=== PATIENT | female | born 1935 | race Caucasian/White ===

== ENCOUNTER → 2017-04-03 10:05 | Outpatient (CLI) | payer MEDICARE, SELFPAY ==
[2017-04-03 11:17] LABS: Alanine Aminotransferase 20 U/L (12-78); Albumin Level 3.4 gm/dL (3.4-5.0); Alkaline Phosphatase 120 U/L (46-116); Aspartate Amino Transferase 27 U/L (15-37); Bilirubin,Direct 0.1 mg/dL (0.0-0.2); Bilirubin,Total 0.2 mg/dL (0.2-1.0); Cholesterol 182 mg/dL (140-200); HDL Cholesterol 46 mg/dL (29-89); LDL Cholesterol 109 mg/dL (0-130); Total Protein,Serum 7.2 gm/dL (6.4-8.2); Triglycerides 135 mg/dL (30-200); VLDL Cholesterol 27 mg/dL (0-40)
== END ==
PROVIDERS: PCP Nurse Practitioner Family; Visit Provider Internal Medicine
DX: Z95.5 Presence of coronary angioplasty implant and graft (principal); I25.10 Atherosclerotic heart disease of native coronary artery without angina pectoris; I11.9 Hypertensive heart disease without heart failure; E78.4 Other hyperlipidemia
CPT/HCPCS: 36415; 80061; 80076

== ENCOUNTER → 2017-04-03 10:27 | Outpatient (POV) | payer MEDICARE, SELFPAY | PROVIDERS: PCP Nurse Practitioner Family; Visit Provider Physician Assistant | DX: Z00.00 Encounter for general adult medical examination without abnormal findings (principal) ==

== ENCOUNTER → 2017-06-22 14:51 | Outpatient (REF) | payer MEDICARE, SELFPAY ==
[2017-06-22 17:15] LABS: Basophils # 0.1 K/mm3 (0-0.2); Basophils % 1.1 % (0.1-2.0); Eosinophils # 0.8 K/mm3 (0.0-0.4); Eosinophils % 10.6 % (0.1-12.0); Hematocrit 31.2 % (37.0-47.0); Hemoglobin 8.9 g/dL (12.2-16.2); Lymphocytes # 2.4 K/mm3 (0.7-4.5); Lymphocytes % 30.8 K/mm3 (10-50); Mean Corpuscular HGB Conc 28.5 g/dL (31.8-35.4); Mean Platelet Volume 8.9 fl (7.4-10.4); Monocytes # 0.7 K/mm3 (0.1-1.0); Monocytes % 9.4 % (1.7-9.3); Neutrophils # 3.7 K/mm3 (1.8-7.8); Platelet Count 254 K/mm3 (142-424); Red Blood Count 3.72 M/mm3 (4.20-5.40); Red Cell Distribution Width 15.4 % (11.5-17.5); White Blood Count 7.6 K/mm3 (4.8-10.8)
[2017-06-22 18:38] LABS: Alanine Aminotransferase 15 U/L (12-78); Albumin Level 3.8 gm/dL (3.4-5.0); Alkaline Phosphatase 96 U/L (46-116); Anion Gap 17.7 mEq/L (5-15); Aspartate Amino Transferase 25 U/L (15-37); Bilirubin,Total 0.3 mg/dL (0.2-1.0); Blood Urea Nitrogen 33 mg/dL (7-18); Calcium 11.2 mg/dL (8.5-10.1); Carbon Dioxide 22 mmol/L (21.0-32.0); Chloride 103 mmol/L (98-107); Creatinine,Serum 2.34 mg/dL (0.55-1.02); Estimated Glomerular Filt Rate 20 ml/min (>60); Free T4 (Free Thyroxine) 0.96 ng/dl (0.76-1.46); GFR (African American) 24 ML/MIN (>60); Globulin 3.8 gm/dl (1.3-3.2); Glucose 98 mg/dL (74-106); Potassium 4.7 mmoL/L (3.5-5.1); Sodium 138 mmol/L (136-145); Thyroid Stimulating Hormone 1.54 uIU/ml (0.358-3.740); Total Protein,Serum 7.6 gm/dL (6.4-8.2)
== END ==
LOC: LAB 14:51
PROVIDERS: Visit Provider Nurse Practitioner Family
DX: E78.5 Hyperlipidemia, unspecified (principal)
CPT/HCPCS: 80053; 84439; 84443; 85025

== ENCOUNTER → 2017-06-29 10:07 | Outpatient (CLI) | payer MEDICARE, SELFPAY ==
[2017-06-29 10:30] LABS: Basophils # 0.1 K/mm3 (0-0.2); Basophils % 1.1 % (0.1-2.0); Eosinophils # 0.8 K/mm3 (0.0-0.4); Eosinophils % 9.2 % (0.1-12.0); Hematocrit 32.3 % (37.0-47.0); Hemoglobin 9.5 g/dL (12.2-16.2); Lymphocytes % 24.9 K/mm3 (10-50); Mean Corpuscular HGB Conc 29.3 g/dL (31.8-35.4); Mean Corpuscular Hemoglobin 24.6 pg (27.0-31.2); Mean Corpuscular Volume 84.2 fl (81-99); Mean Platelet Volume 8.5 fl (7.4-10.4); Monocytes # 0.7 K/mm3 (0.1-1.0); Monocytes % 7.9 % (1.7-9.3); Neutrophils # 4.7 K/mm3 (1.8-7.8); Neutrophils % 56.9 % (37.0-80.0); Platelet Count 251 K/mm3 (142-424); Red Blood Count 3.84 M/mm3 (4.20-5.40); Red Cell Distribution Width 15.7 % (11.5-17.5); White Blood Count 8.2 K/mm3 (4.8-10.8)
[2017-06-29 11:20] LABS: Alanine Aminotransferase 16 U/L (12-78); Albumin Level 3.8 gm/dL (3.4-5.0); Alkaline Phosphatase 95 U/L (46-116); Anion Gap 11.9 mEq/L (5-15); Aspartate Amino Transferase 24 U/L (15-37); Bilirubin,Total 0.3 mg/dL (0.2-1.0); Blood Urea Nitrogen 33 mg/dL (7-18); Calcium 10.3 mg/dL (8.5-10.1); Carbon Dioxide 27 mmol/L (21.0-32.0); Chloride 109 mmol/L (98-107); Creatinine,Serum 2.44 mg/dL (0.55-1.02); Estimated Glomerular Filt Rate 19 ml/min (>60); GFR (African American) 23 ML/MIN (>60); Globulin 3.8 gm/dl (1.3-3.2); Glucose 97 mg/dL (74-106); Potassium 4.9 mmoL/L (3.5-5.1); Sodium 143 mmol/L (136-145); Total Protein,Serum 7.6 gm/dL (6.4-8.2)
== END ==
PROVIDERS: Visit Provider Nurse Practitioner Family
DX: D64.9 Anemia, unspecified (principal); R79.89 Other specified abnormal findings of blood chemistry
CPT/HCPCS: 36415; 80053; 85025

== ENCOUNTER → 2017-07-04 11:15 | Outpatient (CLI) | payer MEDICARE, SELFPAY ==
[2017-07-04 11:32] LABS: Hematocrit 32.3 % (37.0-47.0); Hemoglobin 9.4 g/dL (12.2-16.2)
== END ==
PROVIDERS: Visit Provider Nurse Practitioner Family
DX: D64.9 Anemia, unspecified (principal)
CPT/HCPCS: 36415; 85014; 85018

== ENCOUNTER → 2017-08-02 09:50 | Outpatient (CLI) | payer MEDICARE, SELFPAY ==
[2017-08-02 11:04] LABS: Hematocrit 34.2 % (37.0-47.0); Hemoglobin 10.5 g/dL (12.2-16.2)
== END ==
PROVIDERS: Visit Provider Nurse Practitioner Family
DX: D64.9 Anemia, unspecified (principal)
CPT/HCPCS: 36415; 85014; 85018

== ENCOUNTER → 2017-09-11 09:09 | Outpatient (CLI) | payer MEDICARE, SELFPAY ==
[2017-09-11 09:13] LABS: Microscopic, Urine URINE MICROSCOPIC (MICROSCOPIC)
[2017-09-11 09:29] LABS: Basophils # 0.1 K/mm3 (0-0.2); Basophils % 1.3 % (0.1-2.0); Eosinophils # 1.3 K/mm3 (0.0-0.4); Eosinophils % 14.8 % (0.1-12.0); Hematocrit 42.2 % (37.0-47.0); Hemoglobin 12.4 g/dL (12.2-16.2); Lymphocytes # 2.3 K/mm3 (0.7-4.5); Lymphocytes % 26.7 K/mm3 (10-50); Mean Corpuscular HGB Conc 29.3 g/dL (31.8-35.4); Mean Corpuscular Hemoglobin 26.7 pg (27.0-31.2); Mean Corpuscular Volume 91.2 fl (81-99); Mean Platelet Volume 8.5 fl (7.4-10.4); Monocytes # 0.6 K/mm3 (0.1-1.0); Monocytes % 6.4 % (1.7-9.3); Neutrophils # 4.4 K/mm3 (1.8-7.8); Neutrophils % 50.7 % (37.0-80.0); Platelet Count 204 K/mm3 (142-424); Red Blood Count 4.63 M/mm3 (4.20-5.40); Red Cell Distribution Width 16.9 % (11.5-17.5); White Blood Count 8.6 K/mm3 (4.8-10.8)
[2017-09-11 09:55] LABS: Appearance,Urine CLEAR (Clear); Bilirubin,Urine Negative (Negative); Blood, Urine TRACE-L (Negative); Color,Urine YELLOW (Yellow); Glucose,Urine (UA) Negative (Negative); Ketones,Urine Negative (Negative); Leukocyte Esterase,Urine TRACE (Negative); Nitrate,Urine Negative (Negative); PH,Urine 5.5 (5.0-8.5); Protein,Urine 2+ (Negative); Urobilinogen,Urine 0.2 EU/dl (0.2)
[2017-09-11 10:03] LABS: Creatinine,Urine Random 75 mg/dL (20-320); Total Protein,Urine Random 79.7 mg/dL (0.0-11.9)
[2017-09-11 10:33] LABS: Bacteria,Urine 2+ /lpf; WBC,Urine 20-50 #/hpf (0-3)
[2017-09-11 11:11] LABS: Albumin Level 3.9 gm/dL (3.4-5.0); Anion Gap 13.2 mEq/L (5-15); Blood Urea Nitrogen 30 mg/dL (7-18); Calcium 9.9 mg/dL (8.5-10.1); Carbon Dioxide 26 mmol/L (21.0-32.0); Chloride 108 mmol/L (98-107); Creatinine,Serum 2.08 mg/dL (0.55-1.02); Estimated Glomerular Filt Rate 23 ml/min (>60); Ferritin 26 ng/mL (8-388); GFR (African American) 28 ML/MIN (>60); Glucose 99 mg/dL (74-106); Phosphorous 4.2 mg/dL (2.4-4.9); Potassium 5.2 mmoL/L (3.5-5.1); Sodium 142 mmol/L (136-145)
[2017-09-12 08:33] LABS: Iron 105 ug/dL (27-139); UIBC 227 ug/dL (118-369)
[2017-09-12 09:20] LABS: Iron Saturation 32 % (15-55)
== END ==
PROVIDERS: Visit Provider Internal Medicine Nephrology
DX: N18.4 Chronic kidney disease, stage 4 (severe) (principal); R82.90 Unspecified abnormal findings in urine
CPT/HCPCS: 36415; 80069; 81001; 82570; 82728; 83540; 83550; 84155; 85025; 87086; 87088; 87186

== ENCOUNTER → 2017-09-26 12:19 | Outpatient (CLI) | payer MEDICARE, SELFPAY ==
[2017-09-26 14:25] LABS: Alanine Aminotransferase 15 U/L (12-78); Albumin Level 3.8 gm/dL (3.4-5.0); Alkaline Phosphatase 87 U/L (46-116); Aspartate Amino Transferase 21 U/L (15-37); Bilirubin,Direct 0.1 mg/dL (0.0-0.2); Bilirubin,Indirect 0.3 mg/dL (0.0-0.9); Bilirubin,Total 0.4 mg/dL (0.2-1.0); Chol/HDL Ratio 2.8 (1-3.5); Cholesterol 138 mg/dL (140-200); HDL Cholesterol 49 mg/dL (29-89); LDL Cholesterol 63 mg/dL (0-130); Total Protein,Serum 7.5 gm/dL (6.4-8.2); Triglycerides 131 mg/dL (30-200); VLDL Cholesterol 26 mg/dL (0-40)
== END ==
PROVIDERS: PCP Nurse Practitioner Family; Visit Provider Nurse Practitioner Family
DX: E78.4 Other hyperlipidemia (principal)
CPT/HCPCS: 36415; 80061; 80076

== ENCOUNTER → 2018-02-22 11:08 | Outpatient (CLI) | payer MEDICARE, SELFPAY ==
[2018-02-22 11:16] LABS: Microscopic, Urine URINE MICROSCOPIC (MICROSCOPIC)
[2018-02-22 11:41] LABS: Appearance,Urine CLEAR (Clear); Bilirubin,Urine Negative (Negative); Blood, Urine TRACE-L (Negative); Color,Urine YELLOW (Yellow); Glucose,Urine (UA) Negative (Negative); Ketones,Urine Negative (Negative); Leukocyte Esterase,Urine TRACE (Negative); Nitrate,Urine Negative (Negative); Protein,Urine 2+ (Negative); Specific Gravity, Urine 1.025 (1.005-1.030); Urobilinogen,Urine 0.2 EU/dl (0.2)
[2018-02-22 12:01] LABS: Bacteria,Urine 1+ /lpf; Squamous Epithelial Cell,Urine Occasional #/hpf (0-5)
[2018-02-22 12:13] LABS: Basophils # 0.1 K/mm3 (0-0.2); Basophils % 0.8 % (0.1-2.0); Eosinophils # 0.8 K/mm3 (0.0-0.4); Eosinophils % 8.7 % (0.1-12.0); Hematocrit 35.9 % (37.0-47.0); Hemoglobin 11.1 g/dL (12.2-16.2); Lymphocytes # 2.3 K/mm3 (0.7-4.5); Mean Corpuscular Hemoglobin 30.1 pg (27.0-31.2); Mean Corpuscular Volume 97.1 fl (81-99); Monocytes # 0.6 K/mm3 (0.1-1.0); Monocytes % 6.9 % (1.7-9.3); Neutrophils # 5.3 K/mm3 (1.8-7.8); Neutrophils % 58.7 % (37.0-80.0); Platelet Count 215 K/mm3 (142-424); Red Cell Distribution Width 13.4 % (11.5-17.5); White Blood Count 9.1 K/mm3 (4.8-10.8)
[2018-02-22 12:23] LABS: Creatinine,Urine Random 184 mg/dL (20-320); Total Protein,Urine Random 105.4 mg/dL (0.0-11.9)
[2018-02-22 13:14] LABS: Albumin Level 3.9 gm/dL (3.4-5.0); Anion Gap 15.9 mEq/L (5-15); Blood Urea Nitrogen 38 mg/dL (7-18); Calcium 9.9 mg/dL (8.5-10.1); Carbon Dioxide 24 mmol/L (21.0-32.0); Chloride 105 mmol/L (98-107); Creatinine,Serum 2.32 mg/dL (0.55-1.02); Estimated Glomerular Filt Rate 20 ml/min (>60); GFR (African American) 24 ML/MIN (>60); Glucose 90 mg/dL (74-106); Phosphorous 4.3 mg/dL (2.4-4.9); Potassium 4.9 mmoL/L (3.5-5.1); Sodium 140 mmol/L (136-145)
== END ==
PROVIDERS: PCP Nurse Practitioner Family; Visit Provider Internal Medicine Nephrology
DX: N18.4 Chronic kidney disease, stage 4 (severe) (principal)
CPT/HCPCS: 36415; 80069; 81001; 82570; 84155; 85025

== ENCOUNTER → 2018-03-05 13:46 | Outpatient (POV) | payer MEDICARE, SELFPAY | PROVIDERS: Visit Provider Internal Medicine Nephrology | DX: Z00.00 Encounter for general adult medical examination without abnormal findings (principal) ==

== ENCOUNTER → 2018-07-12 09:12 | Outpatient (CLI) | payer MEDICARE, SELFPAY ==
[2018-07-12 09:15] LABS: Microscopic, Urine URINE MICROSCOPIC (MICROSCOPIC)
[2018-07-12 09:47] LABS: Basophils # 0.1 K/mm3 (0-0.2); Eosinophils # 0.5 K/mm3 (0.0-0.4); Eosinophils % 6.6 % (0.1-12.0); Hematocrit 37.3 % (37.0-47.0); Hemoglobin 11.8 g/dL (12.2-16.2); Lymphocytes % 28.1 % (10-50); Mean Corpuscular HGB Conc 31.6 g/dL (31.8-35.4); Mean Corpuscular Hemoglobin 29.9 pg (27.0-31.2); Mean Corpuscular Volume 94.5 fl (81-99); Mean Platelet Volume 8.3 fl (7.4-10.4); Monocytes # 0.4 K/mm3 (0.1-1.0); Monocytes % 6.4 % (1.7-9.3); Neutrophils % 57.9 % (37.0-80.0); Platelet Count 232 K/mm3 (142-424); Red Blood Count 3.95 M/mm3 (4.20-5.40); Red Cell Distribution Width 13.1 % (11.5-17.5)
[2018-07-12 10:39] LABS: Appearance,Urine SL CLOUDY (Clear); Bilirubin,Urine Negative (Negative); Blood, Urine 1+ (Negative); Color,Urine YELLOW (Yellow); Glucose,Urine (UA) Negative (Negative); Ketones,Urine Negative (Negative); Leukocyte Esterase,Urine 1+ (Negative); Nitrate,Urine Negative (Negative); Protein,Urine 2+ (Negative); Specific Gravity, Urine 1.015 (1.005-1.030); Urobilinogen,Urine 0.2 EU/dl (0.2)
[2018-07-12 10:48] LABS: Albumin Level 4.1 gm/dL (3.4-5.0); Anion Gap 16.5 mEq/L (5-15); Blood Urea Nitrogen 28 mg/dL (7-18); Carbon Dioxide 25 mmol/L (21.0-32.0); Chloride 106 mmol/L (98-107); Estimated Glomerular Filt Rate 21 ml/min (>60); GFR (African American) 26 ML/MIN (>60); Glucose 90 mg/dL (74-106); Phosphorous 3.6 mg/dL (2.4-4.9); Potassium 4.5 mmoL/L (3.5-5.1); Sodium 143 mmol/L (136-145)
[2018-07-12 11:02] LABS: Creatinine,Urine Random 101 mg/dL (20-320); Total Protein,Urine Random 124.8 mg/dL (0.0-11.9)
[2018-07-12 11:45] LABS: Bacteria,Urine Trace /lpf; Squamous Epithelial Cell,Urine Occasional #/hpf (0-5)
[2018-07-13 15:10] LABS: Calcium, Ionized 5.8 mg/dL (4.5-5.6)
[2018-07-14 06:41] LABS: Parathyroid Hormone Intact 161 pg/mL (15-65); Vitamin D 25 Hydroxy 29.2 ng/mL (30.0-100.0)
== END ==
PROVIDERS: Visit Provider Internal Medicine Nephrology
DX: N18.4 Chronic kidney disease, stage 4 (severe) (principal); R82.90 Unspecified abnormal findings in urine
CPT/HCPCS: 36415; 80069; 81001; 82330; 82570; 82652; 83970; 84155; 85025; 87086; 87088; 87186

== ENCOUNTER → 2018-07-19 12:30 | Outpatient (POV) | payer MEDICARE, SELFPAY | PROVIDERS: Visit Provider Internal Medicine Nephrology | DX: Z00.00 Encounter for general adult medical examination without abnormal findings (principal) ==

== ENCOUNTER → 2018-09-25 11:16 | Outpatient (CLI) | payer MEDICARE, SELFPAY ==
[2018-09-25 12:22] LABS: Alanine Aminotransferase 16 U/L (12-78); Albumin Level 3.8 gm/dL (3.4-5.0); Alkaline Phosphatase 87 U/L (46-116); Aspartate Amino Transferase 18 U/L (15-37); Bilirubin,Direct 0.1 mg/dL (0.0-0.2); Bilirubin,Indirect 0.3 mg/dL (0.0-0.9); Bilirubin,Total 0.4 mg/dL (0.2-1.0); Chol/HDL Ratio 2.4 (1-3.5); Cholesterol 129 mg/dL (140-200); HDL Cholesterol 53 mg/dL (29-89); LDL Cholesterol 56 mg/dL (0-130); Triglycerides 102 mg/dL (30-200); VLDL Cholesterol 20 mg/dL (0-40)
== END ==
PROVIDERS: Visit Provider Urology
DX: E78.5 Hyperlipidemia, unspecified (principal); I11.9 Hypertensive heart disease without heart failure; I25.10 Atherosclerotic heart disease of native coronary artery without angina pectoris; Z95.5 Presence of coronary angioplasty implant and graft
CPT/HCPCS: 36415; 80061; 80076

== ENCOUNTER → 2018-11-12 10:34 | Outpatient (CLI) | payer MEDICARE, SELFPAY ==
[2018-11-12 10:39] LABS: Microscopic, Urine URINE MICROSCOPIC (MICROSCOPIC)
[2018-11-12 11:03] LABS: Basophils # 0.1 K/mm3 (0-0.2); Basophils % 0.8 % (0.1-2.0); Eosinophils # 0.5 K/mm3 (0.0-0.4); Eosinophils % 7.7 % (0.1-12.0); Hemoglobin 9.9 g/dL (12.2-16.2); Lymphocytes % 28.2 % (10-50); Mean Corpuscular HGB Conc 29.9 g/dL (31.8-35.4); Mean Corpuscular Hemoglobin 27.7 pg (27.0-31.2); Mean Corpuscular Volume 92.5 fl (81-99); Mean Platelet Volume 8.8 fl (7.4-10.4); Monocytes # 0.6 K/mm3 (0.1-1.0); Monocytes % 7.9 % (1.7-9.3); Neutrophils # 3.8 K/mm3 (1.8-7.8); Neutrophils % 55.4 % (37.0-80.0); Platelet Count 247 K/mm3 (142-424); Red Blood Count 3.57 M/mm3 (4.20-5.40); Red Cell Distribution Width 14.1 % (11.5-17.5); White Blood Count 6.9 K/mm3 (4.8-10.8)
[2018-11-12 11:04] LABS: Appearance,Urine CLEAR (Clear); Bilirubin,Urine Negative (Negative); Blood, Urine TRACE-I (Negative); Color,Urine YELLOW (Yellow); Glucose,Urine (UA) Negative (Negative); Ketones,Urine Negative (Negative); Leukocyte Esterase,Urine TRACE (Negative); Nitrate,Urine Negative (Negative); Protein,Urine 1+ (Negative); Specific Gravity, Urine 1.015 (1.005-1.030); Urobilinogen,Urine 0.2 EU/dl (0.2)
[2018-11-12 11:34] LABS: Bacteria,Urine 1+ /lpf; Squamous Epithelial Cell,Urine Occasional #/hpf (0-5)
[2018-11-12 11:44] LABS: Creatinine,Urine Random 78 mg/dL (20-320); Total Protein,Urine Random 85.2 mg/dL (0.0-11.9)
[2018-11-12 11:47] LABS: Albumin Level 3.7 gm/dL (3.4-5.0); Anion Gap 13.4 mEq/L (5-15); Blood Urea Nitrogen 31 mg/dL (7-18); Calcium 9.4 mg/dL (8.5-10.1); Carbon Dioxide 26 mmol/L (21.0-32.0); Chloride 106 mmol/L (98-107); Creatinine,Serum 2.42 mg/dL (0.55-1.02); Estimated Glomerular Filt Rate 19 ml/min (>60); GFR (African American) 23 ML/MIN (>60); Glucose 95 mg/dL (74-106); Phosphorous 4.7 mg/dL (2.4-4.9); Potassium 4.4 mmoL/L (3.5-5.1); Sodium 141 mmol/L (136-145)
== END ==
PROVIDERS: Visit Provider Internal Medicine Nephrology
DX: N18.4 Chronic kidney disease, stage 4 (severe) (principal)
CPT/HCPCS: 36415; 80069; 81001; 82570; 84155; 85025

== ENCOUNTER → 2018-11-22 13:12 | Outpatient (POV) | payer MEDICARE, SELFPAY | PROVIDERS: Visit Provider Internal Medicine Nephrology | DX: Z00.00 Encounter for general adult medical examination without abnormal findings (principal) ==

== ENCOUNTER → 2019-03-15 09:07 | Outpatient (CLI) | payer MEDICARE, SELFPAY ==
[2019-03-15 09:17] LABS: Microscopic, Urine URINE MICROSCOPIC (MICROSCOPIC)
[2019-03-15 09:49] LABS: Basophils # 0.1 K/mm3 (0-0.2); Creatinine,Urine Random 124 mg/dL (20-320); Eosinophils # 0.6 K/mm3 (0.0-0.4); Eosinophils % 8.3 % (0.1-12.0); Hematocrit 29.4 % (37.0-47.0); Hemoglobin 8.7 g/dL (12.2-16.2); Lymphocytes # 2.1 K/mm3 (0.7-4.5); Lymphocytes % 27.8 % (10-50); Mean Corpuscular HGB Conc 29.8 g/dL (31.8-35.4); Mean Corpuscular Hemoglobin 26.8 pg (27.0-31.2); Mean Corpuscular Volume 89.9 fl (81-99); Monocytes # 0.6 K/mm3 (0.1-1.0); Monocytes % 7.7 % (1.7-9.3); Neutrophils # 4.1 K/mm3 (1.8-7.8); Neutrophils % 55.3 % (37.0-80.0); Platelet Count 268 K/mm3 (142-424); Red Blood Count 3.27 M/mm3 (4.20-5.40); Red Cell Distribution Width 14.5 % (11.5-17.5); Total Protein,Urine Random 106.7 mg/dL (0.0-11.9); White Blood Count 7.4 K/mm3 (4.8-10.8)
[2019-03-15 09:50] LABS: Appearance,Urine CLEAR (Clear); Bilirubin,Urine Negative (Negative); Blood, Urine 1+ (Negative); Color,Urine YELLOW (Yellow); Glucose,Urine (UA) Negative (Negative); Ketones,Urine Negative (Negative); Leukocyte Esterase,Urine 1+ (Negative); Nitrate,Urine Negative (Negative); Protein,Urine 1+ (Negative); Specific Gravity, Urine 1.025 (1.005-1.030); Urobilinogen,Urine 0.2 EU/dl (0.2)
[2019-03-15 10:28] LABS: Bacteria,Urine 4+ /lpf; Mucus,Urine 1+ /lpf
[2019-03-15 10:56] LABS: Albumin Level 3.7 gm/dL (3.4-5.0); Anion Gap 14.5 mEq/L (5-15); Blood Urea Nitrogen 30 mg/dL (7-18); Calcium 9.1 mg/dL (8.5-10.1); Carbon Dioxide 24 mmol/L (21.0-32.0); Chloride 107 mmol/L (98-107); Creatinine,Serum 2.44 mg/dL (0.55-1.02); Estimated Glomerular Filt Rate 19 ml/min (>60); Ferritin 8 ng/mL (8-388); GFR (African American) 23 ML/MIN (>60); Glucose 91 mg/dL (74-106); Phosphorous 4.3 mg/dL (2.4-4.9); Potassium 4.5 mmoL/L (3.5-5.1); Sodium 141 mmol/L (136-145)
[2019-03-16 04:46] LABS: Iron 24 ug/dL (27-139); UIBC 360 ug/dL (118-369)
[2019-03-16 11:12] LABS: Iron Saturation 6 % (15-55); Parathyroid Hormone Intact 131 pg/mL (15-65); Vitamin D 25 Hydroxy 24.5 ng/mL (30.0-100.0)
[2019-03-17 16:27] LABS: Calcium, Ionized 5.5 mg/dL (4.5-5.6)
== END ==
PROVIDERS: Visit Provider Internal Medicine Nephrology
DX: N18.4 Chronic kidney disease, stage 4 (severe) (principal); E55.9 Vitamin D deficiency, unspecified; R82.90 Unspecified abnormal findings in urine
CPT/HCPCS: 36415; 80069; 81001; 82330; 82570; 82652; 82728; 83540; 83550; 83970; 84155; 85025; 87086; 87088; 87186

== ENCOUNTER → 2019-03-21 14:22 | Outpatient (POV) | payer MEDICARE, SELFPAY | PROVIDERS: Visit Provider Internal Medicine Nephrology | DX: Z00.00 Encounter for general adult medical examination without abnormal findings (principal) ==

== ENCOUNTER → 2019-05-15 09:34 | Outpatient (CLI) | payer MEDICARE, SELFPAY ==
[2019-05-15 09:42] LABS: Microscopic, Urine URINE MICROSCOPIC (MICROSCOPIC)
[2019-05-15 10:31] LABS: Basophils # 0.1 K/mm3 (0-0.2); Basophils % 0.8 % (0.1-2.0); Eosinophils # 0.6 K/mm3 (0.0-0.4); Hematocrit 34.1 % (37.0-47.0); Hemoglobin 10.6 g/dL (12.2-16.2); Lymphocytes # 1.7 K/mm3 (0.7-4.5); Lymphocytes % 19.3 % (10-50); Mean Corpuscular HGB Conc 31.1 g/dL (31.8-35.4); Mean Corpuscular Hemoglobin 29.1 pg (27.0-31.2); Mean Corpuscular Volume 93.5 fl (81-99); Mean Platelet Volume 8.6 fl (7.4-10.4); Monocytes # 0.6 K/mm3 (0.1-1.0); Monocytes % 6.5 % (1.7-9.3); Neutrophils % 66.4 % (37.0-80.0); Platelet Count 248 K/mm3 (142-424); Red Blood Count 3.64 M/mm3 (4.20-5.40); Red Cell Distribution Width 15.4 % (11.5-17.5)
[2019-05-15 10:57] LABS: Appearance,Urine CLEAR (Clear); Bilirubin,Urine Negative (Negative); Blood, Urine 1+ (Negative); Color,Urine YELLOW (Yellow); Glucose,Urine (UA) Negative (Negative); Ketones,Urine Negative (Negative); Leukocyte Esterase,Urine 2+ (Negative); Nitrate,Urine POSITIVE (Negative); Protein,Urine 2+ (Negative); Urobilinogen,Urine 0.2 EU/dl (0.2)
[2019-05-15 11:02] LABS: Creatinine,Urine Random 104 mg/dL (Not Estab.)
[2019-05-15 11:12] LABS: Bacteria,Urine 4+ /lpf; WBC,Urine TNTC #/hpf (0-3)
[2019-05-15 11:27] LABS: Chloride 105 mmol/L (98-107); Potassium 4.7 mmoL/L (3.5-5.1); Sodium 139 mmol/L (136-145)
[2019-05-15 11:28] LABS: Albumin Level 3.9 g/dl (3.5-5.0)
[2019-05-15 11:30] LABS: Anion Gap 12.7 mEq/L (5-15); Blood Urea Nitrogen 25 mg/dl (7-17); Carbon Dioxide 26 mmol/L (22.0-30.0); Estimated Glomerular Filt Rate 20 ml/min (>60); GFR (African American) 25 ML/MIN (>60)
[2019-05-15 11:31] LABS: Calcium 10.3 mg/dl (8.4-10.2); Glucose 90 mg/dl (74-100); Phosphorous 3.1 mg/dl (2.5-4.5)
[2019-05-15 12:05] LABS: Ferritin 12.6 ng/ml (11.1-264)
[2019-05-16 08:29] LABS: Iron 44 ug/dL (27-139); UIBC 297 ug/dL (118-369)
[2019-05-16 12:38] LABS: Iron Saturation 13 % (15-55)
== END ==
PROVIDERS: Visit Provider Internal Medicine Nephrology
DX: N18.4 Chronic kidney disease, stage 4 (severe) (principal); R82.90 Unspecified abnormal findings in urine
CPT/HCPCS: 36415; 80069; 81001; 82570; 82728; 83540; 83550; 84155; 85025; 87086; 87088; 87186

== ENCOUNTER → 2019-05-23 14:20 | Outpatient (POV) | payer MEDICARE, SELFPAY | PROVIDERS: PCP Internal Medicine Nephrology; Visit Provider Internal Medicine Nephrology | DX: Z00.00 Encounter for general adult medical examination without abnormal findings (principal) ==

== ENCOUNTER → 2019-09-27 14:01 | Outpatient (CLI) | payer MEDICARE, SELFPAY ==
--- NOTE | 2019-09-27 14:07 | CA_ITS ---
APPROVED REPORT EXAM: Comprehensive 2D, Doppler, and color-flow Echocardiogram Pourer Metal: Mimi Emmanuel RT(R) Ht: 5 ft 0 in Wt: 147lbs BSA: 1.64 BP: 136/83 mmHg Indications: CAD, CKD, HTN, hyperlipidemia 2D Dimensions LVOT 1.78 cm (M/F) 1.5-2.5 M-Mode Dimensions RVDd 2.29 cm (0.9-2.6) LVDd 4.79 cm (3.5-5.7) LVDs 3.86 cm (3.5-5.7) IVSd 1.11 cm (0.6-1.1) PWd 0.93 cm (0.6-1.1) EF (Teich) 39.90% FS 19.40% EDV (Teich) 107.00 mL ESV (Teich) 64.30 mL LV Diastology E/A Ratio 0.69 Mitral Valve MV A Velocity 82.00 (40-130 cm/s) Left Ventricle Left atrium is mildly enlarged, left ventricle is normal size, mild concentric left ventricular hypertrophy, visually estimated ejection fraction 55% with no regional wall motion abnormality, grade 1 diastolic dysfunction seen without tissue Doppler evidence of raise left atrial pressure. Right Ventricle Right atrium and right ventricular normal size and contractility. Aortic Valve Aortic valve is minimally thickened and fibrosed, there is no aortic stenosis or aortic insufficiency. Mitral Valve Mitral valve is minimally thickened, there is no mitral stenosis, there is mild mitral regurgitation. Tricuspid Valve Tricuspid valve is grossly normal, there is mild tricuspid regurgitation. Pulmonic Valve Pulmonic valve is poorly visualized. Great Vessels Aortic root is normal size. Pericardium No significant pericardial effusion noted. Conclusion 1. Mildly enlarged left atrium, normal left ventricular size, mild concentric left ventricular hypertrophy, visually estimated ejection fraction 55% with no regional wall motion abnormality, grade 1 diastolic dysfunction seen without tissue Doppler evidence of raise left atrial pressure. 2. Mild mitral and tricuspid regurgitation. 3. No significant pericardial effusion noted. Electronically signed by : Yehuda Salgado, 09/30/2019 07:14:53
== END ==
PROVIDERS: PCP Nurse Practitioner Family; Visit Provider Urology
DX: I25.10 Atherosclerotic heart disease of native coronary artery without angina pectoris (principal)
CPT/HCPCS: 93306

== ENCOUNTER → 2020-01-07 09:23 | Outpatient (POV) | payer MEDICARE, SELFPAY | PROVIDERS: Visit Provider Dermatology | DX: Z00.00 Encounter for general adult medical examination without abnormal findings (principal) ==

== ENCOUNTER → 2020-05-22 14:55 | Outpatient (CLI) | payer MEDICARE, SELFPAY ==
[2020-05-22 17:02] LABS: Basophils # 0.1 K/mm3 (0-0.2); Basophils % 0.9 % (0.1-2.0); Eosinophils # 0.5 K/mm3 (0.0-0.4); Eosinophils % 5.2 % (0.1-12.0); Hematocrit 30.1 % (37.0-47.0); Hemoglobin 8.9 g/dL (12.2-16.2); Lymphocytes # 1.7 K/mm3 (0.7-4.5); Lymphocytes % 16.3 % (10-50); Mean Corpuscular HGB Conc 29.6 g/dL (31.8-35.4); Mean Corpuscular Hemoglobin 24.7 pg (27.0-31.2); Mean Corpuscular Volume 83.4 fl (81-99); Mean Platelet Volume 8.9 fl (7.4-10.4); Monocytes # 0.6 K/mm3 (0.1-1.0); Monocytes % 6.1 % (1.7-9.3); Neutrophils # 7.3 K/mm3 (1.8-7.8); Neutrophils % 71.4 % (37.0-80.0); Platelet Count 330 K/mm3 (142-424); Red Blood Count 3.61 M/mm3 (4.20-5.40); Red Cell Distribution Width 16.4 % (11.5-17.5); White Blood Count 10.1 K/mm3 (4.8-10.8)
[2020-05-22 17:07] LABS: Alanine Aminotransferase 7 U/L (12-78); Albumin Level 3.9 g/dl (3.5-5.0); Albumin/Globulin Ratio 1.1 (1.1-1.8); Alkaline Phosphatase 118 U/L (38-126); Anion Gap 14.8 mEq/L (5-15); Aspartate Amino Transferase 21 U/L (14-36); Bilirubin,Total 0.4 mg/dl (0.2-1.3); Blood Urea Nitrogen 26 mg/dl (7-17); Calcium 10.5 mg/dl (8.4-10.2); Carbon Dioxide 19 mmol/L (22.0-30.0); Chloride 109 mmol/L (98-107); Chol/HDL Ratio 2.5 (1-3.5); Cholesterol 129 mg/dl (140-200); Estimated Glomerular Filt Rate 24 ml/min (>60); GFR (African American) 29 ML/MIN (>60); Globulin 3.4 g/dL (1.3-3.2); Glucose 103 mg/dl (74-100); HDL Cholesterol 52 mg/dl (40-60); Potassium 4.8 mmoL/L (3.5-5.1); Sodium 138 mmol/L (136-145); Total Protein,Serum 7.3 g/dl (6.3-8.2); Triglycerides 105 mg/dl (30-150); VLDL Cholesterol 21 mg/dL (0-40)
[2020-05-22 17:18] LABS: Direct LDL Cholesterol 49.99 mg/dL (100-129)
[2020-05-22 17:25] LABS: 25-OH Vitamin D, Total 30.9 ng/mL (30-100); T4 (Thyroxine) 7.1 ug/dl (5.53-11.0)
[2020-05-22 17:39] LABS: Thyroid Stimulating Hormone 2.01 uIU/mL (0.465-4.68)
== END ==
PROVIDERS: Visit Provider Nurse Practitioner Family
DX: I25.10 Atherosclerotic heart disease of native coronary artery without angina pectoris; N18.4 Chronic kidney disease, stage 4 (severe); I12.9 Hypertensive chronic kidney disease with stage 1 through stage 4 chronic kidney disease, or unspecified chronic kidney disease; Z79.899 Other long term (current) drug therapy
CPT/HCPCS: 80053; 80061; 82306; 84436; 84443; 85025

== ENCOUNTER → 2020-06-03 14:08 | Outpatient (CLI) | payer MEDICARE, SELFPAY ==
[2020-06-03 15:33] LABS: Hemoglobin A1C 5.9 % (4.0-6.0)
== END ==
PROVIDERS: Visit Provider Nurse Practitioner Family
DX: R73.09 Other abnormal glucose (principal)
CPT/HCPCS: 83036

== ENCOUNTER → 2020-11-20 15:27 | Outpatient (CLI) | payer MEDICARE, SELFPAY ==
[2020-11-20 16:08] LABS: Alanine Aminotransferase 9 U/L (12-78); Albumin Level 3.7 g/dl (3.5-5.0); Albumin/Globulin Ratio 1.1 (1.1-1.8); Alkaline Phosphatase 109 U/L (38-126); Aspartate Amino Transferase 21 U/L (14-36); Bilirubin,Total 0.4 mg/dl (0.2-1.3); Blood Urea Nitrogen 39 mg/dl (7-17); Calcium 10.4 mg/dl (8.4-10.2); Carbon Dioxide 21 mmol/L (22.0-30.0); Chloride 107 mmol/L (98-107); Chol/HDL Ratio 2.7 (1-3.5); Cholesterol 140 mg/dl (140-200); Estimated Glomerular Filt Rate 27 ml/min (>60); GFR (African American) 33 ML/MIN (>60); Globulin 3.3 g/dL (1.3-3.2); Glucose 109 mg/dl (74-100); HDL Cholesterol 52 mg/dl (40-60); Sodium 139 mmol/L (136-145); Triglycerides 135 mg/dl (30-150); VLDL Cholesterol 27 mg/dL (0-40)
[2020-11-20 16:09] LABS: Basophils # 0.1 K/mm3 (0-0.2); Basophils % 0.8 % (0.1-2.0); Eosinophils # 0.7 K/mm3 (0.0-0.4); Eosinophils % 5.9 % (0.1-12.0); Hematocrit 33.5 % (37.0-47.0); Hemoglobin 9.6 g/dL (12.2-16.2); Lymphocytes # 1.8 K/mm3 (0.7-4.5); Lymphocytes % 15.8 % (10-50); Mean Corpuscular HGB Conc 28.6 g/dL (31.8-35.4); Mean Corpuscular Hemoglobin 25.6 pg (27.0-31.2); Mean Corpuscular Volume 89.4 fl (81-99); Mean Platelet Volume 9.2 fl (7.4-10.4); Monocytes # 0.7 K/mm3 (0.1-1.0); Monocytes % 5.8 % (1.7-9.3); Neutrophils % 71.6 % (37.0-80.0); Platelet Count 349 K/mm3 (142-424); Red Blood Count 3.75 M/mm3 (4.20-5.40); Red Cell Distribution Width 16.3 % (11.5-17.5); White Blood Count 11.1 K/mm3 (4.8-10.8)
[2020-11-20 16:39] LABS: Thyroid Stimulating Hormone 2.45 uIU/mL (0.465-4.68)
== END ==
PROVIDERS: Visit Provider Nurse Practitioner Family
DX: I10 Essential (primary) hypertension (principal); I25.10 Atherosclerotic heart disease of native coronary artery without angina pectoris; R73.03 Prediabetes; N18.4 Chronic kidney disease, stage 4 (severe)
CPT/HCPCS: 80053; 80061; 82306; 83036; 84436; 84443; 85025

== ENCOUNTER → 2020-12-28 10:14 | Outpatient (CLI) | payer MEDICARE, SELFPAY | PROVIDERS: Visit Provider Surgery | DX: Z01.812 Encounter for preprocedural laboratory examination (principal); Z11.52 Encounter for screening for COVID-19; Z12.11 Encounter for screening for malignant neoplasm of colon; Z86.010 Personal history of colon polyps | CPT/HCPCS: C9803; U0003; U0005 ==

== ENCOUNTER 2020-12-30 08:27 | Day surgery (SDC) | payer MEDICARE, SELFPAY ==
[2020-12-24 14:15] VITALS: BMI 26.4
[2020-12-30 08:52] VITALS: BP 147/87; PULSE 64; RESP 18; TEMP 36.9; O2SAT 98
--- NOTE | 2020-12-30 09:18 | HMH.ANESCL ---
[facility] Anesthesia Checklist - Patient Identification Patient Identification: Arm Band - Structural Data Admitted From: Home Planned Operative Procedure/s: colonoscopy Consent for Planned Operative Procedure(s) Verified: Yes Verified Documents: Surgical Consent, History and Physical - NPO Status Verified Time NPO: 00:00 - Additional verifications Anesthesia Reactions: No - Airway Assessment C-Spine Mobility Assessed: Yes (mp2) TMJ Mobility Assessed: Yes Dentition: Good Dentition - Neurological Assessment Level of Consciousness: Awake, Alert - Anesthesia Plan Anesthesia Risk discussed: Yes Anesthesia Plan: Verified ASA Class: III Anesthesia Type: MAC [facility] History I have reviewed the patient's past medical history: Yes Medical History: Reports:: Coronary Artery Disease, Hyperlipidemia, Hypertension, Renal Disease Denies:: Cancer, Diabetes Mellitus Type 1, Diabetes Mellitus Type 2, Internal Pacemaker, MRSA, Seizures *Have you ever received a pneumonia vaccine?: Yes *Have you received a flu vaccine this season?: No Anesthesia experience/problems:: nac Laterality Cases: Right: Total Knee Replacement, Bilateral: Cataract Other Surgeries: Yes: Cardiac Catheterization, Colonoscopy, Coronary Stent, EGD, Hysterectomy-Total, Other. No: Pacemaker Amputation: No Fractures: Yes - *Social History Smoking Status: Never smoker Alcohol Intake: never Substance Use Type: denies use *Occupational Status:: retired Housing: house *Travel in the last 8 weeks: None Family Hx:: No significant family history
[2020-12-30 09:19] VITALS: O2SAT 98
[2020-12-30 09:50] VITALS: BP 102/63; PULSE 68; RESP 16; TEMP 36.4; O2SAT 97
--- NOTE | 2020-12-30 09:51 | HMH.SCOPE ---
- Procedure: Date: 12/30/20 Patient Date of :: 1935 Procedure Performed:: Colonoscopy with polypectomy by snare Indications:: Patient is an 85-year-old female. She was scheduled for apparent screening colonoscopy by Jessica Frey. Interestingly however the patient had a colonoscopy by Dr. Herr 6 years ago which revealed no polyps. She does state that she may be anemic. She did have some bleeding with the bowel preparation. He believes she may have hemorrhoids. She did previously have hemorrhoid surgery after Dr. Herr performed colonoscopy in 2013. Patient did not stop her aspirin or Plavix prior to the procedure and took it up until the morning of the planned procedure. Performing Provider:: Calderon Casas MD Referring Provider:: Jessica Frey Sedation:: MAC sedation Procedure:: Patient was taken to the endoscopy procedure room. She was positioned in lateral decubitus position. Adequate intravenous sedation was achieved with anesthesia titration of propofol. It was immediately noted the patient had some significant somewhat inflamed prolapsing hemorrhoids. Variable stiffness Olympus colonoscope was inserted via the anus. It was ultimately able to be advanced to the cecum. However advancement was somewhat difficult due to floppiness of the sigmoid colon and significant sigmoid diverticulosis. Ileocecal valve and appendiceal orifice were clearly identified. The colonoscope was withdrawn through the colon with careful surveillance. There was a subtle tiny diminutive polyp in the descending colon. This was removed with cold cutting snare. This could be either a tiny hyperplastic polyp or serrated adenoma. Ultimately the polyp was unable to be retrieved after removal. Colonoscope was withdrawn through the remainder of the colon. She had significant sigmoid diverticulosis. Retroflexion within the rectum revealed pathologic enlarged hemorrhoid. Colonoscope was withdrawn. Findings:: Tiny diminutive descending colon polyp, removed with cutting snare, unable to be retrieved Recommendations:: Would not pursue follow-up colonoscopy at this time. May initiate hemorrhoid treatment medically initially. If refractory with ongoing symptoms could require hemorrhoidectomy. Complications:: None immediately apparent Estimated blood obtained (mL): 1
[2020-12-30 10:00] VITALS: BP 92/54; PULSE 66; RESP 16; O2SAT 99
[2020-12-30 10:10] VITALS: BP 106/66; PULSE 62; RESP 16; O2SAT 99
[2020-12-30 10:20] VITALS: BP 122/76; PULSE 57; RESP 16; TEMP 36.3; O2SAT 99
== END 2020-12-30 10:20 | disposition home or self-care (01) ==
LOC: OUTP 08:29
PROVIDERS: PCP Nurse Practitioner Family; Visit Provider Surgery
PROC: 0DJD8ZZ Inspection of Lower Intestinal Tract, Via Natural or Artificial Opening Endoscopic (ICD-10-PCS; principal; 2020-12-30 09:30)
DX: Z12.11 Encounter for screening for malignant neoplasm of colon (principal); K63.5 Polyp of colon; K56.2 Volvulus; D64.9 Anemia, unspecified; I25.10 Atherosclerotic heart disease of native coronary artery without angina pectoris; E78.5 Hyperlipidemia, unspecified; I10 Essential (primary) hypertension; N28.9 Disorder of kidney and ureter, unspecified; Z79.01 Long term (current) use of anticoagulants; Z79.899 Other long term (current) drug therapy; Z95.5 Presence of coronary angioplasty implant and graft; Z88.8 Allergy status to other drugs, medicaments and biological substances
CPT/HCPCS: 45385

== ENCOUNTER → 2021-05-19 18:08 | Outpatient (CLI) | payer MEDICARE, SELFPAY ==
[2021-05-19 14:34] LABS: Basophils # 0.1 K/mm3 (0-0.2); Basophils % 0.9 % (0.1-2.0); Eosinophils # 0.6 K/mm3 (0.0-0.4); Eosinophils % 4.8 % (0.1-12.0); Hematocrit 31.2 % (37.0-47.0); Lymphocytes # 1.7 K/mm3 (0.7-4.5); Lymphocytes % 14.7 % (10-50); Mean Corpuscular Hemoglobin 26.2 pg (27.0-31.2); Mean Corpuscular Volume 90.4 fl (81-99); Monocytes # 0.8 K/mm3 (0.1-1.0); Monocytes % 7.3 % (1.7-9.3); Neutrophils # 8.2 K/mm3 (1.8-7.8); Neutrophils % 72.3 % (37.0-80.0); Platelet Count 352 K/mm3 (142-424); Red Blood Count 3.46 M/mm3 (4.20-5.40); Red Cell Distribution Width 15.8 % (11.5-17.5); White Blood Count 11.3 K/mm3 (4.8-10.8)
[2021-05-19 14:37] LABS: Alanine Aminotransferase 13 U/L (12-78); Albumin/Globulin Ratio 1.3 (1.1-1.8); Alkaline Phosphatase 110 U/L (38-126); Anion Gap 15.4 mEq/L (5-15); Aspartate Amino Transferase 27 U/L (14-36); Bilirubin,Total 0.4 mg/dl (0.2-1.3); Blood Urea Nitrogen 39 mg/dl (7-17); Calcium 10.3 mg/dl (8.4-10.2); Carbon Dioxide 17 mmol/L (22.0-30.0); Chloride 111 mmol/L (98-107); Chol/HDL Ratio 2.9 (1-3.5); Cholesterol 123 mg/dl (140-200); Estimated Glomerular Filt Rate 29 ml/min (>60); GFR (African American) 35 ML/MIN (>60); Glucose 100 mg/dl (74-100); HDL Cholesterol 42 mg/dl (40-60); Potassium 5.4 mmoL/L (3.5-5.1); Sodium 138 mmol/L (136-145); Triglycerides 163 mg/dl (30-150); VLDL Cholesterol 33 mg/dL (0-40)
[2021-05-19 14:48] LABS: Direct LDL Cholesterol 44.64 mg/dL (100-129)
[2021-05-19 14:54] LABS: T4 (Thyroxine) 5.8 ug/dl (5.53-11.0)
[2021-05-19 15:08] LABS: Thyroid Stimulating Hormone 2.63 uIU/mL (0.465-4.68)
== END ==
PROVIDERS: Visit Provider Nurse Practitioner Family
DX: I10 Essential (primary) hypertension (principal)
CPT/HCPCS: 80053; 80061; 84436; 84443; 85025

== ENCOUNTER → 2021-05-31 17:00 | Outpatient (CLI) | payer MEDICARE, SELFPAY ==
[2021-05-31 21:05] LABS: Anion Gap 14.5 mEq/L (5-15); Blood Urea Nitrogen 37 mg/dl (7-17); Calcium 10.1 mg/dl (8.4-10.2); Carbon Dioxide 20 mmol/L (22.0-30.0); Chloride 109 mmol/L (98-107); Estimated Glomerular Filt Rate 22 ml/min (>60); GFR (African American) 27 ML/MIN (>60); Glucose 159 mg/dl (74-100); Potassium 5.5 mmoL/L (3.5-5.1); Sodium 138 mmol/L (136-145)
== END ==
PROVIDERS: Visit Provider Nurse Practitioner Family
DX: E78.5 Hyperlipidemia, unspecified (principal); I10 Essential (primary) hypertension; I25.10 Atherosclerotic heart disease of native coronary artery without angina pectoris
CPT/HCPCS: 80048

== ENCOUNTER → 2021-06-07 12:55 | Outpatient (CLI) | payer MEDICARE, SELFPAY ==
[2021-06-07 16:30] LABS: Anion Gap 12.7 mEq/L (5-15); Blood Urea Nitrogen 32 mg/dl (7-17); Carbon Dioxide 20 mmol/L (22.0-30.0); Chloride 109 mmol/L (98-107); Estimated Glomerular Filt Rate 27 ml/min (>60); GFR (African American) 33 ML/MIN (>60); Glucose 99 mg/dl (74-100); Potassium 4.7 mmoL/L (3.5-5.1); Sodium 137 mmol/L (136-145)
[2021-06-07 16:33] LABS: Hemoglobin A1C 5.7 % (4.0-6.0)
== END ==
PROVIDERS: Visit Provider Nurse Practitioner Family
DX: E56.1 Deficiency of vitamin K (principal); E11.9 Type 2 diabetes mellitus without complications
CPT/HCPCS: 80048; 83036

== ENCOUNTER → 2021-08-24 07:07 | Outpatient (CLI) | payer MEDICARE, SELFPAY ==
[2021-08-23 17:19] LABS: Red Blood Count 3.39 M/mm3 (4.20-5.40); White Blood Count 11.5 K/mm3 (4.8-10.8)
[2021-08-23 17:20] LABS: Basophils # 0.1 K/mm3 (0-0.2); Basophils % 0.7 % (0.1-2.0); Eosinophils # 0.7 K/mm3 (0.0-0.4); Eosinophils % 6.2 % (0.1-12.0); Hematocrit 28.5 % (37.0-47.0); Hemoglobin 8.6 g/dL (12.2-16.2); Lymphocytes # 1.9 K/mm3 (0.7-4.5); Lymphocytes % 16.4 % (10-50); Mean Corpuscular HGB Conc 30.3 g/dL (31.8-35.4); Mean Corpuscular Hemoglobin 25.4 pg (27.0-31.2); Mean Corpuscular Volume 84.1 fl (81-99); Mean Platelet Volume 8.3 fl (7.4-10.4); Monocytes # 0.5 K/mm3 (0.1-1.0); Monocytes % 4.2 % (1.7-9.3); Neutrophils # 8.3 K/mm3 (1.8-7.8); Neutrophils % 72.5 % (37.0-80.0); Platelet Count 419 K/mm3 (142-424)
[2021-08-23 17:24] LABS: Alanine Aminotransferase 10 U/L (12-78); Albumin Level 3.7 g/dl (3.5-5.0); Albumin/Globulin Ratio 1.1 (1.1-1.8); Alkaline Phosphatase 106 U/L (38-126); Anion Gap 13.7 mEq/L (5-15); Aspartate Amino Transferase 22 U/L (14-36); Blood Urea Nitrogen 47 mg/dl (7-17); Calcium 10.7 mg/dl (8.4-10.2); Carbon Dioxide 22 mmol/L (22.0-30.0); Chloride 107 mmol/L (98-107); Estimated Glomerular Filt Rate 21 ml/min (>60); GFR (African American) 26 ML/MIN (>60); Globulin 3.4 g/dL (1.3-3.2); Glucose 126 mg/dl (74-100); Potassium 4.7 mmoL/L (3.5-5.1); Sodium 138 mmol/L (136-145); Total Protein,Serum 7.1 g/dl (6.3-8.2)
[2021-08-23 17:29] LABS: Bilirubin,Total < 0.1 mg/dl (0.2-1.3)
[2021-08-23 18:31] LABS: Creatine Kinase 39 U/L (30-135)
[2021-08-23 18:41] LABS: CKMB Relative Index 1.5 U/L (0-4.0); Creatine Kinase MB 0.6 ng/ml (0.0-2.03)
[2021-08-23 18:54] LABS: Troponin I < 0.01 ng/ml (0.00-0.034)
== END ==
PROVIDERS: PCP Nurse Practitioner Family; Visit Provider Nurse Practitioner Family
DX: Z00.00 Encounter for general adult medical examination without abnormal findings (principal); J32.9 Chronic sinusitis, unspecified; R53.1 Weakness
CPT/HCPCS: 80053; 82550; 82553; 84484; 85025

== ENCOUNTER → 2021-12-23 09:09 | Outpatient (CLI) | payer MEDICARE, SELFPAY ==
[2021-12-23 09:32] LABS: Microscopic, Urine URINE MICROSCOPIC (MICROSCOPIC)
[2021-12-23 10:04] LABS: Basophils # 0.1 K/mm3 (0-0.2); Eosinophils # 0.5 K/mm3 (0.0-0.4); Eosinophils % 4.4 % (0.1-12.0); Hematocrit 31.2 % (37.0-47.0); Hemoglobin 9.6 g/dL (12.2-16.2); Lymphocytes # 2.4 K/mm3 (0.7-4.5); Lymphocytes % 20.1 % (10-50); Mean Corpuscular HGB Conc 30.7 g/dL (31.8-35.4); Mean Corpuscular Hemoglobin 27.1 pg (27.0-31.2); Mean Corpuscular Volume 88.3 fl (81-99); Mean Platelet Volume 8.4 fl (7.4-10.4); Monocytes # 0.6 K/mm3 (0.1-1.0); Monocytes % 4.7 % (1.7-9.3); Neutrophils # 8.2 K/mm3 (1.8-7.8); Neutrophils % 69.7 % (37.0-80.0); Platelet Count 286 K/mm3 (142-424); Red Blood Count 3.54 M/mm3 (4.20-5.40); Red Cell Distribution Width 17.4 % (11.5-17.5); White Blood Count 11.8 K/mm3 (4.8-10.8)
[2021-12-23 10:44] LABS: Appearance,Urine CLEAR (Clear); Bilirubin,Urine Negative (Negative); Blood, Urine Negative (Negative); Color,Urine YELLOW (Yellow); Glucose,Urine (UA) Negative (Negative); Ketones,Urine Negative (Negative); Leukocyte Esterase,Urine Negative (Negative); Nitrate,Urine Negative (Negative); Protein,Urine 1+ (Negative); Urobilinogen,Urine 0.2 EU/dl (0.2)
[2021-12-23 11:00] LABS: Creatinine,Urine Random 57 mg/dL (Not Estab.)
[2021-12-23 11:12] LABS: Albumin Level 3.8 g/dl (3.5-5.0); Chloride 109 mmol/L (98-107); Potassium 5.8 mmoL/L (3.5-5.1); Sodium 141 mmol/L (136-145)
[2021-12-23 11:32] LABS: 25-OH Vitamin D, Total 33.7 ng/mL (30-100)
[2021-12-23 11:35] LABS: Anion Gap 14.8 mEq/L (5-15); Blood Urea Nitrogen 48 mg/dl (7-17); Calcium 10.2 mg/dl (8.4-10.2); Carbon Dioxide 23 mmol/L (22.0-30.0); Estimated Glomerular Filt Rate 25 ml/min (>60); GFR (African American) 30 ML/MIN (>60); Glucose 85 mg/dl (74-100); Phosphorous 4.3 mg/dl (2.5-4.5)
[2021-12-23 11:46] LABS: Intact Parathyroid Hormone 307.7 pg/mL (7.5-53.5)
[2021-12-23 11:51] LABS: Squamous Epithelial Cell,Urine Occasional #/hpf (0-5); WBC,Urine Occasional #/hpf (0-3)
== END ==
PROVIDERS: PCP Nurse Practitioner Family; Visit Provider Internal Medicine Nephrology
DX: N18.4 Chronic kidney disease, stage 4 (severe) (principal); E55.9 Vitamin D deficiency, unspecified
CPT/HCPCS: 36415; 80069; 81001; 82306; 82570; 83970; 84155; 85025

== ENCOUNTER → 2021-12-27 15:28 | Outpatient (POV) | payer MEDICARE, SELFPAY | PROVIDERS: Visit Provider Internal Medicine Nephrology | DX: Z00.00 Encounter for general adult medical examination without abnormal findings (principal) ==

== ENCOUNTER → 2022-02-11 10:26 | Outpatient (CLI) | payer MEDICARE, SELFPAY ==
[2022-02-11 10:43] LABS: Microscopic, Urine URINE MICROSCOPIC (MICROSCOPIC)
[2022-02-11 10:59] LABS: Hematocrit 31.9 % (37.0-47.0); Hemoglobin 9.8 g/dL (12.2-16.2); Mean Corpuscular HGB Conc 30.6 g/dL (31.8-35.4); Mean Corpuscular Hemoglobin 28.1 pg (27.0-31.2); Mean Corpuscular Volume 91.9 fl (81-99); Platelet Count 313 K/mm3 (142-424); Red Blood Count 3.47 M/mm3 (4.20-5.40); Red Cell Distribution Width 16.9 % (11.5-17.5); White Blood Count 11.3 K/mm3 (4.8-10.8)
[2022-02-11 11:21] LABS: Albumin Level 3.6 g/dl (3.5-5.0); Chloride 110 mmol/L (98-107); Potassium 5.1 mmoL/L (3.5-5.1); Sodium 139 mmol/L (136-145)
[2022-02-11 11:24] LABS: Anion Gap 12.1 mEq/L (5-15); Blood Urea Nitrogen 40 mg/dl (7-17); Calcium 10.4 mg/dl (8.4-10.2); Carbon Dioxide 22 mmol/L (22.0-30.0); Estimated Glomerular Filt Rate 25 ml/min (>60); GFR (African American) 30 ML/MIN (>60); Glucose 86 mg/dl (74-100); Iron 77 ug/dL (37-170); Phosphorous 4.1 mg/dl (2.5-4.5)
[2022-02-11 11:33] LABS: Total Iron Binding Capacity 331 ug/dL (265-497)
[2022-02-11 12:00] LABS: Ferritin 13.8 ng/ml (11.1-264)
[2022-02-11 12:50] LABS: Appearance,Urine CLEAR (Clear); Bilirubin,Urine Negative (Negative); Blood, Urine Negative (Negative); Color,Urine YELLOW (Yellow); Glucose,Urine (UA) Negative (Negative); Ketones,Urine Negative (Negative); Leukocyte Esterase,Urine Negative (Negative); Nitrate,Urine Negative (Negative); Protein,Urine 2+ (Negative); Specific Gravity, Urine 1.025 (1.005-1.030); Urobilinogen,Urine 0.2 EU/dl (0.2)
[2022-02-11 13:00] LABS: Creatinine,Urine Random 77 mg/dL (Not Estab.)
[2022-02-11 13:01] LABS: Squamous Epithelial Cell,Urine Occasional #/hpf (0-5)
[2022-02-11 13:02] LABS: Bacteria,Urine Trace /lpf; Mucus,Urine Trace /lpf
[2022-02-16 12:55] LABS: Transferrin 257 mg/dL (149-313)
== END ==
PROVIDERS: PCP Nurse Practitioner Family; Visit Provider Internal Medicine Nephrology
DX: N18.4 Chronic kidney disease, stage 4 (severe) (principal)
CPT/HCPCS: 36415; 80069; 81001; 82570; 82728; 83540; 83550; 84155; 84466; 85014; 85018; 85048; 85049

== ENCOUNTER → 2022-02-17 12:29 | Outpatient (POV) | payer MEDICARE, SELFPAY | PROVIDERS: Visit Provider Internal Medicine Nephrology | DX: Z00.00 Encounter for general adult medical examination without abnormal findings (principal) ==

== ENCOUNTER 2022-03-02 09:47 | Outpatient (CLI) | payer MEDICARE, SELFPAY ==
[2022-03-02 09:56] VITALS: BMI 24.5
[2022-03-02 10:05] VITALS: BP 150/80; PULSE 70; RESP 18; O2SAT 96
[2022-03-02 10:19] LABS: Basophils # 0.1 K/mm3 (0-0.2); Basophils % 0.6 % (0.1-2.0); Eosinophils # 0.5 K/mm3 (0.0-0.4); Eosinophils % 4.1 % (0.1-12.0); Hematocrit 31.7 % (37.0-47.0); Hemoglobin 9.8 g/dL (12.2-16.2); Lymphocytes # 1.7 K/mm3 (0.7-4.5); Lymphocytes % 14.5 % (10-50); Mean Corpuscular HGB Conc 30.8 g/dL (31.8-35.4); Mean Corpuscular Hemoglobin 29.2 pg (27.0-31.2); Mean Corpuscular Volume 94.8 fl (81-99); Mean Platelet Volume 8.7 fl (7.4-10.4); Monocytes # 0.5 K/mm3 (0.1-1.0); Monocytes % 4.2 % (1.7-9.3); Neutrophils % 76.5 % (37.0-80.0); Platelet Count 264 K/mm3 (142-424); Red Blood Count 3.35 M/mm3 (4.20-5.40); Red Cell Distribution Width 16.4 % (11.5-17.5); White Blood Count 11.7 K/mm3 (4.8-10.8)
[2022-03-02 10:45] VITALS: BP 138/72; PULSE 68; RESP 18
== END 2022-03-02 10:45 | disposition home or self-care (01) ==
LOC: INF 09:48
PROVIDERS: PCP Nurse Practitioner Family; Visit Provider Internal Medicine Nephrology
DX: N18.4 Chronic kidney disease, stage 4 (severe) (principal); D63.1 Anemia in chronic kidney disease
CPT/HCPCS: 85025; 96365; J1439

== ENCOUNTER 2022-03-09 09:52 | Outpatient (CLI) | payer MEDICARE, SELFPAY ==
[2022-03-09 10:14] VITALS: BP 142/68; PULSE 68; RESP 18; TEMP 36.2; O2SAT 98
[2022-03-09 10:50] VITALS: BP 158/64; PULSE 66; RESP 18; O2SAT 99
== END 2022-03-09 10:50 | disposition home or self-care (01) ==
LOC: INF 09:54
PROVIDERS: PCP Nurse Practitioner Family; Visit Provider Internal Medicine Nephrology
DX: N18.4 Chronic kidney disease, stage 4 (severe) (principal); D63.1 Anemia in chronic kidney disease
CPT/HCPCS: 96365; J1439

== ENCOUNTER → 2022-05-13 08:44 | Outpatient (CLI) | payer MEDICARE, SELFPAY ==
[2022-05-13 09:04] LABS: Microscopic, Urine URINE MICROSCOPIC (MICROSCOPIC)
[2022-05-13 09:28] LABS: Hematocrit 38.8 % (37.0-47.0); Hemoglobin 11.8 g/dL (12.2-16.2); Mean Corpuscular HGB Conc 30.5 g/dL (31.8-35.4); Mean Corpuscular Hemoglobin 30.9 pg (27.0-31.2); Mean Corpuscular Volume 101.4 fl (81-99); Platelet Count 283 K/mm3 (142-424); Red Blood Count 3.82 M/mm3 (4.20-5.40); Red Cell Distribution Width 15.2 % (11.5-17.5)
[2022-05-13 09:29] LABS: Appearance,Urine CLEAR (Clear); Bilirubin,Urine Negative (Negative); Blood, Urine Negative (Negative); Color,Urine YELLOW (Yellow); Glucose,Urine (UA) Negative (Negative); Ketones,Urine Negative (Negative); Leukocyte Esterase,Urine Negative (Negative); Nitrate,Urine Negative (Negative); PH,Urine 5.5 (5.0-8.5); Protein,Urine 2+ (Negative); Specific Gravity, Urine >= 1.030 (1.005-1.030); Urobilinogen,Urine 0.2 EU/dl (0.2)
[2022-05-13 09:45] LABS: Creatinine,Urine Random 103 mg/dL (Not Estab.)
[2022-05-13 09:47] LABS: Albumin Level 3.7 g/dl (3.5-5.0); Chloride 111 mmol/L (98-107); Potassium 4.5 mmoL/L (3.5-5.1); Sodium 139 mmol/L (136-145); Squamous Epithelial Cell,Urine Occasional #/hpf (0-5)
[2022-05-13 09:49] LABS: Blood Urea Nitrogen 47 mg/dl (7-17); Estimated Glomerular Filt Rate 25 ml/min (>60); GFR (African American) 30 ML/MIN (>60)
[2022-05-13 09:50] LABS: Anion Gap 11.5 mEq/L (5-15); Calcium 10.2 mg/dl (8.4-10.2); Carbon Dioxide 21 mmol/L (22.0-30.0); Glucose 95 mg/dl (74-100); Phosphorous 4.3 mg/dl (2.5-4.5)
== END ==
PROVIDERS: PCP Nurse Practitioner Family; Visit Provider Internal Medicine Nephrology
DX: N18.4 Chronic kidney disease, stage 4 (severe) (principal)
CPT/HCPCS: 36415; 80069; 81001; 82570; 84155; 85014; 85018; 85048; 85049

== ENCOUNTER → 2022-05-19 12:37 | Outpatient (POV) | payer MEDICARE, SELFPAY | PROVIDERS: Visit Provider Internal Medicine Nephrology | DX: Z00.00 Encounter for general adult medical examination without abnormal findings (principal) ==

== ENCOUNTER → 2022-06-01 10:52 | Outpatient (CLI) | payer MEDICARE, SELFPAY ==
--- NOTE | 2022-06-01 11:01 | XR_ITS ---
FINAL REPORT CLINICAL HISTORY: LT KNEE PAIN FINDINGS: Three views of the left knee reveal no evidence of fracture or dislocation. The bony alignment is normal. There are mild degenerative changes. There is no evidence of joint effusion. There are mild vascular calcifications. IMPRESSION: Mild degenerative changes with no acute abnormality identified. Reviewed, Interpreted and Dictated by Calderon Jimenez III, MD Transcribed by Ramonita Kelley Authenticated and [facility]
== END ==
PROVIDERS: PCP Nurse Practitioner Family; Visit Provider Nurse Practitioner Family
DX: M25.562 Pain in left knee (principal)
CPT/HCPCS: 73562

== ENCOUNTER → 2022-06-22 08:38 | Outpatient (CLI) | payer MEDICARE, SELFPAY ==
--- NOTE | 2022-06-22 08:53 | XR_ITS ---
FINAL REPORT TECHNIQUE: Bone densitometry calculations of the lumbar spine and left hip were obtained. CLINICAL HISTORY: post menopausal FINDINGS: DEXA BONE DENSITY AXIAL SKELETON Using L1-4, the bone mineral density of the spine is 0.764 g/cm2, corresponding to T-score of -2.6. Using the left hip, the bone mineral density of the total hip is 0.441 g/cm2, corresponding to a T-score of -4.1. Using the right hip, the bone mineral density of the femoral neck is 0.520 g/cm2, corresponding to a T-score of -3.0. NOTE: T-score: Standard deviation compared with peak bone mass of young adult mean. *Following the recommendations of the International Society of Bone Densitometry, classification of hip BMD is based on the lower of two T-scores; total hip or femoral neck. IMPRESSION: Osteoporosis: Lowest T-score is at or below -2.5. This patient's T-score meets the World Health Organization criteria for osteoporosis. FRAX not reported because: Some T-score for Spine Total or hip Total or femoral neck at or below -2.5. Reviewed, Interpreted and Dictated by Shravan Jacques MD Transcribed by Ramonita Kelley Authenticated and [facility]
== END ==
PROVIDERS: PCP Nurse Practitioner Family; Visit Provider Internal Medicine Nephrology
DX: M81.0 Age-related osteoporosis without current pathological fracture (principal)
CPT/HCPCS: 77080

== ENCOUNTER 2022-08-08 16:24 | Observation (INO) | payer MEDICARE, SELFPAY ==
--- NOTE | 2022-08-08 16:30 | PC.NURSE ---
Patient arrived to the unit.
--- NOTE | 2022-08-08 16:31 | PC.NURSE ---
[facility]
[2022-08-08 17:08] VITALS: BMI 24.5
--- NOTE | 2022-08-08 17:30 | XR_ITS ---
PROCEDURE INFORMATION: Exam: XR Chest Exam date and time: 08/08/2022 6:05 PM Age: 87 years old Clinical indication: Other: Crackles; Additional info: Crackles on exam, fatigue TECHNIQUE: Imaging protocol: Radiologic exam of the chest. Views: 2 views. COMPARISON: CR CXR CHEST(2 VIEWS-NOT PORTABLE) 11/22/2016 11:04 AM FINDINGS: Lungs: Unremarkable. No consolidation. Pleural spaces: Unremarkable. No pleural effusion. No pneumothorax. Heart/Mediastinum: Stable findings of large hiatal hernia. Bones/joints: Stable chronic compression a lower thoracic vertebra. No acute fracture. IMPRESSION: No acute abnormality
--- NOTE | 2022-08-08 17:55 | EXP.HP ---
History of Present Illness *Admission Date: 08/08/22 *Reason for visit:: Fatigue *History of present illness: The patient is a 87 year old female who presented to her PCP today for c/o fatigue. The patient also went to her PCP last for c/o fatigue. Her lab vaules on Monday revealed elevated creatinine. Upon return to PCP today the patient was sent to us for medical admission and further evaluation. She has a past medical history of CKD, HTN, and CAD. She currently denies any chest pain, nausea, vomiting, or diarrhea. She denies any pain located in her jaw, shoulders, or arm pain. In February she was placed on steroids for her chronic knee pain. She took a total of two months worth of oral steroids. She states she was started on steroid injections in the beginning of June and has not taken any steroids since then. The patient will have a basic cardiac workup involving basic labs, troponin, ekg, and chest xray. Upon physical exam patient had crackles in her lower left lungs. Awaiting lab and imaging results. [facility] Disclaimer: The information contained in this section may have been updated after the patient was seen, as this information can be updated by other users. Medical History AMI (acute myocardial infarction) Anemia Aneurysm of vascular graft Arthritis CAD (coronary artery disease) HTN (hypertension) Hyperparathyroidism Iron deficiency anemia Osteoporosis Refill clinic medication management patient Renal disease Rheumatoid arteritis Rheumatoid arthritis Surgical History H/O hemorrhoidectomy H/O parathyroidectomy H/O: hysterectomy History of parathyroid surgery Hx of cataract surgery Hx of colonoscopy Stented coronary artery Family History (Updated 08/08/22 @ 17:06 by Lorena Ceja RN) No significant family history Ovarian cancer Renal disease Heart attack Lung cancer Stroke Social History (Updated 08/08/22 @ 17:07 by Lorena Ceja RN) Smoking Status: Former smoker alcohol intake: never substance use type: denies use current occupational status: retired Travel in the last 8 weeks: Inside the [facility] housing: house caffeine: Yes Review of Systems Review of Systems Review of systems:: pertinent systems reviewed and negative unless documented below Constitutional Constitutional: Reports system reviewed and no additional complaints, except as documented Eyes Eyes: Reports system reviewed and no additional complaints, except as documented ENT Ears, Nose, Mouth, and Throat: Reports system reviewed and no additional complaints, except as documented *Cardiovascular Cardiovascular: Reports system reviewed and no additional complaints, except as documented, Denies chest pain, Denies dyspnea, Denies dyspnea on exertion, Denies orthopnea and Denies radiating jaw, neck or arm pain *Respiratory Respiratory: Reports system reviewed and no additional complaints, except as documented, Denies dyspnea and Denies dyspnea on exertion *Gastrointestinal Gastrointestinal: Reports system reviewed and no additional complaints, except as documented and Denies abdominal pain *Genitourinary Genitourinary: Reports system reviewed and no additional complaints, except as documented *Musculoskeletal Musculoskeletal: Reports system reviewed and no additional complaints, except as documented and Reports arthralgias (chronic bilateral knee pain ) Integumentary/Breasts Skin/Breast: Reports system reviewed and no additional complaints, except as documented *Neurologic Neurologic: Reports system reviewed and no additional complaints, except as documented and Reports as per HPI Psychiatric Psychiatric: Reports system reviewed and no additional complaints, except as documented Endocrine Endocrine: Reports system reviewed and no additional complaints, except as documented Hematologic/Lymphatic Hematologic/Lymphatic: Repor
[2022-08-08 19:01] LABS: Coronavirus 19, PCR Not Detected (NotDetected); Influenza A, PCR Not Detected (NotDetected); Influenza B, PCR Not Detected (NotDetected)
[2022-08-08 19:06] LABS: Chloride 105 mmol/L (98-107)
[2022-08-08 19:07] LABS: Sodium 135 mmol/L (136-145)
[2022-08-08 19:09] LABS: Alanine Aminotransferase 16 U/L (12-78); Aspartate Amino Transferase 34 U/L (14-36); Basophils # 0.1 K/mm3 (0-0.2); Basophils % 0.4 % (0.1-2.0); Blood Urea Nitrogen 41 mg/dl (7-17); Creatinine Clearance Estimated 17 mL/min (50-200); Eosinophils # 0.9 K/mm3 (0.0-0.4); Eosinophils % 6.8 % (0.1-12.0); Estimated Glomerular Filt Rate 20 ml/min (>60); GFR (African American) 24 ML/MIN (>60); Hematocrit 34.1 % (37.0-47.0); Hemoglobin 11.1 g/dL (12.2-16.2); Lymphocytes # 1.5 K/mm3 (0.7-4.5); Lymphocytes % 12.1 % (10-50); Mean Corpuscular HGB Conc 32.6 g/dL (31.8-35.4); Mean Corpuscular Hemoglobin 31.7 pg (27.0-31.2); Mean Corpuscular Volume 97.2 fl (81-99); Mean Platelet Volume 8.8 fl (7.4-10.4); Monocytes # 0.6 K/mm3 (0.1-1.0); Monocytes % 4.7 % (1.7-9.3); Neutrophils # 9.6 K/mm3 (1.8-7.8); Platelet Count 345 K/mm3 (142-424); Red Blood Count 3.51 M/mm3 (4.20-5.40); White Blood Count 12.6 K/mm3 (4.8-10.8)
[2022-08-08 19:10] LABS: Albumin Level 3.5 g/dl (3.5-5.0); Alkaline Phosphatase 76 U/L (38-126); Bilirubin,Total 0.7 mg/dl (0.2-1.3); Calcium 11.5 mg/dl (8.4-10.2); Carbon Dioxide 17 mmol/L (22.0-30.0); Globulin 3.5 g/dL (1.3-3.2); Glucose 112 mg/dl (74-100); Lactic Acid 1.3 mmol/L (0.7-2.1); Magnesium 1.8 mg/dl (1.6-2.3)
[2022-08-08 19:23] LABS: Troponin I < 0.01 ng/ml (0.00-0.034)
[2022-08-08 20:00] VITALS: BP 137/67; PULSE 63; RESP 18; TEMP 36.6; O2SAT 93
[2022-08-08 20:37] LABS: 25-OH Vitamin D, Total 30.7 ng/mL (30-100)
--- NOTE | 2022-08-08 21:10 | ECG_ITS ---
APPROVED REPORT Exam: Resting ECG HR:64 bpm ECG Measurements Heart Rate 64 AXES ID 224 P -15 QRSd 90 QRS -18 QT 384 T 38 QTc 394 Conclusion SINUS RHYTHM WITH FIRST DEGREE AV BLOCK ABNORMAL ECG UNCONFIRMED REPORT Electronically signed by : Hermes Cowart MD 08/09/2022 21:20:41
[2022-08-09 04:00] VITALS: BP 163/65; PULSE 74; RESP 18; TEMP 36.8; O2SAT 95; BMI 24.7
[2022-08-09 05:27] LABS: Basophils # 0.1 K/mm3 (0-0.2); Basophils % 0.6 % (0.1-2.0); Eosinophils # 0.9 K/mm3 (0.0-0.4); Eosinophils % 8.7 % (0.1-12.0); Hematocrit 34.1 % (37.0-47.0); Hemoglobin 10.8 g/dL (12.2-16.2); Lymphocytes # 1.7 K/mm3 (0.7-4.5); Lymphocytes % 15.4 % (10-50); Mean Corpuscular HGB Conc 31.7 g/dL (31.8-35.4); Mean Corpuscular Hemoglobin 31.3 pg (27.0-31.2); Mean Corpuscular Volume 98.6 fl (81-99); Mean Platelet Volume 7.9 fl (7.4-10.4); Monocytes # 0.5 K/mm3 (0.1-1.0); Monocytes % 5.1 % (1.7-9.3); Neutrophils # 7.5 K/mm3 (1.8-7.8); Neutrophils % 70.2 % (37.0-80.0); Platelet Count 323 K/mm3 (142-424); Red Blood Count 3.46 M/mm3 (4.20-5.40); Red Cell Distribution Width 13.9 % (11.5-17.5); White Blood Count 10.7 K/mm3 (4.8-10.8)
[2022-08-09 06:01] LABS: Alanine Aminotransferase 11 U/L (12-78); Albumin Level 3.4 g/dl (3.5-5.0); Albumin/Globulin Ratio 1.1 (1.1-1.8); Alkaline Phosphatase 98 U/L (38-126); Anion Gap 18.5 mEq/L (5-15); Aspartate Amino Transferase 22 U/L (14-36); Bilirubin,Total 0.5 mg/dl (0.2-1.3); Blood Urea Nitrogen 36 mg/dl (7-17); Calcium 11.1 mg/dl (8.4-10.2); Carbon Dioxide 17 mmol/L (22.0-30.0); Chloride 107 mmol/L (98-107); Creatinine Clearance Estimated 18 mL/min (50-200); Estimated Glomerular Filt Rate 22 ml/min (>60); GFR (African American) 27 ML/MIN (>60); Globulin 3.1 g/dL (1.3-3.2); Glucose 85 mg/dl (74-100); Magnesium 1.7 mg/dl (1.6-2.3); Potassium 4.5 mmoL/L (3.5-5.1); Sodium 138 mmol/L (136-145); Total Protein,Serum 6.5 g/dl (6.3-8.2)
[2022-08-09 07:06] LABS: Phosphorous 2.9 mg/dl (2.5-4.5)
--- NOTE | 2022-08-09 07:21 | HMH.PHAINT1 ---
Pharmacy Intervention Comments: Home medications verified through list from outside pharmacy.
[2022-08-09 07:42] VITALS: BP 162/78; PULSE 71; RESP 20; TEMP 36.5; O2SAT 96
--- NOTE | 2022-08-09 08:05 | EXP.PN ---
Subjective *Date: 08/09/22 *Time: 08:05 Interval history: Creatinine level is 2.1, decreased from 2.3 Calcium level is 11.1, decreased from 11.5 Exam Data for Last 24 hours Vital signs and Labs for Last 24 Hours: Temp Pulse Resp BP Pulse Ox 98.2 F 74 18 163/65 H 95 08/09/22 04:00 08/09/22 04:00 08/09/22 04:00 08/09/22 04:00 08/09/22 04:00 Laboratory Results - last 24 hr 08/08/22 18:20: WBC 12.6 H, RBC 3.51 L, Hgb 11.1 L, Hct 34.1 L, MCV 97.2, MCH 31.7 H, MCHC 32.6, RDW 14.0, Plt Count 345, MPV 8.8, Neut % (Auto) 76.0, Lymph % (Auto) 12.1, [place] % (Auto) 4.7, Eos % (Auto) 6.8, Baso % (Auto) 0.4, Neut # (Auto) 9.6 H, Lymph # (Auto) 1.5, [place] # (Auto) 0.6, Eos # (Auto) 0.9 H, Baso # (Auto) 0.1 08/08/22 18:20: Sodium 135 L, Potassium 5.0, Chloride 105, Carbon Dioxide 17 L, Anion Gap 18.0 H, BUN 41 H, Creatinine 2.30 H, Estimated Creat Clear 17, Estimated GFR 20 L, Est GFR ( Amer) 24 L, Glucose 112 H, Calcium 11.5 H, Magnesium 1.8, Total Bilirubin 0.7, AST 34, ALT 16, Alkaline Phosphatase 76, Total Protein 7.0, Albumin 3.5, Globulin 3.5 H, Albumin/Globulin Ratio 1.0 L 08/08/22 18:20: Troponin I < 0.01 08/08/22 18:20: SARS-CoV-2 (PCR) Not detected, Influenza A Untype (PCR) Not detected, Influenza Type B (PCR) Not detected 08/08/22 18:20: Lactate 1.3 08/08/22 18:20: 25-OH Vitamin D Total 30.7 08/09/22 04:55: WBC 10.7, RBC 3.46 L, Hgb 10.8 L, Hct 34.1 L, MCV 98.6, MCH 31.3 H, MCHC 31.7 L, RDW 13.9, Plt Count 323, MPV 7.9, Neut % (Auto) 70.2, Lymph % (Auto) 15.4, [place] % (Auto) 5.1, Eos % (Auto) 8.7, Baso % (Auto) 0.6, Neut # (Auto) 7.5, Lymph # (Auto) 1.7, [place] # (Auto) 0.5, Eos # (Auto) 0.9 H, Baso # (Auto) 0.1 08/09/22 04:55: Sodium 138, Potassium 4.5, Chloride 107, Carbon Dioxide 17 L, Anion Gap 18.5 H, BUN 36 H, Creatinine 2.10 H, Estimated Creat Clear 18, Estimated GFR 22 L, Est GFR ( Amer) 27 L, Glucose 85 D, Calcium 11.1 H, Magnesium 1.7, Total Bilirubin 0.5, AST 22 D, ALT 11 L D, Alkaline Phosphatase 98, Total Protein 6.5, Albumin 3.4 L, Globulin 3.1, Albumin/Globulin Ratio 1.1 08/09/22 04:55: Phosphorus 2.9 I & O for Last 24 hours: Intake & Output 08/06/22 08/07/22 08/08/22 08/09/22 23:59 23:59 23:59 23:59 Intake Total 790 / 790 Output Total 0 / 0 0 / 0 Balance 790 / 790 0 / 0 Weight 59.052 kg 59.421 kg Assessment and Plan *Assessment and plan Plan Roseanne Tucker is an 87 year old female with a past medical history of CAD, CKD and hypertension. She presented from her PCP's office with fatigue and was admitted with ANDREA on CKD. She was started on LR @ 50mL/hr. #ANDREA on CKD #hypercalcemia #CAD #HTN Kidney function is improving Continue LR @ 50mL/hr Her baseline creatinine level is around 2. Urine output hasn't yet been documented* DNI DVT ppx: heparin subcu Regular diet
--- NOTE | 2022-08-09 11:16 | EXP.DC.SUM ---
General Admission date:: 08/08/22 Discharge date: 08/09/22 HPI HPI HPI: The patient is a 87 year old female who presented to her PCP today for c/o fatigue. The patient also went to her PCP last for c/o fatigue. Her lab vaules on Monday revealed elevated creatinine. Upon return to PCP today the patient was sent to us for medical admission and further evaluation. She has a past medical history of CKD, HTN, and CAD. She currently denies any chest pain, nausea, vomiting, or diarrhea. She denies any pain located in her jaw, shoulders, or arm pain. In February she was placed on steroids for her chronic knee pain. She took a total of two months worth of oral steroids. She states she was started on steroid injections in the beginning of June and has not taken any steroids since then. The patient will have a basic cardiac workup involving basic labs, troponin, ekg, and chest xray. Upon physical exam patient had crackles in her lower left lungs. Awaiting lab and imaging results. Hospital Course Hospital Course Hospital Course: The patient receive LR @ 50mL/hr. Her creatinine level decreased from 2.3 to 2.1 Her baseline creatinine level is around 2. Family was concerned that she wasn't eating or drinking enough at home. Oral hydration was encouraged and the patient was educated by our school janitor regarding a renal diet. By the day of discharge the patient had no complaints. Her EKG revealed a first degree AV block but no acute ischemic changes. Troponin level was within normal limits. CXR was without acute abnormality. Exam Data for Last 24 hours Vital signs and Labs for Last 24 Hours: Temp Pulse Resp BP Pulse Ox 97.7 F 71 20 162/78 H 96 08/09/22 07:42 08/09/22 07:42 08/09/22 07:42 08/09/22 07:42 08/09/22 07:42 Laboratory Results - last 24 hr 08/08/22 18:20: WBC 12.6 H, RBC 3.51 L, Hgb 11.1 L, Hct 34.1 L, MCV 97.2, MCH 31.7 H, MCHC 32.6, RDW 14.0, Plt Count 345, MPV 8.8, Neut % (Auto) 76.0, Lymph % (Auto) 12.1, [place] % (Auto) 4.7, Eos % (Auto) 6.8, Baso % (Auto) 0.4, Neut # (Auto) 9.6 H, Lymph # (Auto) 1.5, [place] # (Auto) 0.6, Eos # (Auto) 0.9 H, Baso # (Auto) 0.1 08/08/22 18:20: Sodium 135 L, Potassium 5.0, Chloride 105, Carbon Dioxide 17 L, Anion Gap 18.0 H, BUN 41 H, Creatinine 2.30 H, Estimated Creat Clear 17, Estimated GFR 20 L, Est GFR ( Amer) 24 L, Glucose 112 H, Calcium 11.5 H, Magnesium 1.8, Total Bilirubin 0.7, AST 34, ALT 16, Alkaline Phosphatase 76, Total Protein 7.0, Albumin 3.5, Globulin 3.5 H, Albumin/Globulin Ratio 1.0 L 08/08/22 18:20: Troponin I < 0.01 08/08/22 18:20: SARS-CoV-2 (PCR) Not detected, Influenza A Untype (PCR) Not detected, Influenza Type B (PCR) Not detected 08/08/22 18:20: Lactate 1.3 08/08/22 18:20: 25-OH Vitamin D Total 30.7 08/09/22 04:55: WBC 10.7, RBC 3.46 L, Hgb 10.8 L, Hct 34.1 L, MCV 98.6, MCH 31.3 H, MCHC 31.7 L, RDW 13.9, Plt Count 323, MPV 7.9, Neut % (Auto) 70.2, Lymph % (Auto) 15.4, [place] % (Auto) 5.1, Eos % (Auto) 8.7, Baso % (Auto) 0.6, Neut # (Auto) 7.5, Lymph # (Auto) 1.7, [place] # (Auto) 0.5, Eos # (Auto) 0.9 H, Baso # (Auto) 0.1 08/09/22 04:55: Sodium 138, Potassium 4.5, Chloride 107, Carbon Dioxide 17 L, Anion Gap 18.5 H, BUN 36 H, Creatinine 2.10 H, Estimated Creat Clear 18, Estimated GFR 22 L, Est GFR ( Amer) 27 L, Glucose 85 D, Calcium 11.1 H, Magnesium 1.7, Total Bilirubin 0.5, AST 22 D, ALT 11 L D, Alkaline Phosphatase 98, Total Protein 6.5, Albumin 3.4 L, Globulin 3.1, Albumin/Globulin Ratio 1.1 08/09/22 04:55: Phosphorus 2.9 I & O for Last 24 hours: Intake & Output 08/06/22 08/07/22 08/08/22 08/09/22 23:59 23:59 23:59 23:59 Intake Total 790 / 790 120 / 120 Output Total 0 / 0 0 / 0 Balance 790 / 790 120 / 120 Weight 59.052 kg 59.421 kg Constitutional Constitutional: no acute distress *Routine HEENT Exam Head: Present normocephalic Eye: Present EOMI and PERRL ENT: Present mucous membranes moist *Routine Neck Exam Neck: Present supple; Absen
--- NOTE | 2022-08-09 11:50 | DIET.NUTRFU ---
Consulted by provider to educate on diet for CKD, stage 3-4. Son was in room at time of visit. Her meal intake consists of hot dogs or sausage something simple. She lives alone, family indicated they would be helping out more often. She does have close followup with kidney doctor and next apt is in September. Reviewed her labs during stay K:4.5, BUN 36, Cr 2.10, Phos 2.9, albumin 3.4, GFR 22. She reports good urine output, denies any edema to LE. Reports stable weight. Drinks mostly whole milk and water. Like to snack on sweets and pasties. Provided handouts for 1500-2000mg sodium, 2000mg of potassium, 800mg of phosphorous and 46-50gm protein. Granddaughter was wanting to know if protein shakes would be good addition, 1 ensure/day would be okay at this time but would not recommend adding premier protein in, 30gm of protein in one shake would not be recommended at this time.
--- NOTE | 2022-08-09 12:03 | HMH.PHAINT1 ---
Pharmacy Intervention Comments: DISCHARGE MEDICATION COUNSELING PROVIDED. DISCUSSED THERE WERE NO CHANGES TO CURRENT REGIMEN. PATIENT ASKED IF SHE SHOULD CONTINUE THE VITAMIN D AND CALCIUM MEDICATIONS. I ADVISED THE VITAMIN D WAS ON THE CONTINUED LIST AND THAT WE HADN'T HAD THE CALCIUM MEDICATION ON THE LIST BUT THAT IT WOULD BE OK FOR THE PATIENT TO CONTINUE. NO FURTHER QUESTIONS AT THIS TIME.
--- NOTE | 2022-08-11 12:33 | CARE MANAGER ---
Attempted to contact patient x2 related to hospital discharge. Left VM message. MARVIN Celis
== END 2022-08-09 13:04 | disposition home or self-care (01) ==
PROVIDERS: Admitting Provider Internal Medicine Adolescent Medicine; PCP Nurse Practitioner Family; Visit Provider Internal Medicine Adolescent Medicine
DX: I12.9 Hypertensive chronic kidney disease with stage 1 through stage 4 chronic kidney disease, or unspecified chronic kidney disease (principal); N18.4 Chronic kidney disease, stage 4 (severe); I25.10 Atherosclerotic heart disease of native coronary artery without angina pectoris; N17.8 Other acute kidney failure; D50.9 Iron deficiency anemia, unspecified; Z95.5 Presence of coronary angioplasty implant and graft; Z87.891 Personal history of nicotine dependence; I44.0 Atrioventricular block, first degree; Z79.899 Other long term (current) drug therapy
CPT/HCPCS: G0378; G0379; 36415; 71046; 80053; 82306; 83605; 83735; 84100; 84484; 85025; 87635; 87636; 93005; C9803; U0003; U0005

== ENCOUNTER → 2022-09-29 10:13 | Outpatient (CLI) | payer MEDICARE, SELFPAY ==
[2022-09-29 10:28] LABS: Basophils % 0.3 % (0.1-2.0); Eosinophils # 0.3 K/mm3 (0.0-0.4); Eosinophils % 2.5 % (0.1-12.0); Hematocrit 36.2 % (37.0-47.0); Hemoglobin 10.9 g/dL (12.2-16.2); Lymphocytes # 2.2 K/mm3 (0.7-4.5); Lymphocytes % 19.8 % (10-50); Mean Corpuscular HGB Conc 30.1 g/dL (31.8-35.4); Mean Corpuscular Hemoglobin 29.8 pg (27.0-31.2); Mean Corpuscular Volume 99.2 fl (81-99); Mean Platelet Volume 8.2 fl (7.4-10.4); Monocytes # 0.8 K/mm3 (0.1-1.0); Monocytes % 6.8 % (1.7-9.3); Neutrophils % 70.5 % (37.0-80.0); Platelet Count 270 K/mm3 (142-424); Red Blood Count 3.65 M/mm3 (4.20-5.40); Red Cell Distribution Width 14.1 % (11.5-17.5); White Blood Count 11.3 K/mm3 (4.8-10.8)
[2022-09-29 11:16] LABS: Anion Gap 11.9 mEq/L (5-15); Blood Urea Nitrogen 36 mg/dl (7-17); Calcium 10.8 mg/dl (8.4-10.2); Carbon Dioxide 25 mmol/L (22.0-30.0); Chloride 110 mmol/L (98-107); Estimated Glomerular Filt Rate 31 ml/min (>60); GFR (African American) 37 ML/MIN (>60); Glucose 91 mg/dl (74-100); Potassium 4.9 mmoL/L (3.5-5.1); Sodium 142 mmol/L (136-145)
== END ==
PROVIDERS: PCP Nurse Practitioner Family; Visit Provider Internal Medicine
DX: E78.5 Hyperlipidemia, unspecified (principal); I11.9 Hypertensive heart disease without heart failure; I25.10 Atherosclerotic heart disease of native coronary artery without angina pectoris; N18.4 Chronic kidney disease, stage 4 (severe); Z95.5 Presence of coronary angioplasty implant and graft; I63.9 Cerebral infarction, unspecified
CPT/HCPCS: 36415; 80048; 85025

== ENCOUNTER → 2022-10-04 08:50 | Outpatient (CLI) | payer MEDICARE, SELFPAY ==
--- NOTE | 2022-10-04 08:52 | CA_ITS ---
FINAL REPORT CLINICAL HISTORY: HTN FINDINGS: Aorta velocity: 78 cm/sec Right kidney: 8.3 cm. No evidence of hydronephrosis or mass. Right intrarenal RI: .60 Right renal artery velocity: 127 cm/sec. Right RAR (Renal artery-Aortic Ratio): 1.6 Left Kidney: 7.9 cm. No evidence of hydronephrosis or mass. Left intrarenal RI: .64 Left renal artery velocity: 91 cm/sec. Left RAR (Renal Artery-Aortic Ratio): 1.2 IMPRESSION: No evidence of significant renal artery stenosis. CT angiogram or postcontrast MR angiogram would be more sensitive for evaluation of possible renal artery stenosis. Reviewed, Interpreted and Dictated by Vashti Christina MD Transcribed by Sandra Chavarria Authenticated and [facility]
--- NOTE | 2022-10-04 09:30 | US_ITS ---
FINAL REPORT TECHNIQUE: Ultrasound images of the kidneys and bladder were obtained. CLINICAL HISTORY: Z95.5 - Presence of coronary angioplasty implant and graft COMPARISON: None FINDINGS: The right kidney measures 8.1 cm in length. There is increased echogenicity in the right kidney. A right renal cyst is present. There is no hydronephrosis. The left kidney measures 8.8 cm in length. There is increased echogenicity in the left kidney. There is no hydronephrosis. Incidental note is made of gallstones in the gallbladder. IMPRESSION: There is increased echogenicity in the kidneys bilaterally, most consistent with medical renal disease. Incidental note of gallstones in the gallbladder. Reviewed, Interpreted and Dictated by Vashti Christina MD Transcribed by Yara Bocanegra Authenticated and [facility]
== END ==
PROVIDERS: PCP Nurse Practitioner Family; Visit Provider Internal Medicine
DX: E78.5 Hyperlipidemia, unspecified (principal); I10 Essential (primary) hypertension; I25.10 Atherosclerotic heart disease of native coronary artery without angina pectoris; N18.4 Chronic kidney disease, stage 4 (severe); Z95.5 Presence of coronary angioplasty implant and graft
CPT/HCPCS: 76770; 93976

== ENCOUNTER → 2022-11-07 13:42 | Outpatient (POV) | payer MEDICARE, SELFPAY | PROVIDERS: Visit Provider Internal Medicine Nephrology | DX: Z00.00 Encounter for general adult medical examination without abnormal findings (principal) ==

== ENCOUNTER → 2023-01-03 13:00 | Outpatient (CLI) | payer MEDICARE, SELFPAY ==
[2023-01-03 14:07] LABS: Albumin Level 3.8 g/dl (3.5-5.0); Anion Gap 11.1 mEq/L (5-15); Blood Urea Nitrogen 35 mg/dl (7-17); Carbon Dioxide 24 mmol/L (22.0-30.0); Chloride 108 mmol/L (98-107); Estimated Glomerular Filt Rate 25 ml/min (>60); GFR (African American) 30 ML/MIN (>60); Glucose 109 mg/dl (74-100); Phosphorous 4.1 mg/dl (2.5-4.5); Potassium 5.1 mmoL/L (3.5-5.1); Sodium 138 mmol/L (136-145)
[2023-01-03 14:19] LABS: Intact Parathyroid Hormone 502.5 pg/mL (7.5-53.5)
[2023-01-03 14:25] LABS: 25-OH Vitamin D, Total 48.7 ng/mL (30-100)
[2023-01-05 16:14] LABS: Calcium, Ionized 5.7 mg/dL (4.5-5.6)
[2023-01-07 02:46] LABS: Tandem-R Ostase 9.6 ug/L (.)
[2023-01-09 05:08] LABS: C-Telopeptide Serum 637 pg/mL (.)
[2023-01-11 12:07] LABS: PTH Related Peptide < 2.0
== END ==
PROVIDERS: PCP Nurse Practitioner Family; Visit Provider Nurse Practitioner
DX: N18.4 Chronic kidney disease, stage 4 (severe) (principal); M81.0 Age-related osteoporosis without current pathological fracture; E83.52 Hypercalcemia; Z68.24 Body mass index [BMI] 24.0-24.9, adult; Z87.891 Personal history of nicotine dependence; I12.9 Hypertensive chronic kidney disease with stage 1 through stage 4 chronic kidney disease, or unspecified chronic kidney disease
CPT/HCPCS: 36415; 80069; 82306; 82330; 82397; 82523; 83970; 84080

== ENCOUNTER → 2023-01-23 11:44 | Outpatient (POV) | payer MEDICARE, SELFPAY | PROVIDERS: Visit Provider Nurse Practitioner | DX: Z00.00 Encounter for general adult medical examination without abnormal findings (principal) ==

== ENCOUNTER → 2023-02-13 09:18 | Outpatient (CLI) | payer MEDICARE, SELFPAY ==
--- NOTE | 2023-02-13 09:23 | NM_ITS ---
FINAL REPORT CLINICAL HISTORY: CKD STAGE 4 FINDINGS: Nuclear medicine parathyroid scan History: Hypercalcemia Technique: Imaging of the neck and upper thorax immediate and 2 hours following radiotracer injection. 21.6 mCi of technetium labeled sestamibi was utilized as a tracer agent. Findings: Physiologic tracer activity is noted within the thyroid gland. Most of the tracer washes out from the thyroid. No residual activity is seen beyond the thyroid to indicate tracer avid parathyroid adenoma. There is no abnormal uptake within the upper thoracic cavity. IMPRESSION: No scintigraphic findings to localize parathyroid adenoma Authenticated and [facility]
[2023-02-13 11:44] LABS: Microscopic, Urine URINE MICROSCOPIC (MICROSCOPIC)
[2023-02-13 11:57] LABS: Appearance,Urine CLEAR (Clear); Basophils # 0.1 K/mm3 (0-0.2); Basophils % 0.8 % (0.1-2.0); Bilirubin,Urine Negative (Negative); Blood, Urine TRACE-I (Negative); Color,Urine YELLOW (Yellow); Eosinophils # 0.4 K/mm3 (0.0-0.4); Eosinophils % 2.9 % (0.1-12.0); Glucose,Urine (UA) Negative (Negative); Hemoglobin 11.7 g/dL (12.2-16.2); Ketones,Urine Negative (Negative); Leukocyte Esterase,Urine Negative (Negative); Lymphocytes # 1.6 K/mm3 (0.7-4.5); Lymphocytes % 12.9 % (10-50); Mean Corpuscular HGB Conc 31.7 g/dL (31.8-35.4); Mean Platelet Volume 8.5 fl (7.4-10.4); Monocytes # 0.5 K/mm3 (0.1-1.0); Neutrophils # 10.2 K/mm3 (1.8-7.8); Neutrophils % 79.4 % (37.0-80.0); Nitrate,Urine Negative (Negative); PH,Urine 6.5 (5.0-8.5); Platelet Count 269 K/mm3 (142-424); Protein,Urine 2+ (Negative); Red Blood Count 3.66 M/mm3 (4.20-5.40); Red Cell Distribution Width 14.2 % (11.5-17.5); Specific Gravity, Urine 1.025 (1.005-1.030); Urobilinogen,Urine 0.2 EU/dl (0.2); White Blood Count 12.8 K/mm3 (4.8-10.8)
[2023-02-13 12:42] LABS: Bacteria,Urine Trace /lpf; RBC,Urine Occasional #/hpf (0-3); Squamous Epithelial Cell,Urine Occasional #/hpf (0-5)
[2023-02-13 13:07] LABS: Albumin Level 4.2 g/dl (3.5-5.0); Anion Gap 11.1 mEq/L (5-15); Blood Urea Nitrogen 31 mg/dl (7-17); Calcium 10.8 mg/dl (8.4-10.2); Carbon Dioxide 24 mmol/L (22.0-30.0); Chloride 107 mmol/L (98-107); Estimated Glomerular Filt Rate 21 ml/min (>60); GFR (African American) 26 ML/MIN (>60); Glucose 93 mg/dl (74-100); Phosphorous 3.1 mg/dl (2.5-4.5); Potassium 5.1 mmoL/L (3.5-5.1); Sodium 137 mmol/L (136-145)
[2023-02-13 13:24] LABS: Creatinine,Urine Random 50 mg/dL (Not Estab.)
[2023-02-13 13:25] LABS: 25-OH Vitamin D, Total 66.1 ng/mL (30-100)
[2023-02-13 13:42] LABS: Intact Parathyroid Hormone 310.3 pg/mL (7.5-53.5)
== END ==
PROVIDERS: PCP Nurse Practitioner Family; Visit Provider Nurse Practitioner
DX: N18.4 Chronic kidney disease, stage 4 (severe) (principal)
CPT/HCPCS: 78071; 80069; 81001; 82306; 82570; 83970; 84155; 85025; A9500

== ENCOUNTER 2023-07-17 08:50 | Outpatient (CLI) | payer MEDICARE, SELFPAY ==
--- NOTE | 2023-07-17 08:55 | XR_ITS ---
FINAL REPORT CLINICAL HISTORY: POST MENOPAUSAL COMPARISON: 06/22/2022 FINDINGS: Using L1-4, the bone mineral density of the spine is 0.748 g/cm2, corresponding to T-score of -2.7 consistent with osteoporosis. Previously was 0.764 g/cm? with a T-score of -2.6. Using the left hip, the bone mineral density of the femoral neck is 0.441 g/cm2, corresponding to a T-score of -4.1 consistent with osteoporosis. Previously was 0.441 g/cm? with T-score of -4.1. Using the right hip, the bone mineral density of the femoral neck is 0.525 g/cm2, corresponding to a T-score of -2.9 consistent with osteoporosis. Previously was 0.520 g/cm? with T-score of -3.0. FRAX not reported because some T-score at or above -2.5. NOTE: T-score: Standard deviation compared with peak bone mass of young adult mean. *Following the recommendations of the International Society of Bone densitometry, classification of hip BMD is based on the lower of two T-scores; total hip or femoral neck. IMPRESSION: Diminished bone mineral density consistent with osteoporosis. Reviewed, Interpreted and Dictated by Cedric Ny MD Transcribed by Shanel Villarreal Authenticated and [facility]
[2023-07-17 09:39] LABS: Microscopic, Urine URINE MICROSCOPIC (MICROSCOPIC)
[2023-07-17 10:02] LABS: Appearance,Urine CLEAR (Clear); Bilirubin,Urine Negative (Negative); Blood, Urine TRACE-I (Negative); Color,Urine YELLOW (Yellow); Glucose,Urine (UA) Negative (Negative); Hematocrit 35.4 % (37.0-47.0); Hemoglobin 11.2 g/dL (12.2-16.2); Ketones,Urine Negative (Negative); Leukocyte Esterase,Urine TRACE (Negative); Mean Corpuscular HGB Conc 31.5 g/dL (31.8-35.4); Mean Corpuscular Hemoglobin 31.3 pg (27.0-31.2); Mean Corpuscular Volume 99.3 fl (81-99); Nitrate,Urine Negative (Negative); PH,Urine 6.5 (5.0-8.5); Platelet Count 223 K/mm3 (142-424); Protein,Urine 2+ (Negative); Red Blood Count 3.57 M/mm3 (4.20-5.40); Red Cell Distribution Width 14.3 % (11.5-17.5); Specific Gravity, Urine 1.025 (1.005-1.030); Urobilinogen,Urine 0.2 EU/dl (0.2); White Blood Count 7.9 K/mm3 (4.8-10.8)
[2023-07-17 10:25] LABS: Creatinine,Urine Random 50 mg/dL (Not Estab.)
[2023-07-17 10:26] LABS: Bacteria,Urine Trace /lpf; Squamous Epithelial Cell,Urine Occasional #/hpf (0-5); WBC,Urine Occasional #/hpf (0-3)
[2023-07-17 11:28] LABS: Albumin Level 3.6 g/dl (3.5-5.0); Anion Gap 9.3 mEq/L (5-15); Blood Urea Nitrogen 32 mg/dl (7-17); Calcium 11.1 mg/dl (8.4-10.2); Carbon Dioxide 22 mmol/L (22.0-30.0); Chloride 112 mmol/L (98-107); Estimated Glomerular Filt Rate 19 ml/min (>60); GFR (African American) 23 ML/MIN (>60); Glucose 94 mg/dl (74-100); Phosphorous 4.5 mg/dl (2.5-4.5); Potassium 4.3 mmoL/L (3.5-5.1); Sodium 139 mmol/L (136-145)
[2023-07-17 11:32] LABS: 25-OH Vitamin D, Total 61.5 ng/mL (30-100)
[2023-07-17 11:40] LABS: Intact Parathyroid Hormone 336.3 pg/mL (7.5-53.5)
[2023-07-19 15:29] LABS: Osteocalcin 42.9 ng/mL (.)
[2023-07-20 06:10] LABS: Tandem-R Ostase 7.2 ug/L (.)
[2023-07-20 22:46] LABS: C-Telopeptide Serum 351 pg/mL (.)
[2023-07-21 09:04] LABS: Serial Monitoring PDF SCANNED IMAGE
== END 2023-07-17 23:59 | disposition home or self-care (01) ==
LOC: RAD 08:51
PROVIDERS: PCP Nurse Practitioner Family; Visit Provider Nurse Practitioner
DX: M81.0 Age-related osteoporosis without current pathological fracture; Z78.0 Asymptomatic menopausal state; D64.9 Anemia, unspecified
CPT/HCPCS: 36415; 77080; 80069; 81001; 82306; 82523; 82570; 83937; 83970; 84080; 84156; 85014; 85018; 85048; 85049

== ENCOUNTER 2023-07-24 13:35 | Outpatient (POV) | payer MEDICARE, SELFPAY | END 2023-07-24 23:59 | disposition home or self-care (01) | LOC: SC 13:36 | PROVIDERS: Visit Provider Nurse Practitioner | DX: Z00.00 Encounter for general adult medical examination without abnormal findings (principal) ==

== ENCOUNTER 2023-09-07 09:39 | Outpatient (CLI) | payer MEDICARE, SELFPAY ==
--- NOTE | 2023-09-07 09:42 | XR_ITS ---
FINAL REPORT CLINICAL HISTORY: Lt Knee Pain FINDINGS: LEFT KNEE 3 views of the left knee were obtained. There is no acute fracture or dislocation. Bones are osteopenic. There is a small joint effusion. Mild deformity is seen in the distal femur attributed to old healed fracture. Visualized joint spaces are normally aligned. Soft tissues are unremarkable. IMPRESSION: No acute bony abnormality. Reviewed, Interpreted and Dictated by Cedric Ny MD Transcribed by Sharri Lopes Authenticated and [facility]
== END 2023-09-07 23:59 | disposition home or self-care (01) ==
LOC: RAD 09:40
PROVIDERS: PCP Nurse Practitioner Family; Visit Provider Physician Assistant Surgical
DX: M25.562 Pain in left knee (principal)
CPT/HCPCS: 73562

== ENCOUNTER 2023-09-15 10:01 | Outpatient (CLI) | payer MEDICARE, SELFPAY ==
[2023-09-15 10:18] VITALS: BP 140/78; PULSE 58; RESP 16; O2SAT 96
[2023-09-15] MEDS: DENOSUMAB 60 MG/ML SYRINGE SQ (10:18)
== END 2023-09-15 10:30 | disposition home or self-care (01) ==
LOC: INF 10:02
PROVIDERS: PCP Nurse Practitioner Family; Visit Provider Nurse Practitioner
DX: M81.0 Age-related osteoporosis without current pathological fracture (principal); N18.4 Chronic kidney disease, stage 4 (severe); D63.1 Anemia in chronic kidney disease; Z79.899 Other long term (current) drug therapy
CPT/HCPCS: 96372; J0897

== ENCOUNTER 2024-02-26 11:40 | Outpatient (CLI) | payer MEDICARE, SELFPAY ==
[2024-02-26 11:54] LABS: Microscopic, Urine URINE MICROSCOPIC (MICROSCOPIC)
[2024-02-26 12:33] LABS: Hematocrit 37.5 % (37.0-47.0); Hemoglobin 11.9 g/dL (12.2-16.2); Mean Corpuscular HGB Conc 31.7 g/dL (31.8-35.4); Mean Corpuscular Hemoglobin 31.4 pg (27.0-31.2); Mean Corpuscular Volume 98.9 fl (81-99); Platelet Count 195 K/mm3 (142-424); Red Blood Count 3.79 M/mm3 (4.20-5.40); Red Cell Distribution Width 14.7 % (11.5-17.5); White Blood Count 9.2 K/mm3 (4.8-10.8)
[2024-02-26 12:43] LABS: Appearance,Urine CLEAR (Clear); Bilirubin,Urine Negative (Negative); Blood, Urine Negative (Negative); Color,Urine YELLOW (Yellow); Glucose,Urine (UA) Negative (Negative); Ketones,Urine Negative (Negative); Leukocyte Esterase,Urine TRACE (Negative); Nitrate,Urine POSITIVE (Negative); Protein,Urine 2+ (Negative); Urobilinogen,Urine 0.2 EU/dl (0.2)
[2024-02-26 12:56] LABS: Creatinine,Urine Random 53 mg/dL (Not Estab.)
[2024-02-26 13:08] LABS: Albumin Level 3.8 g/dl (3.5-5.0); Anion Gap 7.8 mEq/L (5-15); Blood Urea Nitrogen 33 mg/dl (7-17); Carbon Dioxide 24 mmol/L (22.0-30.0); Chloride 110 mmol/L (98-107); Estimated Glomerular Filt Rate 17 ml/min (>60); GFR (African American) 21 ML/MIN (>60); Glucose 97 mg/dl (74-100); Phosphorous 3.3 mg/dl (2.5-4.5); Potassium 4.8 mmoL/L (3.5-5.1); Sodium 137 mmol/L (136-145)
[2024-02-26 13:20] LABS: Intact Parathyroid Hormone 354.4 pg/mL (7.5-53.5)
[2024-02-26 13:25] LABS: 25-OH Vitamin D, Total 64.2 ng/mL (30-100)
[2024-02-26 14:30] LABS: Calcium 12.3 mg/dl (8.4-10.2)
== END 2024-02-26 23:59 | disposition home or self-care (01) ==
LOC: LAB 11:41
PROVIDERS: PCP Nurse Practitioner Family; Visit Provider Nurse Practitioner
DX: N18.4 Chronic kidney disease, stage 4 (severe) (principal); N39.0 Urinary tract infection, site not specified
CPT/HCPCS: 36415; 80069; 81001; 82306; 82570; 83970; 84156; 85027; 87086; 87088; 87186

== ENCOUNTER 2024-07-06 10:52 | Outpatient (CLI) | payer MEDICARE, SELFPAY ==
[2024-07-06 11:54] LABS: Albumin Level 3.7 g/dl (3.5-5.0); Anion Gap 13.7 mEq/L (5-15); Blood Urea Nitrogen 35 mg/dl (7-17); Calcium 11.4 mg/dl (8.4-10.2); Carbon Dioxide 24 mmol/L (22.0-30.0); Chloride 107 mmol/L (98-107); Estimated Glomerular Filt Rate 17 ml/min (>60); GFR (African American) 20 ML/MIN (>60); Glucose 92 mg/dl (74-100); Phosphorous 4.2 mg/dl (2.5-4.5); Potassium 4.7 mmoL/L (3.5-5.1); Sodium 140 mmol/L (136-145)
[2024-07-06 12:06] LABS: Intact Parathyroid Hormone 357.7 pg/mL (7.5-53.5)
== END 2024-07-06 23:59 | disposition home or self-care (01) ==
LOC: LABREF 10:54
PROVIDERS: PCP Nurse Practitioner; Visit Provider Nurse Practitioner
DX: E83.52 Hypercalcemia (principal)
CPT/HCPCS: 36415; 80069; 83970

== ENCOUNTER 2024-08-07 09:06 | Inpatient (IN) | payer MEDICARE, SELFPAY ==
[2024-08-07] VITALS (24 sets, daily range): BP systolic 87–209; BP diastolic 52–155; PULSE 61–93; RESP 12–22; TEMP 36.4–36.8; O2SAT 2–99; BMI 17.2; BMI 20.6
--- NOTE | 2024-08-07 09:15 | ECG_ITS ---
APPROVED REPORT Exam: Resting ECG HR:93 bpm ECG Measurements Heart Rate 93 AXES QRSd 98 QRS -57 QT 346 T 71 QTc 397 Conclusion A-fib ST depressions in lateral and inferior leads without reciprocal elevations Electronically signed by : ALEJANDRA SINCLAIR, 08/08/2024 18:36:59
--- NOTE | 2024-08-07 09:20 | XR_ITS ---
FINAL REPORT TECHNIQUE: Single view chest CLINICAL HISTORY: weakness COMPARISON: 08/08/2022 FINDINGS: A single view of the chest was obtained. The heart is mildly enlarged. The lungs are clear. There is no pneumothorax. There is a large hiatal hernia. Moderate S-shaped scoliosis is noted. IMPRESSION: No acute cardiopulmonary process. Reviewed, Interpreted and Dictated by Cedric Ny MD Transcribed by Sharri Lopse Authenticated and [facility]
--- NOTE | 2024-08-07 09:31 | PC.NURSE ---
lab at bedside for type and screen. RT notified of VBG. pt's son at bedside. call light w/i reach. pt on monitor technician, afib.
[2024-08-07 09:48] LABS: VBG Base Excess 0.9 mmol/L (-2.4-2.3); VBG HCO3 25.4 mmol/L (23-30); VBG Oxygen Saturation 79.4 % (50-70); VBG PCO2 40.3 mmol/L (35-51); VBG PH 7.42 mmol/L (7.31-7.41); VBG PO2 44.5 mmol/L (28-40); VBG Total CO2 26.7 mmol/L (23-27)
[2024-08-07 09:49] LABS: Basophils # 0.1 K/mm3 (0-0.2); Basophils % 0.9 % (0.1-2.0); Eosinophils # 0.2 Kmm3 (0.0-0.4); Eosinophils % 1.8 % (0.1-12.0); Immature Granulocytes # 0.17 10^3uL; Immature Granulocytes % 1.3 %; Lymphocytes # 2.7 K/mm3 (0.7-4.5); Lymphocytes % 19.8 % (10-50); Mean Corpuscular HGB Conc 31.7 g/dL (31.8-35.4); Mean Corpuscular Hemoglobin 30.2 pg (27.0-31.2); Mean Corpuscular Volume 95.1 fl (81-99); Mean Platelet Volume 10.9 fl (7.4-10.4); Monocytes # 1.5 K/mm3 (0.1-1.0); Monocytes % 10.8 % (1.7-9.3); Neutrophils # 8.8 K/mm3 (1.8-7.8); Neutrophils % 65.4 % (37.0-80.0); Nucleated Red Blood Cells # 0 10^3/uL; Nucleated Red Blood Cells % 0 %; Platelet Count 262 K/mm3 (142-424); Red Blood Count 4.31 M/mm3 (4.20-5.40); Red Cell Distribution Width 13.7 % (11.5-17.5); Red Cell Distribution Width-SD 48.1 fL; White Blood Count 13.5 K/mm3 (4.8-10.8)
--- NOTE | 2024-08-07 09:49 | ED_ITS ---
Discharge Plan Disposition Patient Disposition: Admitted Chief Complaint: Weakness Prescriptions Prescriptions: No Action prednisone 5 mg tablet 5 mg PO DAILY PRN (Reason: unknown) amlodipine [Norvasc] 5 mg tablet 5 mg PO Q OTHER DAY atenolol 100 mg tablet 100 mg PO DAILY Patient Comments: TAKE 1 TABLET BY MOUTH ONCE DAILY ergocalciferol (vitamin D2) 1,250 mcg (50,000 unit) capsule 1,250 mcg PO DIRECTED Patient Comments: TAKE 1 CAPSULE BY MOUTH ONCE A WEEK Rx Instructions: 1 capsule by mouth once weekly aspirin 81 mg tablet,delayed release (DR/EC) 81 mg PO QDAY calcitriol 0.25 mcg Capsule 0.25 mcg PO BID Referrals Follow up/Referrals: Jessica Frey APRN [Primary Care Provider] - See instructions Clinical Impressions Clinical Impression: Hypercalcemia, ANDREA (acute kidney injury) Print Language Print Language: Sinhala Discharge ED Provider: Toño Harrison General Adult HPI General Chief complaint: Weakness Stated complaint: won't eat or drink vomiting weakness dizziness Time Seen by Provider: 08/07/24 09:29 Mode of Arrival: Wheelchair Source of Information: Patient Description of Symptoms (Recalled from ER Triage Doc. by RN): pt presents to ED with her son. pt lethargic at this time. Son states had her parathyroid removed last . son states since Monday pt has been weak, vomited black this am, decreased appetite. History of Present Illness HPI narrative: Please note that above description of symptoms, in this electronic medical record under categorization of recalled from ER triage doctor by RN are reflective of an initial nursing assessment, however, is not reflective of my full history and physical exam that was personally taken and clarified. Consequentially, this preceding description of symptoms, which may include the patient's categorized chief complaint in the EMR, do not reflect my personal clinical impression, and the ultimate description of history of present illness and patient stated complaints should be deferred to this section of the note. Unless stated otherwise or congruent with this section of the note, additional signs, symptoms, or incongruence should be interpreted as inaccurate with my clinical impression. Related Data Home Medications ?Medication ?Instructions ?Recorded ?Confirmed aspirin 81 mg tablet,delayed 81 mg PO QDAY Heart health 08/09/22 08/07/24 release atenolol 100 mg tablet 100 mg PO DAILY High blood pressure 08/09/22 08/07/24 ergocalciferol (vitamin D2) 1,250 1,250 mcg PO DIRECTED Supplement 08/09/22 07/25/24 mcg (50,000 unit) capsule prednisone 5 mg tablet 5 mg PO DAILY PRN unknown 04/13/23 08/07/24 amlodipine 5 mg tablet (Norvasc) 5 mg PO Q OTHER DAY 07/25/24 08/07/24 calcitriol 0.25 mcg capsule 0.25 mcg PO BID thyroid 08/07/24 08/07/24 Allergies Allergy/AdvReac Type Severity Reaction Status Date / Time lisinopril Allergy upset Verified 07/25/24 10:04 stomach atorvastatin (From Lipitor) AdvReac myalgias Verified 07/25/24 10:04 [facility] Disclaimer: The information contained in this section may have been updated after the patient was seen, as this information can be updated by other users. Medical History (Updated 08/07/24 @ 14:00 by Toño Harrison MD) Encounter for pre-operative cardiovascular clearance Aneurysm of vascular graft Rheumatoid arthritis Rheumatoid arteritis Arthritis Osteoporosis Anemia Iron deficiency anemia AMI (acute myocardial infarction) Renal disease Hyperparathyroidism HTN (hypertension) CAD (coronary artery disease) Refill clinic medication management patient Surgical History H/O parathyroidectomy Hx of cataract surgery H/O: hysterectomy H/O hemorrhoidectomy Hx of colonoscopy History of parathyroid surgery Stented coronary artery Family History Other Heart attack Lung cancer No significant family history Ovarian cancer Renal disease Stroke Social History Smoking Status: Never smoker alcohol intake: never substance use type: denies use current occupational status: retired Travel in the last 8 weeks?: Inside the [place] housing: house caffeine: Yes Have you lived/traveled outside [place] in past 30 days?: No Contact w/someone who lives/traveled outside US past 30 days?: No Exposure to someone with infectious disease in past 14 days?: No Do you have a fever (greater than 100.4 F or 38 C)?: No Have you tested positive for COVID-19?: No Exposed to someone with COVID-19 in past 14 days?: No Do you have a sore throat?: No Do you have a cough?: No Do you have any weakness?: Yes Do you have any diarrhea?: No Are you experiencing any unusual bleeding?: No Do you have any muscle aches/pain?: No Do you have any abdominal pain?: No Are you experiencing loss of taste or smell?: No Other Medical History Have you received the Pneumonia Vaccine: Yes ROS Obtained: Yes All systems reviewed & no additional complaints except as documented Physical Exam General General appearance: alert and lethargic (But arousable by voice) Head Head exam: atraumatic and normocephalic Eye Eye exam: Present normal appearance, PERRL and EOMI ENT ENT exam: Present mucous membranes dry Neck Neck exam: Present normal inspection, full ROM, trachea midline and tenderness (Surgical incision site over the anterior neck clean, dry, intact with resolving bruising) Respiratory Respiratory exam: Absent respiratory distress, wheezes, stridor, accessory muscle use or prolonged expiratory phase Cardiovascular Cardiovascular exam: Present tachycardia, irregular rhythm and other (Pulses equal symmetric in upper and lower extremities) Abdominal Exam Abdominal exam: Present soft; Absent distention, tenderness, guarding, rebound, rigidity or pulsatile mass Extremities Exam Extremities exam: Absent edema Neurological Exam Neurological exam: Present alert, oriented X3 and CN II-XII intact; Absent motor sensory deficit Skin Skin exam: Present warm and dry; Absent diaphoresis or erythema Medical Decision Making Medical Records Medical records reviewed: Yes I reviewed the patient's medical records. Screening: Per USPSTF and CDC recommendations, given the prevalence of disease in our region, it is our hospital?s policy to screen for HIV and viral Hepatitis for all patients aged 18 and over and those with ongoing risk factors. Mello Inquiry Pt receiving controlled substance: No Mello was queried for this patient: No Vital Signs: 08/07/24 09:10 08/07/24 09:17 08/07/24 09:30 Temperature 98.0 F Temperature Source Oral Pulse Rate 72 64 Pulse Rate [Right Radial] 93 H Respiratory Rate 18 17 Blood Pressure 123/93 H 125/89 Blood Pressure [Right Arm] 123/93 H Blood Pressure Mean Blood Pressure Mean [Right Arm] 103 Blood Pressure Source Blood Pressure Source [Right Arm] Automatic Cuff Blood Pressure Position 02 Sat by Pulse Oximetry 95 93 L 95 Oxygen Delivery Method Room Air Room Air Room Air Oxygen Flow Rate (LPM) 08/07/24 10:01 08/07/24 10:11 08/07/24 10:30 Temperature Temperature Source Pulse Rate 75 69 Pulse Rate [Right Radial] Respiratory Rate 15 15 12 Blood Pressure 87/65 L 139/92 H 164/89 H Blood Pressure [Right Arm] Blood Pressure Mean 101 Blood Pressure Mean [Right Arm] Blood Pressure Source Blood Pressure Source [Right Arm] Blood Pressure Position 02 Sat by Pulse Oximetry 93 L 99 91 L Oxygen Delivery Method Room Air Nasal Cannula Oxygen Flow Rate (LPM) 2 08/07/24 10:45 08/07/24 11:01 08/07/24 11:26 Temperature Temperature Source Pulse Rate 69 64 68 Pulse Rate [Right Radial] Respiratory Rate 14 13 14 Blood Pressure 133/52 L 171/95 H 168/96 H Blood Pressure [Right Arm] Blood Pressure Mean Blood Pressure Mean [Right Arm] Blood Pressure Source Blood Pressure Source [Right Arm] Blood Pressure Position 02 Sat by Pulse Oximetry 97 95 98 Oxygen Delivery Method Nasal Cannula Nasal Cannula Oxygen Flow Rate (LPM) 2 2 08/07/24 11:27 08/07/24 11:30 08/07/24 12:00 Temperature Temperature Source Pulse Rate 65 64 66 Pulse Rate [Right Radial] Respiratory Rate 18 14 13 Blood Pressure 168/96 H 174/96 H 154/86 H Blood Pressure [Right Arm] Blood Pressure Mean Blood Pressure Mean [Right Arm] Blood Pressure Source Automatic Cuff Blood Pressure Source [Right Arm] Blood Pressure Position Supine 02 Sat by Pulse Oximetry 99 97 98 Oxygen Delivery Method Room Air Nasal Cannula Nasal Cannula Oxygen Flow Rate (LPM) 2 2 08/07/24 12:31 08/07/24 13:00 08/07/24 13:25 Temperature Temperature Source Pulse Rate 70 62 64 Pulse Rate [Right Radial] Respiratory Rate 16 22 13 Blood Pressure 190/95 H 175/155 H 165/95 H Blood Pressure [Right Arm] Blood Pressure Mean Blood Pressure Mean [Right Arm] Blood Pressure Source Blood Pressure Source [Right Arm] Blood Pressure Position 02 Sat by Pulse Oximetry 96 94 L 93 L Oxygen Delivery Method Room Air Nasal Cannula Nasal Cannula Oxygen Flow Rate (LPM) 08/07/24 13:30 Temperature Temperature Source Pulse Rate 64 Pulse Rate [Right Radial] Respiratory Rate 12 Blood Pressure 183/102 H Blood Pressure [Right Arm] Blood Pressure Mean Blood Pressure Mean [Right Arm] Blood Pressure Source Blood Pressure Source [Right Arm] Blood Pressure Position 02 Sat by Pulse Oximetry 95 Oxygen Delivery Method Nasal Cannula Oxygen Flow Rate (LPM) Lab Data Lab Results 08/07/24 09:18: VBG pH 7.42 H, VBG pCO2 40.3, VBG pO2 44.5 H, VBG HCO3 25.4, VBG Total CO2 26.7, VBG O2 Saturation 79.4 H, VBG Base Excess 0.9, VBG Lactic Acid 3.0 H 08/07/24 09:20: HCV Ab CARRI w/Rflx PCR Qn Negative, HIV Ag/Ab Combo Qual Negative 08/07/24 09:24: WBC 13.5 H, RBC 4.31, Hgb 13.0, Hct 41.0, MCV 95.1, MCH 30.2, M CHC 31.7 L, RDW 13.7, Plt Count 262, MPV 10.9 H, Neut % (Auto) 65.4, Lymph % (Auto) 19.8, [place] % (Auto) 10.8 H, Eos % (Auto) 1.8, Baso % (Auto) 0.9, Neut # (Auto) 8.8 H, Lymph # (Auto) 2.7, [place] # (Auto) 1.5 H, Eos # (Auto) 0.2, Baso # (Auto) 0.1, Sodium 136, Potassium 5.6 H, Chloride 102, Carbon Dioxide 27, Anion Gap 12.6, BUN 54 H, Creatinine 3.40 H, Estimated Creat Clear 8, Estimated GFR 13 L*, Est GFR ( Amer) 15 L*, Glucose 129 H, Calcium 16.4 H*, Total Bilirubin 1.7 H, AST 62 H, ALT 21, Alkaline Phosphatase 37 L, Troponin I 0.08 H, Total Protein 8.0, Albumin 5.0, Globulin 3.0, Albumin/Globulin Ratio 1.7, Blood Type O Positive, Antibody Screen Negative 08/07/24 10:10: Urine Color Yellow, Urine Appearance Clear, Urine pH 6.0, Ur Specific [place] 1.020, Urine Protein 3+ A, Urine Glucose (UA) Negative, Urine Ketones Negative, Urine Blood Trace-i, Urine Nitrate Negative, Urine Bilirubin Negative, Urine Urobilinogen 0.2, Ur Leukocyte Esterase Negative, Urine RBC Occasional, Urine WBC None, Ur Squamous Epith Cells Occasional, Urine Bacteria Trace 08/07/24 13:01: Troponin I 0.09 H 08/07/24 09:24 08/07/24 09:24 Orders (Tests/Meds): ED MEDICATIONS Generic Name Dose Route Start Last Admin Trade Name Vinay PRN Reason Stop Dose Admin Sodium Chloride 10 ml 08/07/24 09:19 Sodium Chloride 0.9% 10ml Flush Syringe IV 09/06/24 09:18 NEEDED PRN Maintain IV Site Discontinued Medications Generic Name Dose Route Start Last Admin Trade Name Vinay PRN Reason Stop Dose Admin Lactated Ringer's 1,640 mls @ 820 mls/hr 08/07/24 09:53 08/07/24 09:59 Lactated Ringer's 1000 Ml Bag 30 ml/kg infuse over 2 hr (1640 ml) 08/07/24 11:52 820 mls/hr IV Administration .Q2H ONE Ondansetron HCl 4 mg 08/07/24 09:53 08/07/24 10:00 Ondansetron 4mg/2ml Vial IV 08/07/24 09:54 4 mg ONCE ONE Administration ORDERS Category Date Time Status Type and Screen Stat BBK 08/07/24 09:24 Completed XR chest portable Stat Exams 08/07/24 09:20 Completed Complete Blood Count Auto Diff Stat Lab 08/07/24 09:24 Completed Comprehensive Metabolic Panel Stat Lab 08/07/24 09:24 Completed HIV Combo Stat Lab 08/07/24 09:20 Completed Hepatitis C Ab Qual. W/ RFX Stat Lab 08/07/24 09:20 Completed Lactic Acid Follow Up (RFLX 1) Stat Lab 08/07/24 13:50 Ordered Troponin I Q3H Lab 08/07/24 13:01 Completed Troponin I Q3H Lab 08/07/24 15:30 Ordered Troponin I Stat Lab 08/07/24 09:24 Completed Urinalysis and Microscopic Stat Lab 08/07/24 10:10 Completed Blood Culture Stat Micro 08/07/24 09:55 Received Venous Blood Gas Stat RT 08/07/24 09:18 Completed HEART Score History (anamnesis): Slightly suspicious ECG: Non-specific disturbance Age: >65 years Risk factors: 3 or more risk factors Troponin: 1-3x normal limit HEART Score: 6 Medical Decision Narrative: Ill-appearing 89-year-old female with history of hypertension, hyperlipidemia, CAD, CKD, CHF, hyperparathyroidism status post near-total parathyroidectomy on 08/01 presenting with generalized weakness, decreased appetite. No fevers or chills, nausea or vomiting, diarrhea, constipation. She just dates that she feels generally weak and this is been getting worse for the last 3 days. Surgery was done at [facility]. History was obtained via conversation with history obtained with patient and son. On arrival, patient hemodynamically stable, alert, oriented x4, appropriate, GCS 15, moving all extremities spontaneously, pupils equal and reactive to light. Full physical exam performed and significant for uncomfortable appearing female who is in no acute distress although she is intermittently retching. Abdomen is soft, nontender, nondistended. Lungs are clear. No lower extremity edema. Pulses equal and symmetric in upper and lower extremities. She is neurologically intact and oriented. Patient's anterior neck is incision is clean dry and intact with wound dressing overlying with resolving bruising. No evidence of stridor, no range of motion of neck difficulties, no meningismus, no muffled voice, phonating appropriately. Differential includes sepsis, dehydration, metabolic abnormality, endocrinologic abnormality, ACS, [place], CHF, postop infection, among others. Patient placed on continuous cardiac monitoring and continuous pulse ox with initial blood pressure 125/93, heart rate 93, saturation 95% on room air. Independent interpretation of EKG shows what appears to be atrial fibrillation 93 bpm with QRS 98, QTc 397 with leftward axis and mild ST depressions with no reciprocal elevations. Patient was given IV fluids for symptomatic management and correction of underlying abnormalities. Workup independently interpreted and significant for hypercalcemic with ANDREA and mildly elevated white count. VBG with lactate of 3.0. Initial troponin 0.08, delta 0.09. On independent interpretation of imaging, no acute cardiopulmonary space disease on chest x- ray. See radiology read for full review of final results. Heart score 6. On reevaluation, patient feeling a little better after fluids I contacted [facility]. I spoke to the surgical oncologist there who recommended treatment for hypercalcemia. Also states that she was started on calcium replacement, recommended she stop this. States that she is okay to stay here at [facility] and does not need transferred to [facility]. I talked to the hospitalist about this and formally consulted, patient to be admitted. Tissue perfusion reassessment performed within 3 hours, patient mentating, following commands, good capillary refill and hemodynamically stable. Given patient presentation, workup, history, this most likely represents hypercalcemia secondary to parathyroid disease as well as calcium replacement. Because patient high risk for clinical decompensation, deemed appropriate for inpatient admission. Results were relayed to patient who voiced understanding and patient was agreeable to inpatient admission and management. Patient was admitted to the hospital for further definitive management. Back Tender [employer]drin[employer] disclaimer Much of this encounter note is an electronic supervisor television chassis repair spoken language to printed text. Electronic supervisor television chassis repair of the spoken language may permit errors. Although I have reviewed the note, some errors may still exist. Critical Care Critical Care Time Critical Care Time: No
--- NOTE | 2024-08-07 09:53 | PC.NURSE ---
manager publishing bp/sticks in right fa d/t parathyroid transplant.
[2024-08-07] MEDS: LACTATED RINGERS 1000ML 1,640 ML 820 ML IV (09:59)
[2024-08-07] MEDS: ONDANSETRON 4MG/2ML VIAL 4 MG IV (10:00)
[2024-08-07 10:05] LABS: Alanine Aminotransferase 21 U/L (12-78); Albumin/Globulin Ratio 1.7 (1.1-1.8); Alkaline Phosphatase 37 U/L (38-126); Anion Gap 12.6 mEq/L (5-15); Aspartate Amino Transferase 62 U/L (14-36); Bilirubin,Total 1.7 mg/dl (0.2-1.3); Blood Urea Nitrogen 54 mg/dl (7-17); Carbon Dioxide 27 mmol/L (22.0-30.0); Chloride 102 mmol/L (98-107); Creatinine Clearance Estimated 8 mL/min (50-200); Estimated Glomerular Filt Rate 13 ml/min (>60); GFR (African American) 15 ML/MIN (>60); Glucose 129 mg/dl (74-100); Potassium 5.6 mmoL/L (3.5-5.1); Sodium 136 mmol/L (136-145)
[2024-08-07 10:13] LABS: Microscopic, Urine URINE MICROSCOPIC (MICROSCOPIC)
[2024-08-07 10:16] LABS: Appearance,Urine CLEAR (Clear); Bilirubin,Urine Negative (Negative); Blood, Urine TRACE-I (Negative); Color,Urine YELLOW (Yellow); Glucose,Urine (UA) Negative (Negative); Ketones,Urine Negative (Negative); Leukocyte Esterase,Urine Negative (Negative); Nitrate,Urine Negative (Negative); Protein,Urine 3+ (Negative); Urobilinogen,Urine 0.2 EU/dl (0.2)
--- NOTE | 2024-08-07 10:16 | PC.NURSE ---
pt placed on 2LNC d/t sats dropped to 80. pt 95% on 2LNC.
[2024-08-07 10:17] LABS: Troponin I 0.08 ng/ml (0.00-0.034)
[2024-08-07 10:21] LABS: Calcium 16.4 mg/dl (8.4-10.2)
--- NOTE | 2024-08-07 10:25 | PC.NURSE ---
1021 CRITICAL CALCIUM 16.4. PT NAME AND R/V. DR SINCLAIR NOTIFIED
[2024-08-07 10:27] LABS: Bacteria,Urine Trace /lpf; RBC,Urine Occasional #/hpf (0-3); Squamous Epithelial Cell,Urine Occasional #/hpf (0-5)
--- NOTE | 2024-08-07 11:06 | PC.NURSE ---
Garett calling [facility] at this time regarding possible transfer.
--- NOTE | 2024-08-07 11:06 | PC.NURSE ---
called [facility] about getting this pt transferred per Dr Harrison. Pt had para-thyroid surgery last and is now confused, weak, has ANDREA and Hypercalcemia and new onset of AFIB. [facility] advised they would call us back with the provider.
[2024-08-07 11:12] LABS: HIV Combo NEGATIVE (Negative)
[2024-08-07 11:19] LABS: Hepatitis C Ab Qual. W/ RFX NEGATIVE (Negative)
--- NOTE | 2024-08-07 11:24 | PC.NURSE ---
Gave pt warm blanket.
--- NOTE | 2024-08-07 11:40 | PC.NURSE ---
Called [facility] back to see where they were on speaking with Dr Harrison about this pt. Advised they were working on some things and to expect a call shortly.
--- NOTE | 2024-08-07 11:53 | PC.NURSE ---
[facility] called back and is speaking with Dr Harrison at this time.
--- NOTE | 2024-08-07 12:53 | PC.NURSE ---
daughter in law and son given update on patient. daughter in law asked for copy of patients lab results, instructed she could go to medical records to obtain copy. lab work results talked about with patient, son and daughter in law. daughter in law states pt's lips look better, they've been cyanotic. pt's sats 96% on 2LNC. Daughter in law asked if patient was getting a catheter, informed an in and out catheter was obtained for sample. Dr. Harrison has been at bedside and updated family. Dr. Harrison did get pulled away during one update d/t a phone call from on patient. Dr. Harrison went back to talk to family and patient.
[2024-08-07 13:40] LABS: Troponin I 0.09 ng/ml (0.00-0.034)
[2024-08-07 13:50] LABS: Reflex Lactic Add Lactic Reflex
--- NOTE | 2024-08-07 14:01 | PC.NURSE ---
PURE-WICK IN PLACE
--- NOTE | 2024-08-07 14:23 | PC.NURSE ---
house notified of admission
[2024-08-07] MEDS: LACTATED RINGERS 1000ML 1,000 ML 100 ML IV (16:10)
[2024-08-07 16:15] LABS: Chloride 104 mmol/L (98-107)
[2024-08-07 16:16] LABS: Potassium 4.1 mmoL/L (3.5-5.1); Sodium 139 mmol/L (136-145)
[2024-08-07 16:18] LABS: Alanine Aminotransferase 16 U/L (12-78); Anion Gap 9.1 mEq/L (5-15); Aspartate Amino Transferase 36 U/L (14-36); Blood Urea Nitrogen 49 mg/dl (7-17); Carbon Dioxide 30 mmol/L (22.0-30.0); Creatinine Clearance Estimated 10 mL/min (50-200); Estimated Glomerular Filt Rate 12 ml/min (>60); GFR (African American) 15 ML/MIN (>60)
[2024-08-07 16:19] LABS: Albumin/Globulin Ratio 1.4 (1.1-1.8); Alkaline Phosphatase 68 U/L (38-126); Bilirubin,Total 0.8 mg/dl (0.2-1.3); Globulin 2.8 g/dL (1.3-3.2); Glucose 112 mg/dl (74-100); Total Protein,Serum 6.8 g/dl (6.3-8.2)
[2024-08-07 16:31] LABS: Troponin I 0.11 ng/ml (0.00-0.034)
[2024-08-07 16:36] LABS: 25-OH Vitamin D, Total 74.8 ng/mL (30-100)
[2024-08-07 16:38] LABS: Calcium 15.4 mg/dl (8.4-10.2)
[2024-08-07 17:39] LABS: Intact Parathyroid Hormone 7.6 pg/mL (7.5-53.5)
[2024-08-07] MEDS: ATENOLOL 100 MG 100 EACH PO (18:18)
--- NOTE | 2024-08-07 18:31 | P.HP_ITS ---
History of Present Illness *Admission Date: 08/07/24 *Reason for visit:: Weakness *History of present illness: Roseanne Tucker is a 89-year-old female with a history of hyperparathyroidism who recently underwent total parathyroidectomy on 08/01/2024 and presents with progressive weakness, poor appetite. Son states that she was discharged on calcium carbonate 1000 mg twice daily after procedure. On arrival, calcium was 16.4, creatinine 3.4. Patient appears weak on my evaluation but alert and oriented. Case discussed with ED provider and decision was made to admit patient for symptomatic hypercalcemia. [facility] Disclaimer: The information contained in this section may have been updated after the patient was seen, as this information can be updated by other users. Medical History Encounter for pre-operative cardiovascular clearance Aneurysm of vascular graft Rheumatoid arthritis Rheumatoid arteritis Arthritis Osteoporosis Anemia Iron deficiency anemia AMI (acute myocardial infarction) Renal disease Hyperparathyroidism HTN (hypertension) CAD (coronary artery disease) Refill clinic medication management patient Surgical History H/O parathyroidectomy Hx of cataract surgery H/O: hysterectomy H/O hemorrhoidectomy Hx of colonoscopy History of parathyroid surgery Stented coronary artery Family History Other Heart attack Lung cancer No significant family history Ovarian cancer Renal disease Stroke Social History (Updated 08/07/24 @ 15:55 by Lorena Ceja RN) Smoking Status: Never smoker alcohol intake: never substance use type: denies use current occupational status: retired Travel in the last 8 weeks?: Inside the [place] housing: house caffeine: Yes Have you lived/traveled outside US in past 30 days?: No Contact w/someone who lives/traveled outside US past 30 days?: No Exposure to someone with infectious disease in past 14 days?: No Do you have a fever (greater than 100.4 F or 38 C)?: No Have you tested positive for COVID-19?: No Exposed to someone with COVID-19 in past 14 days?: No Do you have a sore throat?: No Do you have a cough?: No Do you have any weakness?: Yes Do you have any diarrhea?: No Are you experiencing any unusual bleeding?: No Do you have any muscle aches/pain?: No Do you have any abdominal pain?: No Are you experiencing loss of taste or smell?: No Other Medical History Have you received the Flu Vaccine for this season: Yes Have you received the Pneumonia Vaccine: Yes Meds Home Medications and Allergies Home Medications ?Medication ?Instructions ?Recorded ?Confirmed ?Type aspirin 81 mg tablet,delayed 81 mg PO QDAY Heart health 08/09/22 08/07/24 History release atenolol 100 mg tablet 100 mg PO DAILY High blood pressure 08/09/22 08/07/24 History ergocalciferol (vitamin D2) 1,250 1,250 mcg PO DIRECTED Supplement 08/09/22 08/07/24 History mcg (50,000 unit) capsule prednisone 5 mg tablet 5 mg PO DAILY PRN unknown 04/13/23 08/07/24 History amlodipine 5 mg tablet (Norvasc) 5 mg PO Q OTHER DAY 07/25/24 08/07/24 History acetaminophen 325 mg tablet 325 mg PO Q6 08/07/24 08/07/24 History (Tylenol) calcitriol 0.25 mcg capsule 0.25 mcg PO BID thyroid 08/07/24 08/07/24 History calcium carbonate 1,000 mg tablet 1,000 mg PO BID 08/07/24 08/07/24 History New Prescriptions to Start Prescriptions: Allergies Allergy/AdvReac Type Severity Reaction Status Date / Time lisinopril Allergy upset Verified 07/25/24 10:04 stomach atorvastatin (From Lipitor) AdvReac myalgias Verified 07/25/24 10:04 Exam Data for Last 24 hours Vital signs and Labs for Last 24 Hours: Temp Pulse Resp BP Pulse Ox O2 Del Method O2 Flow Rate 98.1 F 69 16 209/107 H 95 Nasal Cannula 2 08/07/24 16:00 08/07/24 16:00 08/07/24 16:00 08/07/24 16:00 08/07/24 16:00 08/07/24 16:51 08/07/24 16:51 Laboratory Results - last 24 hr 08/07/24 09:18: VBG pH 7.42 H, VBG pCO2 40.3, VBG pO2 44.5 H, VBG HCO3 25.4, VBG Total CO2 26.7, VBG O2 Saturation 79.4 H, VBG Base Excess 0.9, VBG Lactic Acid 3.0 H 08/07/24 09:20: HCV Ab CARRI w/Rflx PCR Qn Negative, HIV Ag/Ab Combo Qual Negative 08/07/24 09:24: WBC 13.5 H, RBC 4.31, Hgb 13.0, Hct 41.0, MCV 95.1, MCH 30.2, M CHC 31.7 L, RDW 13.7, Plt Count 262, MPV 10.9 H, Neut % (Auto) 65.4, Lymph % (Auto) 19.8, [place] % (Auto) 10.8 H, Eos % (Auto) 1.8, Baso % (Auto) 0.9, Neut # (Auto) 8.8 H, Lymph # (Auto) 2.7, [place] # (Auto) 1.5 H, Eos # (Auto) 0.2, Baso # (Auto) 0.1, Sodium 136, Potassium 5.6 H, Chloride 102, Carbon Dioxide 27, Anion Gap 12.6, BUN 54 H, Creatinine 3.40 H, Estimated Creat Clear 8, Estimated GFR 13 L*, Est GFR ( Amer) 15 L*, Glucose 129 H, Calcium 16.4 H*, Total Bilirubin 1.7 H, AST 62 H, ALT 21, Alkaline Phosphatase 37 L, Troponin I 0.08 H, Total Protein 8.0, Albumin 5.0, Globulin 3.0, Albumin/Globulin Ratio 1.7, Blood Type O Positive, Antibody Screen Negative 08/07/24 10:10: Urine Color Yellow, Urine Appearance Clear, Urine pH 6.0, Ur Specific [place] 1.020, Urine Protein 3+ A, Urine Glucose (UA) Negative, Urine Ketones Negative, Urine Blood Trace-i, Urine Nitrate Negative, Urine Bilirubin Negative, Urine Urobilinogen 0.2, Ur Leukocyte Esterase Negative, Urine RBC Occasional, Urine WBC None, Ur Squamous Epith Cells Occasional, Urine Bacteria Trace 08/07/24 13:01: Troponin I 0.09 H 08/07/24 15:50: Sodium 139, Potassium 4.1 D, Chloride 104, Carbon Dioxide 30, Anion Gap 9.1, BUN 49 H, Creatinine 3.50 H, Estimated Creat Clear 10, Estimated GFR 12 L*, Est GFR ( Amer) 15 L*, Glucose 112 H, Calcium 15.4 H*, Total Bilirubin 0.8, AST 36 D, ALT 16, Alkaline Phosphatase 68, Troponin I 0.11 H, Total Protein 6.8, Albumin 4.0 D, Globulin 2.8, Albumin/Globulin Ratio 1.4, 25-OH Vitamin D Total 74.8, PTH Intact 7.6 I & O for Last 24 hours: Intake & Output 08/04/24 08/05/24 08/06/24 08/07/24 23:59 23:59 23:59 23:59 Weight 54.913 kg Constitutional Constitutional: no acute distress *Routine HEENT Exam Head: Present normocephalic Eye: Present EOMI and PERRL ENT: Present mucous membranes moist *Routine Neck Exam Neck: Present supple; Absent lymphadenopathy *Routine Respiratory Exam Respiratory: Present CTA bilaterally *Routine Cardiovascular Exam Cardiovascular: Present RRR *Routine Abdominal Exam Abdominal: Present soft and normoactive bowel sounds; Absent tenderness *Routine Rectal Exam Rectal:: deferred *Routine Genitalia Exam Genitalia:: deferred *Routine Extremities Exam Extremities: Absent cyanosis, clubbing or edema *Routine Skin Exam Skin: Present warm; Absent rash *Routine Neurological Exam Neurological: Present alert Assessment and Plan *Assessment and plan (1) ANDREA (acute kidney injury): Status: Acute Category: Medical Code(s): N17.9 - Acute kidney failure, unspecified (2) Hypercalcemia: Status: Acute Category: Medical Code(s): E83.52 - Hypercalcemia Plan Roseanne Tucker is a 89-year-old female with a history of hyperparathyroidism who recently underwent total parathyroidectomy on 08/01/2024 and presents with progressive weakness, poor appetite. Son states that she was discharged on calcium carbonate 1000 mg twice daily after procedure. On arrival, calcium was 16.4, creatinine 3.4. Patient appears weak on my evaluation but alert and oriented. Case discussed with ED provider and decision was made to admit patient for symptomatic hypercalcemia. #Hypercalcemia #Weakness #ANDREA on CKD stage IV ? Initial calcium 16.4, creatinine 3.4, GFR 12. Patient appears weak, but alert and oriented. Poor oral intake over the past few days. ? Will hold calcium carbonate 1000 mg twice daily that patient has been taking since parathyroidectomy. ? Calcium improved to 15.4 however after IV fluid resuscitation. ? Continue LR at 100 mm/h. ? Calcitonin 200 units twice daily. ? Continuous cardiac telemetry. ? Follow-up PTH, vitamin D. #Elevated troponin #NSTEMI likely type II #History of CAD with stents ? Initial troponin 0.08, up trended to 0.11. History of CAD with stents. ? EKG showing inferolateral ST depressions, also V4-V6. Unknown chronicity. ? In the setting of poor oral intake in the past few days. ? Will give one-time dose of therapeutic Lovenox, cardiology will consult in the morning. ? Aspirin, statin. #Hypertension ? Continue home amlodipine, atenolol due to elevated pressures here. Full code DVT prophylaxis: Therapeutic Lovenox as above
[2024-08-07] MEDS: ASPIRIN 325MG TABLET 325 MG PO (20:20)
[2024-08-07] MEDS: ENOXAPARIN 100MG/ML SYRINGE 55 MG SUBCUT (20:20)
[2024-08-07 21:36] LABS: POC Glucose,Bedside 91 (70-110)
[2024-08-08] VITALS (7 sets, daily range): BP systolic 139–192; BP diastolic 66–98; PULSE 50–65; RESP 16–18; TEMP 36.4–36.8; O2SAT 90–98; BMI 21.3
--- NOTE | 2024-08-08 01:00 | PC.NURSE ---
Pt BP 192/98 at this time. Contacted Meli Cortes APRN, New orders for Hydralazine 50 mg Q8 PRN
[2024-08-08 01:01] LABS: Troponin I 0.11 ng/ml (0.00-0.034)
[2024-08-08] MEDS: HYDRALAZINE HCL 25MG TABLET 50 MG PO (01:02)
[2024-08-08] MEDS: LACTATED RINGERS 1000ML 1,000 ML 100 ML IV ×3 (01:20→22:40)
--- NOTE | 2024-08-08 04:58 | PC.NURSE ---
Pt is alert and oriented x4 and tolerating 2L well. Pt admits to pain in left leg but refuses tylenol and states she dose not need it. Pt BP has been elevated this shift and has been treated with PRN BP meds per MAY. Pt is NSR on telemetry. Pt family member at bedside.
[2024-08-08 05:57] LABS: POC Glucose,Bedside 103 (70-110)
[2024-08-08 06:51] LABS: Alanine Aminotransferase 16 U/L (12-78); Albumin Level 3.9 g/dl (3.5-5.0); Albumin/Globulin Ratio 1.4 (1.1-1.8); Alkaline Phosphatase 68 U/L (38-126); Aspartate Amino Transferase 38 U/L (14-36); Bilirubin,Total 0.7 mg/dl (0.2-1.3); Blood Urea Nitrogen 46 mg/dl (7-17); Carbon Dioxide 31 mmol/L (22.0-30.0); Chloride 102 mmol/L (98-107); Creatinine Clearance Estimated 11 mL/min (50-200); Estimated Glomerular Filt Rate 14 ml/min (>60); GFR (African American) 17 ML/MIN (>60); Globulin 2.7 g/dL (1.3-3.2); Glucose 99 mg/dl (74-100); Magnesium 1.5 mg/dl (1.6-2.3); Sodium 137 mmol/L (136-145); Total Protein,Serum 6.6 g/dl (6.3-8.2)
[2024-08-08 06:52] LABS: Basophils # 0.1 K/mm3 (0-0.2); Basophils % 0.8 % (0.1-2.0); Eosinophils # 0.4 Kmm3 (0.0-0.4); Eosinophils % 3.4 % (0.1-12.0); Hematocrit 35.9 % (37.0-47.0); Immature Granulocytes # 0.21 10^3uL; Lymphocytes # 2.4 K/mm3 (0.7-4.5); Lymphocytes % 23.3 % (10-50); Mean Corpuscular HGB Conc 31.8 g/dL (31.8-35.4); Mean Corpuscular Hemoglobin 30.5 pg (27.0-31.2); Monocytes # 1.3 K/mm3 (0.1-1.0); Neutrophils # 6.1 K/mm3 (1.8-7.8); Neutrophils % 58.5 % (37.0-80.0); Nucleated Red Blood Cells # 0 10^3/uL; Nucleated Red Blood Cells % 0 %; Platelet Count 217 K/mm3 (142-424); Red Blood Count 3.74 M/mm3 (4.20-5.40); Red Cell Distribution Width 13.7 % (11.5-17.5); Red Cell Distribution Width-SD 48.3 fL; White Blood Count 10.4 K/mm3 (4.8-10.8)
[2024-08-08 07:16] LABS: Hemoglobin 11.4 g/dL (12.2-16.2)
[2024-08-08 07:38] LABS: Calcium 13.8 mg/dl (8.4-10.2)
--- NOTE | 2024-08-08 08:50 | HMH.PHAINT1 ---
Pharmacy Intervention Comments: home medication list verified using list from outpatient pharmacy and pt interview and interview with pt granddaughter
[2024-08-08] MEDS: ATENOLOL 50MG TABLET 100 MG PO (08:51)
[2024-08-08] MEDS: ASPIRIN EC 81MG TABLET 81 MG PO (08:51)
[2024-08-08] MEDS: AMLODIPINE 5MG TABLET 5 MG PO (08:51)
--- NOTE | 2024-08-08 10:28 | EXP.CARD.CON ---
History of Present Illness History of Present Illness Consult date: 08/08/24 Requesting physician: Serge Salas Consult reason: atrial fibrillation Chief complaint: weakness Additional Medical History:: 1. Hyperparathyroidism A. s/p partial parathyroidectomy, 07/2024, [place]. 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 B. SPECT scan nuclear medicine, 02/13/2023, no scintigraphic findings to localize parathyroid adenoma. C. Bone densitometry, 07/17/2023, diminished bone mineral density consistent with osteoporosis. 2. PAF with CVR, 08/07/2024 A. back in NSR on 08/08/2024 3. CKD, stage IV with 3+ proteinuria A. Patient sees nephrology B. Baseline Cr in 2023 around 2.5-2.7 4. CAD A. NSTEMI with GARCIA to prox LAD and RCA, 11/2016 5. Hypertension A. Renal ultrasound, 09/2022, increased echogenicity in the kidneys bilaterally most consistent with medical renal disease. B. Renal duplex, 09/2022, no evidence of significant renal artery stenosis. C. Echocardiogram, 09/27/2019, EF 55%, mild LAE, mild concentric LVH, grade 1 diastolic dysfunction, mild MR/TR. 6. Hyperlipidemia A. LDL 44 in 2021 7. Gallstones noted on renal ultrasound 09/2022 8. Chronic prednisone therapy for unknown reason History of present illness: Roseanne Tucker is a 89-year-old female with a history of hyperparathyroidism who recently underwent total parathyroidectomy on 08/01/2024 and presents with progressive weakness, poor appetite. Son states that she was discharged on calcium carbonate 1000 mg twice daily after procedure. On arrival, calcium was 16.4, creatinine 3.4. Patient appears weak on my evaluation but alert and oriented. Case discussed with ED provider and decision was made to admit patient for symptomatic hypercalcemia. The above per Dr. Salas At the time of my exam the patient's daughter and her are present with the patient. Patient is alert and talkative and tries to answer questions but is difficult to understand her. She does have a bandage over her recent incision in the anterior portion of the neck. Several bruised areas on the arms are noted where the daughter relates that the pieces of her parathyroid were implanted. Multiple questions answered regarding electrolytes and calcium treatment. Calcium is coming down with therapy. Admission EKG showed atrial fibrillation with a controlled trickle response but currently on telemetry patient is back in sinus rhythm. The mildly elevated troponins are likely due to patient's chronic kidney disease but we will obtain an echocardiogram to evaluate LVEF and wall motion abnormality. We do not anticipate proceeding with any interventional therapy at this time due to her stage IV kidney disease. [facility] Disclaimer: The information contained in this section may have been updated after the patient was seen, as this information can be updated by other users. Medical History Encounter for pre-operative cardiovascular clearance Aneurysm of vascular graft Rheumatoid arthritis Rheumatoid arteritis Arthritis Osteoporosis Anemia Iron deficiency anemia AMI (acute myocardial infarction) Renal disease Hyperparathyroidism HTN (hypertension) CAD (coronary artery disease) Refill clinic medication management patient Surgical History H/O parathyroidectomy Hx of cataract surgery H/O: hysterectomy H/O hemorrhoidectomy Hx of colonoscopy History of parathyroid surgery Stented coronary artery Family History Other Heart attack Lung cancer No significant family history Ovarian cancer Renal disease Stroke Social History (Updated 08/07/24 @ 15:55 by Lorena Ceja RN) Smoking Status: Never smoker alcohol intake: never substance use type: denies use current occupational status: retired Travel in the last 8 weeks?: Inside the [facility] housing: house caffeine: Yes Have you lived/traveled outside US in past 30 days?: No Contact w/someone who lives/traveled outside US past 30 days?: No Exposure to someone with infectious disease in past 14 days?: No Do you have a fever (greater than 100.4 F or 38 C)?: No Have you tested positive for COVID-19?: No Exposed to someone with COVID-19 in past 14 days?: No Do you have a sore throat?: No Do you have a cough?: No Do you have any weakness?: Yes Do you have any diarrhea?: No Are you experiencing any unusual bleeding?: No Do you have any muscle aches/pain?: No Do you have any abdominal pain?: No Are you experiencing loss of taste or smell?: No Review of Systems Review of Systems Review of systems:: pertinent systems reviewed and negative unless documented below Constitutional Constitutional: Reports weakness *Cardiovascular Cardiovascular: Denies chest pain and Reports dyspnea on exertion *Respiratory Respiratory: Reports dyspnea on exertion *Neurologic Neurologic: Reports weakness Exam Data for Last 24 hours Vital signs and Labs for Last 24 Hours: Temp Pulse Resp BP Pulse Ox O2 Del Method O2 Flow Rate 97.7 F 56 L 17 160/83 H 98 Nasal Cannula 2 08/08/24 08:00 08/08/24 08:00 08/08/24 08:00 08/08/24 08:00 08/08/24 08:00 08/08/24 08:00 08/08/24 08:00 Laboratory Results - last 24 hr 08/07/24 09:20: HCV Ab CARRI w/Rflx PCR Qn Negative, HIV Ag/Ab Combo Qual Negative 08/07/24 09:24: Blood Type O Positive, Antibody Screen Negative 08/07/24 13:01: Troponin I 0.09 H 08/07/24 15:50: Sodium 139, Potassium 4.1 D, Chloride 104, Carbon Dioxide 30, Anion Gap 9.1, BUN 49 H, Creatinine 3.50 H, Estimated Creat Clear 10, Estimated GFR 12 L*, Est GFR ( Amer) 15 L*, Glucose 112 H, Calcium 15.4 H*, Total Bilirubin 0.8, AST 36 D, ALT 16, Alkaline Phosphatase 68, Troponin I 0.11 H, Total Protein 6.8, Albumin 4.0 D, Globulin 2.8, Albumin/Globulin Ratio 1.4, 25-OH Vitamin D Total 74.8, PTH Intact 7.6 08/07/24 21:14: POC Glucose 91 08/08/24 00:17: Troponin I 0.11 H 08/08/24 05:36: POC Glucose 103 08/08/24 05:53: WBC 10.4, RBC 3.74 L, Hgb 11.4 L D, Hct 35.9 L, MCV 96.0, MCH 30.5, MCHC 31.8, RDW 13.7, Plt Count 217, MPV 11.0 H, Neut % (Auto) 58.5, Lymph % (Auto) 23.3, [place] % (Auto) 12.0 H, Eos % (Auto) 3.4, Baso % (Auto) 0.8, Neut # (Auto) 6.1, Lymph # (Auto) 2.4, [place] # (Auto) 1.3 H, Eos # (Auto) 0.4, Baso # (Auto) 0.1, Sodium 137, Potassium 4.0, Chloride 102, Carbon Dioxide 31 H, Anion Gap 8.0, BUN 46 H, Creatinine 3.10 H, Estimated Creat Clear 11, Estimated GFR 14 L*, Est GFR ( Amer) 17 L*, Glucose 99, Calcium 13.8 H* D, Magnesium 1.5 L, Total Bilirubin 0.7, AST 38 H, ALT 16, Alkaline Phosphatase 68, Total Protein 6.6, Albumin 3.9, Globulin 2.7, Albumin/Globulin Ratio 1.4 I & O for Last 24 hours: Intake & Output 08/05/24 08/06/24 08/07/24 08/08/24 11:59 11:59 11:59 11:59 Intake Total 740 / 740 Output Total 150 / 150 Balance 590 / 590 Weight 100 lb 124 lb 14.4 oz Microbiology Reports for the Last 24 Hours: Microbiology 08/07/24 09:55 Blood Blood Culture - Preliminary NO GROWTH AFTER 24 HOURS 08/07/24 09:55 Blood Blood Culture - Preliminary NO GROWTH AFTER 24 HOURS Constitutional Constitutional: no acute distress *Routine Respiratory Exam Respiratory: Present CTA bilaterally; Absent rales or wheezes *Routine Cardiovascular Exam Cardiovascular: Present RRR; Absent murmur, gallop or rubs *Routine Extremities Exam Extremities: Absent edema *Routine Neurological Exam Neurological: Present alert, oriented X3 and CN II-XII intact Meds Home Medications and Allergies Home Medications ?Medication ?Instructions ?Recorded ?Confirmed ?Type aspirin 81 mg tablet,delayed 81 mg PO QDAY Heart health 08/09/22 08/07/24 History release atenolol 100 mg tablet 100 mg PO DAILY High blood pressure 08/09/22 08/07/24 History ergocalciferol (vitamin D2) 1,250 1,250 mcg PO WEEKLY 08/09/22 08/08/24 History mcg (50,000 unit) capsule prednisone 5 mg tablet 5 mg PO DAILY PRN Rheumatoid 04/13/23 08/07/24 History Arthritis amlodipine 5 mg tablet (Norvasc) 5 mg PO Q48H 07/25/24 08/08/24 History acetaminophen 325 mg tablet 325 mg PO Q6 08/07/24 08/07/24 History (Tylenol) calcitriol 0.25 mcg capsule 0.25 mcg PO BID 08/07/24 08/07/24 History calcium carbonate 1,000 mg tablet 1,000 mg PO BID 08/07/24 08/07/24 History New Prescriptions to Start Prescriptions: Allergies Allergy/AdvReac Type Severity Reaction Status Date / Time lisinopril Allergy upset Verified 07/25/24 10:04 stomach atorvastatin (From Lipitor) AdvReac myalgias Verified 07/25/24 10:04 Assessment and Plan *Assessment and plan (1) ANDREA (acute kidney injury): Status: Acute Category: Medical Code(s): N17.9 - Acute kidney failure, unspecified (2) Hypercalcemia: Status: Acute Category: Medical Code(s): E83.52 - Hypercalcemia (3) CKD (chronic kidney disease) stage 4, GFR 15-29 ml/min: Status: Chronic Category: Medical Code(s): N18.4 - Chronic kidney disease, stage 4 (severe) (4) Coronary arteriosclerosis: Status: Chronic Category: Medical Code(s): I25.10 - Atherosclerotic heart disease of [place] coronary artery without angina pectoris (5) Stented coronary artery: Status: Chronic Category: Surgical Code(s): Z95.5 - Presence of coronary angioplasty implant and graft (6) Hyperlipidemia: Status: Chronic Qualifiers: Hyperlipidemia type: mixed hyperlipidemia Qualified Code(s): E78.2 - Mixed hyperlipidemia Category: Medical Code(s): E78.5 - Hyperlipidemia, unspecified Plan 1. Hypercalcemia in setting of recent partial parathyroidectomy with subsequent calcium replacement therapy -calcium replacement stopped -calcitonin started with improvement in calcium level -Initial calcium 16.4, currently 13.8 2. CKD, stage 4 with ANDREA -improving with IVF -baseline Cr around 2.7 with current Cr decreasing to 3.1 3. Hyperkalemia, resolved 4. Hypomagnesemia, 1.5 -replacement to be started 5. Mildly elevated troponins in the setting of CKD -Check echo -No plans for intervention in light of CKD stage IV 6. Mildly elevated WBC at 13,500 on admission with trace bacteria in urine -Defer to hospitalist 7. Hypertension, uncontrolled -Continued on Norvasc and atenolol -Add hydralazine and Isordil 8. CAD with history of coronary stenting in 2017 -Continue aspirin 81 mg daily -no statins due to myalgias 9. Chronic prednisone therapy, resumed Add hydralazine and Isordil for blood pressure Check echocardiogram Replace magnesium repeat EKG since back in NSR check SPEP in light of bone densitometry showing osteoporosis and hypercalcemia (rule out multiple myeloma)
[2024-08-08 10:44] LABS: Triiodothryronine (T3) Uptake 48 % (23.5-40.5)
[2024-08-08 10:45] LABS: Free Thyroxine Index 3.2 ug/dL (5.93-13.13); T4 (Thyroxine) 6.7 ug/dl (5.53-11.0)
--- NOTE | 2024-08-08 10:57 | CA_ITS ---
APPROVED REPORT EXAM: Limited 2D Echocardiogram Rn School: [employer] RVT Ht: 5 ft 4 in Wt: 124lbs BSA: 1.60 BP: 160/83 mmHg Indications: ELEVATED TROP,CAD,HTN TDS-BEST EXAM POSSIBLE 2D Dimensions IVSd 2.40 cm F: 0.6-1.0 LVEF (Visual) 64.90 % PWd 1.10 cm F: 0.6 - 1.0 EF AP4 55.30 % LVDd 2.95 cm F: 3.9 - 5.3 GL Strain -25.9 % LVDs 1.94 cm F: 2.2 - 3.5 M-Mode Dimensions LA Diam 3.83 cm (1.9-4.0) Other Information Study Quality: Fair Conclusion This is a limited TTE to evaluate for LV systolic function. Limited windows were obtained. The left ventricle is normal in size. There is increase in proximal septal thickening noted. There is normal global LV systolic function. No regional wall motion abnormalities are noted. LVEF is 65%. Biatrial dilation is present. There is thickening of the aortic valve, the mitral valve, and the mitral valve annulus. Evaluation for valvular stenosis or regurgitation not performed in this limited study. There is no pericardial effusion. Electronically signed by : Arlette Cabrera MD 08/08/2024 12:34:17
[2024-08-08 10:59] LABS: Thyroid Stimulating Hormone 0.93 uIU/mL (0.465-4.68)
[2024-08-08] MEDS: MAGNESIUM SULFATE IN WATER 2 GM/50 ML PIGGYBACK IV (11:33)
[2024-08-08] MEDS: predniSONE 5MG TAB 5 MG PO (11:34)
[2024-08-08] MEDS: CALCITONIN 200IU/ML INJ VIAL 200 UNIT SUBCUT (11:34)
[2024-08-08] MEDS: ONDANSETRON 4MG/2ML VIAL 4 MG IV ×2 (13:54→21:31)
[2024-08-08] MEDS: HYDRALAZINE HCL 25MG TABLET 25 MG PO ×2 (13:55→20:55)
[2024-08-08] MEDS: ISOSORBIDE DINITRATE 10 MG TABLET PO ×2 (13:55→20:57)
[2024-08-08 17:21] LABS: POC Glucose,Bedside 96 (70-110)
--- NOTE | 2024-08-08 21:21 | EXP.PN ---
Subjective *Date: 08/08/24 *Time: 21:21 Interval history: Patient feeling still quite weak, but no acute concerns. Exam Data for Last 24 hours Vital signs and Labs for Last 24 Hours: Temp Pulse Resp BP Pulse Ox O2 Del Method O2 Flow Rate 97.9 F 61 18 148/94 H 90 L Nasal Cannula 1.5 08/08/24 20:00 08/08/24 20:00 08/08/24 20:00 08/08/24 20:00 08/08/24 20:00 08/08/24 20:00 08/08/24 20:00 Laboratory Results - last 24 hr 08/07/24 21:14: POC Glucose 91 08/08/24 00:17: Troponin I 0.11 H 08/08/24 05:36: POC Glucose 103 08/08/24 05:53: WBC 10.4, RBC 3.74 L, Hgb 11.4 L D, Hct 35.9 L, MCV 96.0, MCH 30.5, MCHC 31.8, RDW 13.7, Plt Count 217, MPV 11.0 H, Neut % (Auto) 58.5, Lymph % (Auto) 23.3, [place] % (Auto) 12.0 H, Eos % (Auto) 3.4, Baso % (Auto) 0.8, Neut # (Auto) 6.1, Lymph # (Auto) 2.4, [place] # (Auto) 1.3 H, Eos # (Auto) 0.4, Baso # (Auto) 0.1, Sodium 137, Potassium 4.0, Chloride 102, Carbon Dioxide 31 H, Anion Gap 8.0, BUN 46 H, Creatinine 3.10 H, Estimated Creat Clear 11, Estimated GFR 14 L*, Est GFR ( Amer) 17 L*, Glucose 99, Calcium 13.8 H* D, Magnesium 1.5 L, Total Bilirubin 0.7, AST 38 H, ALT 16, Alkaline Phosphatase 68, Total Protein 6.6, Albumin 3.9, Globulin 2.7, Albumin/Globulin Ratio 1.4, TSH 0.93, Free T4 Index 3.2 L, Thyroxine (T4) 6.7, T3 Uptake 48 H 08/08/24 17:09: POC Glucose 96 Temp Pulse Resp BP Pulse Ox O2 Del Method O2 Flow Rate 97.7 F 56 L 17 160/83 H 98 Nasal Cannula 2 08/08/24 08:00 08/08/24 08:00 08/08/24 08:00 08/08/24 08:00 08/08/24 08:00 08/08/24 08:00 08/08/24 08:00 Laboratory Results - last 24 hr 08/07/24 09:20: HCV Ab CARRI w/Rflx PCR Qn Negative, HIV Ag/Ab Combo Qual Negative 08/07/24 09:24: Blood Type O Positive, Antibody Screen Negative 08/07/24 13:01: Troponin I 0.09 H 08/07/24 15:50: Sodium 139, Potassium 4.1 D, Chloride 104, Carbon Dioxide 30, Anion Gap 9.1, BUN 49 H, Creatinine 3.50 H, Estimated Creat Clear 10, Estimated GFR 12 L*, Est GFR ( Amer) 15 L*, Glucose 112 H, Calcium 15.4 H*, Total Bilirubin 0.8, AST 36 D, ALT 16, Alkaline Phosphatase 68, Troponin I 0.11 H, Total Protein 6.8, Albumin 4.0 D, Globulin 2.8, Albumin/Globulin Ratio 1.4, 25-OH Vitamin D Total 74.8, PTH Intact 7.6 08/07/24 21:14: POC Glucose 91 08/08/24 00:17: Troponin I 0.11 H 08/08/24 05:36: POC Glucose 103 08/08/24 05:53: WBC 10.4, RBC 3.74 L, Hgb 11.4 L D, Hct 35.9 L, MCV 96.0, MCH 30.5, MCHC 31.8, RDW 13.7, Plt Count 217, MPV 11.0 H, Neut % (Auto) 58.5, Lymph % (Auto) 23.3, [place] % (Auto) 12.0 H, Eos % (Auto) 3.4, Baso % (Auto) 0.8, Neut # (Auto) 6.1, Lymph # (Auto) 2.4, [place] # (Auto) 1.3 H, Eos # (Auto) 0.4, Baso # (Auto) 0.1, Sodium 137, Potassium 4.0, Chloride 102, Carbon Dioxide 31 H, Anion Gap 8.0, BUN 46 H, Creatinine 3.10 H, Estimated Creat Clear 11, Estimated GFR 14 L*, Est GFR ( Amer) 17 L*, Glucose 99, Calcium 13.8 H* D, Magnesium 1.5 L, Total Bilirubin 0.7, AST 38 H, ALT 16, Alkaline Phosphatase 68, Total Protein 6.6, Albumin 3.9, Globulin 2.7, Albumin/Globulin Ratio 1.4 I & O for Last 24 hours: Intake & Output 08/05/24 08/06/24 08/07/24 08/08/24 23:59 23:59 23:59 23:59 Intake Total 120 / 740 1920 / 1920 Output Total 150 / 150 500 / 500 Balance -30 / 590 1420 / 1420 Weight 54.913 kg 56.654 kg Intake & Output 08/05/24 08/06/24 08/07/24 08/08/24 11:59 11:59 11:59 11:59 Intake Total 740 / 740 Output Total 150 / 150 Balance 590 / 590 Weight 100 lb 124 lb 14.4 oz Microbiology Reports for the Last 24 Hours: Microbiology 08/07/24 09:55 Blood Blood Culture - Preliminary NO GROWTH AFTER 24 HOURS 08/07/24 09:55 Blood Blood Culture - Preliminary NO GROWTH AFTER 24 HOURS Microbiology 08/07/24 09:55 Blood Blood Culture - Preliminary NO GROWTH AFTER 24 HOURS 08/07/24 09:55 Blood Blood Culture - Preliminary NO GROWTH AFTER 24 HOURS Constitutional Constitutional: no acute distress *Routine Respiratory Exam Respiratory: Present CTA bilaterally; Absent rales or wheezes *Routine Cardiovascular Exam Cardiovascular: Present RRR; Absent murmur, gallop or rubs *Routine Extremities Exam Extremities: Absent edema *Routine Neurological Exam Neurological: Present alert, oriented X3 and CN II-XII intact Assessment and Plan *Assessment and plan (1) ANDREA (acute kidney injury): Status: Acute Category: Medical Code(s): N17.9 - Acute kidney failure, unspecified (2) Hypercalcemia: Status: Acute Category: Medical Code(s): E83.52 - Hypercalcemia Plan Roseanne Tucker is a 89-year-old female with a history of hyperparathyroidism who recently underwent total parathyroidectomy on 08/01/2024 and presents with progressive weakness, poor appetite. Son states that she was discharged on calcium carbonate 1000 mg twice daily after procedure. On arrival, calcium was 16.4, creatinine 3.4. Patient appears weak on my evaluation but alert and oriented. Case discussed with ED provider and decision was made to admit patient for symptomatic hypercalcemia. #Hypercalcemia #Weakness #ANDREA on CKD stage IV ? Initial calcium 16.4, creatinine 3.4, GFR 12. Patient appears weak, but alert and oriented. Poor oral intake over the past few days. ? Will hold calcium carbonate 1000 mg twice daily that patient has been taking since parathyroidectomy. ? Calcium improved to 13.8 today. ? Continue LR at 100 mm/h. ? Calcitonin 200 units twice daily. ? Continuous cardiac telemetry. ? PTH, vitamin D levels normal. #Elevated troponin #NSTEMI likely type II #History of CAD with stents ? Initial troponin 0.08, up trended to 0.11. History of CAD with stents. ? EKG showing inferolateral ST depressions, also V4-V6. Unknown chronicity. ? In the setting of poor oral intake in the past few days. Likely NSTEMI type II especially in the setting of CKD stage IV. ? Aspirin, statin. #Hypertension ? Continue home amlodipine, atenolol due to elevated pressures here. ? Cardiology started hydralazine, Isordil. Full code DVT prophylaxis: Lovenox 30 mg
[2024-08-08] MEDS: ACETAMINOPHEN 325MG TAB 650 MG PO (21:37)
[2024-08-09] VITALS (7 sets, daily range): BP systolic 117–155; BP diastolic 65–87; PULSE 62–78; RESP 15–18; TEMP 36.5–36.8; O2SAT 94–96; BMI 21.2
[2024-08-09 06:33] LABS: Basophils % 0.5 % (0.1-2.0); Eosinophils # 0.1 Kmm3 (0.0-0.4); Eosinophils % 1.5 % (0.1-12.0); Hematocrit 30.8 % (37.0-47.0); Immature Granulocytes # 0.11 10^3uL; Immature Granulocytes % 1.3 %; Lymphocytes # 1.2 K/mm3 (0.7-4.5); Lymphocytes % 14.4 % (10-50); Mean Corpuscular HGB Conc 31.5 g/dL (31.8-35.4); Mean Corpuscular Hemoglobin 30.4 pg (27.0-31.2); Mean Corpuscular Volume 96.6 fl (81-99); Monocytes # 0.8 K/mm3 (0.1-1.0); Monocytes % 9.4 % (1.7-9.3); Neutrophils # 6.2 K/mm3 (1.8-7.8); Neutrophils % 72.9 % (37.0-80.0); Nucleated Red Blood Cells # 0 10^3/uL; Nucleated Red Blood Cells % 0 %; Platelet Count 181 K/mm3 (142-424); Red Blood Count 3.19 M/mm3 (4.20-5.40); Red Cell Distribution Width 13.7 % (11.5-17.5); Red Cell Distribution Width-SD 48.6 fL; White Blood Count 8.4 K/mm3 (4.8-10.8)
--- NOTE | 2024-08-09 06:38 | PC.NURSE ---
Pt has been alert and oriented for the most part of the shift with brief moments of confusion, however pt is able to be redirected easily. Pt did sleep well this shift. Bed alarm is functional and set. Pt remains weak with moderate tremors. Oral care was performed and chapstick applied to pt lips. Pt did c/o nausea and mild pain, she did vomit a small amount and was treated per MAR. Family remains at bedside
[2024-08-09 06:43] LABS: Hemoglobin 9.7 g/dL (12.2-16.2)
[2024-08-09 06:45] LABS: Alanine Aminotransferase 14 U/L (12-78); Albumin Level 3.5 g/dl (3.5-5.0); Albumin/Globulin Ratio 1.5 (1.1-1.8); Alkaline Phosphatase 58 U/L (38-126); Aspartate Amino Transferase 31 U/L (14-36); Bilirubin,Total 0.6 mg/dl (0.2-1.3); Blood Urea Nitrogen 42 mg/dl (7-17); Carbon Dioxide 29 mmol/L (22.0-30.0); Chloride 102 mmol/L (98-107); Creatinine Clearance Estimated 13 mL/min (50-200); Estimated Glomerular Filt Rate 16 ml/min (>60); GFR (African American) 19 ML/MIN (>60); Globulin 2.4 g/dL (1.3-3.2); Glucose 86 mg/dl (74-100); Magnesium 1.8 mg/dl (1.6-2.3); Sodium 135 mmol/L (136-145); Total Protein,Serum 5.9 g/dl (6.3-8.2)
[2024-08-09] MEDS: predniSONE 5MG TAB 5 MG PO (08:34)
[2024-08-09] MEDS: ASPIRIN EC 81MG TABLET 81 MG PO (08:34)
[2024-08-09] MEDS: ATENOLOL 50MG TABLET 100 MG PO (08:36)
--- NOTE | 2024-08-09 08:54 | ECG_ITS ---
APPROVED REPORT Exam: Resting ECG HR:64 bpm ECG Measurements Heart Rate 64 AXES SD 201 P 11 QRSd 106 QRS -52 QT 408 T 14 QTc 417 Conclusion SINUS RHYTHM PATTERN CONSISTENT WITH PULMONARY DISEASE INCOMPLETE RIGHT BUNDLE BRANCH BLOCK [90+ ms QRS DURATION, TERMINAL R IN V1/V2, 40+ ms S IN I/aVL/V4/V5/V6] LEFT ANTERIOR FASCICULAR BLOCK [QRS AXIS <= -45, QR IN I, RS IN II] SEPTAL MYOCARDIAL INFARCTION , OF INDETERMINATE AGE [40+ ms Q WAVE IN V1/V2] ABNORMAL ECG UNCONFIRMED REPORT Electronically signed by : Hermes Cowart MD 08/10/2024 14:36:18
--- NOTE | 2024-08-09 09:44 | EXP.CARD.PN ---
Subjective Subjective Date: 08/09/24 Time: 09:46 Principal diagnosis: weakness, PAF, elevated troponins Interval history: 89-year-old white female sitting in bedside chair in no acute distress. Patient states she is feeling better but not back to herself yet. Son is present in the room. All questions answered. Exam Data for Last 24 hours Vital signs and Labs for Last 24 Hours: Temp Pulse Resp BP Pulse Ox O2 Del Method O2 Flow Rate 98.3 F 65 15 153/78 H 96 Nasal Cannula 2 08/09/24 08:00 08/09/24 08:00 08/09/24 08:00 08/09/24 08:00 08/09/24 08:00 08/09/24 08:00 08/09/24 08:00 Laboratory Results - last 24 hr 08/08/24 05:53: TSH 0.93, Free T4 Index 3.2 L, Thyroxine (T4) 6.7, T3 Uptake 48 H 08/08/24 17:09: POC Glucose 96 08/09/24 05:47: WBC 8.4, RBC 3.19 L, Hgb 9.7 L D, Hct 30.8 L, MCV 96.6, MCH 30.4, MCHC 31.5 L, RDW 13.7, Plt Count 181, MPV 11.0 H, Neut % (Auto) 72.9, Lymph % (Auto) 14.4, [place] % (Auto) 9.4 H, Eos % (Auto) 1.5, Baso % (Auto) 0.5, Neut # (Auto) 6.2, Lymph # (Auto) 1.2, [place] # (Auto) 0.8, Eos # (Auto) 0.1, Baso # (Auto) 0.0, Sodium 135 L, Potassium 4.0, Chloride 102, Carbon Dioxide 29, Anion Gap 8.0, BUN 42 H, Creatinine 2.80 H, Estimated Creat Clear 13, Estimated GFR 16 L*, Est GFR ( Amer) 19 L*, Glucose 86, Calcium 12.0 H D, Magnesium 1.8 D, Total Bilirubin 0.6, AST 31, ALT 14, Alkaline Phosphatase 58, Total Protein 5.9 L, Albumin 3.5 D, Globulin 2.4, Albumin/Globulin Ratio 1.5 I & O for Last 24 hours: Intake & Output 08/06/24 08/07/24 08/08/24 08/09/24 11:59 11:59 11:59 11:59 Intake Total 1800 / 1800 860 / 860 Output Total 150 / 150 650 / 650 Balance 1650 / 1650 210 / 210 Weight 100 lb 124 lb 14.4 oz 124 lb 8 oz Microbiology Reports for the Last 24 Hours: Microbiology 08/07/24 09:55 Blood Blood Culture - Preliminary NO GROWTH AFTER 24 HOURS 08/07/24 09:55 Blood Blood Culture - Preliminary NO GROWTH AFTER 24 HOURS Constitutional Constitutional: no acute distress *Routine Respiratory Exam Respiratory: Present decreased breath sounds and CTA bilaterally *Routine Cardiovascular Exam Cardiovascular: Present RRR; Absent murmur, gallop or rubs Progress Note: A&P Assessment and plan (1) ANDREA (acute kidney injury): Status: Acute (2) Hypercalcemia: Status: Acute Assessment and Plan Assessment and Plan for All Diagnoses:: 1. Hypercalcemia in setting of recent partial parathyroidectomy with subsequent calcium replacement therapy -calcium replacement stopped -calcitonin started with improvement in calcium level -Initial calcium 16.4, currently 13.8 2. CKD, stage 4 with ANDREA -improving with IVF -baseline Cr around 2.7 with current Cr decreasing to 2.8 3. Anemia, normocytic -likely due to CKD -Hgb down to 9.7 with hydration 4. Hypomagnesemia, resolved -1.8 today 5. Mildly elevated troponins in the setting of CKD -Echo shows EF 65% with no wall motion abnormalities. Biatrial dilation with thickening of the aortic and mitral valves. -No plans for intervention in light of CKD stage IV 6. Mildly elevated WBC at 13,500 on admission with trace bacteria in urine -Defer to hospitalist 7. Hypertension, uncontrolled -Continued on Norvasc and atenolol -Added hydralazine and Isordil 8. CAD with history of coronary stenting in 2017 -Continue aspirin 81 mg daily -no statins due to myalgias 9. Chronic prednisone therapy, resumed 10. Brief PAF felt due to electrolyte abnormalities -Now in NSR -no plans for OAC -Home with 30 day event monitor Nothing else to add 30 day event monitor at discharge Follow up after discharge
[2024-08-09] MEDS: HYDRALAZINE HCL 25MG TABLET 25 MG PO ×3 (09:55→20:35)
[2024-08-09] MEDS: ISOSORBIDE DINITRATE 10 MG TABLET PO ×3 (09:55→20:35)
--- NOTE | 2024-08-09 10:00 | PC.NURSE ---
physical therapy got pt up to beside commode and chair at 0930
--- NOTE | 2024-08-09 10:18 | SW/DCPLANNER ---
Addendum entered by Tabitha Urrutia 08/09/24 12:59: Jessy jennings/ [facility] [place] is able to accept this patient SNF level of care starting tomorrow 08/10/24. I have updated patient/family and MD. Original Note: I spoke w/ patient and her son regarding plans once medically stable for discharge. PT/OT evaluated patient this AM and recommended SNF level of care at time of discharge. Per son patient would benefit from SNF. Son has requested that patient information be faxed to [facility] [place]. I will fax information to Jessy jennings/ [facility] [place] this AM and continue to follow up. Per MD patient could be ready for discharge over the weekend.
--- NOTE | 2024-08-09 10:30 | HMH.PTEV ---
Physical Therapy Evaluation Rehab PT IP Evaluation Start: 08/09/24 08:53 Freq: ONCE Status: Active Protocol: Document 08/09/24 10:25 [facility] (Rec: 08/09/24 10:30 [facility] [id number]) Subjective/History History History H&P: Roseanne Tucker is a 89- year-old female with a history of hyperparathyroidism who recently underwent total parathyroidectomy on 08/01/2024 and presents with progressive weakness, poor appetite. Son states that she was discharged on calcium carbonate 1000 mg twice daily after procedure. On arrival, calcium was 16.4, creatinine 3 .4. Patient appears weak on my evaluation but alert and oriented. Case discussed with ED provider and decision was made to admit patient for symptomatic hypercalcemia. Subjective Subjective Pt and son reported PLOF as IND with RW. Son reports since her surgery last her mobility has declined. Pt lives at home alone and is usually able to ambulate with RW, performed transfers, and drive. Pt's son stays with her if needed. New diagnosis of cancer in past 12 No months? [facility] How much help from another person do you currently need... Turning from your back to your side A little while in a flat bed without using bedrails? Moving from lying on back to sitting on A little the side of a flat bed without using bedrails? Moving to and from a bed to a chair ( A little including a wheelchair)? Standing up from a chair using your arms A lot ? (e.g., wheelchair, bedside chair) Walking in hospital room? A lot Climbing 3-5 steps with a railing? A lot Mobility Score 15 Mobility Level [facility] Mobility Calculator Mobility 4 Move to chair/ commode Rehab PT IP Eval Objective Appearance Patient Behavior Appropriate,Cooperative Patient Orientation Person,Place Difficulty following instructions moderate Speech Pattern Mumbled Ambulation Patient Able to Ambulate No Balance Ability to Arise Able, uses arms to help Sitting Balance Steady, safe Standing Balance Unsteady Transfers Bed Transfer Ability Minimal x 1 (25% assist) Sit to Stand Bed Transfer Ability Moderate x 2 (50% assist) Rehab PT IP prob,goals,plan Problems Date of Evaluation: 08/09/24 PT IP Problems Bed Mobility,Transfers,Gait, Balance,Self care,Safety Rehab Potential Rehab Potential Good Plan PT Intervention Plan Bed Mobility,Transfers,Gait, Balance,Self care,Safety, Therapeutic Exercise Other Intervention Plan 1-2 times PT Plan Frequency Daily Duration LOS Discharge Goals Bed Transfer Ability Contact Guard/Hand Hold Sit to Stand Chair Transfer Ability Minimal x 2 (25% assist) Discharge Plan PT Discharge Plan Initial physical therapy evaluation performed. Patient presents below baseline at this time in functional mobility, transfers, and strength. Pt not safe to return home at this time d/t current level of functional mobility. PT recommending short-term rehabilitation stay upon d/c from [facility]. Pt would benefit from skilled PT while at [facility] to prevent further functional decline and maximize safety with mobility. Eval Complexity Eval Charge Codes 22976 - Moderate Complexity PHYSICIAN CERTIFICATION: I certify the specified therapy services for Roseanne Tucker are required, authorized, and reviewed every 30 days.
--- NOTE | 2024-08-09 10:36 | HMH.OTEV ---
OT Inpatient Evaluation Rehab OT IP Evaluation Start: 08/09/24 08:56 Freq: ONCE Status: Active Protocol: Document 08/09/24 10:28 [facility] (Rec: 08/09/24 10:35 [facility] [id number]) Rehab OT IP Assessment Subjective History Pt oriented x 2 on arrival. Pt admitted on 08/07/24 due to hypercalcemia. History and physical: Roseanne Tucker is a 89-year-old female with a history of hyperparathyroidism who recently underwent total parathyroidectomy on 08/01/2024 and presents with progressive weakness, poor appetite. Son states that she was discharged on calcium carbonate 1000 mg twice daily after procedure. On arrival, calcium was 16.4, creatinine 3 .4. Patient appears weak on my evaluation but alert and oriented. Case discussed with ED provider and decision was made to admit patient for symptomatic hypercalcemia Subjective Son present and supportive during therapy session. Pt reports prior to her being in the hospital, she lived alone and was independent with all ADLs and IADLs. Pt also still drove and did her own grocery shopping. Pt did not use any AE during functional transfers. Objective Patient Orientation Person,Birthday Right Upper Extremity Gross ROM Min Limitation <25% Left Upper Extremity Gross ROM Min Limitation <25% Shoulder ROM Limitations Muscle Weakness Elbow ROM Limitations Muscle Weakness Wrist Limitations of Range of Motion Muscle Weakness Bed Mobility bed mobility-scooting,bed mobility - supine/sit Assist Level Minimal x 1 (25% assist) Transfer Training Sit/Stand/Step Transfer Assist Level Moderate x 2 (50% assist) Lower Body Dressing Ability Maximum Assistance Performing Toilet Hygiene Ability Maximum Assistance Overall Commode/Toilet Transfer Ability Moderate Assistance,Maximum Assistance Commode/Toilet Transfer Technique Stand Step Pivot Rehab OT IP prob,goals,plan Problems Date of Evaluation: 08/09/24 OT IP Problems Bed Mobility,Transfers,Balance ,Self care,Safety Rehab Potential Rehab Potential Good Equipment Needs Assistive Devices Rolling / Wheeled Walker Plan OT intervention Plan Bed Mobility,Transfers,Balance ,Self care,Safety,Therapeutic Exercise OT Plan Frequency Daily Duration LOS Discharge Goals Bed Mobility Ability Assistance x1 Sit to Stand Chair Transfer Ability Moderate x 1 (50% assist) Chair Transfer Ability Moderate x 1 (50% assist) Chair Transfer Technique Sit to/from Ambulatory Chair Transfer Assistive Devices Rolling Walker Lower Body Dressing Ability Moderate Assistance Upper Body Dressing Ability Minimal Assistance Performing Toilet Hygiene Ability Moderate Assistance Overall Commode/Toilet Transfer Ability Moderate Assistance Commode/Toilet Transfer Technique Stand Step Pivot Commode/Toilet Transfer Assistive Raised Toilet Seat,Grab Bars Devices Oral Care Assist Minimal Assistance,Moderate Assistance Discharge Plan OT Discharge Plan Pt will continue to be seen for OT services while at [facility]. At this time, pt would benefit most from short term rehab at SNF following discharge from hospital. Continued skilled therapy is important in order for patient to improve strength, safety, endurance, ADL independence, and functional transfers to reach PLOF. Eval Complexity Eval Charge Codes 65612 - Moderate Complexity PHYSICIAN CERTIFICATION: I certify the specified therapy services for Roseanne Zeyad Tucker are required, authorized, and reviewed every 30 days.
--- NOTE | 2024-08-09 10:49 | PC.NURSE ---
CRITICAL CALCIUM REPORT RECEIVED FROM LAB HEIKE PAYTON MD WAS MADE AWARE.
--- NOTE | 2024-08-09 14:01 | EXP.PN ---
Subjective *Date: 08/09/24 *Time: 14:01 Interval history: Calcium levels improving, but patient appears weak and physically deconditioned. Pending placement. Exam Data for Last 24 hours Vital signs and Labs for Last 24 Hours: Temp Pulse Resp BP Pulse Ox O2 Del Method O2 Flow Rate 98.1 F 62 16 123/65 96 Nasal Cannula 2 08/09/24 11:43 08/09/24 11:43 08/09/24 11:43 08/09/24 11:43 08/09/24 11:43 08/09/24 13:00 08/09/24 13:00 Laboratory Results - last 24 hr 08/08/24 17:09: POC Glucose 96 08/09/24 05:47: WBC 8.4, RBC 3.19 L, Hgb 9.7 L D, Hct 30.8 L, MCV 96.6, MCH 30.4, MCHC 31.5 L, RDW 13.7, Plt Count 181, MPV 11.0 H, Neut % (Auto) 72.9, Lymph % (Auto) 14.4, [place] % (Auto) 9.4 H, Eos % (Auto) 1.5, Baso % (Auto) 0.5, Neut # (Auto) 6.2, Lymph # (Auto) 1.2, [place] # (Auto) 0.8, Eos # (Auto) 0.1, Baso # (Auto) 0.0, Sodium 135 L, Potassium 4.0, Chloride 102, Carbon Dioxide 29, Anion Gap 8.0, BUN 42 H, Creatinine 2.80 H, Estimated Creat Clear 13, Estimated GFR 16 L*, Est GFR ( Amer) 19 L*, Glucose 86, Calcium 12.0 H D, Magnesium 1.8 D, Total Bilirubin 0.6, AST 31, ALT 14, Alkaline Phosphatase 58, Total Protein 5.9 L, Albumin 3.5 D, Globulin 2.4, Albumin/Globulin Ratio 1.5 I & O for Last 24 hours: Intake & Output 08/06/24 08/07/24 08/08/24 08/09/24 23:59 23:59 23:59 23:59 Intake Total 120 / 740 1920 / 2540 860 / 860 Output Total 150 / 150 500 / 650 750 / 750 Balance -30 / 590 1420 / 1890 110 / 110 Weight 54.913 kg 56.654 kg 56.47 kg Microbiology Reports for the Last 24 Hours: Microbiology 08/07/24 09:55 Blood Blood Culture - Preliminary NO GROWTH AFTER 48 HOURS 08/07/24 09:55 Blood Blood Culture - Preliminary NO GROWTH AFTER 48 HOURS Constitutional Constitutional: no acute distress *Routine HEENT Exam Head: Present normocephalic Eye: Present EOMI and PERRL ENT: Present mucous membranes moist *Routine Neck Exam Neck: Present supple; Absent lymphadenopathy *Routine Respiratory Exam Respiratory: Present CTA bilaterally *Routine Cardiovascular Exam Cardiovascular: Present RRR *Routine Abdominal Exam Abdominal: Present soft and normoactive bowel sounds; Absent tenderness *Routine Extremities Exam Extremities: Absent cyanosis, clubbing or edema *Routine Skin Exam Skin: Present warm; Absent rash *Routine Neurological Exam Neurological: Present alert and oriented X3 Assessment and Plan *Assessment and plan (1) ANDREA (acute kidney injury): Status: Acute Category: Medical Code(s): N17.9 - Acute kidney failure, unspecified (2) Hypercalcemia: Status: Acute Category: Medical Code(s): E83.52 - Hypercalcemia Plan Roseanne Tucker is a 89-year-old female with a history of hyperparathyroidism who recently underwent total parathyroidectomy on 08/01/2024 and presents with progressive weakness, poor appetite. Son states that she was discharged on calcium carbonate 1000 mg twice daily after procedure. On arrival, calcium was 16.4, creatinine 3.4. Patient appears weak on my evaluation but alert and oriented. Case discussed with ED provider and decision was made to admit patient for symptomatic hypercalcemia. #Hypercalcemia #Weakness #ANDREA on CKD stage IV ? Initial calcium 16.4, creatinine 3.4, GFR 12. Patient appears weak, but alert and oriented. Poor oral intake over the past few days. ? Will hold calcium carbonate 1000 mg twice daily that patient has been taking since parathyroidectomy. ? Calcium improved to 12 today. Creatinine improved to 2.8. ? Continue LR at 100 ml/h. ? Calcitonin 200 units twice daily. ? Continuous cardiac telemetry. ? PTH, vitamin D levels normal. Pending SPEP to rule out multiple myeloma. ? PT/OT recommending SNF, [facility] can take patient tomorrow if medically stable. #Elevated troponin #NSTEMI likely type II #History of CAD with stents ? Initial troponin 0.08, up trended to 0.11. History of CAD with stents. ? EKG showing inferolateral ST depressions, also V4-V6. Unknown chronicity. ? In the setting of poor oral intake in the past few days. Likely NSTEMI type II especially in the setting of CKD stage IV. ? Aspirin, statin. #Hypertension ? Continue home amlodipine, atenolol due to elevated pressures here. ? Cardiology started hydralazine, Isordil. Full code DVT prophylaxis: Lovenox 30 mg
[2024-08-09] MEDS: CALCITONIN 200IU/ML INJ VIAL 200 UNIT SUBCUT (14:10)
[2024-08-09] MEDS: LACTATED RINGERS 1000ML 1,000 ML 100 ML IV (14:15)
[2024-08-09] MEDS: ONDANSETRON 4MG/2ML VIAL 4 MG IV ×2 (14:41→21:50)
--- NOTE | 2024-08-09 14:41 | PC.NURSE ---
pt. c/o N/V. Pt vomited at 1430
[2024-08-09 16:12] LABS: Albumin 3.2 g/dL (2.9-4.4); Alpha-1-Globulin 0.2 g/dL (0.0-0.4); Alpha-2-Globulin 0.8 g/dL (0.4-1.0); Protein, Total 6.1 g/dL (6.0-8.5)
[2024-08-09] MEDS: PROMETHAZINE HCL 25MG/ML 1ML VIAL 12.5 MG IV (17:00)
[2024-08-09] MEDS: POLYETHYLENE GLYCOL 3350 17 GM PACKET PO (17:00)
--- NOTE | 2024-08-09 18:21 | PC.NURSE ---
PATIENT NAUSEA UNRELIEVED BY ZOFRAN, PHENERGAN ADMINISTERED IVPB PER MAR, PATIENT'S NAUSEA SUBSIDED. PATIENT HAS NOT EATEN WELL TODAY, PT CANNOT HAVE ENSURE PER MD DUE TO HIGH AMOUNT OF CALCIUM. ENCOURAGING PO INTAKE.
[2024-08-10] VITALS (8 sets, daily range): BP systolic 110–155; BP diastolic 59–82; PULSE 60–108; RESP 16–18; TEMP 36.7–37.1; O2SAT 91–96; BMI 22.1
[2024-08-10] MEDS: CALCITONIN 200IU/ML INJ VIAL 200 UNIT SUBCUT ×2 (00:26→11:34)
[2024-08-10] MEDS: MORPHINE 2MG/ML SYRINGE 2 MG IV (02:16)
[2024-08-10 06:54] LABS: Basophils # 0.1 K/mm3 (0-0.2); Basophils % 0.7 % (0.1-2.0); Eosinophils # 0.2 Kmm3 (0.0-0.4); Hemoglobin 8.7 g/dL (12.2-16.2); Immature Granulocytes # 0.11 10^3uL; Immature Granulocytes % 1.3 %; Lymphocytes # 1.4 K/mm3 (0.7-4.5); Lymphocytes % 16.9 % (10-50); Mean Corpuscular HGB Conc 31.1 g/dL (31.8-35.4); Mean Corpuscular Hemoglobin 30.7 pg (27.0-31.2); Mean Corpuscular Volume 98.9 fl (81-99); Mean Platelet Volume 10.9 fl (7.4-10.4); Monocytes # 0.9 K/mm3 (0.1-1.0); Monocytes % 10.3 % (1.7-9.3); Neutrophils # 5.8 K/mm3 (1.8-7.8); Neutrophils % 68.8 % (37.0-80.0); Nucleated Red Blood Cells # 0 10^3/uL; Nucleated Red Blood Cells % 0 %; Platelet Count 165 K/mm3 (142-424); Red Blood Count 2.83 M/mm3 (4.20-5.40); Red Cell Distribution Width-SD 51.2 fL; White Blood Count 8.5 K/mm3 (4.8-10.8)
[2024-08-10 07:15] LABS: Alanine Aminotransferase 11 U/L (12-78); Albumin Level 3.1 g/dl (3.5-5.0); Albumin/Globulin Ratio 1.3 (1.1-1.8); Alkaline Phosphatase 50 U/L (38-126); Aspartate Amino Transferase 29 U/L (14-36); Bilirubin,Total 0.5 mg/dl (0.2-1.3); Blood Urea Nitrogen 45 mg/dl (7-17); Calcium 10.7 mg/dl (8.4-10.2); Carbon Dioxide 29 mmol/L (22.0-30.0); Chloride 103 mmol/L (98-107); Creatinine Clearance Estimated 13 mL/min (50-200); Estimated Glomerular Filt Rate 15 ml/min (>60); GFR (African American) 19 ML/MIN (>60); Globulin 2.4 g/dL (1.3-3.2); Glucose 80 mg/dl (74-100); Magnesium 1.7 mg/dl (1.6-2.3); Sodium 137 mmol/L (136-145); Total Protein,Serum 5.5 g/dl (6.3-8.2)
[2024-08-10] MEDS: HYDRALAZINE HCL 25MG TABLET 25 MG PO ×3 (08:14→21:54)
[2024-08-10] MEDS: predniSONE 5MG TAB 5 MG PO (08:14)
[2024-08-10] MEDS: ASPIRIN EC 81MG TABLET 81 MG PO (08:14)
[2024-08-10] MEDS: ATENOLOL 50MG TABLET 100 MG PO (08:15)
[2024-08-10] MEDS: ISOSORBIDE DINITRATE 10 MG TABLET PO ×3 (08:15→21:54)
[2024-08-10] MEDS: AMLODIPINE 5MG TABLET 5 MG PO (08:15)
[2024-08-10] MEDS: POLYETHYLENE GLYCOL 3350 17 GM PACKET PO (08:15)
[2024-08-10] MEDS: LACTATED RINGERS 1000ML 1,000 ML 100 ML IV (10:17)
--- NOTE | 2024-08-10 10:42 | CT_ITS ---
PROCEDURE INFORMATION: Exam: CT Abdomen And Pelvis Without Contrast Exam date and time: 08/10/2024 11:55 AM Age: 89 years old Clinical indication: Other: Lethargy, black emesis, acute anemia TECHNIQUE: Imaging protocol: Computed tomography of the abdomen and pelvis without contrast. Radiation optimization: All CT scans at this facility use at least one of these dose optimization techniques: automated exposure control; mA and/or kV adjustment per patient size (includes targeted exams where dose is matched to clinical indication); or iterative reconstruction. COMPARISON: US KIDNEY 10/04/2022 9:50 AM FINDINGS: Lungs: Mild bibasilar subsegmental atelectasis. Eventration of the fundus of the stomach into the left lung base, with adjacent subsegmental atelectasis. Fluid within the stomach. No bowel obstruction or acute inflammation. Severe descending and sigmoid colonic diverticulosis. Liver: Normal. No mass. Gallbladder and biliary ducts: Cholelithiasis. Unremarkable gallbladder. No intra or extrahepatic biliary dilatation. Pancreas: Normal. No ductal dilation. Spleen: Normal. No splenomegaly. Adrenal glands: Normal. No mass. Kidneys and ureters: Benign-appearing bilateral renal cysts, including hemorrhagic/proteinaceous mildly hyperattenuating cysts in the left kidney. No further follow-up needed. Moderate bilateral renal atrophy. Nonobstructive small calculi in the left kidney measuring up to 4 mm. No ureteral calculi or obstruction bilaterally. Stomach and bowel: Moderate stool burden in the right colon. Correlate for constipation. Appendix: Appendix is normal. Intraperitoneal space: No intra-abdominal hemorrhage, ascites, pneumoperitoneum, or abscess. Vasculature: Moderate atherosclerosis of the abdominal aorta. No distinct evidence of dissection on this noncontrast view. No appreciable aneurysm. Lymph nodes: Unremarkable. No enlarged lymph nodes. Urinary bladder: Moderately distended bladder. Reproductive: Status post hysterectomy. Bilateral adnexae are unremarkable.. Bones/joints: Osteopenia. Remote compression fracture at T9 with near vertebral plana. Levoscoliosis of the lumbar spine with moderate multilevel degenerative change. Soft tissues: (senescent appearing) speckled calcifications in the bilateral breasts. IMPRESSION: 1. No intra-abdominal hemorrhage, ascites, pneumoperitoneum, or abscess. 2. Eventration of the fundus of the stomach into the left lung base, with adjacent subsegmental atelectasis in the left lung base. Fluid within the stomach. 3. No bowel obstruction or acute inflammation. Severe descending and sigmoid colonic diverticulosis. 4. Moderate stool burden in the right colon. Correlate for constipation. 5. Moderate atherosclerosis of the abdominal aorta. No distinct evidence of dissection on this noncontrast view. No appreciable aneurysm. COMMENTS: Consistent with the [employer]'s Incidental Findings Committee white paper (J Am Alicia Radiol 2018): Any incidental renal lesion less than 1 cm or classified as too small to characterize, or any incidental cystic renal lesion characterized as simple-appearing, is likely benign. No follow-up imaging is recommended for these lesions per consensus recommendations based on imaging criteria.
--- NOTE | 2024-08-10 10:44 | CT_ITS ---
PROCEDURE INFORMATION: Exam: CT Chest Without Contrast; Diagnostic Exam date and time: 08/10/2024 11:55 AM Age: 89 years old Clinical indication: Other: Lethargy TECHNIQUE: Imaging protocol: Diagnostic computed tomography of the chest without contrast. Radiation optimization: All CT scans at this facility use at least one of these dose optimization techniques: automated exposure control; mA and/or kV adjustment per patient size (includes targeted exams where dose is matched to clinical indication); or iterative reconstruction. COMPARISON: CR XR CHEST PORTABLE 08/07/2024 9:29 AM FINDINGS: Thyroid: Large hypodense lesion in the inferior right thyroid lobe measuring 1.4 x 2.0 cm axial. Lungs: Eventration/herniation of the gastric fundus into the left lung base, with adjacent subsegmental atelectasis. Mild right subsegmental atelectasis. Low lung volumes with bronchovascular crowding. Subtle reticular opacities in the bilateral mid/lower lungs. 1.2 x 0.7 cm nodule anterior right lung base on image 57 series 3. Pleural spaces: Unremarkable. No pneumothorax. No pleural effusion. Heart: Cardiomegaly. Severe three-vessel coronary artery disease. Low-density cardiac and aortic blood pool suggestive of anemia. Esophagus: Mild circumferential thickening of the esophagus, as can be seen with esophagitis. Lymph nodes: Unremarkable. No enlarged lymph nodes. Vasculature: See Heart finding. Bones/joints: Subtle cortical irregularity in the proximal and mid sternal body are most suggestive of stitch artifact. No distinct overlying soft tissue swelling. Remote compression fracture at T9 with near vertebral plana. Subjective osteopenia. Mild dextroscoliosis of the thoracic spine. Soft tissues: Mild anasarca. IMPRESSION: 1. Low lung volumes with bronchovascular crowding and bibasilar subsegmental atelectasis. Subtle reticular opacities in the bilateral mid/lower lungs. 1.2 x 0.7 cm nodule anterior right lung base. These may all be infectious (including atypical) versus inflammatory. Recommend imaging follow-up to resolution. For both low risk and high risk patients, consider CT Chest at 3 months, PET/CT, or biopsy. (Reference: Elen) References: Elen Mullins, et al. Guidelines for Management of Incidental Pulmonary Nodules Detected on CT Images: From the Fleischner Society 2017. Radiology. 2017;284(1):228-243. 2. Large hypodense lesion in the inferior right thyroid lobe measuring 1.4 x 2.0 cm axial. Nonspecific. A mass or neoplasm is not excluded. Please refer to prior thyroid ultrasound studies or consider follow-up if not previously done. 3. Mild circumferential thickening of the esophagus, as can be seen with esophagitis. 4. Cardiomegaly. Severe three-vessel coronary artery disease. Low-density cardiac and aortic blood pool suggestive of anemia. 5. Eventration/herniation of the gastric fundus into the left lung base, with adjacent subsegmental atelectasis. COMMENTS: Consistent with the [employer]'s Incidental Findings Committee white paper (J Am Alicia Radiol 2015): In patients aged 35 years and older with an incidental thyroid nodule equal to or greater than 1.[address], MRI or extrathyroidal US, further evaluation with dedicated thyroid US is recommended for patients with normal life expectancy and without comorbidities. For smaller nodules without suspicious features, no further evaluation or follow up is recommended.
--- NOTE | 2024-08-10 10:51 | CT_ITS ---
PROCEDURE INFORMATION: Exam: CT Head Without Contrast Exam date and time: 08/10/2024 11:53 AM Age: 89 years old Clinical indication: Other: Lethargy TECHNIQUE: Imaging protocol: Computed tomography of the head without contrast. Radiation optimization: All CT scans at this facility use at least one of these dose optimization techniques: automated exposure control; mA and/or kV adjustment per patient size (includes targeted exams where dose is matched to clinical indication); or iterative reconstruction. COMPARISON: NM PARATHYROID SPECT 02/13/2023 9:42 AM FINDINGS: Brain: Central and cortical brain atrophy evident, appropriate for patient age. There is nonspecific periventricular low attenuation, likely microangiopathic disease. No acute intracranial hemorrhage. Cerebral ventricles: No ventriculomegaly. Paranasal sinuses: Visualized sinuses are unremarkable. No fluid levels. Mastoid air cells: Visualized mastoid air cells are well aerated. Bones: Unremarkable. No acute fracture. Soft tissues: Unremarkable. IMPRESSION: No acute intracranial abnormality.
[2024-08-10 11:30] LABS: Free T4 (Free Thyroxine) 1.18 ng/dl (0.78-2.19)
[2024-08-10] MEDS: ONDANSETRON 4MG/2ML VIAL 4 MG IV (11:34)
[2024-08-10] MEDS: SODIUM CHLORIDE 0.9% 10ML VIAL 10 ML IV (11:35)
[2024-08-10] MEDS: PANTOPRAZOLE 40MG VIAL 40 MG IV ×2 (11:35→21:54)
--- NOTE | 2024-08-10 11:46 | PC.NURSE ---
pt is off the floor to CT with RN @[phone]
--- NOTE | 2024-08-10 12:01 | PC.NURSE ---
pt arrived back to the floor to room 212 with RN @[phone]
[2024-08-10 13:13] LABS: Thyroid Stimulating Hormone 0.95 uIU/mL (0.465-4.68)
[2024-08-10 13:45] LABS: Adenovirus,PCR Not Detected (NotDetected); Bordetella Pertussis Not Detected (NotDetected); Chlamydophila Pneumoniae, PCR Not Detected (NotDetected); Coronavirus 19, PCR Not Detected (NotDetected); Coronavirus 229E Not Detected (NotDetected); Coronavirus NL63 Not Detected (NotDetected); Coronavirus OC43 Not Detected (NotDetected); Coronovirus HKU1,PCR Not Detected (NotDetected); Human Metapneumovirus Not Detected (NotDetected); Influenza A, PCR Not Detected (NotDetected); Influenza AH1, 2009 Not Detected (NotDetected); Influenza AH1, PCR Not Detected (NotDetected); Influenza AH3,PCR Not Detected (NotDetected); Influenza B, PCR Not Detected (NotDetected); Mycoplasma Pneumoniae, PCR Not Detected (NotDetected); Parainfluenza 1, PCR Not Detected (NotDetected); Parainfluenza 2, PCR Not Detected (NotDetected); Parainfluenza 3, PCR Not Detected (NotDetected); Parainfluenza 4, PCR Not Detected (NotDetected); Respiratory Syncytial Virus Not Detected (NotDetected); Rhinovirus/Enterovirus Not Detected (NotDetected)
[2024-08-10] MEDS: CEFTRIAXONE 1 GM 1 GM in 0.9 % SODIUM CHLORIDE 50 ML IV (15:17)
[2024-08-10] MEDS: DOXYCYCLINE HYCLATE 100 MG in 0.9 % SODIUM CHLORIDE 250 ML 166.667 MG IV (15:49)
[2024-08-10 16:17] LABS: Hematocrit 28.6 % (37.0-47.0); Hemoglobin 8.5 g/dL (12.2-16.2)
[2024-08-10 16:59] LABS: Occult Blood,Stool Positive (Negative)
--- NOTE | 2024-08-10 17:11 | PC.NURSE ---
patient is a/o x4 and remains on 2LNC. patient has been very lethargic and fatigued this shift. CT scans obtained, full res. panel, and occult stool obtained. awaiting to obtain u/a. patient has used BSC x2 -x3 assist. patient had a small BM during soap suds enema. patient has rested most of shift. poor PO intake, but is able to take pills whole. patient has c/o of nausea this shift but no nausea, zofran administered per MAY. IV abx ordered. call light within reach, bed low and locked, family at bedside.
--- NOTE | 2024-08-10 18:22 | P.PN_ITS ---
Subjective *Date: 08/10/24 *Time: 18:22 Exam Data for Last 24 hours Vital signs and Labs for Last 24 Hours: Temp Pulse Resp BP Pulse Ox O2 Del Method O2 Flow Rate 98.5 F 65 16 120/63 91 L Room Air 1.5 08/10/24 16:00 08/10/24 16:00 08/10/24 16:00 08/10/24 16:00 08/10/24 16:00 08/10/24 17:00 08/10/24 16:00 Laboratory Results - last 24 hr 08/10/24 06:06: TSH 0.95, Free T4 1.18 08/10/24 06:16: WBC 8.5, RBC 2.83 L, Hgb 8.7 L, Hct 28.0 L, MCV 98.9, MCH 30.7, MCHC 31.1 L, RDW 14.0, Plt Count 165, MPV 10.9 H, Neut % (Auto) 68.8, Lymph % (Auto) 16.9, Miner % (Auto) 10.3 H, Eos % (Auto) 2.0, Baso % (Auto) 0.7, Neut # (Auto) 5.8, Lymph # (Auto) 1.4, Miner # (Auto) 0.9, Eos # (Auto) 0.2, Baso # (Auto) 0.1, Sodium 137, Potassium 4.0, Chloride 103, Carbon Dioxide 29, Anion Gap 9.0, BUN 45 H, Creatinine 2.90 H, Estimated Creat Clear 13, Estimated GFR 15 L*, Est GFR ( Amer) 19 L*, Glucose 80, Calcium 10.7 H, Magnesium 1.7, Total Bilirubin 0.5, AST 29, ALT 11 L, Alkaline Phosphatase 50, Total Protein 5.5 L, Albumin 3.1 L D, Globulin 2.4, Albumin/Globulin Ratio 1.3 08/10/24 13:33: Chlamy pneumoniae PCR Not detected, Adenovirus (PCR) Not detected, B. pertussis DNA (PCR) Not detected, Coronavirus OC43 (PCR) Not detected, Coronavirus HKU1 (PCR) Not detected, Coronavirus 229E (PCR) Not detected, SARS-CoV-2 (PCR) Not detected, Coronavirus NL63 (PCR) Not detected, Human Metapneumovir PCR Not detected, Influenza A (H1) PCR Not detected, Influ A (H1N1/09) PCR Not detected, Influenza A (H3) PCR Not detected, Influenza Type A (PCR) Not detected, Influenza Type B (PCR) Not detected, M. pneumoniae (PCR) Not detected, Parainfluenza 1 (PCR) Not detected, Parainfluenza 2 (PCR) Not detected, Parainfluenza 3 (PCR) Not detected, Parainfluenza 4 (PCR) Not detected, RSV (PCR) Not detected, Entero/Rhino (PCR) Not detected 08/10/24 15:28: Stool Occult Blood Positive A 08/10/24 15:45: Hgb 8.5 L, Hct 28.6 L I & O for Last 24 hours: Intake & Output 08/07/24 08/08/24 08/09/24 08/10/24 23:59 23:59 23:59 23:59 Intake Total 120 / 740 1920 / 2540 2830 / 4030 3559 / 3559 Output Total 150 / 150 500 / 650 750 / 750 200 / 200 Balance -30 / 590 1420 / 1890 2080 / 3280 3359 / 3359 Weight 54.913 kg 56.654 kg 56.47 kg 58.786 kg Constitutional Constitutional: no acute distress *Routine HEENT Exam Head: Present normocephalic Eye: Present EOMI and PERRL ENT: Present mucous membranes moist *Routine Neck Exam Neck: Present supple; Absent lymphadenopathy *Routine Respiratory Exam Respiratory: Present CTA bilaterally *Routine Cardiovascular Exam Cardiovascular: Present RRR *Routine Abdominal Exam Abdominal: Present soft and normoactive bowel sounds; Absent tenderness *Routine Extremities Exam Extremities: Absent cyanosis, clubbing or edema *Routine Skin Exam Skin: Present warm; Absent rash *Routine Neurological Exam Neurological: Present alert and oriented X3 Assessment and Plan *Assessment and plan (1) ANDREA (acute kidney injury): Status: Acute Category: Medical Code(s): N17.9 - Acute kidney failure, unspecified (2) Hypercalcemia: Status: Acute Category: Medical Code(s): E83.52 - Hypercalcemia Plan Roseanne Tucker is a 89-year-old female with a history of hyperparathyroidism who recently underwent total parathyroidectomy on 08/01/2024 and presents with progressive weakness, poor appetite. Son states that she was discharged on calcium carbonate 1000 mg twice daily after procedure. On arrival, calcium was 16.4, creatinine 3.4. Patient appears weak on my evaluation but alert and oriented. Case discussed with ED provider and decision was made to admit patient for symptomatic hypercalcemia. #Hypercalcemia #Weakness #ANDREA on CKD stage IV ? Initial calcium 16.4, creatinine 3.4, GFR 12. Patient appears weak, but alert and oriented. Poor oral intake over the past few days. ? Will hold calcium carbonate 1000 mg twice daily that patient has been taking since parathyroidectomy. ? Calcium improved to 10.7 today. Creatinine improved and stable around 2.9. ? Continue LR at 75 ml/h. Discontinue calcitonin. ? Continuous cardiac telemetry. ? PTH, vitamin D levels normal. SPEP negative for M spike making multiple my eloma unlikely. ? PT/OT recommending SNF, [facility] can take patient tomorrow if medically stable. #Community-acquired atypical pneumonia #Weakness ? Over the past 2 days, patient has had increased weakness and somnolence. ? CT chest suggesting atypical pneumonia. ? Started ceftriaxone, doxycycline day 1. Follow-up response. ? Blood cultures normal. #Elevated troponin #NSTEMI likely type II #History of CAD with stents ? Initial troponin 0.08, up trended to 0.11. History of CAD with stents. ? EKG showing inferolateral ST depressions, also V4-V6. Unknown chronicity. ? In the setting of poor oral intake in the past few days. Likely NSTEMI type II especially in the setting of CKD stage IV. ? Aspirin, statin. #Hypertension ? Continue home amlodipine, atenolol due to elevated pressures here. ? Cardiology started hydralazine, Isordil. Full code DVT prophylaxis: Lovenox 30 mg
--- NOTE | 2024-08-10 19:05 | PC.NURSE ---
notified of positive occult stool, aware
[2024-08-10] MEDS: LACTATED RINGERS 1000ML 1,000 ML 75 ML IV (23:01)
[2024-08-10 23:17] LABS: Microscopic, Urine URINE MICROSCOPIC (MICROSCOPIC)
[2024-08-10 23:19] LABS: Appearance,Urine CLEAR (Clear); Bilirubin,Urine Negative (Negative); Blood, Urine TRACE-I (Negative); Color,Urine YELLOW (Yellow); Glucose,Urine (UA) Negative (Negative); Ketones,Urine Negative (Negative); Leukocyte Esterase,Urine 1+ (Negative); Nitrate,Urine POSITIVE (Negative); Protein,Urine 2+ (Negative); Specific Gravity, Urine 1.025 (1.005-1.030); Urobilinogen,Urine 0.2 EU/dl (0.2)
[2024-08-11] VITALS: BP 158/68; PULSE 65; PULSE 67; RESP 16; TEMP 37; O2SAT 92
[2024-08-11 00:34] LABS: WBC,Urine 50-100 #/hpf (0-3)
[2024-08-11 00:35] LABS: Bacteria,Urine 3+ /lpf
[2024-08-11 01:07] LABS: PTH Related Peptide < 2.0 pmol/L (.)
[2024-08-11] MEDS: DOXYCYCLINE HYCLATE 100 MG in 0.9 % SODIUM CHLORIDE 250 ML 166.667 MG IV ×2 (02:12→13:56)
[2024-08-11 04:00] VITALS: BP 132/73; PULSE 65; PULSE 69; RESP 16; TEMP 36.7; O2SAT 94; BMI 22.1
--- NOTE | 2024-08-11 06:51 | PC.NURSE ---
Pt alert and oriented but has remained very lethargic. She has been weaned to RA. She has got up to the bedside commode multiple times requiring x2 assist. She has received IV ABX. New IV placed in left hand and old one removed. Family has remained at bedside. Currently resting with bed alarm in place.
--- NOTE | 2024-08-11 07:34 | PC.NURSE ---
Paul PINEDA is aware of general surgery consult per Josue PINEDA.
[2024-08-11 08:00] VITALS: BP 139/83; PULSE 68; PULSE 80; RESP 16; TEMP 36.8; O2SAT 91
[2024-08-11 08:04] LABS: Basophils # 0.1 K/mm3 (0-0.2); Basophils % 0.8 % (0.1-2.0); Eosinophils # 0.3 Kmm3 (0.0-0.4); Eosinophils % 2.7 % (0.1-12.0); Hematocrit 28.5 % (37.0-47.0); Hemoglobin 8.8 g/dL (12.2-16.2); Immature Granulocytes # 0.13 10^3uL; Immature Granulocytes % 1.3 %; Lymphocytes # 1.1 K/mm3 (0.7-4.5); Lymphocytes % 10.7 % (10-50); Mean Corpuscular HGB Conc 30.9 g/dL (31.8-35.4); Mean Corpuscular Hemoglobin 30.8 pg (27.0-31.2); Mean Corpuscular Volume 99.7 fl (81-99); Mean Platelet Volume 11.4 fl (7.4-10.4); Monocytes % 10.1 % (1.7-9.3); Neutrophils # 7.6 K/mm3 (1.8-7.8); Neutrophils % 74.4 % (37.0-80.0); Nucleated Red Blood Cells # 0 10^3/uL; Nucleated Red Blood Cells % 0 %; Platelet Count 168 K/mm3 (142-424); Red Blood Count 2.86 M/mm3 (4.20-5.40); White Blood Count 10.2 K/mm3 (4.8-10.8)
[2024-08-11 08:28] LABS: Alanine Aminotransferase 11 U/L (12-78); Albumin Level 3.2 g/dl (3.5-5.0); Albumin/Globulin Ratio 1.4 (1.1-1.8); Alkaline Phosphatase 46 U/L (38-126); Anion Gap 9.8 mEq/L (5-15); Aspartate Amino Transferase 32 U/L (14-36); Bilirubin,Total 0.6 mg/dl (0.2-1.3); Blood Urea Nitrogen 43 mg/dl (7-17); Calcium 10.2 mg/dl (8.4-10.2); Carbon Dioxide 25 mmol/L (22.0-30.0); Chloride 106 mmol/L (98-107); Creatinine Clearance Estimated 14 mL/min (50-200); Estimated Glomerular Filt Rate 17 ml/min (>60); GFR (African American) 20 ML/MIN (>60); Globulin 2.3 g/dL (1.3-3.2); Glucose 72 mg/dl (74-100); Magnesium 1.5 mg/dl (1.6-2.3); Potassium 3.8 mmoL/L (3.5-5.1); Sodium 137 mmol/L (136-145); Total Protein,Serum 5.5 g/dl (6.3-8.2)
--- NOTE | 2024-08-11 08:58 | EXP.SURG.CON ---
History of Present Illness *Admission Date: 08/07/24 *Reason for visit:: Anemia; possible gastrointestinal blood loss *History of present illness: This is an 89-year-old female seen in consultation from the primary service secondary to anemia and possible gastrointestinal hemorrhage. She was recently admitted for evaluation/management of hypercalcemia. Please see HPI from admission H&P forwarded below. Ongoing follow-up laboratory evaluation revealed a pronounced drop in hemoglobin leading to concerns for possible gastrointestinal blood loss. Stool occult blood study dated August 10, 2024 positive Hemoglobin today 8.8. Hemoglobin yesterday afternoon 8.5. Initial hemoglobin upon admission 13. Forwarded from admission H&P: Roseanne Tucker is a 89-year-old female with a history of hyperparathyroidism who recently underwent total parathyroidectomy on 08/01/2024 and presents with progressive weakness, poor appetite. Son states that she was discharged on calcium carbonate 1000 mg twice daily after procedure. On arrival, calcium was 16.4, creatinine 3.4. Patient appears weak on my evaluation but alert and oriented. Case discussed with ED provider and decision was made to admit patient for symptomatic hypercalcemia. PFSH PFS Disclaimer: The information contained in this section may have been updated after the patient was seen, as this information can be updated by other users. Medical History (Updated 08/11/24 @ 09:04 by Ortega Miller MD) Encounter for pre-operative cardiovascular clearance Aneurysm of vascular graft Rheumatoid arthritis Rheumatoid arteritis Arthritis Osteoporosis Anemia Iron deficiency anemia AMI (acute myocardial infarction) Renal disease Hyperparathyroidism HTN (hypertension) CAD (coronary artery disease) Refill clinic medication management patient Surgical History H/O parathyroidectomy Hx of cataract surgery H/O: hysterectomy H/O hemorrhoidectomy Hx of colonoscopy History of parathyroid surgery Stented coronary artery Family History Other Heart attack Lung cancer No significant family history Ovarian cancer Renal disease Stroke Social History (Updated 08/07/24 @ 15:55 by Lorena Ceja RN) Smoking Status: Never smoker alcohol intake: never substance use type: denies use current occupational status: retired Travel in the last 8 weeks?: Inside the [place] housing: house caffeine: Yes Have you lived/traveled outside [place] in past 30 days?: No Contact w/someone who lives/traveled outside [place] past 30 days?: No Exposure to someone with infectious disease in past 14 days?: No Do you have a fever (greater than 100.4 F or 38 C)?: No Have you tested positive for COVID-19?: No Exposed to someone with COVID-19 in past 14 days?: No Do you have a sore throat?: No Do you have a cough?: No Do you have any weakness?: Yes Do you have any diarrhea?: No Are you experiencing any unusual bleeding?: No Do you have any muscle aches/pain?: No Do you have any abdominal pain?: No Are you experiencing loss of taste or smell?: No Review of Systems Review of Systems Review of systems:: unable to obtain (Below forwarded from admission H&P) Constitutional Constitutional: Reports weakness *Neurologic Neurologic: Reports weakness Meds Home Medications and Allergies Home Medications ?Medication ?Instructions ?Recorded ?Confirmed ?Type aspirin 81 mg tablet,delayed 81 mg PO DAILY 08/09/22 08/09/24 History release atenolol 100 mg tablet 100 mg PO DAILY High blood pressure 08/09/22 08/07/24 History ergocalciferol (vitamin D2) 1,250 1,250 mcg PO WEEKLY 08/09/22 08/08/24 History mcg (50,000 unit) capsule prednisone 5 mg tablet 5 mg PO DAILY PRN Rheumatoid 04/13/23 08/07/24 History Arthritis amlodipine 5 mg tablet (Norvasc) 5 mg PO Q48H 07/25/24 08/08/24 History acetaminophen 325 mg tablet 325 mg PO Q6 08/07/24 08/07/24 History (Tylenol) calcitriol 0.25 mcg capsule 0.25 mcg PO BID 08/07/24 08/07/24 History calcium carbonate 1,000 mg tablet 1,000 mg PO BID 08/07/24 08/07/24 History New Prescriptions to Start Prescriptions: Allergies Allergy/AdvReac Type Severity Reaction Status Date / Time lisinopril Allergy upset Verified 07/25/24 10:04 stomach atorvastatin (From Lipitor) AdvReac myalgias Verified 07/25/24 10:04 Exam (Inpt) Vital signs and Labs for Last 24 Hours: Temp Pulse Resp BP Pulse Ox O2 Del Method O2 Flow Rate 98.0 F 80 16 132/73 94 L Room Air 1 08/11/24 04:00 08/11/24 08:00 08/11/24 04:00 08/11/24 04:00 08/11/24 04:00 08/11/24 07:30 08/11/24 04:00 Laboratory Results - last 24 hr 08/07/24 15:50: PTH Related Peptide < 2.0 08/10/24 06:06: TSH 0.95, Free T4 1.18 08/10/24 13:33: Chlamy pneumoniae PCR Not detected, Adenovirus (PCR) Not detected, B. pertussis DNA (PCR) Not detected, Coronavirus OC43 (PCR) Not detected, Coronavirus HKU1 (PCR) Not detected, Coronavirus 229E (PCR) Not detected, SARS-CoV-2 (PCR) Not detected, Coronavirus NL63 (PCR) Not detected, Human Metapneumovir PCR Not detected, Influenza A (H1) PCR Not detected, Influ A (H1N1/09) PCR Not detected, Influenza A (H3) PCR Not detected, Influenza Type A (PCR) Not detected, Influenza Type B (PCR) Not detected, M. pneumoniae (PCR) Not detected, Parainfluenza 1 (PCR) Not detected, Parainfluenza 2 (PCR) Not detected, Parainfluenza 3 (PCR) Not detected, Parainfluenza 4 (PCR) Not detected, RSV (PCR) Not detected, Entero/Rhino (PCR) Not detected 08/10/24 15:28: Stool Occult Blood Positive A 08/10/24 15:45: Hgb 8.5 L, Hct 28.6 L 08/10/24 23:15: Urine Color Yellow, Urine Appearance Clear, Urine pH 6.0, Ur Specific [place] 1.025, Urine Protein 2+ A, Urine Glucose (UA) Negative, Urine Ketones Negative, Urine Blood Trace-i, Urine Nitrate Positive A, Urine Bilirubin Negative, Urine Urobilinogen 0.2, Ur Leukocyte Esterase 1+ A, Urine RBC 3-5, Urine WBC 50-100, Ur Squamous Epith Cells None, Urine Bacteria 3+ 08/11/24 06:45: WBC 10.2, RBC 2.86 L, Hgb 8.8 L, Hct 28.5 L, MCV 99.7 H, MCH 30.8, MCHC 30.9 L, RDW 14.0, Plt Count 168, MPV 11.4 H, Neut % (Auto) 74.4, Lymph % (Auto) 10.7, [place] % (Auto) 10.1 H, Eos % (Auto) 2.7, Baso % (Auto) 0.8, Neut # (Auto) 7.6, Lymph # (Auto) 1.1, [place] # (Auto) 1.0, Eos # (Auto) 0.3, Baso # (Auto) 0.1, Sodium 137, Potassium 3.8, Chloride 106, Carbon Dioxide 25, Anion Gap 9.8, BUN 43 H, Creatinine 2.70 H, Estimated Creat Clear 14, Estimated GFR 17 L*, Est GFR ( Amer) 20 L, Glucose 72 L, Calcium 10.2, Magnesium 1.5 L D, Total Bilirubin 0.6, AST 32, ALT 11 L, Alkaline Phosphatase 46, Total Protein 5.5 L, Albumin 3.2 L, Globulin 2.3, Albumin/Globulin Ratio 1.4 I & O for Labs for Last 24 Hours: Intake & Output 08/08/24 08/09/24 08/10/24 08/11/24 11:59 11:59 11:59 11:59 Intake Total 1800 / 1800 1100 / 1100 3420 / 3420 3009 / 3009 Output Total 150 / 150 1250 / 1250 200 / 200 0 / 0 Balance 1650 / 1650 -150 / -150 3220 / 3220 3009 / 3009 Weight 124 lb 14.4 oz 124 lb 7.921 oz 129 lb 9.6 oz 129 lb 8 oz Constitutional: no acute distress Respiratory: Absent respiratory distress Cardiac: Absent Tachycardia Results Labs 08/11/24 06:45 08/11/24 06:45 Labs: Laboratory Results - last 24 hr 08/07/24 15:50: PTH Related Peptide < 2.0 08/10/24 06:06: TSH 0.95, Free T4 1.18 08/10/24 13:33: Chlamy pneumoniae PCR Not detected, Adenovirus (PCR) Not detected, B. pertussis DNA (PCR) Not detected, Coronavirus OC43 (PCR) Not detected, Coronavirus HKU1 (PCR) Not detected, Coronavirus 229E (PCR) Not detected, SARS-CoV-2 (PCR) Not detected, Coronavirus NL63 (PCR) Not detected, Human Metapneumovir PCR Not detected, Influenza A (H1) PCR Not detected, Influ A (H1N1/09) PCR Not detected, Influenza A (H3) PCR Not detected, Influenza Type A (PCR) Not detected, Influenza Type B (PCR) Not detected, M. pneumoniae (PCR) Not detected, Parainfluenza 1 (PCR) Not detected, Parainfluenza 2 (PCR) Not detected, Parainfluenza 3 (PCR) Not detected, Parainfluenza 4 (PCR) Not detected, RSV (PCR) Not detected, Entero/Rhino (PCR) Not detected 08/10/24 15:28: Stool Occult Blood Positive A 08/10/24 15:45: Hgb 8.5 L, Hct 28.6 L 08/10/24 23:15: Urine Color Yellow, Urine Appearance Clear, Urine pH 6.0, Ur Specific [place] 1.025, Urine Protein 2+ A, Urine Glucose (UA) Negative, Urine Ketones Negative, Urine Blood Trace-i, Urine Nitrate Positive A, Urine Bilirubin Negative, Urine Urobilinogen 0.2, Ur Leukocyte Esterase 1+ A, Urine RBC 3-5, Urine WBC 50-100, Ur Squamous Epith Cells None, Urine Bacteria 3+ 08/11/24 06:45: WBC 10.2, RBC 2.86 L, Hgb 8.8 L, Hct 28.5 L, MCV 99.7 H, MCH 30.8, MCHC 30.9 L, RDW 14.0, Plt Count 168, MPV 11.4 H, Neut % (Auto) 74.4, Lymph % (Auto) 10.7, [place] % (Auto) 10.1 H, Eos % (Auto) 2.7, Baso % (Auto) 0.8, Neut # (Auto) 7.6, Lymph # (Auto) 1.1, [place] # (Auto) 1.0, Eos # (Auto) 0.3, Baso # (Auto) 0.1, Sodium 137, Potassium 3.8, Chloride 106, Carbon Dioxide 25, Anion Gap 9.8, BUN 43 H, Creatinine 2.70 H, Estimated Creat Clear 14, Estimated GFR 17 L*, Est GFR ( Amer) 20 L, Glucose 72 L, Calcium 10.2, Magnesium 1.5 L D, Total Bilirubin 0.6, AST 32, ALT 11 L, Alkaline Phosphatase 46, Total Protein 5.5 L, Albumin 3.2 L, Globulin 2.3, Albumin/Globulin Ratio 1.4 Assessment and Plan *Assessment and plan (1) Iron deficiency anemia: Status: Acute Qualifiers: Iron deficiency anemia type: unspecified iron deficiency Qualified Code(s): D50.9 - Iron deficiency anemia, unspecified Category: Medical Code(s): D50.9 - Iron deficiency anemia, unspecified Plan: Hemoglobin today improved. Fecal occult blood positive study noted. I have had a long discussion with the patient's family concerning the risks and benefits of endoscopic intervention. She does not require emergent esophagogastroduodenoscopy; however, consideration will be ongoing. The patient's age and overall comorbid conditions to be taken into consideration. From an anesthesia standpoint it should be noted that she recently underwent parathyroidectomy without obvious anesthetic complication. Continue serial hemoglobin/hematocrit Continue proton pump inhibition
[2024-08-11] MEDS: CEFEPIME HCL 2 GM in 0.9 % SODIUM CHLORIDE 100 ML IV (09:21)
[2024-08-11] MEDS: predniSONE 5MG TAB 5 MG PO (09:23)
[2024-08-11] MEDS: HYDRALAZINE HCL 25MG TABLET 25 MG PO ×2 (09:23→13:56)
[2024-08-11] MEDS: ATENOLOL 50MG TABLET 100 MG PO (09:23)
[2024-08-11] MEDS: POLYETHYLENE GLYCOL 3350 17 GM PACKET PO (09:23)
[2024-08-11] MEDS: PANTOPRAZOLE 40MG VIAL 40 MG IV (09:24)
[2024-08-11] MEDS: ISOSORBIDE DINITRATE 10 MG TABLET PO ×2 (09:24→13:55)
[2024-08-11] MEDS: ASPIRIN EC 81MG TABLET 81 MG PO (09:24)
[2024-08-11] MEDS: ONDANSETRON 4MG/2ML VIAL 4 MG IV (09:36)
[2024-08-11] MEDS: FUROSEMIDE 20 MG/2 ML VIAL IV (10:40)
[2024-08-11] MEDS: LACTULOSE 20GM/30ML UDC 20 GM PO ×2 (11:10→13:55)
[2024-08-11] MEDS: BISACODYL 5MG TABLET 10 MG PO (11:10)
[2024-08-11 12:00] VITALS: BP 143/74; PULSE 60; PULSE 72; RESP 18; TEMP 36.6; O2SAT 94
--- NOTE | 2024-08-11 15:17 | P.DS_ITS ---
General Admission date:: 08/07/24 HPI HPI HPI: This is an 89-year-old female seen in consultation from the primary service secondary to anemia and possible gastrointestinal hemorrhage. She was recently admitted for evaluation/management of hypercalcemia. Please see HPI from admission H&P forwarded below. Ongoing follow-up laboratory evaluation revealed a pronounced drop in hemoglobin leading to concerns for possible gastrointestin al blood loss. Stool occult blood study dated August 10, 2024 positive Hemoglobin today 8.8. Hemoglobin yesterday afternoon 8.5. Initial hemoglobin upon admission 13. Forwarded from admission H&P: Roseanne Tucker is a 89-year-old female with a history of hyperparathyroidism who recently underwent total parathyroidectomy on 08/01/2024 and presents with progressive weakness, poor appetite. Son states that she was discharged on calcium carbonate 1000 mg twice daily after procedure. On arrival, calcium was 16.4, creatinine 3.4. Patient appears weak on my evaluation but alert and oriented. Case discussed with ED provider and decision was made to admit patient for symptomatic hypercalcemia. Hospital Course Hospital Course Hospital Course: Roseanne Tucker is a 89-year-old female with a history of hyperparathyroidism who recently underwent total parathyroidectomy on 08/01/2024 and presents with progressive weakness, poor appetite. Son states that she was discharged on calcium carbonate 1000 mg twice daily after procedure. On arrival, calcium was 16.4, creatinine 3.4. Patient appears weak on my evaluation but alert and oriented. Case discussed with ED provider and decision was made to admit patient for symptomatic hypercalcemia. #Hypercalcemia #History of parathyroidectomy at by 08/01/2024 #ANDREA on CKD stage IV ? Initial calcium 16.4, creatinine 3.4, GFR 12. Poor oral intake over the past few days. ? Will hold calcium carbonate 1000 mg twice daily that patient has been taking since parathyroidectomy. ? Calcium gradually improved during hospital course, 10.2 today with IV fluid resuscitation and calcitonin. Creatinine improved and stable around 2.7. ? PTH, vitamin D levels normal. SPEP negative for M spike making multiple myeloma unlikely. ? PT/OT recommending SNF, [facility] graciously accepted patient. ? Recommend repeat BMP, CBC in 3 days to reevaluate calcium, hemoglobin/hematocrit levels. If calcium less than 8, will need to be restarted on calcium carbonate 1000 mg twice daily and then recheck calcium level in 3 days. If hemoglobin less than 8, will need pRBC transfusion with a history of CAD. ? Will need to follow-up with ENT within the next week. #Community-acquired atypical pneumonia #UTI #History of ESBL E. coli UTI #Weakness ? During hospital course, patient became weak and very somnolent. ? CT chest suggesting atypical pneumonia, UA suggesting UTI. ? Significantly improved with starting ceftriaxone, doxycycline day. ? With a history of ESBL E. coli UTI, recommend IM ertapenem 500mg daily for 6 more days (ease of administration without needing an midline, renally dosed). Previously sensitive to this. ? Also discharged with doxycycline 100 mg twice daily for 4 more days. ? Blood cultures normal. #Acute on chronic anemia #Positive stool occult #Fecal impaction ? Initial hemoglobin 11.4, down trended to 8.8 in the setting of aggressive IV fluid resuscitation and fecal impaction. ? Poor oral intake and hypercalcemia likely contributed to fecal impaction that may be contributing to epithelial irritation causing microbleed. ? Hemoglobin has been stable around 8.8 over the past day, vital signs stable. Reassuring. ? General Surgery consulted, did not recommend emergent endoscopy. Will follow- up with general surgery within 1 week for further evaluation management. ? Discharged with Protonix 40 mg. #Elevated troponin #NSTEMI likely type II #History of CAD with stents ? Initial troponin 0.08, up trended to 0.11. History of CAD with stents. ? EKG showing inferolateral ST depressions, also V4-V6. Unknown chronicity. Resolved with repeat EKG after fluid resuscitation. ? In the setting of poor oral intake in the past few days. Likely NSTEMI type II especially in the setting of CKD stage IV. Cardiology consulted and agreed with plan. ? Continue aspirin, statin. #Hypertension ? Continue home amlodipine, atenolol due to elevated pressures here. ? Cardiology started hydralazine, Isordil. Total time spent on discharge: 40 minutes on chart review, counseling, documentation, and direct care with patient. Exam Data for Last 24 hours Vital signs and Labs for Last 24 Hours: Temp Pulse Resp BP Pulse Ox O2 Del Method O2 Flow Rate 98.2 F 60 16 139/83 91 L Room Air 1 08/11/24 08:00 08/11/24 12:00 08/11/24 08:00 08/11/24 08:00 08/11/24 08:00 08/11/24 13:00 08/11/24 04:00 Laboratory Results - last 24 hr 08/07/24 15:50: PTH Related Peptide < 2.0 08/10/24 13:33: Chlamy pneumoniae PCR Not detected, Adenovirus (PCR) Not detected, B. pertussis DNA (PCR) Not detected, Coronavirus OC43 (PCR) Not detected, Coronavirus HKU1 (PCR) Not detected, Coronavirus 229E (PCR) Not detected, SARS-CoV-2 (PCR) Not detected, Coronavirus NL63 (PCR) Not detected, Human Metapneumovir PCR Not detected, Influenza A (H1) PCR Not detected, Influ A (H1N1/09) PCR Not detected, Influenza A (H3) PCR Not detected, Influenza Type A (PCR) Not detected, Influenza Type B (PCR) Not detected, M. pneumoniae (PCR) Not detected, Parainfluenza 1 (PCR) Not detected, Parainfluenza 2 (PCR) Not detected, Parainfluenza 3 (PCR) Not detected, Parainfluenza 4 (PCR) Not detected, RSV (PCR) Not detected, Entero/Rhino (PCR) Not detected 08/10/24 15:28: Stool Occult Blood Positive A 08/10/24 15:45: Hgb 8.5 L, Hct 28.6 L 08/10/24 23:15: Urine Color Yellow, Urine Appearance Clear, Urine pH 6.0, Ur Specific Pray 1.025, Urine Protein 2+ A, Urine Glucose (UA) Negative, Urine Ketones Negative, Urine Blood Trace-i, Urine Nitrate Positive A, Urine Bilirubin Negative, Urine Urobilinogen 0.2, Ur Leukocyte Esterase 1+ A, Urine RBC 3-5, Urine WBC 50-100, Ur Squamous Epith Cells None, Urine Bacteria 3+ 08/11/24 06:45: WBC 10.2, RBC 2.86 L, Hgb 8.8 L, Hct 28.5 L, MCV 99.7 H, MCH 30.8, MCHC 30.9 L, RDW 14.0, Plt Count 168, MPV 11.4 H, Neut % (Auto) 74.4, Lymph % (Auto) 10.7, Prentiss % (Auto) 10.1 H, Eos % (Auto) 2.7, Baso % (Auto) 0.8, Neut # (Auto) 7.6, Lymph # (Auto) 1.1, Prentiss # (Auto) 1.0, Eos # (Auto) 0.3, Baso # (Auto) 0.1, Sodium 137, Potassium 3.8, Chloride 106, Carbon Dioxide 25, Anion Gap 9.8, BUN 43 H, Creatinine 2.70 H, Estimated Creat Clear 14, Estimated GFR 17 L*, Est GFR ( Amer) 20 L, Glucose 72 L, Calcium 10.2, Magnesium 1.5 L D, Total Bilirubin 0.6, AST 32, ALT 11 L, Alkaline Phosphatase 46, Total Protein 5.5 L, Albumin 3.2 L, Globulin 2.3, Albumin/Globulin Ratio 1.4 I & O for Last 24 hours: Intake & Output 08/08/24 08/09/24 08/10/24 08/11/24 23:59 23:59 23:59 23:59 Intake Total 1920 / 2540 2830 / 4030 3959 / 4459 620 / 620 Output Total 500 / 650 750 / 750 200 / 200 0 / 0 Balance 1420 / 1890 2080 / 3280 3759 / 4259 620 / 620 Weight 56.654 kg 56.47 kg 58.786 kg 58.74 kg Microbiology Reports for the Last 24 Hours: Microbiology 08/07/24 09:55 Blood Blood Culture - Preliminary NO GROWTH AFTER 4 DAYS 08/07/24 09:55 Blood Blood Culture - Preliminary NO GROWTH AFTER 4 DAYS Constitutional Constitutional: no acute distress *Routine HEENT Exam Head: Present normocephalic Eye: Present EOMI and PERRL ENT: Present mucous membranes moist Comments: Anterior neck incision site clean dry intact. *Routine Neck Exam Neck: Present supple; Absent lymphadenopathy *Routine Respiratory Exam Respiratory: Present CTA bilaterally *Routine Cardiovascular Exam Cardiovascular: Present RRR *Routine Abdominal Exam Abdominal: Present soft and normoactive bowel sounds; Absent tenderness *Routine Extremities Exam Extremities: Absent cyanosis, clubbing or edema *Routine Skin Exam Skin: Present warm; Absent rash *Routine Neurological Exam Neurological: Present alert Results Data Completed and Pending Labs on day of discharge: Labs from last 24 hours 08/11/24 08/10/24 08/10/24 06:45 23:15 15:45 WBC 10.2 RBC 2.86 L Hgb 8.8 L 8.5 L Hct 28.5 L 28.6 L MCV 99.7 H MCH 30.8 MCHC 30.9 L RDW 14.0 Plt Count 168 MPV 11.4 H Neut % (Auto) 74.4 Lymph % (Auto) 10.7 Prentiss % (Auto) 10.1 H Eos % (Auto) 2.7 Baso % (Auto) 0.8 Neut # (Auto) 7.6 Lymph # (Auto) 1.1 Prentiss # (Auto) 1.0 Eos # (Auto) 0.3 Baso # (Auto) 0.1 Sodium 137 Potassium 3.8 Chloride 106 Carbon Dioxide 25 Anion Gap 9.8 BUN 43 H Creatinine 2.70 H Estimated Creat Clear 14 Estimated GFR 17 L* Est GFR ( Amer) 20 L Glucose 72 L Calcium 10.2 Magnesium 1.5 L D Total Bilirubin 0.6 AST 32 ALT 11 L Alkaline Phosphatase 46 Total Protein 5.5 L Albumin 3.2 L Globulin 2.3 Albumin/Globulin Ratio 1.4 PTH Related Peptide Urine Color Yellow Urine Appearance Clear Urine pH 6.0 Ur Specific Pray 1.025 Urine Protein 2+ A Urine Glucose (UA) Negative Urine Ketones Negative Urine Blood Trace-i Urine Nitrate Positive A Urine Bilirubin Negative Urine Urobilinogen 0.2 Ur Leukocyte Esterase 1+ A Urine RBC 3-5 Urine WBC 50-100 Ur Squamous Epith Cells None Urine Bacteria 3+ Stool Occult Blood Chlamy pneumoniae PCR Adenovirus (PCR) B. pertussis DNA (PCR) Coronavirus OC43 (PCR) Coronavirus HKU1 (PCR) Coronavirus 229E (PCR) SARS-CoV-2 (PCR) Coronavirus NL63 (PCR) Human Metapneumovir PCR Influenza A (H1) PCR Influ A (H1N1/09) PCR Influenza A (H3) PCR Influenza Type A (PCR) Influenza Type B (PCR) M. pneumoniae (PCR) Parainfluenza 1 (PCR) Parainfluenza 2 (PCR) Parainfluenza 3 (PCR) Parainfluenza 4 (PCR) RSV (PCR) Entero/Rhino (PCR) 08/10/24 08/10/24 08/07/24 15:28 13:33 15:50 WBC RBC Hgb Hct MCV MCH MCHC RDW Plt Count MPV Neut % (Auto) Lymph % (Auto) Prentiss % (Auto) Eos % (Auto) Baso % (Auto) Neut # (Auto) Lymph # (Auto) Prentiss # (Auto) Eos # (Auto) Baso # (Auto) Sodium Potassium Chloride Carbon Dioxide Anion Gap BUN Creatinine Estimated Creat Clear Estimated GFR Est GFR ( Amer) Glucose Calcium Magnesium Total Bilirubin AST ALT Alkaline Phosphatase Total Protein Albumin Globulin Albumin/Globulin Ratio PTH Related Peptide < 2.0 Urine Color Urine Appearance Urine pH Ur Specific Pray Urine Protein Urine Glucose (UA) Urine Ketones Urine Blood Urine Nitrate Urine Bilirubin Urine Urobilinogen Ur Leukocyte Esterase Urine RBC Urine WBC Ur Squamous Epith Cells Urine Bacteria Stool Occult Blood Positive A Chlamy pneumoniae PCR Not detected Adenovirus (PCR) Not detected B. pertussis DNA (PCR) Not detected Coronavirus OC43 (PCR) Not detected Coronavirus HKU1 (PCR) Not detected Coronavirus 229E (PCR) Not detected SARS-CoV-2 (PCR) Not detected Coronavirus NL63 (PCR) Not detected Human Metapneumovir PCR Not detected Influenza A (H1) PCR Not detected Influ A (H1N1/09) PCR Not detected Influenza A (H3) PCR Not detected Influenza Type A (PCR) Not detected Influenza Type B (PCR) Not detected M. pneumoniae (PCR) Not detected Parainfluenza 1 (PCR) Not detected Parainfluenza 2 (PCR) Not detected Parainfluenza 3 (PCR) Not detected Parainfluenza 4 (PCR) Not detected RSV (PCR) Not detected Entero/Rhino (PCR) Not detected Preliminary micro results at discharge 08/07/24 09:55 Blood Culture - Preliminary Blood NO GROWTH AFTER 4 DAYS 08/07/24 09:55 Blood Culture - Preliminary Blood NO GROWTH AFTER 4 DAYS DS: Diagnosis Discharge Diagnosis (1) Iron deficiency anemia: Status: Acute Code(s): D50.9 - Iron deficiency anemia, unspecified Qualifiers: Iron deficiency anemia type: unspecified iron deficiency Qualified Code(s): D50.9 - Iron deficiency anemia, unspecified Meds Home Medications and Allergies Home Medications ?Medication ?Instructions ?Recorded ?Confirmed ?Type aspirin 81 mg tablet,delayed 81 mg PO DAILY 08/09/22 08/09/24 History release atenolol 100 mg tablet 100 mg PO DAILY High blood pressure 08/09/22 08/07/24 History prednisone 5 mg tablet 5 mg PO DAILY PRN Rheumatoid 04/13/23 08/07/24 History Arthritis amlodipine 5 mg tablet (Norvasc) 5 mg PO Q48H 07/25/24 08/08/24 History acetaminophen 325 mg tablet 325 mg PO Q6 08/07/24 08/07/24 History (Tylenol) doxycycline hyclate 100 mg tablet 100 mg PO BID 4 days #8 tabs 08/11/24 Rx hydralazine 25 mg tablet 25 mg PO TID 30 days #90 tabs 08/11/24 Rx isosorbide dinitrate 10 mg tablet 10 mg PO TID 30 days #90 tabs 08/11/24 Rx pantoprazole 40 mg tablet,delayed 40 mg PO DAILY #30 tabs 08/11/24 Rx release (Protonix) polyethylene glycol 3350 17 gram 17 g PO DAILY 30 days #30 ea 08/11/24 Rx oral powder packet (HealthyLax) New Prescriptions to Start Prescriptions: doxycycline hyclate Serge Salas hydralazine Josue,Serge isosorbide dinitrate Serge Salas pantoprazole [Protonix] Josue,Serge polyethylene glycol 3350 [HealthyLax] Serge Salas Allergies Allergy/AdvReac Type Severity Reaction Status Date / Time lisinopril Allergy upset Verified 07/25/24 10:04 stomach atorvastatin (From Lipitor) AdvReac myalgias Verified 07/25/24 10:04 Discharge Plan Disposition Patient Disposition: [facility] Condition: Fair Discharge Order Discharge Orders: Discharge Order (Routine); Ordered 08/11/24 Ordered By: Serge Salas Follow up Plan Follow up with: Ortega Miller MD [Staff Physician] - 08/15/24 Richard Cabrera MD [Staff Physician] - Enter time for follow up Prescriptions/Medication Reconciliation: New isosorbide dinitrate 10 mg Tablet 10 mg PO TID 30 Days Qty: 90 0RF polyethylene glycol 3350 [HealthyLax] 17 gram Powder In Packet 17 g PO DAILY 30 Days Qty: 30 0RF hydralazine 25 mg Tablet 25 mg PO TID 30 Days Qty: 90 0RF doxycycline hyclate 100 mg tablet 100 mg PO BID 4 Days Qty: 8 0RF pantoprazole [Protonix] 40 mg tablet,delayed release (DR/EC) 40 mg PO DAILY Qty: 30 0RF Continued prednisone 5 mg tablet 5 mg PO DAILY PRN (Reason: Rheumatoid Arthritis) amlodipine [Norvasc] 5 mg tablet 5 mg PO Q48H atenolol 100 mg tablet 100 mg PO DAILY aspirin 81 mg tablet,delayed release (DR/EC) 81 mg PO DAILY acetaminophen [Tylenol] 325 mg Tablet 325 mg PO Q6 Discontinued ergocalciferol (vitamin D2) 1,250 mcg (50,000 unit) capsule 1,250 mcg PO WEEKLY calcitriol 0.25 mcg Capsule 0.25 mcg PO BID calcium carbonate 1,000 mg Tablet 1,000 mg PO BID Problem Reconciliation Problems Reviewed?: Yes Patient Discharge Instructions Patient Instructions: DI for Hypercalcemia, DI for Acute Kidney Injury Print Language: [place] Providers Primary Care Provider: Jessica Frey Admit Provider: Serge Salas Attending Provider: Serge Salas
[2024-08-11 15:48] LABS: Hematocrit 29.5 % (37.0-47.0); Hemoglobin 9.4 g/dL (12.2-16.2)
[2024-08-11 16:00] VITALS: PULSE 60
== END 2024-08-11 17:53 | DRG 682 ==
LOC: ER 14:00 → 2ND 14:28
PROVIDERS: Physician Assistant; Admitting Provider Student in an Organized Health Care Education/Training Program; Emergency Provider Emergency Medicine; PCP Nurse Practitioner Family; Visit Provider Student in an Organized Health Care Education/Training Program
DX: N17.9 Acute kidney failure, unspecified (principal); I21.A1 Myocardial infarction type 2; J18.9 Pneumonia, unspecified organism; I13.0 Hypertensive heart and chronic kidney disease with heart failure and stage 1 through stage 4 chronic kidney disease, or unspecified chronic kidney disease; N39.0 Urinary tract infection, site not specified; N18.4 Chronic kidney disease, stage 4 (severe); E83.52 Hypercalcemia; I48.0 Paroxysmal atrial fibrillation; D50.9 Iron deficiency anemia, unspecified; I25.10 Atherosclerotic heart disease of native coronary artery without angina pectoris; Z88.8 Allergy status to other drugs, medicaments and biological substances; Z95.5 Presence of coronary angioplasty implant and graft; Z79.82 Long term (current) use of aspirin; Z79.899 Other long term (current) drug therapy; Z79.52 Long term (current) use of systemic steroids
CPT/HCPCS: 36415; 70450; 71045; 71250; 74176; 80053; 81001; 82272; 82306; 82397; 82803; 82962; 83735; 83970; 84155; 84436; 84439; 84443; 84479; 84484; 85014; 85018; 85025; 86803; 86850; 87040; 87077; 87086; 87088; 87389; 87633; 93005; 93308; 97110; 97162; 97166; 97530; 99285; G0328; J0630; J0696; J1650; J1938; J2270; J2405; J2470; J2550; J3475; J7120; J7512

== ENCOUNTER 2024-09-09 10:34 | Outpatient (CLI) | payer MEDICARE, SELFPAY ==
--- OUTSIDE RECORDS SUMMARY | 2024-07-18 13:15 | XMS_ITS | Encounter Summary ---
Author Organization Healthcare Address [address] [place] [address] Care Team Providers Care Workforce Planner Name Role Phone Jessica Frey APRN Primary Care Provider [phone] Encounter Details Date Type Department Care Team (Latest Contact Info) Description 07/18/2024 1:15 PM EDT Pre-Admission Testing [facility] Anesthesia [address] [place] [address] Preop examination (Primary Dx); Primary hypertension; Anemia due to stage 4 chronic kidney disease; Primary hyperparathyroidism (CMS/HCC); Age-related osteoporosis without current pathological fracture Anesthesia Record Procedure Summary Procedure Name Responsible Anesthesiologist Anesthesia Start Time Anesthesia Stop Time PARATHYROIDECTOMY, REPEAT EXPLORATION- localized Zbigniew Mccrary MD 08/01/24 0923 08/01/24 1146 Events Date Time Event Comment 08/01/2024 0857 0923 In Room 0923 An Start The patient was reevaluated immediately before sedation and remains eligible for anesthesia plan. 0923 An Start Data 0928 An Induction The patient was reevaluated immediately before moderate or deep sedation use and before anesthesia induction. 0931 An Intubation 0932 Anesthesia Ready 0945 Proc Start 1122 Proc Fin 1131 An Extubation 1135 an stop data 1137 Out of Room 1146 Handoff to Receiving I compl eted my handoff to the receiving clinician during which we: 1. Identified the patient 2. Identified the responsible provider 3. Reviewed the pertinent medical history 4. Discussed the surgical course 5. Reviewed intra-op anesthesia management and issues during anesthesia 6. Set expectations for post-procedure period 7. Allowed opportunity for questions and acknowledgement of understanding. 1146 An Stop Meds * Agents No agents on file. * Blood No blood administrations on file. Lines, Drains, and Airways Type Details Placement Removal Wound 08/01/24; 0947; N; Y es; Surgical; Open Surg; Throat; Anterior 08/01/24 0947 by Mercedes Shah RN Wound 08/01/24; 1053; N; Y es; Surgical; Open Surg; Arm; Anterior, Lower, Proximal, Right 08/01/24 1053 by Mercedes Shah RN Peripheral IV Placement Date: 07/18 08/11; Placement Time: 0835; Catheter Size: 22 G; Orientation: Anterior, Left; Location: Forearm; Site Prep: Alcohol; Technique: Anatomical landmarks; Insertion Attempts: 2; Patient Tolerance: Tolerated well; Removal Date: 08/02/24; Removal Time: 1224; Removal Reason: Discharge 08/01/24 0835 by Sabi Goodwin RN 08/02/24 1224 by Chan Greer RN ETT Placement Date: 07/18 08/11; Placement Time: 0931 (created via procedure documentation); Technique: Video laryngoscopy (glidescope for NIMs tube placement); Type: ETT - single, NIM tube; Single Lumen Tube Size: 7 mm; Cuffed: Yes; Laryngoscope: (lopro s3); Location: Oral; Grade View: Grade I; Insertion Attempts: 1; Placement Verification: Auscultation, Capnometry; Airway Comments: Atraumatic insertion; Placed by: CHIP MACHINE OPERATOR; Removal Date: 08/01/24; Removal Time: 1131 08/01/24 0931 by Rajeev Lucio CRNA 08/01/24 1131 by Rajeev Lucio CRNA documented in this encounter Social History Tobacco Use Types Packs/Day Years Used Date Smoking Tobacco: Never Passive Smoke Exposure: Never Smokeless Tobacco: Never Alcohol Use Standard Drinks/Week Comments No 0 (1 standard drink = 0.6 oz pur e alcohol) Humiliation, Afraid, Rape, and Kick questionnair e Answer Date Recorded Within the last year, have y ou been afraid of your partner or ex-partner? No 07/01/2024 Within the last year, have y ou been humiliated or emotionally abused in other ways by your partner or ex-partner? No Within the last year, have y ou been kicked, hit, slapped, or otherwise physically hurt by your partner or ex-partner? No 07/01/2024 Within the last year, have y ou been raped or forced to have any kind of sexual activity by your partner or ex-partner? No 07/01/2024 Social Connection and Isolation Panel Answer Date Recorded In a typical week, how many times do you talk on the phone with family, friends, or neighbors? More than three times a week 07/01/2024 How often do you get togethe r with friends or relatives? Twice a week 07/01/2024 How often do you attend [facility] or hindu services? 1 to 4 times per year 07/01/2024 Do you belong to any clubs o r organizations such as hoahaoism groups, unions, fraternal or athletic groups, or school groups? No 07/01/2024 How often do you attend meet ings of the clubs or organizations you belong to? Never 07/01/2024 Are you , , di vorced, , never , or living with a partner? 07/01/2024 AUDIT-C Answer Date Recorded Q1: How often do you have a drink containing alcohol? Never 07/01/2024 Q2: How many drinks containi ng alcohol do you have on a typical day when you are drinking? Patient does not drink Q3: How often do you have si x or more drinks on one occasion? Never 07/01/2024 Overall Financial Resource Strain (CARDIA) Answe r Date Recorded How hard is it for you to pa y for the very basics like food, housing, medical care, and heating? Not very hard 07/01/2024 [facility] of Occupat ional Health - Occupational Stress Questionnaire Answer Date Recorded Do you feel stress - tense, restless, nervous, or anxious, or unable to sleep at night because your mind is troubled all the time - these days? Not at all 07/01/2024 Exercise Vital Sign Answer Date Recorde d On average, how many days pe r week do you engage in moderate to strenuous exercise (like a brisk walk)? 0 days 07/01/2024 On average, how many minutes do you engage in exercise at this level? 0 min 07/01/2024 Hunger Vital Sign Answer Date Recorded Within the past 12 months, y ou worried that your food would run out before you got the money to buy more. Never true 07/02/19 25 Within the past 12 months, t he food you bought just didn't last and you didn't have money to get more. Never true 07/01/2024 PRAPARE - Transportation Answer Date Re corded In the past 12 months, has l ack of transportation kept you from medical appointments or from getting medications? No 06/18 In the past 12 months, has l ack of transportation kept you from meetings, work, or from getting things needed for daily living? No 07/01/2024 Housing Stability Vital Sign Answer Cesario e Recorded In the last 12 months, was t here a time when you were not able to pay the mortgage or rent on time? No 07/01/2024 In the past 12 months, how m any times have you moved where you were living? 0 07/01/2024 At any time in the past 12 m [facility], were you homeless or living in a custodial (including now)? No 07/01/2024 Utilities Answer Date Recorded In the past 12 months has th e [place] Dentist, gas, oil, or water company threatened to shut off services in your home? No 07/01/2024 Comments No Sex and Gender Information Value Date Recorded Sex Assigned at Not on file Legal Sex Female 7:46 PM EDT Gender Identity Not on file Sexual Orientation Not on file documented as of this encounter Last Filed Vital Signs Vital Sign Reading Time Taken Comments Blood Pressure 136/78 07/18/2024 12:49 PM EDT Pulse 58 07/18/2024 12:49 PM EDT Temperature 36.4 C (97.5 F) 07/18/2024 12:49 PM EDT Respiratory Rate 20 07/18/2024 12:4 9 PM EDT Oxygen Saturation 96% 07/18/2024 12: 49 PM EDT Inhaled Oxygen Concentration - - Weight 58.9 kg (129 lb 13.6 oz) 025 12:49 PM EDT Height - - Body Mass Index 24.54 07/01/2024 11:14 AM EDT documented in this encounter Miscellaneous Notes * PAT Evaluation Note - Claudia Armando, ZOE - 07/18/2024 1:15 PM EDT Images from the original note were not included. FARAZ Tucker is a 89 y.o. female who presents with Pre-op Diagnosis * Primary hyperparathyroidism (CMS/HCC) [E21.0] now scheduled for PARATHYROIDECTOMY, REPEAT EXPLORATION- localized (N/A) with Andrey Day MD on 08/01/2024 at [facility]. PMH of HTN, primary hyperparathyroidism s/p partial parathyroidectomy, CAD/MT 201 s/p stent x 2, CKD, and Anemia. She is accompanied by her daughter for PAT appt. Medical History[1] Family History[2] Social History[3] Surgical History[4] Allergies[5] MEDICATIONS: Current Outpatient Medications: amLODIPine, Take 1 tablet by mouth every other day. atenolol, TAKE 1 TABLET DAILY. cinacalcet, TAKE 1 TABLET BY MOUTH ONCE DAILY WITH FOOD AT SAME TIME EACH DAY. SWALLOW TABLET WHOLE. DO NOT BREAK OR DIVIDE diclofenac, Place on the skin if needed. Apply as directed to ergocalciferol, Take 1 capsule by mouth 1 time per week. ferrous sulfate, Take 1 tablet by mouth 2 times a week. Do not crush, chew, or split. LOW-DOSE ASPIRIN PO, 81 mg daily. predniSONE, Take 1 tablet by mouth daily. ROS Anesthesia: Date of last anesthetic: 2013 Hemorrhoid Surgery Does not have a history of anesthetic complications, malignant hyperthermia, obstructive sleep apnea and PONV. Cardiovascular: CAD (MT s/p stents x 2 in 2017. On ASA 81mg, BB, statin. Follows with Cardiology (Dr. Enciso). Pre-op appt scheduled on 07/23/24.). Does not have atrial fibrillation, CHF, dyspnea, dysrhythmias, hyperlipidemia, murmur, pacemaker or syncope. no hypertension: Does not have chest pain. Cardio additional comments: Can walk 1-2 flights of stairs Can lay flat. No active cardiac complaints.. Respiratory: Does not have home oxygen. Patient has no dyspnea.no asthma: no COPD: Has not had an upper respiratory infection in last 30 days. HEENT: missing teeth (full dentures).Does not have difficulty swallowing.hearing loss (mild hearing loss, no hearing aids). Neurological: no seizures: Did not have a cerebrovascular accident.Does not have TIA. Musculoskeletal: arthritis. Does not have cervical spine limited mobility. Musc/Skel/Integ additional comments: +Osteoporosis Integumentary: Negative skin ROS. Gastrointestinal: Does not have GERD.Does not have cirrhosis or hepatitis. Genitourinary: renal disease (CKD 4. Creat 2.75 (previously 2.6 02/2024)). Hematological/Lymphatic: anemia (likely 2/2 CKD. Improved after iron infusions. Now on daily oral iron. Hgb 11.7 on 07/18/24).History of no DVT. History of no pulmonary embolism. Not in a hypercoagulable state. no history of chemotherapy no history of radiation Does not have MRSA or tuberculosis. Endocrine/Metabolic: does not have diabetes mellitus. Does not have thyroid disorder. a history of chronic steroid use (prednisone 5 mg daily for arthralgias for > 1 yr. Consider stress dose steroids). Endo/Met additional comments: +hyperparathyroidism- hx of partial thyroidectomy 200507/25/24 Cardiology Preop Evaluation/Clearance: Lab Results Component Value Date WBC 8.08 07/18/2024 HGB 11.7 07/18/2024 HCT 38.2 07/18/2024 MCV 99 (H) 07/18/2024 PLT 205 07/18/2024 Lab Results Component Value Date GLUCOSE 131 (H) 07/18/2024 BUN 30 (H) 07/18/2024 CREATININE 2.75 (H) 07/18/2024 BCR 11 07/18/2024 NA 143 07/18/2024 K 4.1 07/18/2024 CL 107 07/18/2024 CO2 25 07/18/2024 Visit Vitals BP 136/78 Pulse 58 Temp 36.4 ??C (97.5 ??F) (Temporal) Resp 20 Wt 58.9 kg (129 lb 13.6 oz) SpO2 96% BMI 24.54 kg/m?? OB Status Postmenopausal Smoking Status Never BSA 1.59 m?? Physical Exam Airway Mallampati: III Mouth opening: normal TM distance: >3 FB Neck ROM: full Comments: Wearing dentures Cardiovascular Rhythm: regular Rate: normal (-) murmur Dental (+) upper dentures, lower dentures Pulmonary Breath sounds clear to auscultation Neurological Oriented: normal to time, normal to place and normal to person Skin Musculoskeletal Extremities Anesthesia Plan ASA 3 Anesthesia technique(s) discussed with the patient/family: general Comment: Patient has PENDING Cardiology appt 07/23/24 (Dr. Enciso). Surgeon recommends holding ASA 81mg 5 days prior to surgery pending Cardiology recommendations. Will f/u Cards recs. Discussed withDr. Vega. Claudia Armando APRN [1] Past Medical History: Diagnosis Date Anemia CKD (chronic kidney disease) Coronary artery disease Hypertension Old myocardial infarction History of acute myocardial infarction Personal history of other diseases of the musculoskeletal system and connective tissue History of arthritis [2] Family History Problem Relation Name Age of Onset Stroke Mother Other cancer Mother Ovarian cancer Mother Stroke Father Lung cancer Father Other cancer Father Kidney cancer Sister Anesthesia problems Neg Hx Malig Hyperthermia Neg Hx [3] Social History Tobacco Use Smoking status: Never Passive exposure: Never Smokeless tobacco: Never Vaping Use Vaping status: Never Used Substance Use Topics Alcohol use: No Drug use: Never Comment: Drug use: No drug use [4] Past Surgical History: Procedure Laterality Date CATARACT EXTRACTION CATH STENT PLACEMENT/ CATH PLACEMENT OF STENT N/A Cath Stent Placement from [facility] COLONOSCOPY N/A Complete Colonoscopy from [facility] HEMORRHOID SURGERY N/A Hemorrhoidectomy from [facility] HYSTERECTOMY N/A Hysterectomy from [facility] MASS EXCISION Left arm MENISCECTOMY Right PARATHYROIDECTOMY N/A Parathyroid Complete Parathyroidectomy from [facility] TOTAL KNEE ARTHROPLASTY Right Knee Replacement from [facility] UPPER GASTROINTESTINAL ENDOSCOPY [5] Allergies Allergen Reactions Atorvastatin Unknown - Patient states they do not know rxn details Lisinopril Nausea and Vomiting Oxaprozin Nausea * Preprocedure Instructions - Claudia Armando APRN - 07/18/2024 1:15 PM EDT Home Medication Instructions Current Medications Medication Instructions amLODIPine (Norvasc) 5 MG tablet Take morning of surgery atenolol (Tenormin) 100 MG tablet Take morning of surgery cinacalcet (Sensipar) 30 MG tablet Hold 2 weeks before surgery diclofenac (Voltaren) 1 % topical gel Hold 7 days before surgery ergocalciferol 1.25 MG (57311 UT) capsule Hold 7 days before surgery ferrous sulfate 324 (65 Fe) MG EC tablet Hold day of surgery LOW-DOSE ASPIRIN PO Hold 5 days prior to surgery per surgeon. predniSONE (Deltasone) 5 MG tablet Take morning of surgery General Preoperative Instructions You will be called the business day before surgery with your arrival time No food after midnight the night before surgery. You can drink clear liquids up to 2 hours prior to arrival. Please do not try to get all your hydration in 2 hours prior to arrival. Start the day before surgery drinking more than you usually would. After midnight, you can have clear liquids only (water, apple juice, Gatorade) up to 2 hours priorto arrival. No coffee or tea. No alcohol or smoking prior to surgery Arrive on time to avoid delays Parking/Registration procedure explained You MUST have a responsible adult available for transport to and from hospital Visitation policy for the day of surgery reviewed Bring insurance card, photo ID, along with power of contracts attorney, guardianship or advanced directives if applicable Do not bring money, jewelry or other valuables Hibiclens bathing instructions reviewed if applicable Notify surgeon of fever, illness, any changes or if you decide not to have surgery documented in this encounter Plan of Treatment Upcoming Encounters Date Type Department Care Team (Late st Contact Info) Description 09/13/2024 11:20 AM EDT [facility] [address] [place] [id number] Eryn Arias APRN [address] [facility] [address] [place] [address] 10/28/2024 1:20 PM EDT Office Visit Medical Office Building [facility] [address] [facility], [address] [place] [address] Andrey Day MD [address] [facility] [address] [place] [address] documented as of this encounter Goals Goal Patient Goal Type Associated Problems Recent Progress Patient-Stated? Author Autogenera sher Goal Care Plan Autogenerated Problem No Leanne Sierra documented as of this encounter Procedures Procedure Name Priority Date/Time Associated Diagnosis Comments ECG ADULT Routine 07/18/2024 1:43 PM EDT Preop examination documented in this encounter Results * (ABNORMAL) Basic metabolic panel (07/18/2024 1:55 PM EDT) Glucose, Plasma 131(H) 74 - 99 mg/dL 07/18/2024 6:16 PM EDT [facility] BUN, Plasma 30(H) 8 - 23 mg/dL 07/18/2024 6:16 PM EDT [facility] Creatinine, Plasma 2.75(H) 0.60 - 1.10 mg/dL 07/18/2024 6:16 PM EDT [facility] BUN/Creatinine Ratio 11 07/18/2024 6:16 PM EDT [facility] Sodium, Plasma 143 136 - 145 mmol/L 07/18/2024 6:16 PM EDT [facility] Potassium, Plasma 4.1 3.6 - 4.9 mmol/L 07/18/2024 6:16 PM EDT [facility] Chloride, Plasma 107 97 - 107 mmol/L 07/18/2024 6:16 PM EDT [facility] CO2, Plasma 25 22 - 29 mmol/L 07/18/2024 6:16 PM EDT [facility] Anion Gap 11 6 - 16 mmol/L 07/18/2024 6:16 PM EDT [facility] Total Calcium, Plasma 10.2 8.9 - 10.2 mg/dL 07/18/2024 6:16 PM EDT [facility] eGFRcr 16.2 mL/min/1.7 3m*2 07/18/2024 6:16 PM EDT [facility] Comment:Reported eGFRcr in m L/min/1.73m2 is based the CKD-EPI 2020 equation that does not use a race coefficient. Blood Venous blood specimen / Unknown Venipuncture / Unknown 07/18/2024 1:55 PM EDT 07/18/2024 1:55 PM EDT us Claudiagabby Armando IT SECURITY ARCHITECT LAB BLOOD ORDERABLES Final [facility] [address] [place] [id number] * (ABNORMAL) CBC (07/18/2024 1:55 PM EDT) WBC Count 8.08 3.70 - 10.30 10*3/uL LAB HEMATOLOGY METHOD 07/18/2024 5:46 PM EDT [facility] RBC Count 3.88(L) 3.90 - 5.20 10*6/uL LAB HEMATOLOGY METHOD 07/18/2024 5:46 PM EDT [facility] HGB 11.7 11.2 - 15.7 g/dL LAB HEMATOLOGY METHOD 07/18/2024 5:46 PM EDT [facility] HCT 38.2 34.0 - 45.0 % LAB HEMATOLOGY METHOD 07/18/2024 5:46 PM EDT [facility] Platelet Count 205 155 - 369 10*3/uL LAB HEMATOLOGY METHOD 07/18/2024 5:46 PM EDT [facility] MCV 99(H) 79 - 98 fL LAB HEMATOLOGY METHOD 07/18/2024 5:46 PM EDT [facility] MCH 30.2 26.0 - 32.0 pg LAB HEMATOLOGY METHOD 07/18/2024 5:46 PM EDT [facility] MCHC 30.6(L) 30.7 - 35.5 g/dL LAB HEMATOLOGY METHOD 07/18/2024 5:46 PM EDT [facility] RDW 14.0 11.5 - 14.5 % LAB HEMATOLOGY METHOD 07/18/2024 5:46 PM EDT [facility] MPV 10.7 8.8 - 12.5 fL LAB HEMATOLOGY METHOD 07/18/2024 5:46 PM EDT [facility] nRBC 0.0 <=0.0 per 100 WBCs LAB HEMATOLOGY METHOD 07/18/2024 5:46 PM EDT [facility] Blood Venous blood specimen / Unknown Venipuncture / Unknown 07/18/2024 1:55 PM EDT 07/18/2024 1:55 PM EDT Claudia Armando APRN LAB BLOOD ORDERABLES Final [facility] [address] [place] [address] * ECG Adult (Now - Performed in your clinic) (07/18/2024 1:43 PM EDT) EKG DIAGNOSIS CLASS Abnormal MUSE ECG Ventricular Rate 59 BPM MUSE ECG Atrial Rate 59 BPM MUSE ECG CO Interval 212 ms MUSE ECG QRSD Interval 80 ms MUSE ECG QT Interval 418 ms MUSE ECG QTC Interval 413 ms MUSE ECG P Reeder -9 degrees MUSE ECG R Reeder -45 degrees MUSE ECG T Wave Reeder 28 degrees MUSE ECG Diagnosis Sinus bradycardia with 1st degree AV block MUSE ECG Diagnosis Left axis deviation MUSE ECG Diagnosis Anterior infarct , age undetermined MUSE ECG Diagnosis MUSE ECG Diagnosis MUSE ECG Diagnosis Confirmed by Magda Vegas ([id number]) on 07/20/2024 6:55:21 AM MUSE ECG 07/18/2024 1:43 PM EDT 07/20/2024 6:55 AM EDT Claudia Armando APRN ECG ORDERABLES Final Result Performing Organization Address City/[facility] Co de Phone Number MUSE ECG documented in this encounter Visit Diagnoses Diagnosis Preop examination- Primary Unspecified pre-operative examination Primary hypertension Unspecified essential hypertension Anemia due to stage 4 chronic kidney disease Primary hyperparathyroidism ([facility]) Primary hyperparathyroidism Age-related osteoporosis without current pathological fracture documented in this encounter Additional Health Concerns Active Problems Noted Date Diagnosed Date Autogenerated Problem 07/01/2024 Assessment Noted Time A fall risk assessment has been complete d for the patient 07/01/2024 11:13 AM EDT A Body Mass Index follow-up plan has been documented for the patient 07/01/2024 12:47 PM EDT documented as of this encounter Care Teams Workforce Planner Relationship Specialty Start Date End Date Jessica Frey APRN [address] [place] [address] [facility] PCP - General 07/31/20 documented as of this encounter
--- OUTSIDE RECORDS SUMMARY | 2024-08-01 06:52 | XMS_ITS | Encounter Summary ---
Author Organization Healthcare Address [address] [place] [address] Care Team Providers Care Insulator Technician Name Role Phone Jessica Frey APRN Primary Care Provider [phone] Reason for Visit * Auth/Cert (Routine) Specialty Diagnoses / Procedures Referred By Mis t Referred To Contact Diagnoses Primary hyperparathyroidism (CMS/HCC) Primary hyperparathyroidism (CMS/HCC) [E21.0] Procedures OR RE-EXPLORE PARATHYROIDS OR VNPNXR 3 YEARS/> PHYS/QHP SKILL PARATHYROIDECTOMY, REPEAT EXPLORATION- localized Andrey Day MD [address] [place] [id number] Phone: tel: fax: [facility] [address] [place] [address] Phone: tel: Referral ID Status Reason Start Date Expiration Date Visits Re quested Visits Authorized [id number] 1 1 Encounter Details Date Type Department Care Team (Late st Contact Info) Description 08/01/2024 6:52 AM EDT - 08/02/2024 2:48 PM EDT Hospital Encounter [facility] [address] [place] [address] Andrey Day MD [address] [place] [phone] Primary hyperparathyroidism (CMS/HCC) Discharge Disposition: Home or Self Care Social History Tobacco Use Types Packs/Day Years [...] week 07/01/2024 How often do you attend [facility] or jehovah's witness services? 1 to 4 times per year 07/01/2024 Do you belong to any clubs o r organizations such as judaism groups, unions, fraternal or athletic groups, or [...] care, and heating? Not very hard 07/01/2024 [facility] [place] [facility] - Occupational Stress [...] any time in the past 12 m [facility], were you homeless or living in a fpc (including now)? No 07/01/2024 Utilities Answer Date Recorded In the past 12 months has th e electric, gas, oil, or water company threatened to shut off services in your home? No 07/01/2024 Comments No Sex and Gender Information Value Date Recorded Sex Assigned at Not on file Legal Sex Female 7:46 PM EDT Gender Identity Not on file Sexual Orientation Not on file documented as of this encounter Last Filed Vital Signs Vital Sign Reading Time Taken Comments Blood Pressure 151/75 08/02/2024 11:38 AM EDT Pulse 62 08/02/2024 11:38 AM EDT Temperature 36.7 C (98.1 F) 08/02/2024 10:42 AM EDT Respiratory Rate 17 08/02/2024 10:42 AM EDT Oxygen Saturation 92% 08/02/2024 11:38 AM EDT Inhaled Oxygen Concentration - - Weight 58.3 kg (128 lb 8.5 oz) 08/02/2024 6:00 A M EDT Height 154.9 cm (5' 0.98 ) 08/01/2024 4:00 PM ED T Body Mass Index 24.3 08/01/2024 4:00 PM EDT documented in this encounter Functional Status * AUDIT-C Score Answer Date of Assessment Author 0 07/01/2024 11:08 AM EDT Polly Rosario * Question Answer Date of Assessment Author Q1: How often do you have a drink containing alcohol? Never 07/01/2024 11:08 AM EDT Polly Rosario Q2: How many drinks containing alcohol do you have on a typical day when you are drinking? Patient does not drink 07/01/2024 11:08 AM EDT Polly Rosario Q3: How often do you have six or more drinks on one occasion? Never 07/01/2024 11:08 AM EDT Polly Rosario * Calculated C-SSRS Risk Score (Lifetime/Recent) Answer Date of Assessment Author No Risk Indicated 08/02/2024 8:00 AM EDT Chan Barboza RN * Question Answer Date of Assessment Author 1. Wish to be (Past 1 Month) No 08/02/2024 8:00 AM EDT Lali Greer RN 2. Non-Specific Active Suici marycruz Thoughts (Past 1 Month) No 08/02/2024 8:00 AM EDT Neftali Greer RN 6. Suicidal Behavior (Lifetime) No 8:00 AM EDT Chan Greer RN documented as of this encounter Discharge Instructions * Discharge Instructions* Fausto Flanagan MD - 08/02/2024 7:40 AM EDT Thyroid and Parathyroid Post-operative Instructions Incision: You have 1 incision across your neck, and 3 small incisions on your right forearm. Over your neck incision, you have a surgical glue (Dermabond) and a steristrip. Over your forearm incisions, you have surgical glue (Dermabond). This will peel and fall off on its own over the next 1-2 weeks. Leave the incision open to the air. Do not submerge the incision in water for 2 weeks. May begin to apply lotion 2 weeks after surgery or when the incision appears healed without scabbing. Use sunscreen on the incision for the first year to prevent darker scarring. Showering/Bathing: Your incisions may get wet. Wait for 24 hours after surgery before showering. Shower normally with soap, water and shampoo. Allow the water to run over the incision. Pat dry with atowel after showering. Do not submerge the incision in the bathtub for 2 weeks after surgery. Pain control: It may really hurt to cough, sneeze, and swallow (like strep throat) for 2-3 days after surgery. It improves fairly quickly after the first few days. Most patients use xooc-kmy-[id number] Tylenol (acetaminophen) for postoperative pain in the first several days. Avoid using Advil/ibuprofen due to your kidney function. Tylenol (acetaminophen): 500-1000 mg every 6 hours as needed Medications: You should take tums 1000mg Twice daily for 7 days You should take 0.25 mcg caclitriol twice daily You should stop taking your sensipar Activity & Restrictions: Move neck in all directions to prevent neck soreness, tightness and headaches. No driving for 5 days after surgery. No heavy lifting for the first couple days. May resumeother activities. Diet: No restrictions. May return to previous diet. However, liquids and soft foods may be easier in the first few days after surgery. Notify the surgeon telephone clerk telegraph office and go directly to the Emergency Room if you notice significant neck swelling, bruising, or new worsening in ability to swallow or breathe, especially the afternoon/eveningof surgery. This could indicate a bleeding problem. If you feel it is an emergency, call 911. For this emergency, you can also call the surgeon telephone clerk telegraph office at . Numbness or tingling in the fingertips, face or mouth, or cramping of the hands may indicate low calcium. Take 2000 mg of Tums (calcium carbonate) and wait an hour. If the symptoms return, additionalTums may be taken. If the problem persists, call the clinic (8-4:30p, M-F) at or notify the surgeon telephone clerk telegraph office at . Follow-up: After surgery you will return to clinic to see Dr. Day or Arianne Weston APRN (the Endocrine Surgery Nurse Practitioner) on the date scheduled during your presurgical office visit. If you were scheduled to have labs done for your visit, please first go to the lab and then present to clinic. If you do not have an appointment, please call the office at to schedule an appointment. documented in this encounter Medications at Time of Discharge acetaminophen (Tylenol) 325 MG tablet Take 2 tablets by mouth every 6 hours. Under [place] law, monthly prescriptions (30 days) can be refilled at 25 days and three-month prescriptions (90 days) at 80 days. Please contact the insurance company with questions if refills are denied. 100 tablet 08/02/2024 amLODIPine (Norvasc) 5 MG tablet Take 1 tablet by mouth every other day. 10/25/2022 atenolol (Tenormin) 100 MG tablet Take 1 tablet by mouth daily. 12/14/2015 calcitriol (Rocaltrol) 0.25 MCG capsule Take 1 capsule by mouth 2 times a day. 60 capsule 08/02/2024 calcium carbonate (Tums Ultra) 1000 MG chewable tablet Chew 1 tablet 2 times a day. 60 tablet 08/02/2024 diclofenac (Voltaren) 1 % topical gel Place on the skin if needed. Apply as directed to ergocalciferol 1.25 MG (11527 UT) capsule Take 1 capsule by mouth 1 time per week. 09/15/2022 ferrous sulfate 324 (65 Fe) MG EC tablet Take 1 tablet by mouth 2 times a week. Do not crush, chew, or split. LOW-DOSE ASPIRIN PO 81 mg daily. predniSONE (Deltasone) 5 MG tablet Take 1 tablet by mouth daily. 11/10/2022 documented as of this encounter Miscellaneous Notes * Claire Ernst, RN - 08/02/2024 2:11 PM EDT Images from the original note were not included. [id number] Constipation (Adult) Constipation means that you have less frequent bowel movements (generally fewer than 3 bowel movements a week) than usual. Stools often become very hard and difficult to pass. Constipation is very common. At some point in life, it affects almost everyone. Since everyone's bowel habits are different, what is constipation to 1 person may not be to another. Your healthcare provider may do tests to diagnose constipation. It depends on what they find when evaluating you. Symptoms of constipation include: ?? Abdominal pain ?? Bloating ?? Straining during bowel movements ?? Hard, lumpy stools ?? Painful bowel movements ?? Itching, swelling, bleeding, or pain around the anus ?? A feeling that you have not emptied your bowels completely Causes Constipation can have many causes. These include: ?? Diet low in fiber ?? Not drinking enough liquids ?? Lack of exercise or physical activity (especially true for older adults) ?? Changes in lifestyle or daily routine, including , aging, work, and travel ?? Frequent use or misuse of laxatives ?? Ignoring the urge to have a bowel movement or delaying it until later ?? Medicines, such as certain prescription pain medicines, iron supplements, antacids, certain antidepressants, and calcium supplements ?? Too much dairy ?? Conditions or diseases like irritable bowel syndrome, bowel obstructions, stroke, diabetes, thyroid disease, Parkinson disease, hemorrhoids, and colon cancer Complications Possible complications of constipation can include: ?? Hemorrhoids ?? Rectal bleeding from hemorrhoids or anal fissures (skin tears around the anus) ?? Hernias ?? Chronic constipation ?? Fecal impaction, a severe form of constipation in which a large amount of hard stool is in your rectum that you can't pass ?? Bowel obstruction or perforation ?? Rectal prolapse (a portion of rectum slipped out of the anal opening) Home care All treatment should be done after talking with your healthcare provider. This is especially true if you have another medical problem, are taking prescription medicines, or are an older adult. Treatment most often involves lifestyle changes. You may also need medicines. Your healthcare provider will tell you which will work best for you. Follow the advice below to help prevent this problem in thefuture. Lifestyle changes These lifestyle changes can help prevent constipation: ?? Diet. Eat a high-fiber diet, with fresh fruit and vegetables, and reduce dairy intake, meats, and processed foods ?? Fluids. It's important to get enough fluids each day. Drink plenty of water when you eat more fiber. If you are on a diet that limits the amount of fluid you can have, talk about this with your healthcare provider. ?? Regular exercise. Check with your healthcare provider first. Medicines Take any medicines as directed. Some laxatives are safe to use only now and then. Others can be taken regularly. While laxatives don't cause bowel dependence, they are treating the symptoms. So your constipation may return if you don't make other changes. Talk with your healthcare provider or pharmacist if you have questions. Prescription pain medicines can cause constipation. If you are taking this kind of medicine, ask your healthcare provider if you should also take a stool softener. Medicines you may take to treat constipation include: ?? Fiber supplements ?? Stool softeners ?? Laxatives ?? Enemas ?? Rectal suppositories Follow-up care Follow up with your healthcare provider if symptoms don't get better in the next few days. You may need to have more tests or see a specialist. Call 911 Call 911 if any of these occur: ?? Trouble breathing ?? Stiff, rigid abdomen that is severely painful to touch ?? Large amounts of blood in the stool ?? Confusion ?? Fainting or loss of consciousness ?? Rapid heart rate ?? Chest pain When to get medical advice Call your healthcare provider right away if any of these occur: ?? Fever of 100.4??F (38??C) or higher, or as directed by your healthcare provider ?? Failure to resume normal bowel movements ?? Pain in your abdomen or back gets worse ?? Nausea or vomiting ?? Swelling in your abdomen ?? Small amount of blood in the stool ?? Black, tarry stool ?? Weight loss without trying ?? Weakness Last Reviewed Date: 2024 00:00:00 ?? [employer]. All rights reserved. This information is not intended as a substitute for professional medical care. Always follow your healthcare professional's instructions. * Mary OnIR - Claire Quinn RN - 08/02/2024 2:11 PM EDT Images from the original note were not included. 12038 Using an Incentive Spirometer An incentive spirometer is a handheld device that helps you do deep breathing exercises after surgery. It also helps lower the risk of breathing problems if you have a lung disease or condition. These exercises expand your lungs, aid in circulation, and may help prevent pneumonia. Deep breathing exercises also help you breathe better and improve lung function by: ?? Keeping your lungs clear. ?? Making your breathing muscles stronger. ?? Helping prevent respiratory complications or problems. The incentive spirometer gives you a way to take an active part in your recovery. A nurse or respiratory therapist will teach you breathing exercises. To do these exercises, you will breathe in through your mouth and not your nose. The incentive spirometer only works correctly if you breathe in through your mouth. Deep breathing expands the lungs, aids circulation, and helps prevent pneumonia. Your health care provider or their staff will tell you how to use the device, your targeted volume(s), and provide other helpful tips to prevent complications (such as pain, dizziness, feeling lightheaded) when blowing in the incentive spirometer. Steps to clear lungs Step 1. Exhale normally. Then, inhale normally. ?? Relax and breathe out. Step 2. Place your lips tightly around the mouthpiece. ?? Make sure the device is upright and not tilted. ?? Sit up and breathe out (exhale) fully. ?? Tightly seal your lips around the mouthpiece. Step 3. Inhale as much air as you can through the mouthpiece. Don't breathe through your nose. ?? Breathe in (inhale) slowly and deeply. ?? Hold your breath long enough to keep the balls, piston, or disk raised for at least 3 to 5 seconds, or as instructed by your health care provider. ?? Exhale slowly to allow the balls, piston, or disk to fall before repeating. Note: Some spirometers have an indicator to let you know that you are breathing in too fast. If theindicator goes off, breathe in more slowly. Step 4. Repeat the exercise regularly. ?? Do sets of 10 exercises every hour while you're awake, or as instructed by your health care provider. Don't do more than 30 breaths in each set. ?? If you were taught deep breathing and coughing exercises, do them regularly as instructed by your provider, nurse, or respiratory therapist. Follow-up care Make a follow-up appointment as directed by your health care provider. Also, follow up with your provider as advised if your symptoms don't improve or continue to get worse. When to contact your doctor Contact your health care provider right away if you have: ?? A fever 100.4?? (38??C) or higher, or as advised by your provider. ?? Brownish, bloody, or smelly sputum (phlegm that you cough up). Call 911 Call 911 if any of these occur: ?? Shortness of breath that doesn't get better after taking your medicine ?? Cool, moist, pale, or blue skin ?? Trouble breathing or swallowing, wheezing ?? Fainting or loss of consciousness ?? Feeling of dizziness or weakness, or a sudden drop in blood pressure ?? Feeling very ill ?? Lightheadedness ?? Chest pain or rapid heart rate Last Reviewed Date: 2024 00:00:00 ?? 2184-1529 [employer]. All rights reserved. This information is not intended as a substitute for professional medical care. Always follow your healthcare professional's instructions. * Mary CabaGRIFFIN - Claire Quinn RN - 08/02/2024 2:11 PM EDT Images from the original note were not included. 23601 Preventing a Surgical Site Infection A risk of any surgery is an infection at the surgical site. The surgical site is a cut the surgeon makes in the skin to do the surgery. Surgical site infections can range in type. It may be a minor skin infection. Or it may be severe and include tissue under the skin or other organs. In some cases,a severe infection can cause . The information below tells you: ?? About surgical site infections. ?? What hospitals do to prevent them. ?? How they?re treated if they do occur. ?? What you can do to prevent an infection. Hand washing reduces the risk of infection. What causes a surgical site infection? Germs are everywhere. They?re on your skin, in the air, and on things you touch. Many germs are good. Some are harmful. Surgical site infections occur when harmful germs enter your body through the incision in your skin. Some infections are caused by germs that are in the air or on objects. But most are caused by germs found on and in your own body. Who is at risk for a surgical site infection? Anyone can have a surgical site infection. Your risk is higher if you: ?? Are an older adult. ?? Have a weak immune system. ?? Have other health conditions such as diabetes. ?? Take certain medicines, such as steroids. ?? Are a smoker. ?? Have certain types of surgery, such as abdominal surgery. ?? Have poor nutrition. ?? Are very overweight. ?? Have a surgery that lasts longer than 2 hours. What are the symptoms of a surgical site infection? An infection often shows up as skin redness, pain, and swelling around the incision that gets worse. Later, a cloudy or greenish-yellow fluid may come from the incision. The fluid may smell bad. The incision may pull apart or open up. You are likely to have a fever and may feel very ill. Symptoms can appear at any time. They may happen from hours to weeks after surgery. Implants such as an artificial knee or hip can become infected at any time after the surgery. How is a surgical site infection treated? ?? A surgical site infection is treated with antibiotics. The type of medicine you get will depend on what may be causing the infection. Most serious wound infections need wound care. In some cases, surgery may be needed on the infected wound. ?? An infected skin wound may be reopened and cleaned. A deep wound may need to be packed with gauze. The gauze is changed often until the wound starts to heal from the inside out. Your health care provider will decide the best way to treat your infection. ?? If an infection occurs where an implant is placed, the implant may be removed. ?? If you have an infection deeper in your body, you may need surgery to treat it. What hospitals do to prevent surgical site infections Many hospitals take these steps to help prevent surgical site infections: ?? Handwashing. Before the surgery, your surgeon and all surgery staff scrub their hands and arms with an antiseptic soap. ?? Clean skin. The site where your incision is made is carefully cleaned with an antiseptic solution. ?? Sterile clothing and drapes. The surgical team wears medical uniforms. These are known as scrub suits. They wear long-sleeved surgical gowns, masks, caps, shoe covers, and sterile gloves. Your body is fully covered with a large sterile sheet (sterile drape). There is an opening in the sheet where the incision is made. ?? Clean air. Operating rooms have special air filters. They use positive pressure airflow to prevent unfiltered air from entering the room. ?? Careful use of antibiotics. Antibiotics are given no more than 60 minutes before the incision ismade. They are generally stopped within 24 hours after surgery. This depends on the type of surgery. This helps kill germs but prevents problems that can occur when antibiotics are taken longer. ?? Controlled blood sugar levels. Your blood sugar level may rise. This can be because of the stress of the surgery. Your blood sugar level is watched closely to make sure it stays within a normal range. High blood sugar delays wound healing. This increases the risk of infection. ?? Controlled body temperature. A tmzef-upkl-oxqsug temperature during or after surgery prevents oxygen from reaching the wound. This makes it harder for your body to fight infection. Hospitals may warm I.V. fluids, and provide warm-air blankets. Your temperature is watched throughout the surgery. ?? Safe hair removal. Any hair that must be removed is clipped right before the incision, not shaved with a razor. This prevents tiny nicks and cuts where germs can enter. ?? Wound care. After surgery, a closed wound is covered with a sterile dressing for 1 to 2 days. Open wounds are packed with sterile gauze and covered with a sterile dressing. What you can do to prevent a surgical site infection ?? Ask questions. Learn what your hospital is doing to prevent infection. ?? If instructed, shower or bathe with plain soap the night before and the day of your surgery. Follow all instructions you're given. You may be asked to use a special cleanser that you don?t rinse off. ?? If you smoke, stop as long as possible before and after the surgery. Ask your provider about ways to quit. ?? Take antibiotics only when your provider tells you to. Using antibiotics when they?re not neededcan create germs that are harder to kill. Finish the entire prescription of your antibiotics even if you feel better. ?? Ask health care workers to clean their hands with plain soap and water or with an alcohol-based hand wholesale account executive before and after caring for you. Don?t be afraid to remind them. ?? After surgery, eat healthy foods. Care for your incision as directed by your health care team. When to contact your doctor Contact your provider or seek medical care right away if: ?? The pain at the surgical site gets worse. ?? A red streak, worse redness, or puffiness appears near the incision. ?? Yellowish, cloudy, or bad-smelling fluid leaks from the incision. ?? Your stitches dissolve before the wound heals. ?? You have a fever of 100.4?? F ( 38??C ) or higher, or as advised by your provider. ?? You have a tired feeling that doesn?t go away. Last Reviewed Date: 2024 00:00:00 ?? [id number] [employer]. All rights reserved. This information is not intended as a substitute for professional medical care. Always follow your healthcare professional's instructions. * Mary CabaGRIFFIN - Claire Quinn RN - 08/02/2024 2:11 PM EDT Images from the original note were not included. 50005 Preventing Deep Vein Thrombosis After Surgery In the days and weeks after surgery, you have a higher chance of developing a deep vein thrombosis (DVT). This is a condition in which a blood clot or thrombus develops in a deep vein. They are most common in the leg. But a DVT may develop in an arm or another deep vein in the body. A piece of the clot, called an embolus, can separate from the vein and travel to the lungs. A blood clot in the lungs is called a pulmonary embolus (PE). This can cut off the flow of blood to the lungs. It's a medical emergency and may cause . Healthcare providers use the term venous thromboembolism (VTE) to describe both DVT and PE. They use the term VTE because the two conditions are very closely related and their prevention and treatment are similar. Prevention in the hospital or other facility Your healthcare provider will usually prescribe one or more of the following to prevent blood clots: ?? Blood-thinner (anticoagulant). This medicine prevents blood clots. You take it by mouth, by injection, or through an IV (intravenous). Commonly used anticoagulants include warfarin and heparin. Newer anticoagulants may also be used, including rivaroxaban, apixaban, dabigatran, and enoxaparin. Sometimes, your healthcare provider may not give you an anticoagulant medicine. It's important that they discuss the risks and benefits with you and document them. ?? Compression stockings. These elastic stockings fit tightly around your legs. They help keep blood flowing toward your heart by the pressure they apply. They prevent blood from pooling and forming blood clots. When you first put them on, the stockings may be uncomfortable. But after a while, you should get used to them. ?? Exercises. Simple exercises while you are resting in bed or sitting in a chair can help prevent blood clots. Move your feet in a wales or up and down. Do this 10 times an hour to improve circulation. ?? Getting out of bed and walking (ambulation). After surgery, a nurse will help you out of bed as soon as you are able. Moving around improves circulation and helps prevent blood clots. ?? Sequential compression device (SCD) or intermittent pneumatic compression (IPC). Plastic sleevesare wrapped around your legs and connected to a pump that inflates and deflates the sleeves. This applies gentle pressure to promote blood flow in the legs and prevent blood clots. Remove the sleevesso that you don't trip or fall when you are walking. For example, when you use the bathroom or shower. If you need help removing the sleeves, ask for help. Prevention at home Ankle exercises can help keep blood flowing in the veins. Deep vein thrombosis can happen even after you go home. Follow all instructions from your healthcare provider. The following are some general guidelines about DVT prevention: ?? Blood-thinner medicine. If a blood thinner was prescribed, make sure you follow all directions about taking it. Be sure you know what foods and medicines may interact. Also, ask your healthcare provider what to do if you forget to take a dose. ?? Compression stockings. Your healthcare provider will tell you how often to wear and remove the stockings. Follow all instructions closely. Each time you remove your stockings, check your legs and feet for reddened areas or sores. If you see any changes, call your healthcare provider right away. ?? Returning to activity. Follow all instructions about returning to activities. Be as active as you can. This improves blood flow and helps prevent a clot from forming. When in bed or in a chair, continue with the ankle exercises you did in the hospital. ?? Sequential compression device (SCD) or intermittent pneumatic compression (IPC). In some cases, this device may be recommended at home. If you are using this device at home, make sure you closely follow all instructions from your healthcare provider. You will be instructed on how often and for how long to use the device. Again, remove the sleeves if you are up and walking. When to call your healthcare provider You may have signs or symptoms of a blood clot. Or you may have signs or symptoms of bleeding from medicines to prevent clots. Call your healthcare provider if you have the following: ?? Pain, swelling, or redness in the leg, arm, or other area ?? Blood in the urine or stool ?? Very dark or tar-like stool ?? Vomiting with blood ?? Bleeding from the nose ?? Bleeding from the gums ?? A cut that will not stop bleeding ?? Bleeding from the vagina Call 911 Call 911 if you have any of the following: ?? Chest pain ?? Shortness of breath ?? Fast heartbeat ?? Excessive sweating ?? Fainting ?? Coughing (may cough up blood) ?? Heavy or uncontrolled bleeding Last Reviewed Date: 2021 00:00:00 ?? 5032-6902 [employer]. All rights reserved. This information is not intended as a substitute for professional medical care. Always follow your healthcare professional's instructions. * Mary Holley - Claire Quinn RN - 08/02/2024 2:10 PM EDT Images from the original note were not included. [id number] After Thyroid or Parathyroid Surgery - Dr. Day Incision care Your incision may be covered by steri-strips. Steri-strips are pieces of white tape on the incision. ?? Steri-strips may be removed 7-10 days after surgery, if desired. Or you can wait until they falloff on their own. ?? Leave the incision open to the air. ?? You may apply lotion 2 weeks after surgery or when the incision looks to be healed with no scabs. ?? Use sunscreen on the incision for the first year to prevent darker scars. Showering and bathing ?? Wait 24 hours after surgery before showering. ?? It is OK if the steri-strips get wet in the shower. ?? Shower normally with soap, water and shampoo. You do not need to clean or scrub the incision. ?? Let the water run over the incision. Pat dry with a towel after showering. ?? Do not let the incision go under water in the bathtub for 2 weeks. ?? Wait 2 weeks after surgery before swimming or letting the incision stay under water in a bathtub. Pain control It may really hurt to cough, sneeze, and swallow (like strep throat) for 2-3 days after surgery. Itshould get better quickly after the first few days. Most patients use [id number] Tylenol (acetaminophen) and/or Advil (ibuprofen) for pain after surgery. ?? Tylenol (acetaminophen): 500-1000 mg every 6 hours as needed. ?? Advil (ibuprofen): 400-600 mg 3 times a day with food as needed. Activities ?? Move your neck in all directions to prevent neck soreness, tightness and headaches. ?? No driving or heavy lifting for 5 days after surgery. ?? You may return to your other normal activities. Diet You may return to your normal diet. Liquids and soft foods may be easier the first few days after surgery. Numbness or tingling Numbness or tingling in the fingertips, face or mouth, or cramping of the hands may be a sign of low calcium. ?? If you have any of these, take 2000 mg of Tums (calcium carbonate) and wait an hour. ?? If they return, you may take more Tums. ?? If the problem continues, call the clinic at (8 a.m.-4:30 p.m., Monday-Monday) orcall the surgeon telephone clerk telegraph office at . When to call and go to the ER Call the surgeon telephone clerk telegraph office and go directly to the Emergency Room if you have any of these signs that you could have a bleeding problem: ?? A lot of neck swelling or bruising ?? New or worse problems breathing or swallowing These problems may be due to a bleeding problem, especially if they happen within the first 24 hours after surgery. If you feel it is an emergency, call 121. Call the surgeon telephone clerk telegraph office at . Follow up You will return to clinic to see the Endocrine Surgeon or the Endocrine Surgery Nurse Practitioner on the date scheduled during your office visit before surgery. ?? If you have labs scheduled for your visit, first go to the lab and then to the clinic. ?? If you do not have an appointment, call the office at to schedule one. * Care Plan - Chan Greer RN - 08/02/2024 9:00 AM EDT Problem: Adult Inpatient Plan of Care Goal: Plan of Care Review Outcome: Ongoing, Progressing Flowsheets (Taken 08/02/2024 0900) Progress: improving Outcome Evaluation: patient is doing well this morning is more awake and more interactive with staff patient c/o throat being tender inside therefore pt instructed to only take 1-2 meds at a time eventhough all pills are small but patient stated she could take at one time and had a difficult time to get them down she was able to get them down without vomiting denies pain anterior throat incision is well approx and no additional drainage on steri strips from previous day dressing on right arm remains clean, dry, and intact v/s wnl will continue to monitor and prepare for discharge today Plan of Care Reviewed With: patient Goal: Patient-Specific Goal (Individualized) Outcome: Ongoing, Progressing Goal: Absence of Hospital-Acquired Illness or Injury Outcome: Ongoing, Progressing Goal: Optimal Comfort and Wellbeing Outcome: Ongoing, Progressing Goal: Readiness for Transition of Care Outcome: Ongoing, Progressing * Discharge Summary - Fausto Flanagan MD - 08/02/2024 7:41 AM EDT Hospitalization Admit Date/Time: 08/01/2024 6:52 AM Admitting Attending: Andrey Day Discharge Date: 08/02/24 Discharge Attending Physician: Andrey Day MD PCP name and Address: Jessica Frey, ADVERTISING PHOTOGRAPHER [address] [address] Referring provider name and address: Eryn Arias, ADVERTISING PHOTOGRAPHER [address] [id number] Chief Concern, Brief History of Present Illness, and Hospital Course Roseanne Tucker is an 89yF who was admitted for BP control and monitoring following re-do subtotal parathyroidectomy with autotransplantation into right forearm for recurrent primary hyperparathyroidism. She had no issues overnight, her pain was well controlled with Tylenol, and she was tolerating a regular diet. It was felt that she was appropriate for discharge with follow up scheduled on 08/19/24. Her post op day 1 calcium was noted to be still elevated at 11.4. PTH was 41, so she will be discharged on Tums 1000mg BID and rocaltrol 0.25 BID. Surgeries and Procedures PARATHYROIDECTOMY, REPEAT EXPLORATION- localized (N/A), AUTOTRANSPLANTATION, PARATHYROID (Right) Medication List PAUSE taking these medications LOW-DOSE ASPIRIN PO Wait to take this until: August 03, 2024 Morning 81 mg daily. .. acetaminophen 325 MG tablet Commonly known as: Tylenol Take 2 tablets by mouth every 6 hours. Under [place] law, monthly prescriptions (30 days) can be refilled at 25 days and three-month prescriptions (90 days) at 80 days. Please contact the insurance company with questions if refills are denied. amLODIPine 5 MG tablet Commonly known as: Norvasc Take 1 tablet by mouth every other day. atenolol 100 MG tablet Commonly known as: Tenormin Take 1 tablet by mouth daily. calcitriol 0.25 MCG capsule Commonly known as: Rocaltrol Take 1 capsule by mouth 2 times a day. calcium carbonate 1000 MG chewable tablet Commonly known as: Tums Ultra Chew 1 tablet 2 times a day. diclofenac 1 % topical gel Commonly known as: Voltaren Place on the skin if needed. Apply as directed to ergocalciferol 1.25 MG (75261 UT) capsule Commonly known as: Vitamin D-2 Take 1 capsule by mouth 1 time per week. ferrous sulfate 324 (65 Fe) MG EC tablet Take 1 tablet by mouth 2 times a week. Do not crush, chew, or split. predniSONE 5 MG tablet Commonly known as: Deltasone Take 1 tablet by mouth daily. Where to Get Your Medications These medications were sent to [facility] [place] [id number] acetaminophen 325 MG tablet calcitriol 0.25 MCG capsule calcium carbonate 1000 MG chewable tablet Discharge Diagnosis Medical Problems Active and Resolved Hospital Problems Hospital Hyperparathyroidism (CMS/HCC) * (Principal) Primary hyperparathyroidism (CMS/HCC) Post Discharge Instructions Incision: You have 1 incision across your neck, and 3 small incisions on your right forearm. Over your neck incision, you have a surgical glue (Dermabond) and a steristrip. Over your forearm incisions, you have surgical glue (Dermabond). This will peel and fall off on its own over the next 1-2 weeks. Leave the incision open to the air. Do not submerge the incision in water for 2 weeks. May begin to apply lotion 2 weeks after surgery or when the incision appears healed without scabbing. Use sunscreen on the incision for the first year to prevent darker scarring. Showering/Bathing: Your incisions may get wet. Wait for 24 hours after surgery before showering. Shower normally with soap, water and shampoo. Allow the water to run over the incision. Pat dry with atowel after showering. Do not submerge the incision in the bathtub for 2 weeks after surgery. Pain control: It may really hurt to cough, sneeze, and swallow (like strep throat) for 2-3 days after surgery. It improves fairly quickly after the first few days. Most patients use ozqg-lly-ktcaryn Tylenol (acetaminophen) for postoperative pain in the first several days. Avoid using Advil/ibuprofen due to your kidney function. Tylenol (acetaminophen): 500-1000 mg every 6 hours as needed. Activity & Restrictions: Move neck in all directions to prevent neck soreness, tightness and headaches. No driving for 5 days after surgery. No heavy lifting for the first couple days. May resumeother activities. Diet: No restrictions. May return to previous diet. However, liquids and soft foods may be easier in the first few days after surgery. Notify the surgeon telephone clerk telegraph office and go directly to the Emergency Room if you notice significant neck swelling, bruising, or new worsening in ability to swallow or breathe, especially the afternoon/eveningof surgery. This could indicate a bleeding problem. If you feel it is an emergency, call 611. For this emergency, you can also call the surgeon telephone clerk telegraph office at . Numbness or tingling in the fingertips, face or mouth, or cramping of the hands may indicate low calcium. Take 2000 mg of Tums (calcium carbonate) and wait an hour. If the symptoms return, additionalTums may be taken. If the problem persists, call the clinic (8-4:30p, M-F) at or notify the surgeon telephone clerk telegraph office at . Follow-up: After surgery you will return to clinic to see Dr. Day or Arianne Weston APRN (the Endocrine Surgery Nurse Practitioner) on the date scheduled during your presurgical office visit. If you were scheduled to have labs done for your visit, please first go to the lab and then present to clinic. If you do not have an appointment, please call the office at to schedule an appointment. Outpatient Follow-Up Future Appointments Date Time Provider Department Center 08/19/2024 12:50 PM [facility] 08/19/2024 1:45 PM Arianne Weston APRN [facility] 09/13/2024 11:20 AM Eryn Arias, ADVERTISING PHOTOGRAPHER JEANCARLOS [facility] Test Results Pending At Discharge Pending Labs Order Current Status Surgical Pathology Exam Preliminary result Pertinent Physical Exam At Time of Discharge Physical Exam Constitutional: General: She is not in acute distress. Appearance: Normal appearance. HENT: Head: Normocephalic and atraumatic. Nose: Nose normal. Mouth/Throat: Pharynx: Oropharynx is clear. Eyes: Conjunctiva/sclera: Conjunctivae normal. Neck: Comments: Anterior neck incision well approximated with dermabond and steri- strips overlying that are clean and dry. No swelling, bruising, or redness. Cardiovascular: Rate and Rhythm: Normal rate and regular rhythm. Pulmonary: Effort: Pulmonary effort is normal. No respiratory distress. Abdominal: General: Abdomen is flat. There is no distension. Palpations: Abdomen is soft. Tenderness: There is no abdominal tenderness. Musculoskeletal: Comments: Right forearm incisions covered with dermabond. Significant bruising around distal most incision. Minimal swelling. No redness, warmth, or drainage. Skin: General: Skin is warm and dry. Neurological: General: No focal deficit present. Mental Status: She is alert and oriented to person, place, and time. Psychiatric: Mood and Affect: Mood normal. Behavior: Behavior normal. Discharge Disposition/Condition Disposition: Home Condition: Stable (s/sx potential problems absent or manageable) I spent < 30 minutes of patient care and instruction time in preparation for this discharge. Cosigned by Andrey Day MD at 08/02/2024 11:20 AM EDT Associated attestation - Andrey Day MD - 08/02/2024 11:20 AM EDT I saw and evaluated the patient with the resident/fellow. I discussed the case with the resident/fellow and agree with the findings and plan as documented. * Significant Event - Parmjit Gardner DO - 08/01/2024 7:13 PM EDT Post-Operative Check Note Roseanne Tucker is a 89 y.o. female POD#0 from: Subtotal parathyroidectomy, reimplantation parathyroid tissue right forearm S: Pt is doing well. Reports no pain. Tolerating diet. Has not yet ambulated. Denies N/V. Denies CPand SOB. O: Blood pressure 128/72, pulse 64, temperature (!) 35.2 ??C (95.4 ??F), temperature source Axillary, resp. rate 18, height 1.549 m (5' 0.98 ), weight 58.6 kg (129 lb 3 oz), SpO2 97%. Physical Exam: GEN: NAD, laying comfortably in bed HENT: Trachea midline, Neck incision with overlying steri strips c/d/I. No hematoma CV: Regular rate and rhythm. Radial pulses 2+ Pulm: equal chest rise bilaterally, breathing comfortably on 1L via NC Abd: soft, non-distended Ext: No LE swelling/edema, SCDs in place. Hematoma on left forearm with overlying compressive bandage. No increase in size since immediately postop. Neuro: No focal deficits, no numbness or tingling. A/P: Roseanne Tucker is a 89 y.o. female POD#0 from Procedure(s) (LRB): PARATHYROIDECTOMY, REPEAT EXPLORATION- localized (N/A) AUTOTRANSPLANTATION, PARATHYROID (Right). Currently stable on the floor and recovering well post-operatively. Blood pressure well controlled. Please call with any questions or concerns. Parmjit Gardner DO General Surgery, PGY-1 Pager: [phone] * Care Plan - Chan Greer RN - 08/01/2024 4:00 PM EDT Problem: Adult Inpatient Plan of Care Goal: Plan of Care Review Outcome: Ongoing, Progressing Flowsheets (Taken 08/01/2024 1600) Progress: improving Outcome Evaluation: When patient arrived to the floor she was extremely nauseated and unable to get comfortable within an hour of medication, cool compresses and turning the thermostat down she was much better steri strips on anterior neck intact with old drainage but nothing oozing from around the steri strips pressure dressing in right forearm/wrist area remains intact and clean right radial pulse strong and palpable with good cap refill and warm pink skin pt just waking up and staying awake but not out of the bed yet v/s have been good since arriving on the floor from PACU will continue to monitor for HTN, low O2 sats, and s/s bleeding this shift Plan of Care Reviewed With: patient Goal: Patient-Specific Goal (Individualized) Outcome: Ongoing, Progressing Goal: Absence of Hospital-Acquired Illness or Injury Outcome: Ongoing, Progressing Goal: Optimal Comfort and Wellbeing Outcome: Ongoing, Progressing Goal: Readiness for Transition of Care Outcome: Ongoing, Progressing * Significant Event - Romana Monroe RN - 08/01/2024 2:11 PM EDT Handoff report given to MARVIN Giles * Anesthesia PACU Signout - Solis Grant DO - 08/01/2024 1:55 PM EDT Patient: Roseanne Tucker Anesthesia Type: general Vitals Value Taken Time BP 123/51 08/01/24 13:51 Temp 36.6 ??C (97.9 ??F) 08/01/24 13:50 Pulse 68 08/01/24 13:52 Resp 13 08/01/24 13:52 SpO2 100 % 08/01/24 13:52 Vitals shown include unfiled device data. Anesthesia PACU Signout Patient location during evaluation: PACU Patient participation: complete - patient participated Level of consciousness: awake Pain management: adequate (pain score 0-3) Airway patency: natural airway Hydration status: acceptable PONV: none Cardiovascular status: acceptable Respiratory status: acceptable, spontaneous ventilation and nonlabored ventilation Discharge Disposition: admit to inpatient unit Comments: Saturations maintained on NC. Doing well post op Cosigned by Zbigniew Mccrary MD at 08/01/2024 1:57 PM EDT Associated attestation - Zbigniew Mccrary MD - 08/01/2024 1:57 PM EDT Signature only. * Significant Event - Romana Monroe RN - 08/01/2024 12:[address] Gardner at bedside to examine parathyroid implantation site on right forearm which has a new hematoma and is bleeding from the site of the lowest parathyroid. He also feels that patient's O2 satsare appropriate for going to the floor. * Op Note - Andrey Day MD - 08/01/2024 9:45 AM EDT Operative Note Date: 08/01/24 Location: [facility] OR Name: Roseanne Tucker, : 1935, Diagnoses: Pre-op Diagnosis Primary hyperparathyroidism (CMS/HCC) Post-op Diagnosis Primary hyperparathyroidism (CMS/HCC) Procedure(s): Subtotal parathyroidectomy, reimplantation parathyroid tissue right forearm Attending Surgeon(s): * Andrey Day - Primary Lasting Machine Operator Bed(s): * Andrey Gonzalez MD - Resident - Assisting Anesthesia: General ASA: III Blood Administration: Blood Product Administration History None Estimated Blood Loss: Minimal Drains: * None in log * Specimen: Specimens ID Source Frozen? 1 Parathyroid No Description: Right inferior parathyroid. 2 Parathyroid No Description: Right superior parathyroid. 3 Parathyroid No Description: Left superior parathyroid. 4 Parathyroid Yes Description: Biopsy right superior parathyroid gland. A Blood, Venous Description: T=0 B Blood, Venous Description: T=10 C Blood, Venous Description: T=2 = 10 D Blood, Venous Description: T=3=10 Findings: The following parathyroid glands were enlarged: Right inferior, right superior and left superior. The left inferior gland had been excised previously. Indications: Roseanne Tucker is an 89 y.o. female who is having surgery for Primary hyperparathyroidism ([facility]). She underwent a single gland parathyroidectomy in the past during which an enlarged left inferior parathyroid gland was excise. She developed recurrent primary hyperparathyroidism with a calcium of 12-13 range. Sestamibi scanning was negative and failed to localize any enlarged glands. Surgeon performed parathyroid ultrasonography identified a right inferior parathyroid adenoma. Narrative: The indications, risks, benefits and alternatives to parathyroidectomy were discussed with the patient prior to surgery and again in the pre-surgery holding area. She displayed understanding and wished to proceed with surgery. After obtaining informed consent, the patient was taken to the operatingroom. With the patient in the supine position, general anesthesia was induced uneventfully via endotracheal intubation. The nerve monitoring equipment was set up and tested per protocol. The anterior neck was prepped and draped in a sterile manner with iodine solution. A surgical time out was then performed to confirmthe planned procedure with the operating room team. A small skin incision was made in a natural skin crease and the median raphe was . The strap muscles were mobilized from the thyroid gland. The right thyroid lobe was sequentially mobilized using a combination of sharp and blunt dissectionto elevate the overlying strap muscles. The carotid sheath was exposed, permitting stimulation of the vagus nerve, which had a normal EMG signal confirming that the nerve monitoring equipment was working properly. The right neck was then explored revealing an enlarged right inferior parathyroid gland. The vascular pedicle was isolated and the enlarged gland was excised; the right recurrent laryngeal nerve was carefully dissected and preserved during this maneuver and prior to dividing the vascular pedicle. Intraoperative PTH monitoring was employed yielding the following results: Baseline = 181 Excision of right inferior parathyroid gland: T0 = 187 T10 = 179 While we were waiting for the results, the remaining 2 parathyroid glands were identified and foundto be enlarged. The left superior parathyroid gland was excised yielding the following PTH results: T10 = 170 About 80 percent of the right superior parathyroid gland was excised leaving behind a healthy 150 milligram parathyroid remnant that was bleeding briskly. Subsequent PTH levels were as follows: T10 = 57 In order to minimize the chance of permanent hypoparathyroidism in the event the parathyroid remnant does not function properly after surgery, a portion of the right superior parathyroid gland was sent for frozen section confirming it to be a parathyroid tissue. The right arm was positioned and prepped. Approximately 150 milligrams of the right superior parathyroid gland was minced into small pieces and reimplanted underneath the epidermis in the dermal plane of the right forearm in 3 separate small pockets. These were then closed with Dermabond. Due to the appropriate decrease in PTH levels, the operation was concluded. The left and right vagal and recurrent laryngeal nerve monitoring findings are summarized as follows (V1 - vagal stimulation prior to neck exploration, R1 - initial RLN stimulation, R2 - final RLN stimulation after neck exploratopn, V2 - final vagal stimulation after neck exploration): V1 signal present: Yes R1 signal present: Yes R2 signal present: Yes V2 signal present: Yes The specimen was labeled and sent to Pathology for routine processing. After assuring hemostasis and a correct instrument/sponge count, the incision was closed in layers using a running subcuticular 5-0 absorbable suture. Dermabond and steristrips were applied to the incision. A debriefing was performed during which the procedure and specimens were confirmed as well as the disposition of the patient. The patient was extubated uneventfully and transferred to the PACU is stable condition. I attest that I was scrubbed during the entire procedure. There were NO signs of surgical site infection (SSI) present at the time of surgery (PATOS). Complications: None; patient tolerated the procedure well. Submitted by: Andrey Day MD - 08/01/2024 * H&P - Andrey Gonzalez MD - 08/01/2024 9:05 AM EDT Images from the original note were not included. Chief Concern & History Of Present Illness Roseanne Tucker is a 89 y.o. female presenting for scheduled surgery. She as a medical history significant for CKD, and osteoporosis who was evaluated in clinic for symptomatic hypercalcemia and foundto have recurrent primary hyperparathyroidism. She reports stable symptoms since she was last seen in clinic. She denies any new symptoms or illnesses in the last 2 weeks. Specifically, she denies any fevers, chills, chest pain, shortness of breath, nausea, or vomiting. Of note, 3 weeks ago she wastreated outpatient for pneumonia with symptoms of coughing, which have completely resolved and she has completed a course of antibiotics. Past Medical History She has a past medical history of Anemia, CKD (chronic kidney disease), Coronary artery disease, Hypertension, Old myocardial infarction, and Personal history of other diseases of the musculoskeletalsystem and connective tissue. Surgical History She has a past surgical history that includes Hemorrhoid surgery (N/A); Total knee arthroplasty (Right); cath stent placement/ cath placement of stent (N/A); Colonoscopy (N/A); Parathyroidectomy (N/A); Hysterectomy (N/A); Meniscectomy (Right); Mass excision (Left); Upper gastrointestinal endoscopy;and Cataract extraction. Family History Family History[1] Social History She reports that she has never smoked. She has never been exposed to tobacco smoke. She has never used smokeless tobacco. She reports that she does not drink alcohol and does not use drugs. Occupational History Occupational history[2] Employer: No address on file. Travel History Relevant International Travel History: Travel Screening Question Response Have you been in contact with someone who was sick? No / Unsure Do you have any of the following new or worsening symptoms? None of these Have you traveled internationally or domestically in the last month? No Travel History Travel since 07/02/24 No documented travel since 07/02/24 Relevant Domestic Travel History: None Immunizations reviewed VACCINE/DOSE DATE DATE DATE Flu Tetanus 05/25/1996 01/07/2013 Pneumovax Shingles 01/07/2013 11/01/2023 01/25/2024 Allergies Atorvastatin, Lisinopril, and Oxaprozin Medications Current Medications[3] Review of Systems Constitutional: Positive for fatigue. HENT: Negative. Eyes: Negative. Respiratory: Negative. Cardiovascular: Negative. Gastrointestinal: Negative. Endocrine: Negative. Genitourinary: Negative. Musculoskeletal: Positive for arthralgias. Skin: Negative. Allergic/Immunologic: Negative. Neurological: Negative. Hematological: Negative. Psychiatric/Behavioral: Negative. Physical Exam Constitutional: General: She is not in acute distress. Appearance: Normal appearance. HENT: Head: Normocephalic and atraumatic. Nose: Nose normal. Eyes: Conjunctiva/sclera: Conjunctivae normal. Cardiovascular: Rate and Rhythm: Normal rate and regular rhythm. Pulmonary: Effort: Pulmonary effort is normal. No respiratory distress. Abdominal: General: Abdomen is flat. There is no distension. Palpations: Abdomen is soft. Tenderness: There is no abdominal tenderness. Musculoskeletal: Cervical back: No tenderness. Lymphadenopathy: Cervical: No cervical adenopathy. Skin: General: Skin is warm and dry. Neurological: General: No focal deficit present. Mental Status: She is alert and oriented to person, place, and time. Psychiatric: Mood and Affect: Mood normal. Behavior: Behavior normal. Last Recorded Vitals Blood pressure (!) 204/66, pulse 59, temperature (!) 36.2 ??C (97.1 ??F), temperature source Temporal, resp. rate 18, weight 58.6 kg (129 lb 3 oz), SpO2 98%. Relevant Results None to review Assessment/Plan Principal Problem: Primary hyperparathyroidism ([facility]) Roseanne Tucker is an 89yF who presents today for parathyroidectomy for recurrent disease after initial parathyroidectomy in 2005. No changes in symptoms. Has completed an antibiotic course for CAP since last seen, with complete resolution of symptoms. Of note, her blood pressure was noted to be severely hypertensive in pre-op to >200. She is asymptomatic. We discussed the increased risk of bleeding in the setting of hypertension, balanced with the severity of her hyperparathyroidism. Due to her highly elevated calcium, it was felt that the benefit of proceeding outweighed the risks associated with her hypertension. We discussed with our Anesthesia who indicated that they could reduce her hy pertension to a level that was felt to be safe enough to proceed. Consent updated in pre op. NPO since midnight. Okay to proceed to OR. [1] Family History Problem Relation Name Age of Onset Stroke Mother Other cancer Mother Ovarian cancer Mother Stroke Father Lung cancer Father Other cancer Father Kidney cancer Sister Anesthesia problems Neg Hx Malig Hyperthermia Neg Hx [2] [3] Current Facility-Administered Medications Medication Dose Route Frequency Provider Last Rate Last Admin lactated Ringer's infusion 75 mL/hr Intravenous Continuous Zbigniew Mccrary MD 75 mL/hr at 08/01/24 0846 75 mL/hr at 08/01/24 0846 lidocaine (Xylocaine) 1 % injection 0.5 mL 0.5 mL Injection Once PRN Zbigniew Mccrary MD sodium chloride 0.9 % flush 10 mL 10 mL Intravenous q12h Zbigniew Mccrary MD And sodium chloride 0.9 % flush 10 mL 10 mL Intravenous PRN Zbigniew Mccrary MD sodium chloride 0.9 % flush 10 mL 10 mL Intravenous q12h Arianne Weston APRN And sodium chloride 0.9 % flush 10 mL 10 mL Intravenous PRN Arianne Weston APRN Cosigned by Andrey Day MD at 08/01/2024 11:49 AM EDT Associated attestation - Andrey Day MD - 08/01/2024 11:49 AM EDT I saw and evaluated the patient with the resident/fellow. I discussed the case with the resident/fellow and agree with the findings and plan as documented. documented in this encounter Plan of Treatment Upcoming Encounters Date Type Department Care Team (Late st Contact Info) Description 09/13/2024 11:20 AM EDT Office Visit [facility] [address] [place] [address] Eryn Arias APRN [address] [facility] [address] [place] [address] 10/28/2024 1:20 PM EDT Office Visit Medical [facility] [address] [facility], [address] [place] [address] Andrey Day MD [address] [id number] documented as of this encounter Goals Goal Patient Goal Type Associated Problems Recent Progress Patient-Stated? Author Autogenera sher Goal Care Plan Autogenerated Problem No Leanne Sierra documented as of this encounter Procedures Procedure Name Priority Date/Time Associated Diagnosis Comments PTH INTACT TOTAL Routine 08/02/2024 2:24 AM EDT MAGNESIUM, PLASMA Routine 08/02/2024 2:2 4 AM EDT TOTAL CALCIUM, PLASMA Routine 08/02/2024 2:24 AM EDT INTRAOPERATIVE PTH STAT 08/01/2024 10:41 AM EDT Primary hyperparathyroidism ([facility]/HCC) SURGICAL PATHOLOGY EXAM Routine 08/01/2024 10:34 AM EDT Primary hyperparathyroidism (CMS/HCC) INTRAOPERATIVE PTH STAT 08/01/2024 10:20 AM EDT Primary hyperparathyroidism (CMS/HCC) INTRAOPERATIVE PTH STAT 08/01/2024 10:07 AM EDT Primary hyperparathyroidism ([facility]/HCC) INTRAOPERATIVE PTH STAT 08/01/2024 9: 57 AM EDT Primary hyperparathyroidism ([facility]/HCC) AUTOTRANSPLANTATION, PARATHYROID 08/01/2024 9:08 AM EDT Primary hyperparathyroidism ([facility]/HCC) OR RE-EXPLORE PARATHYROIDS 08/01/2024 9:08 AM EDT Primary hyperparathyroidism ([facility]) INTRAOPERATIVE PTH Routine 08/01/2024 8: 40 AM EDT documented in this encounter Results * Magnesium, Plasma (08/02/2024 2:24 AM EDT) Magnesium, Plasma 1.9 1.9 - 2.4 mg/dL 08/02/2024 3:36 AM EDT [facility] Blood Venous blood specimen / Unknown Venipuncture / Unknown 08/02/2024 2:24 AM EDT 08/02/2024 3:06 AM EDT Andrey Day MD LAB BLOOD ORDERABLES Final Result [facility] [address] [place] [address] * (ABNORMAL) Total Calcium, Plasma (08/02/2024 2:24 AM EDT) Total Calcium, Plasma 11.4(H) 8.9 - 10.2 mg/dL 08/02/2024 3:36 AM EDT [facility] Blood Venous blood specimen / Unknown Venipuncture / Unknown 08/02/2024 2:24 AM EDT 08/02/2024 3:06 AM EDT Andrey Day MD LAB BLOOD ORDERABLES Final Result Performing Organization Address City/[facility] Co de Phone Number [facility] [address] [place] [address] * PTH Intact Total (08/02/2024 2:24 AM EDT) PTH Intact Total 41 9 - 77 pg/mL 08/02/2024 11:14 AM EDT [facility] Blood Venous blood specimen / Unknown Venipuncture / Unknown 08/02/2024 2:24 AM EDT 08/02/2024 3:08 AM EDT Narrative [facility] - 08/02/2024 11:14 AM EDT Assay performed by immunoassay at the [facility]. Performed on Schmidt Mang[employer] Heater chemiluminescent immunoassay, tractable to the World Health Organization's first international standard for PTH from the NIBSC, Code 79/500. Results obtained from different test methods or kits cannot be used interchangeably. Andrey Day MD LAB BLOOD ORDERABLES Final Result Performing Organization Address [facility] Co de Phone Number [facility] [address] [place] [address] * Intraoperative PTH (08/01/2024 10:41 AM EDT) Intraoperative PTH 57 pg/mL 2024 11:03 AM EDT [facility] Time of Collection 1041 2024 11:03 AM EDT [facility] Blood Venous blood specimen / Unknown 08/01/2024 10:41 AM EDT 08/01/2024 10:45 AM EDT Comment:Pre-op diagnosis: Primary hyperparathyroidism (CMS/HCC) [E21.0] Narrative [facility] - 08/01/2024 11:03 AM EDT Intraoperative PTH measures PTH levels in samples obtained during surgical procedures. Typically, a reduction of at least 50% in PTH levels from the baseline/pre-excisional sample compared to the postsurgical sample is used to support that appropriate hypersecreting parathyroid tissue has been removed. No reference interval has been established using this assay. Andrey Day MD LAB BLOOD ORDERABLES Final Result [facility] [address] [place] [address] * Surgical Pathology Exam (08/01/2024 10:34 AM EDT) Case Report Surgical Pathology Case: [id number] Authorizing Provider: Andrey Day MD Collected: 08/01/2024 1034 Ordering Location: [facility] Operating Room Received: 08/01/2024 1041 Pathologist: Nadine Mann MD Intraop: Alyssa Galindo MD Specimens: A) - Parathyroid, Biopsy right superior parathyroid gland. B) - Parathyroid, Right inferior parathyroid. C) - Parathyroid, Right superior parathyroid. D) - Parathyroid, Left superior parathyroid. 10:00 AM EDT [facility] Final Diagnosis A. RIGHT SUPERIOR PARATHYROID, BIOPSY: - HYPERCELLULAR PARATHYROID (0.13 G). B. RIGHT INFERIOR PARATHYROID, PARATHYROIDECTOMY: - HYPERCELLULAR PARATHYROID (0.2 G). C. RIGHT SUPERIOR PARATHYROID, PARATHYROIDECTOMY: - HYPERCELLULAR PARATHYROID (0.6 G). D. LEFT SUPERIOR PARATHYROID, PARATHYROIDECTOMY: - HYPERCELLULAR PARATHYROID (0.6 G). 10:00 AM EDT [facility] at 1000 EDT Comment:This is an appended report. These results have been appended to a previously preliminary verified report. Clinical Information Primary hyperparathyroidism (CMS/HCC) [E21.0] 10:00 AM EDT [facility] Comment:This is an appended report. These results have been appended to a previously preliminary verified report. Intraoperative Consultation A. BIOPSY RIGHT SUPERIOR PARATHYROID GLAND. FSA: HYPERCELLULAR PARATHYROID, 0.13 GRAMS. 10:00 AM EDT [facility] Gross Description A. BIOPSY RIGHT SUPERIOR PARATHYROID GLAND. Received fresh for frozen section labeled biopsy superior parathyroid gland is a yellow-boss soft tissue fragment measuring 0.6 x 0.5 x 0.3 cm and weighing 0.13 g. Submitted on FSA for frozen section evaluation with frozen remnant entirely submitted in cassette A1. Cold Time: 43m Trang Guidry B. RIGHT INFERIOR PARATHYROID. Received in formalin labeled right inferior parathyroid is a pink-boss soft tissue fragment measuring 0.6 x 0.4 x 1.9 cm and weighing 0.2 g post fixation. The possible resection margin is inked blue, serially sectioned, and entirely submitted in cassette B1. Cold Time: 58m Trang Guidry C. RIGHT SUPERIOR PARATHYROID. Received in formalin labeled right superior parathyroid is a red-pink to pink-boss soft tissue fragment measuring 1.8 x 0.3 x 1.9 cm and weighing 0.6 g post fixation. The possible resection margin is inked blue, serially sectioned, and entirely submitted in cassette C1 to C2. Cold Time: 24m Trang Guidry D. LEFT SUPERIOR PARATHYROID. Received in formalin labeled left superior parathyroid is a red-pink soft tissue fragment measuring 0.9 x 0.1 x 2.2 cm and weighing 0.6 g post fixation. The resection margin can not be identified. The specimen is serially sectioned and entirely submitted D1 to D2. Cold Time: 24m Trang Guidry 5 10:00 AM EDT [facility] Comment:This is an appended report. These results have been appended to a previously preliminary verified report. Tissue Parathyroid structure / Unknown 08/01/2024 9:57 AM EDT 08/01/2024 12:37 PM EDT Comment:Pre-op diagnosis: Primary hyperparathyroidism (CMS/HCC) [E21.0] Tissue specimen (specimen) Parathyroid structure / Unknown 08/01/2024 10:31 AM EDT 08/01/2024 12:37 PM EDT Comment:Pre-op diagnosis: Primary hyperparathyroidism (CMS/HCC) [E21.0] Tissue specimen (specimen) Parathyroid structure / Unknown 08/01/2024 10:31 AM EDT 08/01/2024 12:37 PM EDT Comment:Pre-op diagnosis: Primary hyperparathyroidism (CMS/HCC) [E21.0] Tissue specimen (specimen) Parathyroid structure / Unknown 08/01/2024 10:34 AM EDT 08/01/2024 10:41 AM EDT Comment:Pre-op diagnosis: Primary hyperparathyroidism (CMS/HCC) [E21.0] Andrey Day MD LAB PATHOLOGY ORDERABLES Fi nal Result [facility] [address] [place] [address] * Intraoperative PTH (08/01/2024 10:20 AM EDT) Intraoperative PTH 171 pg/mL 2024 10:41 AM EDT [facility] Time of Collection 1020 2024 10:41 AM EDT [facility] Blood Venous blood specimen / Unknown 08/01/2024 10:20 AM EDT 08/01/2024 10:24 AM EDT Comment:Pre-op diagnosis: Primary hyperparathyroidism (CMS/HCC) [E21.0] Narrative [facility] - 08/01/2024 10:41 AM EDT Intraoperative PTH measures PTH levels in samples obtained during surgical procedures. Typically, a reduction of at least 50% in PTH levels from the baseline/pre-excisional sample compared to the postsurgical sample is used to support that appropriate hypersecreting parathyroid tissue has been removed. No reference interval has been established using this assay. Andrey Day MD LAB BLOOD ORDERABLES Final Result Performing Organization Address City/[facility] Co de Phone Number [facility] [address] [place] [address] * Intraoperative PTH (08/01/2024 10:07 AM EDT) Intraoperative PTH 179 pg/mL 2024 10:27 AM EDT [facility] Time of Collection 1007 2024 10:27 AM EDT [facility] Blood Venous blood specimen / Unknown 08/01/2024 10:07 AM EDT 08/01/2024 10:11 AM EDT Comment:Pre-op diagnosis: Primary hyperparathyroidism (CMS/HCC) [E21.0] Narrative [facility] - 08/01/2024 10:27 AM EDT Intraoperative PTH measures PTH levels in samples obtained during surgical procedures. Typically, a reduction of at least 50% in PTH levels from the baseline/pre-excisional sample compared to the postsurgical sample is used to support that appropriate hypersecreting parathyroid tissue has been removed. No reference interval has been established using this assay. Andrey Day MD LAB BLOOD ORDERABLES Final Result Performing Organization Address [facility] Co de Phone Number [facility] [address] [place] [phone] * Intraoperative PTH (08/01/2024 9:57 AM EDT) Intraoperative PTH 187 pg/mL 2024 10:23 AM EDT [facility] Time of Collection 0957 2024 10:23 AM EDT [facility] Blood Venous blood specimen / Unknown 08/01/2024 9:57 AM EDT 08/01/2024 10:02 AM EDT Comment:Pre-op diagnosis: Primary hyperparathyroidism (CMS/HCC) [E21.0] Narrative [facility] - 08/01/2024 10:23 AM EDT Intraoperative PTH measures PTH levels in samples obtained during surgical procedures. Typically, a reduction of at least 50% in PTH levels from the baseline/pre-excisional sample compared to the postsurgical sample is used to support that appropriate hypersecreting parathyroid tissue has been removed. No reference interval has been established using this assay. Andrey Day MD LAB BLOOD ORDERABLES Final Result Performing Organization Address [facility] Co de Phone Number [facility] [address] [place] [address] * Intraoperative PTH (08/01/2024 8:40 AM EDT) Intraoperative PTH 181 pg/mL 2024 9:16 AM EDT [facility] Time of Collection 0835 2024 9:16 AM EDT [facility] Blood Venous blood specimen / Unknown Venipuncture / Unknown 08/01/2024 8:40 AM EDT 08/01/2024 8:49 AM EDT Narrative [facility] - 08/01/2024 9:16 AM EDT Intraoperative PTH measures PTH levels in samples obtained during surgical procedures. Typically, a reduction of at least 50% in PTH levels from the baseline/pre-excisional sample compared to the postsurgical sample is used to support that appropriate hypersecreting parathyroid tissue has been removed. No reference interval has been established using this assay. us Arianne Weston APRN LAB BLOOD ORDERABLES Final R esult [facility] [address] [place] [address] documented in this encounter Visit Diagnoses Diagnosis Primary hyperparathyroidism (CMS/HCC)- Primary Primary hyperparathyroidism Hyperparathyroidism (CMS/HCC) Hyperparathyroidism, unspecified documented in this encounter Admitting Diagnoses Diagnosis Primary hyperparathyroidism (CMS/HCC) Primary hyperparathyroidism Hyperparathyroidism (CMS/HCC) Hyperparathyroidism, unspecified documented in this encounter Administered Medications Inactive Administered Medications - up to 3 most recent administrations Medication Order MAR Action Action Date Dose Rate Site acetaminophen (Tylenol) tablet 650 mg 650 mg, Oral, Every 6 hours, First dose (after last modification) on Jaymie 08/01/24 at 1200, Until Discontinued, Routine, Recovery(Phase II-Outpatient)/On Unit(Inpatient) Given 08/02/2024 12:17 PM EDT 650 mg Given 08/02/2024 6:19 AM EDT 650 mg Given 08/02/2024 12:48 AM EDT 650 mg amLODIPine (Norvasc) tablet 5 mg 5 mg, Oral, Daily, First dose on Mon08/02/24 at 0900, Until Discontinued, Routine, Recovery(Phase II-Outpatient)/On Unit(Inpatient) Given 08/02/2024 8:35 AM EDT 5 mg atenolol (Tenormin) tablet 100 mg 100 mg, Oral, Daily, First dose on Mon08/02/24 at 0900, Until Discontinued, Routine, Recovery(Phase II-Outpatient)/On Unit(Inpatient) Given 08/02/2024 8:34 AM EDT 100 mg calcitriol (Rocaltrol) capsule 0.25 mcg 0.25 mcg, Oral, 2 times daily, First dose on Jaymie 08/01/24 at 1500, Until Discontinued, Routine, Recovery(Phase II-Outpatient)/On Unit(Inpatient) Given 08/02/2024 8:34 AM EDT 0.25 mcg Given 08/01/2024 9:44 PM EDT 0.25 mcg Given 08/01/2024 5:44 PM EDT 0.25 mcg calcium carbonate (Tums) chewable tablet 1,000 mg 1,000 mg, Oral, 3 times daily, First dose on Jaymie 08/01/24 at 1600, Until Discontinued, Routine, Recovery(Phase II-Outpatient)/On Unit(Inpatient) Given 08/02/2024 8:34 AM EDT 1,000 mg Given 08/01/2024 9:14 PM EDT 1,000 mg Given 08/01/2024 5:05 PM EDT 1,000 mg calcium carbonate (Tums) chewable tablet 2,000 mg 2,000 mg, Oral, 4 times daily PRN, Starting on Mon08/01/24 at 1147, Until Mon08/02/24 at 1648, Routine, Recovery(Phase II-Outpatient)/On Unit(Inpatient), For symptomatic hypocalcemia (yohana-oral numbness, tingling in hands or feet, muscle cramps). Please page first call provider if needed. hydrALAZINE (Apresoline) injection 10 mg 10 mg, Intravenous, Every 4 hours PRN, Starting on Jaymie 08/01/24 at 1142, Until Mon08/02/24 at 1648, Routine, Recovery(Phase II-Outpatient)/On Unit(Inpatient), high blood pressure, use second line for SBP >160 when HR <60 Given 08/01/2024 12:51 PM EDT 10 mg labetalol (Normodyne,Trandate) injection 20 mg 20 mg, Intravenous, Every 4 hours PRN, Starting on Jaymie 08/01/24 at 1142, Until Mon08/02/24 at 1648, Routine, Recovery(Phase II-Outpatient)/On Unit(Inpatient), high blood pressure, use first line for SBP >160; HOLD for HR <60 labetalol (Normodyne,Trandate) injection 5 mg 5 mg, Intravenous, Every 15 min PRN, 4 doses, Starting on Jaymie 08/01/24 at 1020, Until Jaymie 08/01/24 at 1435, Routine, Recovery (Phase I only), high blood pressure, For SBP >160 mmHg Given 08/01/2024 12:20 PM EDT 5 mg lactated Ringer's infusion 75 mL/hr, Intravenous, Continuous, Starting on Jaymie 08/01/24 at 0900, Until Mon08/02/24 at 1648, Routine Restarted 08/01/2024 11:21 AM EDT Continued by Anesthesia 08/01/2024 9:23 AM EDT 75 mL/hr New Bag 08/01/2024 8:46 AM EDT 75 mL/hr 75 mL/hr ondansetron (Zofran) 4 MG/5ML solution 4 mg 4 mg, Oral, Every 6 hours PRN, Starting on Jaymie 08/01/24 at 1142, Until Mon08/02/24 at 1648, Routine, Recovery(Phase II-Outpatient)/On Unit(Inpatient), nausea, vomiting ondansetron (Zofran) injection 4 mg 4 mg, Intravenous, Every 6 hours PRN, Starting on Jaymie 08/01/24 at 1142, Until Mon08/02/24 at 1648, Routine, Recovery(Phase II-Outpatient)/On Unit(Inpatient), vomiting, nausea Given 08/01/2024 2:45 PM EDT 4 mg ondansetron ODT (Zofran-ODT) disintegrating tablet 4 mg 4 mg, Oral, Every 6 hours PRN, Starting on Jaymie 08/01/24 at 1142, Until Mon08/02/24 at 1648, Routine, Recovery(Phase II-Outpatient)/On Unit(Inpatient), nausea, vomiting Povidone-Iodine 5 % swab solution 1 Application Nasal, Once, 1 dose, On Jaymie 08/01/24 at 0900, Routine Given 08/01/2024 8:47 AM EDT 1 Application predniSONE (Deltasone) tablet 5 mg 5 mg, Oral, Daily, First dose on Mon08/02/24 at 0900, Until Discontinued, Routine, Recovery(Phase II-Outpatient)/On Unit(Inpatient) Given 08/02/2024 8:34 AM EDT 5 mg traMADol (Ultram) tablet 50 mg 50 mg, Oral, Every 8 hours PRN, Starting on Jaymie 08/01/24 at 1154, Until Mon08/02/24 at 1648, Routine, Recovery(Phase II-Outpatient)/On Unit(Inpatient), severe pain documented in this encounter Active and Recently Administered Medications Times are shown in EDT. Scheduled Medication Order 07/31/2024 08/01/2024 08/02/2024 acetaminophen (Tylenol) tablet 650 mg 650 mg, Oral, Every 6 hours, First dose (after last modification) on Jaymie 08/01/24 at 1200, Until Discontinued, Routine, Recovery(Phase II-Outpatient)/On Unit(Inpatient) 1200 (Not Given - Provider: Chan Greer, MARVIN - Reason: Patient in procedure)1744 (Given - Provider: Chan Greer RN) 0048 (Given - Provider: Harcourt Josue)0619 (Given - Provider: Harcourt Josue)1217 (Given - Provider: Chan Greer, RN) amLODIPine (Norvasc) tablet 5 mg 5 mg, Oral, Daily, First dose on Mon08/02/24 at 0900, Until Discontinued, Routine, Recovery(Phase II-Outpatient)/On Unit(Inpatient) 0835 (Given - Provid er: Chan Greer RN) atenolol (Tenormin) tablet 100 mg 100 mg, Oral, Daily, First dose on Mon08/02/24 at 0900, Until Discontinued, Routine, Recovery(Phase II-Outpatient)/On Unit(Inpatient) 0834 (Given - Provid er: Chan Greer RN) calcitriol (Rocaltrol) capsule 0.25 mcg 0.25 mcg, Oral, 2 times daily, First dose on Jaymie 08/01/24 at 1500, Until Discontinued, Routine, Recovery(Phase II-Outpatient)/On Unit(Inpatient) 1500 (Not Given - Provider: Chan Greer RN - Reason: Patient/family refused - Comment: pt is nauseated)1744 (Given - Provider: Chan Greer, RN - Comment: Missed dose earlier d/t nausea, added two doses today for thyroid)2144 (Given - Provider: Harcourt Josue) 0834 (Given - Provider: Chan Greer, RN) calcium carbonate (Tums) chewable tablet 1,000 mg 1,000 mg, Oral, 3 times daily, First dose on Jaymie 08/01/24 at 1600, Until Discontinued, Routine, Recovery(Phase II-Outpatient)/On Unit(Inpatient) 1705 (Given - Provider: Chan Greer RN - Comment: pt was nauseated and couldn't take anything)2114 (Given - Provider: Gabriella Josue) 0834 (Given - Provider: Chan Greer, RN)1600 (Canceled Entry - Provider: Automatic Discharge Provider - Comment: Automatically canceled at discontinue of medication order) Povidone-Iodine 5 % swab solution 1 Application (COMPLETED) Nasal, Once, 1 dose, On Jaymie 08/01/24 at 0900, Routine 0847 (Given - Provider: Sabi Goodwin, MARVIN) predniSONE (Deltasone) tablet 5 mg 5 mg, Oral, Daily, First dose on Mon08/02/24 at 0900, Until Discontinued, Routine, Recovery(Phase II-Outpatient)/On Unit(Inpatient) 0834 (Given - Provid er: Chan Greer RN) Continuous Medication Order 07/31/2024 08/01/2024 08/02/2024 lactated Ringer's infusion 75 mL/hr, Intravenous, Continuous, Starting on Jaymie 08/01/24 at 0900, Until Mon08/02/24 at 1648, Routine 0846 (New Bag - Provider: Sabi Goodwin RN)0923 (Continued by Anesthesia - Provider: Rajeev Lucio CRNA)1120 (Paused - Provider: Rajeev Lucio CRNA - Comment: Switch to gravity)1121 (Restarted - Provider: Rajeev Lucio CRNA) PRN Medication Order 07/31/2024 08/01/2024 08/02/2024 calcium carbonate (Tums) chewable tablet 2,000 mg 2,000 mg, Oral, 4 times daily PRN, Starting on Jaymie 08/01/24 at 1147, Until Mon08/02/24 at 1648, Routine, Recovery(Phase II-Outpatient)/On Unit(Inpatient), For symptomatic hypocalcemia (yohana-oral numbness, tingling in hands or feet, muscle cramps). Please page first call provider if needed. hydrALAZINE (Apresoline) injection 10 mg(Linked Group 1) 10 mg, Intravenous, Every 4 hours PRN, Starting on Jaymie 08/01/24 at 1142, Until Mon08/02/24 at 1648, Routine, Recovery(Phase II-Outpatient)/On Unit(Inpatient), high blood pressure, use second line for SBP >160 when HR <60 1251 (Given - Provider: Mj Monroe RN) labetalol (Normodyne,Trandate) injection 20 mg(Linked Group 1) 20 mg, Intravenous, Every 4 hours PRN, Starting on Jaymie 08/01/24 at 1142, Until Mon08/02/24 at 1648, Routine, Recovery(Phase II-Outpatient)/On Unit(Inpatient), high blood pressure, use first line for SBP >160; HOLD for HR <60 1158 (Canceled Entry - Provider: Automatic Discharge Provider - Comment: Automatically canceled at discontinue of medication order)1251 (See Alternative - Provider: Romana Monroe RN) labetalol (Normodyne,Trandate) injection 5 mg (CANCELED) 5 mg, Intravenous, Every 15 min PRN, 4 doses, Starting on Jaymie 08/01/24 at 1020, Until Jaymie 08/01/24 at 1435, Routine, Recovery (Phase I only), high blood pressure, For SBP >160 mmHg 1159 (Not Given - Provider: Romana Monroe RN - Reason: Hold for condition: must add comment - Comment: Next BP reading lass than 160 systolic)1220 (Given - Provider: Romana Monroe RN) ondansetron (Zofran) 4 MG/5ML solution 4 mg(Linked Group 2) 4 mg, Oral, Every 6 hours PRN, Starting on Jaymie 08/01/24 at 1142, Until Mon08/02/24 at 1648, Routine, Recovery(Phase II-Outpatient)/On Unit(Inpatient), nausea, vomiting 1445 (See Alternative - Provider: Chan Greer RN) ondansetron (Zofran) injection 4 mg(Linked Group 2) 4 mg, Intravenous, Every 6 hours PRN, Starting on Jaymie 08/01/24 at 1142, Until Mon08/02/24 at 1648, Routine, Recovery(Phase II-Outpatient)/On Unit(Inpatient), vomiting, nausea 1445 (Given - Provider: Bong Greer RN) ondansetron ODT (Zofran-ODT) disintegrating tablet 4 mg(Linked Group 2) 4 mg, Oral, Every 6 hours PRN, Starting on Jaymie 08/01/24 at 1142, Until Mon08/02/24 at 1648, Routine, Recovery(Phase II-Outpatient)/On Unit(Inpatient), nausea, vomiting 1445 (See Alternative - Provider: Chan Greer RN) traMADol (Ultram) tablet 50 mg 50 mg, Oral, Every 8 hours PRN, Starting on Jaymie 08/01/24 at 1154, Until Mon08/02/24 at 1648, Routine, Recovery(Phase II-Outpatient)/On Unit(Inpatient), severe pain Linked Groups Order Group 1: labetalol (Normodyne,Trandate) injection 20 mgJump to med 20 mg, Intravenous, Every 4 hours PRN, Starting on Jaymie 08/01/24 at 1142, Until Mon08/02/24 at 1648, Routine, Recovery(Phase II-Outpatient)/On Unit(Inpatient), high blood pressure, use first line for SBP >160; HOLD for HR <60 Or hydrALAZINE (Apresoline) injection 10 mgJump to med 10 mg, Intravenous, Every 4 hours PRN, Starting on Jaymie 08/01/24 at 1142, Until Mon08/02/24 at 1648, Routine, Recovery(Phase II-Outpatient)/On Unit(Inpatient), high blood pressure, use second line for SBP >160 when HR <60 Group 2: ondansetron ODT (Zofran-ODT) disintegrating tablet 4 mgJump to med 4 mg, Oral, Every 6 hours PRN, Starting on Jaymie 08/01/24 at 1142, Until Mon08/02/24 at 1648, Routine, Recovery(Phase II-Outpatient)/On Unit(Inpatient), nausea, vomiting Or ondansetron (Zofran) injection 4 mgJump to med 4 mg, Intravenous, Every 6 hours PRN, Starting on Jaymie 08/01/24 at 1142, Until Mon08/02/24 at 1648, Routine, Recovery(Phase II-Outpatient)/On Unit(Inpatient), vomiting, nausea Or ondansetron (Zofran) 4 MG/5ML solution 4 mgJump to med 4 mg, Oral, Every 6 hours PRN, Starting on Jaymie 08/01/24 at 1142, Until Mon08/02/24 at 1648, Routine, Recovery(Phase II-Outpatient)/On Unit(Inpatient), nausea, vomiting documented in this encounter Additional Health Concerns Active Problems Noted Date Diagnosed Date Autogenerated Problem 07/01/2024 Assessment Noted Time A fall risk assessment has been complete d for the patient 07/01/2024 11:13 AM EDT A Body Mass Index follow-up plan has been documented for the patient 08/02/2024 2:11 PM EDT documented as of this encounter Care Teams Insulator Technician Relationship Specialty Start Date End Date Jessica Frey APRN [address] [place] [id number] PCP - General 07/31/20 documented as of this encounter
--- OUTSIDE RECORDS SUMMARY | 2024-08-01 09:23 | XMS_ITS | Encounter Summary ---
Author Organization Healthcare Address [address] [place] [address] Care Team Providers Care Wares Sorter Name Role Phone Jessica Frey APRN Primary Care Provider [phone] Reason for Visit * Auth/Cert (Routine) Specialty Diagnoses / Procedures Referred By Contac t Referred To Contact Diagnoses Primary hyperparathyroidism ([facility]/HCC) Primary hyperparathyroidism ([facility]) [E21.0] Procedures CO RE-EXPLORE PARATHYROIDS CO VNPNXR 3 YEARS/> PHYS/QHP SKILL PARATHYROIDECTOMY, REPEAT EXPLOR[place]- [place] [address] [place] [id number] Phone: tel: fax: [facility] [address] [place] [address] Phone: tel: Referral ID Status Reason Start Date Expiration Date Visits Re quested Visits Authorized [id number] 1 1 Encounter Details Date Type Department Care Team (Late st Contact Info) Description 08/01/2024 9:23 AM EDT Anesthesia Event [facility] [address] [place] [address] Zbigniew Mccrary MD [address] [place] [address] Anesthesia Record Procedure Summary Procedure Name Responsible Anesthesiologist Anesthesia Start Time Anesthesia Stop Time PARATHYROIDECTOMY, REPEAT EXPLORATION- localized Zibgniew Mccrary MD 08/01/24 0923 08/01/24 1146 Events [...] acknowledgement of understanding. 1146 An Stop Meds Name Total fentaNYL (Sublimaze) injection 50 mcg/mL 100 mcg lidocaine PF (Xylocaine-MPF) 2% 50 mg propofol (Diprivan) injection 10 mg/mL 2 00 mg succinylcholine (Anectine) injection 20 mg/mL 100 mg dexamethasone (Decadron) injection 4 mg/ mL 4 mg HYDROmorphone PF (Dilaudid) injection 1 mg/mL 1 mg ePHEDrine injection prefilled syringe 5 mg/mL 20 mg ondansetron (Zofran) injection 2 mg/mL 4 mg glycopyrrolate (Robinul) injection 0.2 m g/mL 0.2 mg dexmedetomidine (Precedex) injection 100 mcg/mL 20 mcg labetalol (Normodyne,Trandate) injection 5 mg/mL 5 mg lactated Ringer's infusion 800 mL * Agents Name O2 N2O Air Sevoflurane Inspired Sevoflurane N2O Inspired N2O * Blood No blood administrations on file. [...] Capnometry; Airway Comments: Atraumatic insertion; Placed by: DEPARTMENT OF NATURAL RESOURCES OFFICER; Removal Date: 08/01/24; Removal Time: 1131 08/01/24 [...] week 07/01/2024 How often do you attend chur or scientology services? 1 to 4 times per year 07/01/2024 Do you belong to any clubs o r organizations such as confucianist groups, unions, fraternal or athletic groups, or [...] care, and heating? Not very hard 07/01/2024 [facility] - Occupational Stress [...] any time in the past 12 m [facility], were you homeless or living in a retirement (including now)? No 07/01/2024 Utilities Answer Date [...] on file documented as of this encounter Functional Status * Calculated C-SSRS Risk Score (Lifetime/Recent) Answer Date of Assessment Author No Risk Indicated 08/01/2024 8:01 AM EDT Sabi iVllarreal RN * Question Answer Date of Assessment Author 1. Wish to be (Past 1 Month) No 08/01/2024 8:01 AM EDT Sabi Goodwin RN 2. Non-Specific Active Suici marycruz Thoughts (Past 1 Month) No 08/01/2024 8:01 AM EDT Susannah Goodwin RN 6. Suicidal Behavior (Lifetime) No 8:01 AM EDT Sabi Goodwin RN documented as of this encounter Miscellaneous Notes * Anesthesia Postprocedure Evaluation - Rajeev Lucio CRNA - 08/01/2024 11:46 AM EDT Patient: Roseanne Tucker Anesthesia Type: general Vitals Value Taken Time BP 119/54 08/01/24 11:40 Temp 97 08/01/24 11:46 Pulse 66 08/01/24 11:45 Resp 24 08/01/24 11:45 SpO2 98 % 08/01/24 11:45 Vitals shown include unfiled device data. Anesthesia Post Evaluation Patient location during evaluation: PACU Patient participation: complete - patient cannot participate (drowsy but arousable) Level of consciousness: sedated Pain management: adequate (pain score 0-3) Airway patency: natural airway Cardiovascular status: acceptable and hemodynamically stable Respiratory status: acceptable, blow-by oxygen, face mask, nonlabored ventilation, spontaneous ventilation and unassisted Hydration status: acceptable Nausea/Vomiting: No No notable events documented. * Anesthesia Procedure Notes - Rajeev Lucio CRNA - 08/01/2024 9:49 AM EDT Associated Order(s): Airway Airway Date/Time: 08/01/2024 9:31 AM Reason: elective Airway not difficult General Information and Staff Patient location during procedure: OR DEPARTMENT OF NATURAL RESOURCES OFFICER: Rajeev Lucio CRNA Performed: DEPARTMENT OF NATURAL RESOURCES OFFICER Patient Condition Indications for airway management: anesthesia Patient position: sniffing Final Airway Details Final airway type: endotracheal airway Successful airway: ETT and NIM tube Cuffed: yes Successful intubation technique: video laryngoscopy (glidescope for NIMs tube placement) Adjuncts used in placement: intubating stylet Endotracheal tube insertion site: oral Blade type: lopro s3. ETT size (mm): 7.0 Cormack-Lehane Classification: grade I - full view of glottis Placement verified by: chest auscultation and capnometry Cuff volume (mL): 7 Measured from: teeth ETT to teeth (cm): 21 Additional Comments Atraumatic insertion * Anesthesia Preprocedure Evaluation - Solis Grant DO - 08/01/2024 8:39 AM EDT Patient: Roseanne Tucker Procedure Information Date/Time: 08/01/24 0940 Procedure: PARATHYROIDECTOMY, REPEAT EXPLORATION- localized Location: 2SOR 02 / [facility] OR Surgeons: Andrey Day MD Roseanne Tucker is a 89 yr old female presenting for the above planned procedure in the setting of primary hyperparathyroidism. PMHx: HTN, CAD ([place] s/p 2 PCI, 2016), CKD stage 4 (eGFR 16.2, 2.75), anemia on PO iron with prior iron transfusions, h/o prednisone use, h/o partial thyroidectomy 2005 Evaluated by cardiology 07/25/24- deemed stable Has good exercise tolerance, > 4 METs. Denies any anaphylactic drug allergies. Has been appropriately NPO > 8 hrs. Has had no problems with prior anesthetics. No family hx of problems with anesthesia. Relevant Problems Cardio (+) Coronary artery disease (+) Hypertension /Renal (+) CKD (chronic kidney disease) stage 4, GFR 15-29 ml/min (CMS/HCC) (+) Renal osteodystrophy ROS Anesthesia: history of previous anesthesia. Does not have obstructive sleep apnea and PONV. Cardiovascular: CAD. Does not have past [place]. hypertension: is well controlled. Does not have chest pain. Cardio additional comments: 2 PCI- 2016 No active anginal symptoms . Respiratory: Does not have home oxygen. no asthma: no COPD: Musculoskeletal: Does not have cervical spine instability. Gastrointestinal: Does not have GERD.Does not have cirrhosis. Genitourinary: renal calculi. Hematological/Lymphatic: anemia. History of no DVT. History of no pulmonary embolism. Endocrine/Metabolic: thyroid disorder. Endo/Met additional comments: Hyperparathyroidism H/o prednisone Clinical information reviewed: Med Hx Tobacco Allergies Surg Hx Fam Hx Soc Hx NPO Status Date of Last Liquid: 07/31/24 Time of Last Liquid: 2199 Date of Last Solid: 07/31/24 Time of Last Solid: 2199 Last Intake Type: Clear fluids Physical Exam Airway Mallampati: II Mouth opening: normal TM distance: >3 FB Neck ROM: full Upper lip bite test: I Cardiovascular Rhythm: regular Rate: normal (-) murmur Dental (+) edentulous Pulmonary Breath sounds clear to auscultation Neurological Oriented: normal to time, normal to place and normal to person and oriented to person, place and time Skin Musculoskeletal Extremities Anesthesia Plan ASA 3 Plan was reviewed with: attending Anesthesia technique(s) discussed with the patient/family: general Anesthesia plan agreed upon was: general Anesthetic plan and risks discussed with patient. Additional Equipment Requests Cosigned by Zbigniew Mccrary MD at 08/01/2024 9:02 AM EDT Associated attestation - Zbigniew Mccrary MD - 08/01/2024 9:02 AM EDT I agree with the findings and care plan documented in the preprocedure evaluation note. documented in this encounter Plan of Treatment Upcoming Encounters Date Type Department Care Team (Late st Contact Info) Description 09/13/2024 11:20 AM EDT Office Visit [facility] [address] [place] [address] Eryn Arias, HEAD OF MAINTENANCE [address] [facility] [address] [place] [address] 10/28/2024 1:20 PM EDT Office Visit [facility] [address], [address] [place] [address] Andrey Day MD [address] [address] documented as of this encounter Goals Goal Patient Goal Type Associated Problems Recent Progress Patient-Stated? Author Autogenera sher Goal Care Plan Autogenerated Problem No Leanne Sierra documented as of this encounter Procedures Procedure Name Priority Date/Time Associated Diagnosis Comments HC ENDOTRACHEAL TUBE Routine 08/01/2024 9:31 AM EDT PB ANESTHESIA PLACEHOLDER Routine 08/01/2024 9:31 AM EDT CO AN ELECTIVE ENDOTRACHEAL AIRWAY Routine 08/01/2024 9:31 AM EDT documented in this encounter Results * CO AN ELECTIVE ENDOTRACHEAL AIRWAY, PB ANESTHESIA PLACEHOLDER, HC ENDOTRACHEAL TUBE (08/01/2024 9:31 AM EDT) Narrative Rajeev Lucio CRNA - 08/01/2024 9:31 AM EDT Rajeev Lucio CRNA 08/01/2024 9:52 AM Airway Date/Time: 08/01/2024 9:31 AM Reason: elective Airway not difficult General Information and Staff Patient location during procedure: OR [facility]MENT OF NATURAL RESOURCES OFFICER: Rajeev Lucio CRNA Performed: DEPARTMENT OF NATURAL RESOURCES OFFICER Patient Condition Indications for airway management: anesthesia Patient position: sniffing Final Airway Details Final airway type: endotracheal airway Successful airway: ETT and NIM tube Cuffed: yes Successful intubation technique: video laryngoscopy (glidescope for NIMs tube placement) Adjuncts used in placement: intubating stylet Endotracheal tube insertion site: oral Blade type: lopro s3. ETT size (mm): 7.0 Cormack-Lehane Classification: grade I - full view of glottis Placement verified by: chest auscultation and capnometry Cuff volume (mL): 7 Measured from: teeth ETT to teeth (cm): 21 Additional Comments Atraumatic insertion us Zbigniew Mccrary MD ANESTHESIA ORDERABLES Dayna monterroso Result documented in this encounter Visit Diagnoses Not on filedocumented in this encounter Administered Medications Inactive Administered Medications - up to 3 most recent administrations Medication Order MAR Action Action Date Dose Rate Site dexamethasone (Decadron) injection Intravenous, As needed, Starting on Jaymie 08/01/24 at 0932, Until Jaymie 08/01/24 at 1146, Routine, Anesthesia Intraprocedure Given 08/01/2024 9:32 AM EDT 4 mg dexmedetomidine (Precedex) 100 MCG/ML concentrated solution Intravenous, As needed, Starting on Jaymie 08/01/24 at 1031, Until Jaymie 08/01/24 at 1146, Routine, Anesthesia Intraprocedure Given 08/01/2024 11:27 AM EDT 8 mcg Given 08/01/2024 11:18 AM EDT 4 mcg Given 08/01/2024 10:51 AM EDT 4 mcg ePHEDrine Sulfate (Akovaz) injection Intravenous, As needed, Starting on Jaymie 08/01/24 at 0943, Until Jaymie 08/01/24 at 1146, Routine, Anesthesia Intraprocedure Given 08/01/2024 10:17 AM EDT 10 mg Given 08/01/2024 10:10 AM EDT 5 mg Given 08/01/2024 9:43 AM EDT 5 mg fentaNYL (Sublimaze) injection Intravenous, As needed, Starting on Jaymie 08/01/24 at 0928, Until Jaymie 08/01/24 at 1146, Routine, Anesthesia Intraprocedure Given 08/01/2024 9:45 AM EDT 50 mcg Given 08/01/2024 9:38 AM EDT 25 mcg Given 08/01/2024 9:28 AM EDT 25 mcg glycopyrrolate (Robinul) injection Intravenous, As needed, Starting on Jaymie 08/01/24 at 0942, Until Jaymie 08/01/24 at 1146, Routine, Anesthesia Intraprocedure Given 08/01/2024 9:42 AM EDT 0.2 mg HYDROmorphone PF (Dilaudid) injection Intravenous, As needed, Starting on Jaymie 08/01/24 at 1135, Until Jaymie 08/01/24 at 1146, Routine, Anesthesia Intraprocedure Given 08/01/2024 11:42 AM EDT 0.5 mg Given 08/01/2024 11:35 AM EDT 0.5 mg labetalol (Normodyne,Trandate) injection Intravenous, As needed, Starting on Jaymie 08/01/24 at 1119, Until Jaymie 08/01/24 at 1146, Routine, Anesthesia Intraprocedure Given 08/01/2024 11:19 AM EDT 5 mg lactated Ringer's infusion 75 mL/hr, Intravenous, Continuous, Starting on Jaymie 08/01/24 at 0900, Until Mon08/02/24 at 1648, Routine Restarted 08/01/2024 11:21 AM EDT Continued by Anesthesia 08/01/2024 9:23 AM EDT 75 mL/hr New Bag 08/01/2024 8:46 AM EDT 75 mL/hr 75 mL/hr lidocaine PF (Xylocaine) 2 % injection Intravenous, As needed, Starting on Jaymie 08/01/24 at 0928, Until Jaymie 08/01/24 at 1146, Routine, Anesthesia Intraprocedure Given 08/01/2024 9:28 AM EDT 50 mg ondansetron (Zofran) injection Intravenous, As needed, Starting on Jaymie 08/01/24 at 1118, Until Jaymie 08/01/24 at 1146, Routine, Anesthesia Intraprocedure Given 08/01/2024 11:18 AM EDT 4 mg propofol (Diprivan) injection Intravenous, As needed, Starting on Jaymie 08/01/24 at 0928, Until Jaymie 08/01/24 at 1146, Routine, Anesthesia Intraprocedure Given 08/01/2024 11:27 AM EDT 20 mg Given 08/01/2024 10:59 AM EDT 20 mg Given 08/01/2024 10:51 AM EDT 20 mg succinylcholine (Anectine) injection Intravenous, As needed, Starting on Jaymie 08/01/24 at 0928, Until Jaymie 08/01/24 at 1146, Routine, Anesthesia Intraprocedure Given 08/01/2024 9:28 AM EDT 100 mg documented in this encounter Additional Health Concerns Active Problems Noted Date Diagnosed Date Autogenerated Problem 07/01/2024 Assessment Noted Time A fall risk assessment has been complete d for the patient 07/01/2024 11:13 AM EDT A Body Mass Index follow-up plan has been documented for the patient 08/02/2024 2:11 PM EDT documented as of this encounter Care Teams Wares Sorter Relationship Specialty Start Date End Date Jessica Frey APRN [address] [place] [id number] PCP - General 07/31/20 documented as of this encounter
--- OUTSIDE RECORDS SUMMARY | 2024-08-01 09:40 | XMS_ITS | Encounter Summary ---
Author Organization Healthcare Address [address] [place] [address] Care Team Providers Care Lead Cargo Mover Name Role Phone Jessica Frey APRN Primary Care Provider [phone] Reason for Visit * Auth/Cert (Routine) Specialty Diagnoses / Procedures Referred By Mis t Referred To Contact Diagnoses Primary hyperparathyroidism ([facility]/HCC) Primary hyperparathyroidism ([facility]) [E21.0] Procedures MS RE-EXPLORE PARATHYROIDS MS VNPNXR 3 YEARS/> PHYS/QHP SKILL PARATHYROIDECTOMY, REPEAT EXPLORATION- localized Andrey Day MD [address] [place] [phone] Phone: tel: fax: [facility] Operating Room [address] [place] [address] Phone: tel: Referral ID Status Reason Start Date Expiration Date Visits Re quested Visits Authorized [id number] 1 1 Encounter Details Date Type Department Care Team (Late st Contact Info) Description 08/01/2024 9:40 AM EDT - 08/01/2024 11:40 AM EDT Surgery [facility] Operating Room [address] [place] [address] Andrey Day MD [address] [place] [phone] PARATHYROIDECTOMY, REPEAT EXPLORATION- localized [17471 (CPT )] Surgery Details Date/Time Status Location OR Service Patient Class Case Class Case Type Trauma Case? 08/01/2024 9:40 AM Posted [facility] OR 2SOR 02 General Surgery Extended Recovery E-Electi ve Panel 1 Procedure LRB Anes Op Region Wound Class Comments PARATHYROIDECTOMY, REPEAT EXPLORATION- localized N/A General Class I/ Clean And reimplantation of right superior parathyroid gland in right foreaarm. AUTOTRANSPLANTATION, PARATHYROID Right General Arm Lower Class I/ Clean Surgeon Surgeon Role Service Panel Andrey Day MD Primary General Surgery 1 Andrey Gonzalez MD Resident - Assisting 1 documented in this encounter Social History Tobacco [...] How often do you attend chur or hindu services? 1 to 4 times per year 07/01/2024 Do you belong to any clubs o r organizations such as catholic groups, unions, fraternal or athletic groups, or [...] care, and heating? Not very hard 07/01/2024 [facility] - Occupational Stress [...] any time in the past [address] [facility], were you homeless or living in a fpc (including now)? No 07/01/2024 Utilities Answer Date Recorded In the past 12 months has e electric, gas, oil, or water company [...] Sign Reading Time Taken Comments Blood Pressure 119/54 08/01/2024 11:40 AM EDT Pulse 71 08/01/2024 11:40 AM EDT Temperature 36.1 C (96.9 F) 08/01/2024 11:40 AM EDT Respiratory Rate 13 08/01/2024 11:40 AM EDT Oxygen Saturation 97% 08/01/2024 11:40 AM EDT Inhaled Oxygen Concentration - - Weight 58.6 kg (129 lb 3 oz) 08/01/2024 8:05 AM EDT Height - - Body Mass Index 24.3 08/01/2024 4:00 PM [...] Risk Indicated 08/01/2024 8:01 AM EDT Sabi Villarreal RN * Question Answer Date of Assessment Author 1. Wish to be (Past 1 Month) No 08/01/2024 8:01 AM EDT Sabi Goodwin RN 2. Non-Specific Active Suici marycruz Thoughts (Past 1 Month) No 08/01/2024 8:01 AM EDT Susannah Goodwin, RN 6. Suicidal Behavior (Lifetime) No 8:01 AM EDT Sabi Goodwin RN documented as of this encounter Discharge [...] the first few days. Most patients use nzjq-jeb-cfaurgm Tylenol (acetaminophen) for postoperative pain in the [...] few days after surgery. Notify the surgeon tongue trimmer and go directly to the Emergency Room if you notice significant neck swelling, bruising, or new worsening in ability to swallow or breathe, especially the afternoon/eveningof surgery. This could indicate a bleeding problem. If you feel it is an emergency, call 611. For this emergency, you can also call the surgeon tongue trimmer at . Numbness or tingling in the fingertips, face or mouth, or cramping of the hands may indicate low calcium. Take 2000 mg of Tums (calcium carbonate) and wait an hour. If the symptoms return, additionalTums may be taken. If the problem persists, call the clinic (8-4:30p, M-F) at or notify the surgeon tongue trimmer at . Follow-up: After surgery you will [...] tablets by mouth every 6 hours. Under [place] law, monthly prescriptions (30 days) can be [...] Apply as directed to ergocalciferol 1.25 MG (49081 UT) capsule Take 1 capsule by mouth 1 time per week. 09/15/2022 ferrous sulfate 324 (65 Fe) MG EC tablet Take 1 tablet by mouth 2 times a week. Do not crush, chew, or split. LOW-DOSE ASPIRIN PO 81 mg daily. predniSONE (Deltasone) 5 MG tablet Take 1 tablet by mouth daily. 11/10/2022 documented as of this encounter Miscellaneous Notes * Claire Ernst RN - 08/02/2024 2:11 PM EDT Images from the original note were not included. [id number] Constipation (Adult) Constipation means that you have [...] Weakness Last Reviewed Date: 2024 00:00:00 ?? [id number] [employer]. All rights reserved. This information is not intended as a substitute for professional medical care. Always follow your healthcare professional's instructions. * [facility] - Claire Quinn RN - 08/02/2024 2:11 PM EDT Images from the original note were not included. 30931 Using an Incentive Spirometer An incentive spirometer [...] rate Last Reviewed Date: 2024 00:00:00 ?? [id number] [employer]. All rights reserved. This information is not intended as a substitute for professional medical care. Always follow your healthcare professional's instructions. * Mary Holley - Claire Quinn RN - 08/02/2024 2:11 PM EDT Images from the original note were not included. 57494 Preventing a Surgical Site Infection A risk [...] of infection. ?? Controlled body temperature. A wgwes-uron-xevtpe temperature during or after surgery prevents oxygen [...] and water or with an alcohol-based hand automotive buyer before and after caring for you. Don?t [...] away. Last Reviewed Date: 2024 00:00:00 ?? [phone] [employer]. All rights reserved. This information is not intended as a substitute for professional medical care. Always follow your healthcare professional's instructions. * Mary Holley - Claire Quinn RN - 08/02/2024 2:11 PM EDT Images from the original note were not included. 31275 Preventing Deep Vein Thrombosis After Surgery In [...] blood clots. Move your feet in a [place] or up and down. Do this 10 [...] bleeding Last Reviewed Date: 2021 00:00:00 ?? [id number] [employer]. All rights reserved. This information is not intended as a substitute for professional medical care. Always follow your healthcare professional's instructions. * [facility] - Claire Quinn RN - 08/02/2024 2:10 PM EDT Images from the original note were not included. 39149 After Thyroid or Parathyroid Surgery - Dr. [...] the first few days. Most patients use dxiu-ftn-pdylzpn Tylenol (acetaminophen) and/or Advil (ibuprofen) for pain [...] (8 a.m.-4:30 p.m., Monday-Monday) orcall the surgeon tongue trimmer at . When to call and go to the ER Call the surgeon tongue trimmer and go directly to the Emergency Room [...] you feel it is an emergency, call [phone]. Call the surgeon tongue trimmer at . Follow up You will return [...] MD PCP name and Address: Jessica Frey, MIDDLE SCHOOL TECHNOLOGY TEACHER [address] [phone] Referring provider name and address: Eryn Arias, MID[employer] SCHO[employer] TECHNOLOGY TEACHER [address] [address] Chief Concern, Brief History of Present Illness, [...] tablets by mouth every 6 hours. Under [place] law, monthly prescriptions (30 days) can be [...] Apply as directed to ergocalciferol 1.25 MG (15905 UT) capsule Commonly known as: Vitamin D-2 Take 1 capsule by mouth 1 time per week. ferrous sulfate 324 (65 Fe) MG EC tablet Take 1 tablet by mouth 2 times a week. Do not crush, chew, or split. predniSONE 5 MG tablet Commonly known as: Deltasone Take 1 tablet by mouth daily. Where to Get Your Medications These medications were sent to [facility] [place] [address] acetaminophen 325 MG tablet calcitriol 0.25 MCG [...] the first few days. Most patients use ehur-gqp-debygld Tylenol (acetaminophen) for postoperative pain in the [...] few days after surgery. Notify the surgeon tongue trimmer and go directly to the Emergency Room if you notice significant neck swelling, bruising, or new worsening in ability to swallow or breathe, especially the afternoon/eveningof surgery. This could indicate a bleeding problem. If you feel it is an emergency, call [phone]. For this emergency, you can also call the surgeon tongue trimmer at . Numbness or tingling in the fingertips, face or mouth, or cramping of the hands may indicate low calcium. Take 2000 mg of Tums (calcium carbonate) and wait an hour. If the symptoms return, additionalTums may be taken. If the problem persists, call the clinic (8-4:30p, M-F) at or notify the surgeon tongue trimmer at . Follow-up: After surgery you will [...] Time Provider Department Center 08/19/2024 12:50 PM [facility] 08/19/2024 1:45 PM Arianne Weston APRN [facility] 09/13/2024 11:20 AM Eryn Arias APRN [facility] [place] Test Results Pending At Discharge Pending Labs [...] Parmjit Gardner DO General Surgery, PGY-1 Pager: [phone] * Care Plan - Chan Greer RN [...] AM EDT Operative Note Date: 08/01/24 Location: [facility] OR Name: Roseanne TuckerDOB: 1935, Diagnoses: Pre-op Diagnosis Primary hyperparathyroidism (CMS/HCC) Post-op Diagnosis Primary hyperparathyroidism (CMS/HCC) Procedure(s): Subtotal parathyroidectomy, reimplantation parathyroid tissue right forearm Attending Surgeon(s): * Andrey Day - Primary Shrub Grower(s): * Andrey Gonzalez MD - Resident - [...] who is having surgery for Primary hyperparathyroidism ([facility]). She underwent a single gland parathyroidectomy in [...] to review Assessment/Plan Principal Problem: Primary hyperparathyroidism ([facility]) Roseanne Tucker is an 89yF who presents [...] Description 09/13/2024 11:20 AM EDT Office Visit [facility] [address] [place] [phone] Eryn Arias APRN [address] [facility] [address] [place] [address] 10/28/2024 1:20 PM EDT Office Visit Medical Office Building [facility] [address] [facility], [address] [place] [address] Andrey Day MD [address] [phone] documented as of this encounter Goals Goal [...] STAT 08/01/2024 10:41 AM EDT Primary hyperparathyroidism ([facility]/HCC) SURGICAL PATHOLOGY EXAM Routine 08/01/2024 10:34 AM EDT Primary hyperparathyroidism ([facility]/HCC) INTRAOPERATIVE PTH STAT 08/01/2024 10:20 AM EDT Primary hyperparathyroidism (CMS/HCC) INTRAOPERATIVE PTH STAT 08/01/2024 10:07 AM EDT Primary hyperparathyroidism ([facility]/HCC) INTRAOPERATIVE PTH STAT 08/01/2024 9: 57 AM EDT Primary hyperparathyroidism (CMS/HCC) AUTOTRANSPLANTATION, PARATHYROID 08/01/2024 9:08 AM EDT Primary hyperparathyroidism (CMS/HCC) MS RE-EXPLORE PARATHYROIDS 08/01/2024 9:08 AM EDT Primary hyperparathyroidism (CMS/HCC) INTRAOPERATIVE PTH Routine 08/01/2024 8: 40 AM EDT documented in this encounter Results * Magnesium, Plasma (08/02/2024 2:24 AM EDT) Magnesium, Plasma 1.9 1.9 - 2.4 mg/dL 08/02/2024 3:36 AM EDT [facility] Blood Venous blood specimen / Unknown Venipuncture / Unknown 08/02/2024 2:24 AM EDT 08/02/2024 3:06 AM EDT Andrey Day MD LAB BLOOD ORDERABLES Final Result Performing Organization Address City/[facility]/ZIP Co de Phone Number [facility] [address] [place] [address] * (ABNORMAL) Total Calcium, Plasma (08/02/2024 2:24 AM EDT) Total Calcium, Plasma 11.4(H) 8.9 - 10.2 mg/dL 08/02/2024 3:36 AM EDT [facility] Blood Venous blood specimen / Unknown Venipuncture / Unknown 08/02/2024 2:24 AM EDT 08/02/2024 3:06 AM EDT Andrey Day MD LAB BLOOD ORDERABLES Final Result Performing Organization Address [facility] de Phone Number [facility] [address] [place] [address] * PTH Intact Total (08/02/2024 2:24 AM EDT) PTH Intact Total 41 9 - 77 pg/mL 08/02/2024 11:14 AM EDT [facility] Blood Venous blood specimen / Unknown Venipuncture / Unknown 08/02/2024 2:24 AM EDT 08/02/2024 3:08 AM EDT Narrative [facility] - 08/02/2024 11:14 AM EDT Assay performed by immunoassay at the [facility]. Performed on [employer] chemiluminescent immunoassay, tractable to the World Health Organization's first international standard for PTH from the NIBSC, Code 79/500. Results obtained from different test methods or kits cannot be used interchangeably. Result [facility] Andrey Day MD LAB BLOOD ORDERABLES Final Result Performing Organization Address [facility]/ZIP Co de Phone Number [facility] [address] [place] [address] * Intraoperative PTH (08/01/2024 10:41 AM EDT) Intraoperative PTH 57 pg/mL 2024 11:03 AM EDT [facility] Time of Collection 1041 2024 11:03 AM EDT [facility] Blood Venous blood specimen / Unknown 08/01/2024 10:41 AM EDT 08/01/2024 10:45 AM EDT Comment:Pre-op diagnosis: Primary hyperparathyroidism (CMS/HCC) [E21.0] Narrative [facility] - 08/01/2024 11:03 AM EDT [...] BLOOD ORDERABLES Final Result Performing Organization Address City/State/[facility] Co de Phone Number [facility] [address] [place] [address] * Surgical Pathology Exam (08/01/2024 10:34 AM EDT) Case Report Surgical Pathology Case: [id number] Authorizing Provider: Andrey Day MD Collected: 08/01/2024 1034 Ordering Location: [facility] Operating Room Received: 08/01/2024 1041 Pathologist: Nadine Mann MD Intraop: Alyssa Galindo MD Specimens: A) - Parathyroid, Biopsy right superior parathyroid gland. B) - Parathyroid, Right inferior parathyroid. C) - Parathyroid, Right superior parathyroid. D) - Parathyroid, Left superior parathyroid. 10:00 AM EDT [facility] Final Diagnosis A. RIGHT SUPERIOR PARATHYROID, BIOPSY: - HYPERCELLULAR PARATHYROID (0.13 G). B. RIGHT INFERIOR PARATHYROID, PARATHYROIDECTOMY: - HYPERCELLULAR PARATHYROID (0.2 G). C. RIGHT SUPERIOR PARATHYROID, PARATHYROIDECTOMY: - HYPERCELLULAR PARATHYROID (0.6 G). D. LEFT SUPERIOR PARATHYROID, PARATHYROIDECTOMY: - HYPERCELLULAR PARATHYROID (0.6 G). 10:00 AM EDT [facility] at 1000 EDT Comment:This is an appended report. These results have been appended to a previously preliminary verified report. Clinical Information Primary hyperparathyroidism (CMS/HCC) [E21.0] 5 10:00 AM EDT [facility] Comment:This is an appended report. These results have been appended to a previously preliminary verified report. Intraoperative Consultation A. BIOPSY RIGHT SUPERIOR PARATHYROID GLAND. FSA: HYPERCELLULAR PARATHYROID, 0.13 GRAMS. 5 10:00 AM EDT [facility] Gross Description A. BIOPSY RIGHT SUPERIOR [...] submitted in cassette B1. Cold Time: 58m Tarng Guidry C. RIGHT SUPERIOR PARATHYROID. Received in [...] 24m Trang Guidry 5 10:00 AM EDT [facility] Comment:This is an appended report. These [...] MD LAB PATHOLOGY ORDERABLES Fi nal Result [facility] [address] [place] [address] * Intraoperative PTH (08/01/2024 10:20 AM EDT) Intraoperative PTH 171 pg/mL 2024 10:41 AM EDT [facility] Time of Collection 1020 2024 10:41 AM EDT [facility] Blood Venous blood specimen / Unknown 08/01/2024 10:20 AM EDT 08/01/2024 10:24 AM EDT Comment:Pre-op diagnosis: Primary hyperparathyroidism (CMS/HCC) [E21.0] Narrative [facility] - 08/01/2024 10:41 AM EDT Intraoperative PTH measures PTH levels in samples obtained during surgical procedures. Typically, a reduction of at least 50% in PTH levels from the baseline/pre-excisional sample compared to the postsurgical sample is used to support that appropriate hypersecreting parathyroid tissue has been removed. No reference interval has been established using this assay. us Andrey Day MD LAB BLOOD ORDERABLES Final Result Performing Organization Address [facility] Co de Phone Number [facility] [address] [place] [address] * Intraoperative PTH (08/01/2024 10:07 AM EDT) Intraoperative PTH 179 pg/mL 2024 10:27 AM EDT [facility] Time of Collection 1007 2024 10:27 AM EDT [facility] Blood Venous blood specimen / Unknown 08/01/2024 10:07 AM EDT 08/01/2024 10:11 AM EDT Comment:Pre-op diagnosis: Primary hyperparathyroidism (CMS/HCC) [E21.0] Narrative [facility] - 08/01/2024 10:27 AM EDT Intraoperative [...] BLOOD ORDERABLES Final Result Performing Organization Address [facility] de Phone Number [facility] [address] [place] [address] * Intraoperative PTH (08/01/2024 9:57 AM EDT) Intraoperative PTH 187 pg/mL 2024 10:23 AM EDT [facility] Time of Collection 0957 2024 10:23 AM EDT [facility] Blood Venous blood specimen / Unknown 08/01/2024 9:57 AM EDT 08/01/2024 10:02 AM EDT Comment:Pre-op diagnosis: Primary hyperparathyroidism (CMS/HCC) [E21.0] Narrative [facility] - 08/01/2024 10:23 AM EDT Intraoperative PTH measures PTH levels in samples obtained during surgical procedures. Typically, a reduction of at least 50% in PTH levels from the baseline/pre-excisional sample compared to the postsurgical sample is used to support that appropriate hypersecreting parathyroid tissue has been removed. No reference interval has been established using this assay. us Andrey Day MD LAB BLOOD ORDERABLES Final Result Performing Organization Address [facility] de Phone Number [facility] [address] [place] [address] * Intraoperative PTH (08/01/2024 8:40 AM EDT) Intraoperative PTH 181 pg/mL 2024 9:16 AM EDT [facility] Time of Collection 0835 2024 9:16 AM EDT [facility] Blood Venous blood specimen / Unknown Venipuncture / Unknown 08/01/2024 8:40 AM EDT 08/01/2024 8:49 AM EDT Narrative [facility] - 08/01/2024 9:16 AM EDT Intraoperative PTH measures PTH levels in samples obtained during surgical procedures. Typically, a reduction of at least 50% in PTH levels from the baseline/pre-excisional sample compared to the postsurgical sample is used to support that appropriate hypersecreting parathyroid tissue has been removed. No reference interval has been established using this assay. Arianne Weston APRN LAB BLOOD ORDERABLES Final R esult Performing Organization Address [facility] de Phone Number [facility] [address] [place] [address] documented in this encounter Visit Diagnoses Diagnosis Primary hyperparathyroidism (CMS/HCC)- Primary Primary hyperparathyroidism Primary hyperparathyroidism (CMS/HCC) Primary hyperparathyroidism documented in this encounter Admitting Diagnoses Diagnosis Primary hyperparathyroidism (CMS/HCC) Primary hyperparathyroidism Hyperparathyroidism ([facility]) Hyperparathyroidism, unspecified documented in this encounter Administered [...] Oral, 2 times daily, First dose on Mon08/01/24 at 1500, Until Discontinued, Routine, Recovery(Phase II-Outpatient)/On Unit(Inpatient) Given 08/02/2024 8:34 AM EDT 0.25 mcg Given 08/01/2024 9:44 PM EDT 0.25 mcg Given 08/01/2024 5:44 PM EDT 0.25 mcg calcium carbonate (Tums) chewable tablet 1,000 mg 1,000 mg, Oral, 3 times daily, First dose on Mon08/01/24 at 1600, Until Discontinued, Routine, Recovery(Phase II-Outpatient)/On [...] Intravenous, Every 4 hours PRN, Starting on Mon08/01/24 at 1142, Until Mon08/02/24 at 1648, Routine, [...] Unit(Inpatient) 1200 (Not Given - Provider: Chan Greer RN - Reason: Patient in procedure)1744 (Given - Provider: Chan Greer, RN) 0048 (Given - Provider: Gabriella Josue)0619 (Given - Provider: Gabriella Josue)1217 (Given - Provider: Chan Greer, RN) amLODIPine (Norvasc) tablet 5 mg 5 mg, Oral, Daily, First dose on Mon08/02/24 at 0900, Until Discontinued, Routine, Recovery(Phase II-Outpatient)/On Unit(Inpatient) 0835 (Given - Provid er: Chan Greer, RN) atenolol (Tenormin) tablet 100 mg 100 mg, Oral, Daily, First dose on Mon08/02/24 at 0900, Until Discontinued, Routine, Recovery(Phase II-Outpatient)/On Unit(Inpatient) 0834 (Given - Provid er: Chan Greer, RN) calcitriol (Rocaltrol) capsule 0.25 mcg 0.25 mcg, Oral, 2 times daily, First dose on Jaymie 08/01/24 at 1500, Until Discontinued, Routine, Recovery(Phase II-Outpatient)/On Unit(Inpatient) 1500 (Not Given - Provider: Chan Greer RN - Reason: Patient/family refused - Comment: pt is nauseated)1744 (Given - Provider: Chan Greer RN - Comment: Missed dose earlier d/t nausea, added two doses today for thyroid)2144 (Given - Provider: Gabriella Josue) 0834 (Given - Provider: Chan Greer RN) calcium carbonate (Tums) chewable tablet 1,000 mg 1,000 mg, Oral, 3 times daily, First dose on Jaymie 08/01/24 at 1600, Until Discontinued, Routine, Recovery(Phase II-Outpatient)/On Unit(Inpatient) 1705 (Given - Provider: Chan Greer RN - Comment: pt was nauseated and couldn't take anything)2114 (Given - Provider: Gabriella Josue) 0834 (Given - Provider: Chan Greer RN)1600 (Canceled Entry - Provider: Automatic Discharge Provider - Comment: Automatically canceled at discontinue of medication order) Povidone-Iodine 5 % swab solution 1 Application (COMPLETED) Nasal, Once, 1 dose, On Jaymie 08/01/24 at 0900, Routine 0847 (Given - Provider: Sabi Goodwin RN) predniSONE (Deltasone) tablet 5 mg 5 mg, [...] Rajeev Lucio CRNA) PRN Medication Order 07/31/2024 08/01/202408/02/2024 calcium carbonate (Tums) chewable tablet 2,000 mg [...] vomiting 1445 (See Alternative - Provider: Chan Greer, RN) ondansetron (Zofran) injection 4 mg(Linked Group 2) 4 mg, Intravenous, Every 6 hours PRN, Starting on Jaymie 08/01/24 at 1142, Until Mon08/02/24 at 1648, Routine, Recovery(Phase II-Outpatient)/On Unit(Inpatient), vomiting, nausea 1445 (Given - Provider: Bong Greer, RN) ondansetron ODT (Zofran-ODT) disintegrating tablet 4 [...] Starting on Jaymie 08/01/24 at 1142, Until 08/02/24 at 1648, Routine, Recovery(Phase II-Outpatient)/On Unit(Inpatient), nausea, vomiting Or ondansetron (Zofran) injection 4 mgJump to med 4 mg, Intravenous, Every 6 hours PRN, Starting on Jaymie 08/01/24 at 1142, Until 08/02/24 at 1648, Routine, Recovery(Phase II-Outpatient)/On Unit(Inpatient), vomiting, [...] documented as of this encounter Care Teams Lead Cargo Mover Relationship Specialty Start Date End Date Jessica Frey, ZOE [address] [place] [phone] PCP - General 07/31/20 documented as of this encounter
--- OUTSIDE RECORDS SUMMARY | 2024-08-19 13:45 | XMS_ITS | Encounter Summary ---
Author Organization Healthcare Address [address] [place] [address] Care Team Providers Care Athletic Equipment Custodian Name Role Phone Jessica Frey APRN Primary Care Provider [phone] Encounter Details Date Type Department Care Team ([facility] st Contact Info) Description 08/19/2024 1:45 PM EDT Clinical Support Medical Office Building Surgical Specialties [address], [address] [place] [address] Olimpia Gorman RN [facility] Social History Tobacco Use Types Packs/Day Years [...] How often do you attend chur or catholic services? 1 to 4 times per year 07/01/2024 Do you belong to any clubs o r organizations such as shinto groups, unions, fraternal or athletic groups, or [...] care, and heating? Not very hard 07/01/2024 PHQ-2 Answer Date Recorded Patient Health Questionnaire-2 Score 0 08/19/2024 [facility] - Occupational Stress Questionnaire Answer Date Recorded [...] any time in the past 12 m [facility], were you homeless or living in a halfway (including now)? No 07/01/2024 Utilities Answer Date [...] Sign Reading Time Taken Comments Blood Pressure 121/73 08/19/2024 1:32 PM EDT Pulse 57 08/19/2024 1:32 PM EDT Temperature 36.6 C (97.9 F) 08/19/2024 1:32 PM EDT Respiratory Rate 18 08/19/2024 1:32 PM EDT Oxygen Saturation 95% 08/19/2024 1:32 PM EDT Inhaled Oxygen Concentration - - Weight 58.1 kg (128 lb) 08/19/2024 1:32 PM EDT Height 154.9 cm (5' 0.98 ) 08/19/2024 1:32 PM ED T Body Mass Index 24.2 08/19/2024 1:32 PM EDT documented in this encounter Functional Status * Over the past 2 weeks, how often have you been bothered by any of the following problems? Question Answer Date of Assessment Author Little interest or pleasure in doing things Not at all 08/19/2024 1:32 PM EDT [place] Feeling down, depressed, or hopeless Not at all 08/19/2024 1:32 PM EDT [place] Patient Health Questionnaire -2 Score 0 08/19/2024 1:32 PM EDT [place] documented as of this encounter Miscellaneous Notes * Progress Notes - Olimpia Gorman RN - 08/19/2024 1:45 PM EDT Patient is being seen today for her approximate 2 week post-op appointment following her repeat parathyroid exploration with Dr. Day. Her neck incision is clean, dry and intact with the steri-strip still in place. Her right arm incision has also healed well and is clean, dry and intact. She notes that she was hospitalized after surgery for approximately 5 days for a Non-STEMI and elevated calcium level. She notes that she is eating and drinking without difficulty. No complaints of numbness or tingling. She was taken off of her Rocaltrol and Tums during her recent hospitalization. She was also placed on isosorbide dinitrate 10 mg TID. Patient states she really has had no pain from her surgery and does not require anything at this time for pain. Dr. Day will be consulted regarding her labs from today, future follow-up appointments and willrelay his recommendations to the patient. documented in this encounter Plan of Treatment Upcoming Encounters Date Type Department Care Team (Late st Contact Info) Description 09/13/2024 11:20 AM EDT Office Visit [facility] [address] [place] [address] Eryn Arias, CHIEF CRNA [address] [place] [address] 10/28/2024 1:20 PM EDT Office Visit Medical Office Building Surgical Specialties [address], [address] [place] [address] Andrey Day MD [address] [place] [id number] documented as of this encounter Goals Goal Patient Goal Type Associated Problems Recent Progress Patient-Stated? Author Autogenera sher Goal Care Plan Autogenerated Problem No [place], Leanne Jesús documented as of this encounter Visit Diagnoses Not on filedocumented in this encounter Additional Health Concerns Active Problems Noted Date Diagnosed Date Autogenerated Problem 07/01/2024 Assessment Noted Time A fall risk assessment has been complete d for the patient 08/19/2024 1:32 PM EDT A Body Mass Index follow-up plan has been documented for the patient 08/02/2024 2:11 PM EDT documented as of this encounter Care Teams Athletic Equipment Custodian Relationship Specialty Start Date End Date Jessica Frey APRN [address] [place] [address] PCP - General 07/31/20 documented as of this encounter
--- OUTSIDE RECORDS SUMMARY | 2024-09-09 11:07 | XMS_ITS | Continuity of Care Document ---
Author Organization [place] - Alo Yepez [facility] Address [address] [address] Care Team Providers Care Marker Shipments Name Role Phone SILAS PINO Primary Care Provider [facility] Referring Provider Assessment Encounter Date Assessment Date Assessment LastModified by Organization Details LastModified Time 08/14/2024 08/14/2024 -Medications were reviewed and any necessary updates and renewals were made, patient instructed to complete as prescribed. -The potential side effects of medications were discussed. -Counseling was done on care goals and ways to prevent future hospitalizatio ns. -Further treatment per orders listed below. [email or web address] Not available 08/14/2024 08:42:42 Plan of Treatment Reminders Order Date Submit Date Provider Last Modified By Organization Details Last Modified Time Details Appointments Establish ed Patient 20 2024 11:20A M Silas Pino APRN Not available Not available Not available Lab microalbu min/creat inine, mass ratio, urine 2024 025 GREGORIO [facility], [address], [address], [place], [address], 08/15/2024 16:37:25 PTH (parathyr oid hormone), intact + calcium, serum or plasma 2024 025 GREGORIO [facility], [address], [address], [place], [address], 08/15/2024 16:37:25 CMP, serum or plasma 2024 025 PECOS [facility], [address], [address], [place], [address], 08/15/2024 16:37:24 CBC w/ auto diff 2024 025 GREGORIO [facility], [address], [address], [place], [address], 08/15/2024 16:37:24 Referral None recorded. Procedures None recorded. Surgeries None recorded. Imaging None recorded. Medication Orders rosuvasta tin 40 mg tablet 2024 025 [facility], [address], [place], [address], 08/22/2024 10:20:58 Patient TargetsNo targets recorded. Patient InstructionsNo instructions recorded. Reason for Referral None Reported. Results Created Date Observation Date Name Description Value Unit Range Abnormal Flag Note LastModifiedBy Organization Detail LastModifiedTime 08/08/1908/07/2024 XR, chest , 2 view No observ ation record ed. [facility] [address], [place], [address], 08/09/2024 09:06:06 08/09/19 25 08/08/2024 stres s echoc ardio gram with doppl er color flow (PROC ) No observ ation record ed. [facility] [address], [place], [address], 08/09/2024 09:03:27 08/09/19 25 08/07/2024 elect rocar diogr am No observ ation record ed. [facility] [address], [place], [address], 08/09/2024 09:02:33 08/11/19 25 08/10/2024 CT, head + brain , w/o contr ast No observ ation record ed. [facility] [address], [place], [address], 08/13/2024 11:31:26 08/11/19 25 08/10/2024 CT, abdom en + pelvi s, w/o contr ast No observ ation record ed. [facility] [address], [place], [address], 08/13/2024 11:31:25 08/11/19 25 08/10/2024 CT, chest , w/o contr ast No observ ation record ed. [facility] [address], [place], [address], 08/13/2024 11:31:24 08/11/19 25 08/09/2024 elect jorge minerj carlos am No observ ation record ed. [facility] [address], [place], [address], 08/13/2024 11:31:26 Result Notes None recorded. Problems Name Problem SNOMED Code Status Onset Date Resolution Date Notes Provider Name and Address Organization Details Recorded Time Hyperlipidemia 21800157 Active 2021 Silas Pino APRN [address], [place], [address], [place] - [facility] 08:53:27 Heart disease 18971664 Active 2021 Silas Pino APRN [address], [place], [address], [place] [facility] 2 08:53:25 Arthritis 5311275 Active 2021 Silas Pino [employer] [address], [place], [address], [place] [facility] 2 08:53:21 Chronic renal failure 04030412 Active 2021 Silas Pino [employer] [address], [place], [address], [place] [facility] 08:53:43 Chronic kidney disease 362777143 Active 2021 Silas Pino, [employer] [address], [place], [address], [place] [facility] 2 09:52:52 Rheumatoid arthritis 60940582 Active 2021 Silas Pino, [employer] [address], [place], [address], [place] [facility] 10:59:57 Osteoporosis 81516668 Active 2022 Silas Pino, [employer] [address], [place], [address], [place] [facility] 3 10:59:51 Anemia 918848865 Active 2022 Silas Pino, [employer] [address], [place], [address], [place] [facility] 14:09:12 Hypertensive disorder 98723321 Active 2023 Silas Pino, [employer] [address], [place], [address], [place] [facility] 4 11:07:03 Hypercalcemia 90046207 Active 2024 Phoenix Lara, DO [address], [place], [address], [place] [facility] 5 10:46:17 Chronic anemia 498710179 Active 2024 Phoenix Lara, DO [address], [place], [address], [place] [facility] 5 10:48:12 Community acquired pneumonia 211434129 Active 2024 Phoenix Lara, DO [address], [place], [address], [place] [facility] 5 10:49:24 Urinary tract infectious disease 27189213 Active 2024 Phoenix Lara, DO [address], [place], [address], [place] [facility] 5 10:50:01 Myocardial infarction 25792207 Active 2024 Phoenix Soriain, DO [address], [place], [address], [place] [facility] 10:50:43 Chronic kidney disease stage 4 908278249 Active 2024 Phoenix Lara DO [address], [place], [address], [place] [facility] 5 10:55:10 Problem Notes None recorded. Procedures Surgical History Date Name Laterality Status Provider Name and Address Organization Details Recorded Time 025 Medication Reconcilliation completed Dacia Bonner [place] - [facility] 08/22/2024 10:11:24 025 Medication Reconcilliation completed Compa Mary [place] - [facility] 08/14/2024 08:42:42 025 Nebulizer tx completed Celia Case [place] [facility] 06/17/2024 14:25:08 024 Advance Care Planning completed Daciagiancarlo Bonner [place] [facility] 10/03/2023 10:54:05 024 Functional Status Assessed completed Daciagiancarlo [place]ner [place] [facility] 10/03/2023 10:54:05 024 Most Recent Bone Density completed [place]ia [place] [facility] 04/04/2024 11:22:32 023 Medication Reconcilliation completed Celia Muellers [place] [facility] 08/23/2022 10:57:44 023 Advance Care Planning completed Silas Pino APRN [address], [place], [address], [place] [facility] 04/12/2022 10:50:43 023 Functional Status Assessed completed Daciagiancarlo Bonner [place] - [facility] 04/12/2022 10:25:13 020 Date of Last Colonoscopy completed Dacia Bonner [place] - [facility] 10/28/2021 09:17:46 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 completed Dacia [place]ner [place] [facility] 10/08/2021 11:24:29 Unlisted px femur/knee completed [place]acia [place] [facility] 10/08/2021 11:24:41 operative procedure on knee completed Dacia [place]ner [place] [facility] 10/08/2021 11:25:18 parathyroidectomy completed Janice OLMSTEAD - [facility] 10/08/2021 11:25:32 Xcapsl ctrc rmvl cplx wo ecp completed Dacia OLMSTEAD - [facility] 10/08/2021 11:25:59 placement of stent in cardiac conduit completed Dacia OLMSTEAD - [facility] 10/08/2021 11:28:17 hysterectomy completed Dacia OLMSTEAD - [facility] 10/28/2021 09:19:27 Hemorrhoidectomy completed Alisha OLMSTEAD - [facility] 10/28/2021 09:20:06 Colonoscopy completed Dacia OLMSTEAD - [facility] 10/28/2021 09:20:19 Imaging Results None recorded. Procedure Notes None recorded. Medical Equipment None Reported. Allergies No known drug allergies Medications Name Sig Start Date Stop Date Status Note LastModified by Organization Details LastModified Time isosorbid e dinitrate 10 mg tablet Take 1 tablet twice a day by oral route as directed . active Not Available Not Available No t Available atorvasta tin 40 mg tablet TAKE 1 TABLET BY MOUTH ONCE DAILY 04/04 completed Not Available Not Available Not Available prednison e 10 mg tablet Take 1 tablet every day by oral route for 5 days. 11/15 completed Not Available Not Available Not Available doxycycli ne hyclate 100 mg capsule Take 1 capsule twice a day by oral route. 08/22 completed Not Available Not Available Not Available albuterol sulfate 2.5 mg/3 mL (0.083 %) solution for nebulizat ion Inhale 3 mL by nebuliza tion route. 2024 active Not Available Not Available Not Avai lable azithromy beatriz 250 mg tablet TAKE 2 TABLETS BY MOUTH ON DAY 1, AND THEN TAKE 1 TABLET BY MOUTH ONCE A DAY ON DAY 2 THROUGH DAY 5 06/28 completed Not Available Not Available Not Available atenolol 100 mg tablet TAKE 1 TABLET BY MOUTH ONCE DAILY active Not Available Not Available No t Available prednison e 5 mg tablet TAKE 1 TABLET BY MOUTH ONCE DAILY NEEDED active Not Available Not Available No t Available hydralazi ne 25 mg tablet Take 1 tablet twice a day by oral route as directed . active Not Available Not Available No t Available clopidogr el 75 mg tablet 10/08 completed Not Available Not Available Not Available amlodipin e 5 mg tablet TAKE 1 TABLET BY MOUTH EVERY OTHER DAY active Not Available Not Available No t Available SPS (with sorbitol) 15 gram-20 gram/60 mL oral suspensio n TAKE 60 ML BY MOUTH A ONE TIME DOSE 10/08 completed Not Available Not Available Not Available tramadol 50 mg tablet Take 1 tablet twice a day by oral route as needed for 3 days. 01/10 completed Not Available Not Available Not Available ceftriaxo ne 1 gram solution for injection Take 1 g every day by injectio n route. 08/14 completed Not Available Not Available Not Available benzonata te 100 mg capsule TAKE 1 CAPSULE BY MOUTH TWICE DAILY FOR 5 DAYS 08/22 completed Not Available Not Available Not Available prednison e 2.5 mg tablet TAKE 1 TABLET BY MOUTH ONCE DAILY 04/04 completed Not Available Not Available Not Available hydralazi ne 100 mg tablet Take 1 tablet 3 times a day by oral route. 08/14 completed Not Available Not Available Not Available pantopraz ole 40 mg tablet,de layed release Take 1 tablet every day by oral route as directed . active Not Available Not Available No t Available aspirin 81 mg chewable tablet Chew 1 tablet every day by oral route for 90 days. 2024 active not currentl y taking related to surgery Not Available Not Available Not Available ergocalci ferol (vitamin D2) 1,250 mcg (50,000 unit) capsule TAKE 1 CAPSULE BY MOUTH ONCE A WEEK 08/22 completed Not Available Not Available Not Available dexametha sone sodium phosphate 4 mg/mL injection solution Inject 1 mL every day by intramus cular route. 09/04 completed Not Available Not Available Not Available cefdinir 300 mg capsule TAKE 1 CAPSULE BY MOUTH EVERY 12 HOURS FOR 10 DAYS 10/02 completed Not Available Not Available Not Available doxycycli ne hyclate 100 mg tablet TAKE 1 TABLET BY MOUTH TWICE DAILY FOR 4 DAYS 08/22 completed Not Available Not Available Not Available rosuvasta tin 40 mg tablet Take 1 tablet every day by oral route for 30 days. 08/22 completed unable to take related to muscle cramps Not Available Not Available Not Available cinacalce t 30 mg tablet TAKE 1 TABLET BY MOUTH ONCE DAILY WITH FOOD AT THE SAME TIME EACH DAY, SWALLOW TABLET WHOLE. DO NOT BREAK OR DIVIDE 08/22 completed Not Available Not Available Not Available Feosol 325 mg (65 mg iron) tablet Take 1 tablet every day by oral route. 08/22 completed Not Available Not Available Not Available multivita min one tab daily 11/15 completed Not Available Not Available Not Available peg 3350-elec trolytes 236 gram-22.7 4 gram-6.74 gram-5.86 gram solution 10/08 completed Not Available Not Available Not Available One Daily Womens 50 Plus one a day 08/22 completed Not Available Not Available Not Available diclofena c 1 % topical gel APPLY 2 GRAMS TOPICALL Y TO AFFECTED AREA 4 TIMES DAILY 08/22 completed Not Available Not Available Not Available Vitals Date Recorded Body height Heart rate Oxygen saturation Oxygen saturation in Arterial blood by Pulse oximetry Respiratory rate Systolic blood pressure Diastolic blood pressure Provider Name and Address Organization Details Last Updated DateTime 5 152.4 cm 62 /min 93 % 93 % 16 /min 122 mm[Hg] 70 mm[Hg] Compa Tyra [place] - [facility] 5 08:45:59 Social History Question Answer Notes LastModified by Organizat ion Details LastModified Time Tobacco Smoking Status Never Smoker Dacia [place]all, [place] - [facility] 10/08/2021 11:22:30 Do You Have An Advance Directive? No Information n ot available 10/08/2021 Are You Blind Or Do You Have Difficulty Seeing? No Information n ot available 10/08/2021 What Is Your Level Of Caffeine Consumption? Occasional Information not available 10/08/2021 In The 14 Days Before Symptom Onset, Have You Had Close Contact With A Laboratory-confirm ed COVID-19 While That Case Was Ill? No Information n ot available 10/08/2021 In The 14 Days Before Symptom Onset, Have You Had Close Contact With A Person Who Is Under Investigation For COVID-19 While That Person Was Ill? No Information not available 10/08/2021 Have You Been To An Area Known To Be High Risk For COVID-19? No Information not available 10/08/2021 Are You Deaf Or Do You Have Serious Difficulty Hearing? No Information not available 10/08/2021 What Type Of Diet Are You Following? REGULAR Information n ot available 10/08/2021 Have You Processed Blood Or Body Fluids From An Ebola Virus Disease Patient Without Appropriate PPE? No Information not available 10/08/2021 Do You Reside In Or Have You Traveled To An Area Where Ebola Virus Transmission Is Active? No Information not available 10/08/2021 What Is The Highest Grade Or Level Of School You Have Completed Or The Highest Degree You Have Received? AZ31703-4 Information not available 10/08/2021 Have There Been Any Changes To Your Family Or Social Situation? No Information no t available 10/08/2021 What Is The Fluoride Status Of Your Home? Fluoridated Information not available 10/08/2021 Have You Recently Or Are You Planning To Travel To An Area With Zika Virus? No Information not available 10/08/2021 Do You Have A Medical Power Of Sheetmetal Patternmaker? No Information not available 10/08/2021 What Was The Date Of Your Most Recent Tobacco Screening? 08/14/2024 Information not available 08/14/2024 What Is Your Relationship Status? Information not available 10/08/2021 Are You Sexually Active? No Information not available 10/08/2021 Do You Have Smoke And Carbon Monoxide Detectors In Your Home? Yes Information not available 10/08/2021 Are You Passively Exposed To Smoke? No Information no t available 10/08/2021 Has Tobacco Cessation Counseling Been Provided? Yes Information not available 08/14/2024 On What Date Was Tobacco Cessation Counseling Provided? 08/14/2024 Information not available 08/14/2024 Do You Have Difficulty Walking Or Climbing Stairs? No Information not available 10/08/2021 Sex: Female Functional Status Question Answer Note LastModified by Organizat ion Details LastModified Time Do you use any illicit or recreational drugs? No Information not available 10/08/2021 Do you or have you ever used any other forms of tobacco or nicotine? No Information not available 10/08/2021 What is your level of alcohol consumption? None Information not available 10/08/2021 Are you currently employed? No Information not available 10/08/2021 Do you have transportation difficulties? No Information not available 10/08/2021 Are you able to walk? YESWOREST Information not available 10/08/2021 Do you have difficulty doing errands alone? No Information not available 10/08/2021 Are you able to care for yourself? No Information not available 10/08/2021 Do you have difficulty dressing or bathing? No Information not available 10/08/2021 What is your exercise level? Moderate Information not available 10/08/2021 Mental Status Question Answer Note LastModified by Organizat ion Details LastModified Time Do you feel stressed (tense, restless, nervous, or anxious, or unable to sleep at night)? [id number] Information not available 10/08/2021 Do you have difficulty concentrating, remembering or making decisions? No Information no t available 10/08/2021 Family History Relationship Description Onset Age of this Age Resolved Age Notes LastModified by Organization Details LastModified Time Mother Cerebrovascu lar accident [email or web address] Not available 11:21:55 Sister Malignant tumor of kidney cbuckler Not available 2021 11:21:32 Father Cerebrovascu lar accident cbuckler Not available 11:22:01 Medical History Condition Response Arthritis Y Gynecological History Statement/Question Response Menses Monthly N If Post Menopausal, Age at Menopause Date of Last Pap Smear Date of Last Colonoscopy 11/19/2019 Date of Last Mammogram Most Recent Bone Density 07/17/2023 Obstetrics History GPAL:G 1 P 0 0 0 1 Type Value Multiple Births 0 Full Term 0 Induced 0 Spontaneous 0 Premature 0 Living 1 Ectopics 0 Total 1 Immunizations Vaccine Type Date Status Note Provider Nam e and Address Organization Details Recorded Time zoster recombinant 4 completed Not Available [facility] 08/22/2024 09:57:02 RSV, bivalent, protein subunit RSVpreF, diluent reconstituted, 0.5 mL, PF 4 completed Not Available [facility] 08/22/2024 09:57:02 zoster recombinant 4 completed Not Available [facility] 08/22/2024 09:57:02 COVID-19, mRNA, LNP-S, PF, jasmina-sucrose, 30 mcg/0.3 mL 4 completed Not Available [facility] 08/22/2024 09:57:02 COVID-19, mRNA, LNP-S, PF, 30 mcg/0.3 mL dose, jasmina-sucrose 2 completed Silas Pino, [employer] [address], [place], [address], [place] - [facility] 01/10/2022 09:23:49 COVID-19, mRNA, LNP-S, PF, jasmina-sucrose, 30 mcg/0.3 mL 3 completed Dacia Bonner null, [place] - [facility] 02/03/2023 13:27:04 COVID-19 vaccine, vector-nr, rS-Ad26, PF, 0.5 mL 1 completed Dacia Bonner null, [place] [facility] 04/12/2022 10:26:21 COVID-19 vaccine, vector-nr, rS-Ad26, PF, 0.5 mL 1 completed Dacia Bon[place] [facility] 04/12/2022 10:26:21 Tdap 3 completed Daciagiancarlo Bonner null[place] [facility] 01/10/2022 08:55:11 zoster live 3 completed Dacia [place] [facility] 04/12/2022 10:26:21 Td (adult), 2 Lf tetanus toxoid, preservative free, adsorbed 7 completed Dacia Bon[place] null[place] [facility] 04/12/2022 10:26:22 Past Encounters Encounter ID Performer Location Encounter Start Date Encounter Closed Date Diagnosis/Indication Diagnosis SNOMED-CT Code Diagnosis ICD10 Code Diagnosis Note [id number] Phoenix Lara DO [facility] [address] [place] [address] 08/14/2024 08:39:13 08/14/2024 09:27:31 Hypercalcemia 87853446 E83.52 Hypercalce yaneth s/p parathyroi dectomy. Will repeat calcium labs today. Further treatment based on levels. Patient to keep scheduled appointmen t with ENT. (if Ca <8, restart calcium supplement ) Chronic anemia 125465934 D64.9 Chronic anemia. Will repeat labs today as requested. Patient will continue pantoprazo le as written. Community acquired pneumonia 099321420 J15.9 CAP. Advised patient to finish doxcycline course as directed. Urinary tr act infectious disease 44928586 N39.0 ESBL UTI. Patient will finish the course of ertapenem as written. Myocardial infarction 22 804896 I21.4 NSTEMI Type II. CAD with stent. Patient will continue asa and statin (no statin on med reconcilia tion). Patient to keep follow up with cardiology as scheduled. Hypertensive disorder 38 289380 I10 Hypertensi on. Controlled . Patient will continue amlodipine /atenolol as written. Chronic ki dney disease stage 4 571552856 N18.4 CKD G4. Will repeat testing today to follow. Health Concerns Section Related Observation LastModified by Organization Detai ls LastModified Time None Recorded Concern Status LastModified by Organization Details LastModified Time None Recorded Payers Encounter Date Sequence Insurance Name Policy Number Policy Causey Covered Member ID Causey Member ID Guarantor Name 08/14/2024 1 [place] Roseanne Tucker [id number] Roseanne Tucker 08/14/2024 2 [employer] (MEDICARE SUPPLEMENT) Roseanne Tucker [id number] Roseanne Tucker Notes Date Note Type Note Provider Name and Address Organization Details Recorded Time 08/14/2024 text/html 89-year-old kalie jarrett seen in the office today for a hospital follow-up.Patient was recently hospitalized for hypercalcemia. Patient had IV fluid and her hypercalcemia resolved. Patient was also found to have community-acquired pneumonia as well as urinary tract infection. Patient was also found to be anemic. Patient is here today for repeat labs including calcium level and CBC to delineate further treatment options. During that hospitalization patient also was found to have an NSTEMI and was started back on aspirin. Patient had an acute on chronic kidney injury that improved with IV fluids. Patient does have follow-up scheduled already with her television news photographer and with her PCP for next week. Phoenix Lara, [address], [place], [address], [place] [facility] 08/14/2024 09:17:04 OBGyn Episode No OBEpisode recorded.
--- OUTSIDE RECORDS SUMMARY | 2024-09-09 11:07 | XMS_ITS | Encounter Summary ---
Author Organization Healthcare Address [address] [place] [address] Care Team Providers Care Statement Distribution Clerk Name Role Phone Jessica Frey APRN Primary Care Provider [phone]- [phone] Encounter Details Date Type Department Care Team ([facility] st Contact Info) Description 08/15/2024 Abstract Medical Office Building Surgical Specialties [address], [address] [place] [address] [place] Social History Tobacco Use Types Packs/Day Years [...] How often do you attend chur or christianity services? 1 to 4 times per year 07/01/2024 Do you belong to any clubs o r organizations such as druze groups, unions, fraternal or athletic groups, or [...] care, and heating? Not very hard 07/01/2024 [facility] - Occupational Stress [...] any time in the past 12 m ont, were you homeless or living in a [...] on file documented as of this encounter Plan of Treatment Upcoming Encounters Date Type Department Care Team (Late st Contact Info) Description 09/13/2024 11:20 AM EDT Office Visit [facility] [address] [place] [address] Eryn Arias APRN [address] [facility] [address] [place] [address] 10/28/2024 1:20 PM EDT Office Visit Medical Office Building Surgical Specialties [address] [facility] [address], [address] [place] [address] Andrey Day MD [address] [phone] documented as of this encounter Goals Goal Patient Goal Type Associated Problems Recent Progress Patient-Stated? Author Autogenera sher Goal Care Plan Autogenerated Problem No Leanne Sierra documented as of this encounter Visit Diagnoses [...] documented as of this encounter Care Teams Statement Distribution Clerk Relationship Specialty Start Date End Date Jessica Frey APRN [address] [place] [address] PCP - General 07/31/20 documented as of this encounter
--- OUTSIDE RECORDS SUMMARY | 2024-09-09 11:07 | XMS_ITS | Data Portability ---
Author Organization [facility] SAMREEN Brown [place] [facility] Address [address] [place] [address] Care Team Providers Care Filter Worker Name Role Phone SILAS PINO Primary Care Provider Assessment No assessment recorded. Plan of Treatment Reminders Order Date Submit Date Provider Last Modified By Organization Details Last Modified Time Details Appointments None record ed. Lab None record ed. Referral None record ed. Procedures None record ed. Surgeries None record ed. Imaging None record ed. Medication Orders None record ed. Patient TargetsNo targets recorded. Patient InstructionsNo instructions recorded. Reason for Referral None Reported. 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 Procedures Surgical History Date Name Laterality Status Provider Name and Address Organization Details Recorded Time 3 Injection Joint/Bursa, Major completed Sarah Craft [facility] 09/23/2022 08:56:58 3 Injection Joint/Bursa, Major completed Galo EMERSON PA-C [facility] [place], [address], [facility] 2022 10:50:53 Imaging Results None recorded. Procedure Notes None recorded. Medical Equipment None Reported. Allergies Allergen ID Allergen Name Allergen Category Reaction Reaction Severity Criticality Documentation Date Start Date Code Code System Note Provider Name and Address Organization Details Recorded Time 999124 Daypro medicatio n Not available Not available Not available 02/11/20162005 80139 1 RxNorm Comme nt: Creat ed By: Mino Dominguez sher Date: 006 9:42: 37 AM; Not Available [facility] 6 10:24:15 310599 lisinopri l medicatio n Not available Not available Not available 08/10/20162015 13593 RxNorm Comme nt: Creat ed By: Soila Dominguez sher Date: 2015 4:56: 40 PM; Not Available [facility] 7 03:48:36 Medications Name Sig Start Date Stop Date Status Note LastModified by Organization Details LastModified Time atorvasta tin 40 mg tablet Take 1 tablet every day by oral route. active Not Available Not Available No t Available atenolol 100 mg tablet Daily active Duration: 30 days;Freq uency: daily;Med ication Descripti on: atenolol; Dosage:1; refills:0 ; Quantity: 30 Not Available Not Available Not Available Advil 200 mg tablet active Medicatio n Descripti on: ibuprofen ; Route:ora l; refills:0 Not Available Not Available Not Available aspirin 81 mg tablet Daily active Frequency : daily;Med ication Descripti on: aspirin; Dosage:1; refills:0 Not Available Not Available Not Available FORTICAL 200 unit/actu ation nasal spray active Medicatio n Descripti on: calcitoni nz-salmon ; Route:abigail al; refills:0 Not Available Not Available Not Available Hydrocodo ne As needed 06/20 completed Frequency : prn;Medic ation Descripti on: hydrocodo ne; refills:0 Not Available Not Available Not Available Vitals Date Recorded Body weight Provider Name an d Address Organization Details Last Updated DateTime 2022 10371.82 g Ari Crowder [facility] 10:17:23 Date Recorded Body height Provider Name an d Address Organization Details Last Updated DateTime 09/23/2022 157.[address] [facility] 0 09/23/2022 14:24:35 Social History None recorded. Functional Status None recorded. Mental Status None recorded. Family History Nothing Reported. Medical History No medical history recorded. Gynecological HistoryNo gynecological history recorded. Obstetrics History GPAL:G 0 P 0 0 0 0 Past Encounters Encounter ID Performer Location Encounter Start Date Encounter Closed Date Diagnosis/Indication Diagnosis SNOMED-CT Code Diagnosis ICD10 Code Diagnosis Note [id number] [facility] [address] 2016 19:44:10 2016 19:44:10 [id number] Galo EMERSON PA-C [facility] [address] [place] [address] 2022 10:03:43 2022 11:00:20 Pain of left knee joint 8985406341 50599 M25.562 New patient known to me from 2005 with right total knee arthroplas ty. Nonweightb earing radiograph s show severe joint arthritis. Treated with intra-bernabe cular injection. Neither myself nor the patient are interested in surgical interventi on at this stage. Follow-up as needed [id number] Galo EMERSON PA-C [facility] [address] [place] [address] 09/23/2022 14:21:21 09/23/2022 15:10:54 Osteoarthritis of knee 818244243 M17.9 Health Concerns Section Related Observation LastModified by Organization Detai ls LastModified Time None Recorded Concern Status LastModified by Organization Details LastModified Time None Recorded Advance Directives Directive None Recorded Payers Insurance Date Sequence Insurance Name Policy Number Policy Causey Covered Member ID Causey Member ID Guarantor Name 09/20/2022 1 [place]ICARE-[place]ARE[place] Roseanne Tucker [id number] Roseanne Tucker 09/27/2022 2 AARP (MEDICARE SUPPLEMENT) Roseanne Tucker [id number] Roseanne Tucker Notes Date Note Type Note Provider Name and Address Organization Details Recorded Time 3 text/html 23: 5 year history of LEFT knee pain. No specific trauma or other inciting event. 5/10 on average, described as aggravating. notes primary issue is rising from a seated position. Primary location of pain: globalPosterior pain: No posterior painSeverity of pain: 5/10 on average, 6 at worstMechanical symptoms: NoCrepitus: Occasional crepitus.Effusions: No effusionsFrequency of symptoms: dailyNight/rest pain: noExacerbating factors: prolonged weight bearing, ascending and descending stairs, certain flexion activitiesSubjective instability: OccasionalFalls: No Prior treatment:Provider: noneNSAIDs: OTC no relief. prescribed prednisone but is unsure if she should take it, per providers. does state it helps her pain. tylenol does notNarcotic medication: no Dose: Prescriber:Steroid injections: no relief. Date of last inj:Viscosupplementation: no relief. Date of last inj:PT: No Location: When: Focus: Benefit: no relief.Braces: noAmbulatory aids/assistive device: nonePrior surgery on knee: none Patient has unknown history of kidney disease per her telling. However she does not avoid any medications because of it. Also pertinent history is she had a right total knee arthroplasty by Julio in 2005. C KHLOE EMERSON PA-C [facility] [place], [address], [facility] 2022 10:51:02 OBGyn Episode No OBEpisode recorded.
--- OUTSIDE RECORDS SUMMARY | 2024-09-09 11:07 | XMS_ITS | Continuity of Care Document ---
Author Organization [facility] Address [address] [place] [address] Care Team Providers Care Automotive Lot Attendant Name Role Phone SILAS FREY Primary Care Provider [phone] [facility] Referring Provider Assessment Encounter Date Assessment Date Assessment LastModified by Organization Details LastModified Time 08/22/2024 08/22/2024 -Medications were reviewed and any necessary updates and renewals were made, patient instructed to complete as prescribed. -The potential side effects of medications were discussed. -Counseling was done on care goals and ways to prevent future hospitalizatio ns. -Further treatment per orders listed below. helene Not available 08/22/2024 10:11:23 Plan of Treatment Reminders Order Date Submit Date Provider Last Modified By Organization Details Last Modified Time Details Appointments Establish ed Patient 20 2024 11:20A M Silas Frey APRN Not available Not available Not available Lab culture, urine 2024 025 [facility], [address], [address], [place], [address], 08/24/2024 08:10:18 urinalysi s, dipstick 2024 025 [facility], [address] [facility], [place], [address], 08/22/2024 11:53:26 PTH (parathyr oid hormone), intact + calcium, serum or plasma 2024 025 [facility], [address], [address], [place], [address], 08/24/2024 08:10:17 vitamin D, 25-hydrox y, total, serum 2024 025 [facility], [address], [address], [place], [address], 08/24/2024 08:10:18 TSH + free T4, serum 2024 025 [facility], [address], [address], [place], [address], 08/24/2024 08:10:16 phosphoru s, serum or plasma 2024 025 [facility], [address], [address], [place], [address], 08/24/2024 08:10:18 BMP, serum or plasma 2024 025 [facility], [address], [address], [place], [address], 08/24/2024 08:10:17 Referral None recorded. Procedures None recorded. Surgeries None recorded. Imaging None recorded. Medication Orders None recorded. Patient TargetsNo targets recorded. Patient InstructionsNo instructions recorded. Reason for Referral None Reported. Results Created Date Observation Date Name Description Value Unit Range Abnormal Flag Note LastModifiedBy Organization Detail LastModifiedTime 08/23/1908/22/2024 urina lysis , dipst ick Leukocytes Negati ve Not Available [address], [address], 08/22/2024 10:58:40 08/23/19 25 08/22/2024 urina lysis , dipst ick Nitrite negati ve Not Available [address], [address], 08/22/2024 10:58:40 08/23/19 25 08/22/2024 urina lysis , dipst ick Urobilinogen .2 Not Available [place] [address], [address], 08/22/2024 10:58:40 08/23/19 25 08/22/2024 urina lysis , dipst ick Protein 300 Not Available [address], [address], 08/22/2024 10:58:40 08/23/19 25 08/22/2024 urina lysis , dipst ick pH 6.5 Not Available [address], [address], 08/22/2024 10:58:40 08/23/19 25 08/22/2024 urina lysis , dipst ick Blood Negati ve Not Available [address], [address], 08/22/2024 10:58:40 08/23/19 25 08/22/2024 urina lysis , dipst ick Specific [place] 1.020 Not Available [address], [address], 08/22/2024 10:58:40 08/23/19 25 08/22/2024 urina lysis , dipst ick Ketone Negati ve Not Available [address], [address], 08/22/2024 10:58:40 08/23/19 25 08/22/2024 urina lysis , dipst ick Bilirubin Negati ve Not Available [address], [address], 08/22/2024 10:58:40 08/23/19 25 08/22/2024 urina lysis , dipst ick Glucose Negati ve Not Available [address], [address], 08/22/2024 10:58:40 08/23/19 25 08/22/2024 urina lysis , dipst ick Appearance Clear Not Available [address], [address], 08/22/2024 10:58:40 08/23/19 25 08/22/2024 urina lysis , dipst ick Color Yellow Not Available [address], [address], 08/22/2024 10:58:40 08/08/19 25 08/07/2024 XR, chest , 2 view No observ ation record ed. [facility] [address], [place], [address], 08/09/2024 09:06:06 08/09/19 25 08/08/2024 stres s echoc ardio gram with doppl er color flow (PROC ) No observ ation record ed. [facility] [address], [place], [address], 08/09/2024 09:03:27 08/09/19 25 08/07/2024 elect jorge minergr am No observ ation record ed. [facility] [address], [place], [address], 08/09/2024 09:02:33 08/11/19 25 08/10/2024 CT, head + brain , w/o contr ast No observ ation record ed. [facility] [address], [place], [address], 08/13/2024 11:31:26 08/11/19 25 08/10/2024 CT, abdom en + pelvi s, w/o contr ast No observ ation record ed. [facility] [address], [place], [address], 08/13/2024 11:31:25 08/11/19 25 08/10/2024 CT, chest , w/o contr ast No observ ation record ed. [facility] [address], [place], [address], 08/13/2024 11:31:24 08/11/19 25 08/09/2024 elect jorge minerj carlos am No observ ation record ed. [facility] [address], [place], [address], 08/13/2024 11:31:26 Result Notes None recorded. Problems Name Problem SNOMED Code Status Onset Date Resolution Date Notes Provider Name and Address Organization Details Recorded Time Hyperlipidemia 36771538 Active 2021 Saminamartellgabby Zepedajayda, [employer]QUIPMENT INSPECTOR HEL[employer] [address], [place], [address], [place] - [facility] 2 08:53:27 Heart disease 48642285 Active 2021 Saminakimberlyn jayda, [employer] E[employer]MENT INSPECTOR HEL[employer] [address], [place], [address], [place] - [facility] 08:53:25 Arthritis 1634157 Active 2021 Saminamartellgabby Zepedaalbertelio, [employer] EQUIPMENT INSPECTOR HELPER [address], [place], [address], [place] [facility] 08:53:21 Chronic renal failure 55697799 Active 2021 Saminakimberlyn jayda, [employer] E[employer]IPMENT INSPECTOR HELPER [address], [place], [address], [place] - [facility] 2 08:53:43 Chronic kidney disease 492398229 Active 2021 Saminakimberlyn jayda, FI[employer] EQUIPMENT INSPECTOR HELPER [address], [place], [address], [place] [facility] 2 09:52:52 Rheumatoid arthritis 97473119 Active 2021 Silas Frey, FI[employer] EQUIPMENT INSPECTOR HELPER [address], [place], [address], [place] [facility] 3 10:59:57 Osteoporosis 09338947 Active 2022 Silas Frey, FI[employer] EQUIPMENT INSPECTOR HELPER [address], [place], [address], [place] [facility] 3 10:59:51 Anemia 993010148 Active 2022 Silas Frey, FI[employer] EQUIPMENT INSPECTOR HELPER [address], [place], [address], [place] [facility] 14:09:12 Hypertensive disorder 86432143 Active 2023 Silas Frey, FI[employer] EQUIPMENT INSPECTOR HELPER [address], [place], [address], [place] [facility] 4 11:07:03 Hypercalcemia 20088415 Active 2024 Phoenix Lara, DO [address], [place], [address], [place] [facility] 5 10:46:17 Chronic anemia 273782574 Active 2024 Phoenix Lara, DO [address], [place], [address], [place] [facility] 5 10:48:12 Community acquired pneumonia 238493224 Active 2024 Phoenix Lara, DO [address], [place], [address], [place] [facility] 5 10:49:24 Urinary tract infectious disease 91886832 Active 2024 Phoenix Lara, DO [address], [place], [address], [place] [facility] 5 10:50:01 Myocardial infarction 72701416 Active 2024 Phoenix Lara, DO [address], [place], [address], [place] [facility] 5 10:50:43 Chronic kidney disease stage 4 672566007 Active 2024 Phoenix Lara DO [address], [place], [address], [place] - [facility] 10:55:10 Problem Notes None recorded. Procedures Surgical History Date Name Laterality Status Provider Name and Address Organization Details Recorded Time 025 Medication Reconcilliation completed Dacia Bonner [place] - [facility] 08/22/2024 10:11:24 025 Medication Reconcilliation completed Compa Mary [place] - [facility] 08/14/2024 08:42:42 025 Nebulizer tx completed Celia Case [facility] 06/17/2024 14:25:08 024 Advance Care Planning completed Dacia Bonner [facility] 10/03/2023 10:54:05 024 Functional Status Assessed completed Daciagiancarlo Bonner [facility] 10/03/2023 10:54:05 024 Most Recent Bone Density completed Celia Case [facility] 04/04/2024 11:22:32 023 Medication Reconcilliation completed Celia Case [facility] 08/23/2022 10:57:44 023 Advance Care Planning completed Silas Frey APRN [address], [place], [address], [place] - [facility] 04/12/2022 10:50:43 023 Functional Status Assessed completed Dacia Bonner [facility] 04/12/2022 10:25:13 020 Date of Last Colonoscopy completed Dacia Bonner [place] - [facility] 10/28/2021 09:17:46 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 completed Dacia Bonner [facility] 10/08/2021 11:24:29 Unlisted px femur/knee completed Dacia Bonner [place] - [facility] 10/08/2021 11:24:41 operative procedure on knee completed Dacia Bonner [place] - [facility] 10/08/2021 11:25:18 parathyroidectomy completed Janice Bonner [place] [facility] 10/08/2021 11:25:32 Xcapsl ctrc rmvl cplx wo ecp completed Dacia [place] - [facility] 10/08/2021 11:25:59 placement of stent in cardiac conduit completed Dacia [place] - [facility] 10/08/2021 11:28:17 hysterectomy completed Dacia [place] - [facility] 10/28/2021 09:19:27 Hemorrhoidectomy completed Alisha [place] - [facility] 10/28/2021 09:20:06 Colonoscopy completed Dacia [place] [facility] 10/28/2021 09:20:19 Imaging Results None recorded. Procedure [...] Not Available Vitals Date Recorded Body height Body mass index (BMI) Body weight Heart rate Oxygen saturation Oxygen saturation in Arterial blood by Pulse oximetry Respiratory rate Systolic blood pressure Diastolic blood pressure Provider Name and Address Organization Details Last Updated DateTime 152.4 cm 24.8 kg/m2 79209.2 3 g 60 /min 96 % 96 % 18 /min 140 mm[Hg] 82 mm[Hg] Dacia Bonner [place] - [facility] 10:12:02 Social History Question Answer Notes LastModified by Organizat ion Details LastModified Time Tobacco Smoking Status Never Smoker Dacia Bonner null, [place] - [facility] 10/08/2021 11:22:30 Do You [...] Or The Highest Degree You Have Received? [id number] Information not available 10/08/2021 Have There Been Any Changes To Your Family Or Social Situation? No Information no t available 10/08/2021 What Is The Fluoride Status Of Your Home? Fluoridated Information not available 10/08/2021 Have You Recently Or Are You Planning To Travel To An Area With Zika Virus? No Information not available 10/08/2021 Do You Have A Medical Power Of Block Sorter? No Information not available 10/08/2021 What Was [...] anxious, or unable to sleep at night)? [id number] Information not available 10/08/2021 Do you have [...] Time zoster recombinant 4 completed Not Available [facility] 08/22/2024 09:57:02 RSV, bivalent, protein subunit RSVpreF, diluent reconstituted, 0.5 mL, PF 4 completed Not Available [facility] 08/22/2024 09:57:02 zoster recombinant 4 completed Not Available [facility] 08/22/2024 09:57:02 COVID-19, mRNA, LNP-S, PF, jasmina-sucrose, 30 mcg/0.3 mL 4 completed Not Available [facility] 08/22/2024 09:57:02 COVID-19, mRNA, LNP-S, PF, 30 mcg/0.3 mL dose, jasmina-sucrose 2 completed Silas Frey, FI[employer] EQUIPMENT INSPECTOR HELPER [address], [place], [address], [place] - [facility] 01/10/2022 09:23:49 COVID-19, mRNA, LNP-S, PF, jasmina-sucrose, 30 mcg/0.3 mL 3 completed Dacia Bonner null, [place] - [facility] 02/03/2023 13:27:04 COVID-19 vaccine, vector-nr, rS-Ad26, PF, 0.5 mL 1 completed Dacia [place], [place] - [facility] 04/12/2022 10:26:21 COVID-19 vaccine, vector-nr, rS-Ad26, PF, 0.5 mL 1 completed Dacia [place], [place] - [facility] 04/12/2022 10:26:21 Tdap 3 completed Dacia [place], [place] - [facility] 01/10/2022 08:55:11 zoster live 3 completed Dacia [place], [place] - [facility] 04/12/2022 10:26:21 Td (adult), 2 Lf tetanus toxoid, preservative free, adsorbed 7 completed Dacia Ka[place] null, [place] - [facility] 04/12/2022 10:26:22 Past Encounters Encounter ID Performer Location Encounter Start Date Encounter Closed Date Diagnosis/Indication Diagnosis SNOMED-CT Code Diagnosis ICD10 Code Diagnosis Note [id number] Phoenix Lara DO [facility] [address] [place] [address] 08/14/2024 08:39:13 08/14/2024 09:27:31 Hypercalcemia 16829420 E83.52 Hypercalce yaneth s/p parathyroi dectomy. Will repeat calcium labs today. Further treatment based on levels. Patient to keep scheduled appointmen t with ENT. (if Ca <8, restart calcium supplement ) Chronic anemia 136479649 D64.9 Chronic anemia. Will repeat labs today as requested. Patient will continue pantoprazo le as written. Community acquired pneumonia 926219254 J15.9 CAP. Advised patient to finish doxcycline course as directed. Urinary tr act infectious disease 07721080 N39.0 ESBL UTI. Patient will finish the course of ertapenem as written. Myocardial infarction 22 576102 I21.4 NSTEMI Type II. CAD with stent. Patient will continue asa and statin (no statin on med reconcilia tion). Patient to keep follow up with cardiology as scheduled. Hypertensive disorder 38 027871 I10 Hypertensi on. Controlled . Patient will continue amlodipine /atenolol as written. Chronic ki dney disease stage 4 940531742 N18.4 CKD G4. Will repeat testing today to follow. [id number] Silas Frey APRN [address] [address] 08/22/2024 09:56:42 08/22/2024 11:21:29 Hypercalcemia 30368863 E83.52 labs Acute urin lester tract infection 030880000 N39.0 Health Concerns Section Related Observation LastModified by Organization Detai ls LastModified Time None Recorded Concern Status LastModified by Organization Details LastModified Time None Recorded Payers Encounter Date Sequence Insurance Name Policy Number Policy Causey Covered Member ID Causey Member ID Guarantor Name 08/22/2024 1 [place] Roseanne Tucker [id number] Roseanne Tucker 08/22/2024 2 AARP (MEDICARE SUPPLEMENT) Roseanne Tucker [id number] Roseanne Tucker Notes Date Note Type Note Provider Name and Address Organization Details Recorded Time 08/22/2024 text/html 89 yr old female presents for a hospital follow up. She was in the hospital for high calcium following a parathyroidectom y. Silas Frey APRN [address], [place], [address], [facility] - [facility] 08/22/2024 11:01:20 OBGyn Episode No OBEpisode recorded.
--- OUTSIDE RECORDS SUMMARY | 2024-09-09 11:07 | XMS_ITS | Encounter Summary ---
Author Organization Healthcare Address [address] [place] [address] Care Team Providers Care Refrigerator Cabinetmaker Name Role Phone Jessica Frey BOOTH MANAGER Primary Care Provider +1- [phone] Encounter Details Date Type Department Care Team (Late Contact Info) Description 02/13/2023 Orders Only External Location [address] [place] [id number] Provider, External Social History Tobacco Use Types Packs/Day Years Used Date Smoking Tobacco: Never Passive Smoke Exposure: Never Smokeless Tobacco: Never Alcohol Use Standard Drinks/Week Comments No 0 (1 standard drink = 0.6 oz pur e alcohol) Comments Unknown Sex and Gender Information Value Date Recorded Sex Assigned at Not on file Legal Sex Female 7:46 PM EDT Gender Identity Not on file Sexual Orientation Not on file documented as of this encounter Plan of Treatment Upcoming Encounters Date Type Department Care Team (Late Contact Info) Description 09/13/2024 11:20 AM EDT Office Visit [facility] [address] [place] [address] Eryn Arias, BOOTH MANAGER [address] [facility] [address] [place] [address] 10/28/2024 1:20 PM EDT Office Visit Medical Office Building Surgical Specialties [address] [facility], [address] [place] [address] Andrey Day MD [address] [facility] [address] [place] [address] documented as of this encounter Procedures Procedure Name Priority Date/Time Associated Diagnosis Comments NM OUTSIDE IMAGES 02/13/2023 9:42 AM EST documented in this encounter Results * NM OUTSIDE IMAGES (02/13/2023 9:42 AM EST) Anatomical Region Laterality Modality Nuclear Medicine 02/13/2023 9:42 AM EST us External Provider IMG NM PROCEDURES Final Result documented in this encounter Visit Diagnoses Not on filedocumented in this encounter Additional Health Concerns Assessment Noted Time A fall risk assessment has been complete d for the patient 01/23/2023 12:05 PM EST A Body Mass Index follow-up plan has been documented for the patient 01/23/2023 12:37 PM EST documented as of this encounter Care Teams Refrigerator Cabinetmaker Relationship Specialty Start Date End Date Jessica Frey APRN [address] [place], [place] [id number] PCP - General 07/31/20 documented as of this encounter
--- OUTSIDE RECORDS SUMMARY | 2024-09-09 11:08 | XMS_ITS | Encounter Summary ---
Author Organization Healthcare Address [address] [place] [address] Care Team Providers Care Soldering Machine Operator Automatic Name Role Phone Jessica Frey APRN Primary Care Provider +1- [phone] Encounter Details Date Type Department Care Team (Latest Contact Info) Description 07/18/2024 Travel Social History Tobacco Use Types Packs/Day Years [...] 07/01/2024 How often do you attend chur ch or anglican services? 1 to 4 times per year 07/01/2024 Do you belong to any clubs o r organizations such as scientologist groups, unions, fraternal or athletic groups, or [...] care, and heating? Not very hard 07/01/2024 [facility] - Occupational [...] the past 12 months has th e [employer], gas, oil, or water [employer] threatened to shut off services in your [...] Description 09/13/2024 11:20 AM EDT Office Visit [facility] [address] [place] [id number] Eryn Arias, FOREST FIRE MANAGEMENT OFFICER [address] [facility] [address] [place] [address] 10/28/2024 1:20 PM EDT Office Visit Medical Office Building Surgical Specialties [address] [facility], [address] [place] [address] Andrey Day MD [address] [place] [phone] documented as of this encounter Goals Goal [...] documented as of this encounter Care Teams Soldering Machine Operator Automatic Relationship Specialty Start Date End Date Jessica Frey APRN [address] [place], [place] [id number] PCP - General 07/31/20 documented as of this encounter
--- OUTSIDE RECORDS SUMMARY | 2024-09-09 11:08 | XMS_ITS | Encounter Summary ---
Author Organization Healthcare Address [address] [place] [address] Care Team Providers Care Agricultural Engineering Technicians Name Role Phone Jessica Frey APRN Primary Care Provider +1- [phone] Encounter Details Date Type Department Care Team (Latest Contact Info) Description 08/01/2024 Travel Social History Tobacco Use Types Packs/Day [...] often do you attend chur ch or pentecostal services? 1 to 4 times per year 07/01/2024 Do you belong to any clubs o r organizations such as spiritism groups, unions, fraternal or athletic groups, or [...] care, and heating? Not very hard 07/01/2024 [facility] - Occupational [...] were you homeless or living in a prison (including now)? No 07/01/2024 Utilities Answer Date Recorded In the past 12 months has th e [employer], gas, oil, or water [employer] threatened to shut off services in your home? No 07/01/2024 Comments No Sex and Gender Information Value Date Recorded Sex Assigned at Not on file Legal Sex Female 7:46 PM EDT Gender Identity Not on file Sexual Orientation Not on file documented as of this encounter Functional Status * Calculated C-SSRS Risk Score (Lifetime/Recent) Answer Date of Assessment Author No Risk Indicated 08/01/2024 8:00 PM EDT Josue, O ctavia * Question Answer Date of Assessment Author 1. Wish to be (Past 1 Month) No 025 8:00 PM EDT Josue, [place] 2. Non-Specific Active Suici marycruz Thoughts (Past 1 Month) No 08/01/2024 8:00 PM EDT Josue, Gabriella 6. Suicidal Behavior (Lifetime) No 5 8:00 PM EDT Josue, [place] documented as of this encounter Plan of Treatment Upcoming Encounters Date Type Department Care Team (Late st Contact Info) Description 09/13/2024 11:20 AM EDT Office Visit [facility] [address] [place] [address] Eryn Arias, LIFE SCIENCE TECHNICIAN [address] [facility] [address] [place] [address] 10/28/2024 1:20 PM EDT Office Visit Medical Office Building Surgical Specialties [address] [facility], [address] [place] [address] Andrey Day MD [address] [place] [phone] documented as of this encounter Goals Goal [...] documented as of this encounter Care Teams Agricultural Engineering Technicians Relationship Specialty Start Date End Date Jessica Frey APRN [address] [place] [address] PCP - General 07/31/20 documented as of this encounter
--- OUTSIDE RECORDS SUMMARY | 2024-09-09 11:08 | XMS_ITS | Encounter Summary ---
Author Organization Healthcare Address [address] [place] [address] Care Team Providers Care Doctor Of Chiropractic Name Role Phone Jessica Frey APRN Primary Care Provider +1- [phone] Encounter Details Date Type Department Care Team (Latest Contact Info) Description 08/19/2024 Travel Social History Tobacco Use Types Packs/Day [...] often do you attend chur ch or scientology services? 1 to 4 times per year 07/01/2024 Do you belong to any clubs o r organizations such as uatsdin groups, unions, fraternal or athletic groups, or [...] Recorded Patient Health Questionnaire-2 Score 0 08/19/2024 [facility] - Occupational Stress [...] were you homeless or living in a senior living (including now)? No 07/01/2024 Utilities Answer Date [...] as of this encounter Functional Status * Over the [...] [place] documented as of this encounter Plan of Treatment Upcoming Encounters Date Type Department Care Team (Late st Contact Info) Description 09/13/2024 11:20 AM EDT Office Visit [facility] [address] [place] [address] Eryn Arias, GRAPHIC DESIGN SPECIALIST [address] [facility] [address] [place] [address] 10/28/2024 1:20 PM EDT Office Visit Medical Office Building Surgical Specialties [address] [facility], [address] [place] [address] Andrey Day MD [address] [place] [phone] documented as of this encounter Goals Goal Patient Goal Type Associated Problems Recent Progress Patient-Stated? Author Autogenera sher Goal Care Plan Autogenerated Problem No [place] beg[place] Jesú[place] documented as of this encounter Visit [...] documented as of this encounter Care Teams Doctor Of Chiropractic Relationship Specialty Start Date End Date Jessica Frey APRN [address] [place] [address] PCP - General 07/31/20 documented as of this encounter
--- OUTSIDE RECORDS SUMMARY | 2024-09-09 11:08 | XMS_ITS | Clinical Summary ---
Author Organization Healthcare Address [address] [place] [address] Care Team Providers Care Lead Care Manager Name Role Phone Jessica Frey APRN Primary Care Provider [phone] Allergies Active Allergy Reactions Criticality Noted Date Comments Atorvastatin Unknown - Patient st ates they do not know rxn details Low 09/21/2021 Lisinopril Nausea,Vomiting Low 01/27/2016 Oxaprozin Nausea Low 11/22/2005 Medications atenolol (Tenormin) 100 MG tablet Take 1 tablet by mouth daily. 6 Active diclofenac (Voltaren) 1 % topical gel Place on the skin if needed. Apply as directed to Active amLODIPine (Norvasc) 5 MG tablet Take 1 tablet by mouth every other day. 3 Active ergocalciferol 1.25 MG (97421 UT) capsule Take 1 capsule by mouth 1 time per week. 3 Active ferrous sulfate 324 (65 Fe) MG EC tablet Take 1 tablet by mouth 2 times a week. Do not crush, chew, or split. Active LOW-DOSE ASPIRIN PO 81 mg daily. Active predniSONE (Deltasone) 5 MG tablet Take 1 tablet by mouth daily. 3 Active acetaminophen (Tylenol) 325 MG tablet Take 2 tablets by mouth every 6 hours. Under [place] law, monthly prescriptions (30 days) can be refilled at 25 days and three-month prescriptions (90 days) at 80 days. Please contact the insurance company with questions if refills are denied. 100 tablet Active Additional Information Patient not taking.Reported on 08/19/2024 calcitriol (Rocaltrol) 0.25 MCG capsule Take 1 capsule by mouth 2 times a day. 60 capsule Active Additional Information Patient not taking.Reported on 08/19/2024 calcium carbonate (Tums Ultra) 1000 MG chewable tablet Chew 1 tablet 2 times a day. 60 tablet Active Additional Information Patient not taking.Reported on 08/19/2024 doxycycline (Vibramycin) 100 MG capsule Take 1 capsule by mouth 2 times a day. Active hydrALAZINE (Apresoline) 25 MG tablet Take 1 tablet by mouth daily. Active isosorbide dinitrate (Isordil) 10 MG tablet Take 1 tablet by mouth. Active pantoprazole (Protonix) 40 MG EC tablet Take 1 tablet by mouth daily. Active Active Problems Problem Noted Date Diagnosed Date Hyperparathyroidism 08/01/2024 Hypercalcemia 07/01/2024 Primary hyperparathyroidism 07/01/2024 Age related osteoporosis 07/27/2023 Anemia of chronic renal failure, stage 4 (severe ) 02/18/2022 Anemia due to chronic kidney disease 01/02/2017 Renal osteodystrophy 02/23/2016 Proteinuria 12/21/2015 Hypertension 12/14/2015 CKD (chronic kidney disease) stage 4, GFR 15-29 ml/min 11/30/2015 Anemia Coronary artery disease Encounters Date Type Department Care Team Description 08/19/2024 1:45 PM EDT Clinical Support Medical Office Building [facility] [address], [address] [place] [address] Olimpia Gorman RN 08/19/2024 Travel 08/15/2024 Abstract Medical Office Building [facility] [address], [address] [place] [address] [place] 08/01/2024 9:40 AM EDT - 08/01/2024 11:40 AM EDT Surgery [facility] Operating Room [address] [place] [address] Andrey Day MD PARATHYROIDECTOMY, REPEAT EXPLORATION- localized [76867 (CPT )] 08/01/2024 9:23 AM EDT Anesthesia Event [facility] Operating Room [address] [place] [address] Zbigniew Mccrary MD Ellis, Teresa W, CODING TECH 08/01/2024 6:52 AM EDT - 08/02/2024 2:48 PM EDT Hospital Encounter [facility] Inpatient [address] [place] [address] Andrey Day MD Primary hyperparathyroidism (CMS/HCC) Discharge Disposition: Home or Self Care 08/01/2024 Travel 07/18/2024 1:15 PM EDT Pre-Admission Testing [facility] Anesthesia [address] [place] [address] Preop examination (Primary Dx); Primary hypertension; Anemia due to stage 4 chronic kidney disease; Primary hyperparathyroidism (CMS/HCC); Age-related osteoporosis without current pathological fracture 07/18/2024 Travel 07/01/2024 11:20 AM EDT Consult Medical Office Building [facility] [address], [address] [place] [address] Andrey Day MD Hypercalcemia (Primary Dx); Primary hyperparathyroidism (CMS/HCC) 07/01/2024 Orders Only External Location [address] [place] [address] Provider, External 07/01/2024 Travel 06/27/2024 Abstract Medical Office Building [facility] [address], [address] [place] [address] [place] from Last 3 Months Immunizations Immunization Administration Dates Next Due Wickr COVID-19 Vaccine (Blue Cap) 18+ 01/30/20 21,06/25/2020 Pfizer Covid-19 Vaccine 12y+ , Joshua Protein, PF, Alfredo-Sucrose 02/03/2023 BioPheresis COVID-19 Vac cine (Simon Cap) 12+ years (alfredo-sucrose) 01/10/2022 Rsv, Bivalent, Protein Subun it Rsvpref, Diluent Reconstituted, 0.5mL, PF 01/25/2024 TD (adult), 2 Lf tetanus tox oid, preservative free, adsorbed 05/25/1996 Tdap 01/07/2013 Zoster, Recombinant 01/25/2024,11/01/2023 Zoster, live 01/07/2013 Family History Medical History Relation Name Comments Lung cancer Father Other cancer Father Stroke Father Other cancer Mother Ovarian cancer Mother Stroke Mother Kidney cancer Sister Anesthesia problems Neg Hx Malig Hyperthermia Neg Hx Relation Name Status Comments Father Mother Sister Social History Tobacco Use Types Packs/Day Years Used Date Smoking Tobacco: Never Passive Smoke Exposure: Never Smokeless Tobacco: Never Tobacco Cessation:Counseling Given: Not Answered Alcohol Use Standard Drinks/Week Comments No 0 [...] week 07/01/2024 How often do you attend [facility] or shinto services? 1 to 4 times per year 07/01/2024 Do you belong to any clubs o r organizations such as sikh groups, unions, fraternal or athletic groups, or [...] Recorded Patient Health Questionnaire-2 Score 0 08/19/2024 [facility] - [...] were you homeless or living in a correction (including now)? No 07/01/2024 Utilities Answer Date Recorded In the past 12 months has th e electric, gas, oil, or water [employer] threatened to shut off services in your home? No 07/01/2024 Comments No Sex and Gender Information Value Date Recorded Sex Assigned at Not on file Legal Sex Female 7:46 PM EDT Gender Identity Not on file Sexual Orientation Not on file Last Filed Vital Signs Vital Sign Reading [...] Mass Index 24.2 08/19/2024 1:32 PM EDT Plan of Treatment Upcoming Encounters Date Type Department Care Team (Late st Contact Info) Description 09/13/2024 11:20 AM EDT Office Visit [facility] [address] [place] [address] Eryn Arias APRN [address] [place] [address] 10/28/2024 1:20 PM EDT Office Visit Medical Office Building Surgical Specialties [address], [address] [place] [address] Andrey Day MD [address] [facility] [address] [place] [address] Health Maintenance Due Date Last Done Comments [facility]-Medicare Annual Wellness (AWV) 1935 [facility]-Infant/Child/Adol SDOH Screenings 1935 [facility]-Pneumococcal Vaccine: 50+ Years (1 of 1 - PCV) 06/21/1987 [facility]-DTaP,Tdap,and Td Vaccines (2 - Td or Tdap) 01/07/2023 01/07/2013, 05/25/1996 [facility]-Bone Density Scan 07/16/2024 07/17/2023 [id number] Vaccine ( season) 2024 03/01/2024, 02/03/2023, 01/10/2022, Additional history exists [facility]-Influenza Vaccine (Season Ended) 2024 [facility]- SDOH Screenings 12/31/2024 [facility]-Adult SDOH Screenings 12/31/2024 07/01/2024 [facility]-Depression Screening 08/19/2025 08/19/2024 [facility]-RSV Vaccine: 60+ Years or Completed 01/25/2024 [facility]-Zoster Vaccines Completed 01/25/2024, 11/01/2023, 01/07/2013 HPV Vaccines Aged Out No longer eligi ble based on patient's age to complete this topic [facility]-HIB Vaccines Aged Out No longer e ligible based on patient's age to complete this topic [facility]-Hepatitis A Vaccines Aged Out No longer eligible based on patient's age to complete this topic [facility]-IPV Vaccines Aged Out No longer e ligible based on patient's age to complete this topic [facility]-Rotavirus Vaccines Aged Out No lo nger eligible based on patient's age to complete this topic Goals Goal Patient Goal Type Associated Problems Recent Progress Patient-Stated? Author Autogenera sher Goal Care Plan Autogenerated Problem No Leanne Sierra Procedures Procedure Name Priority Date/Time Associated Diagnosis Comments TOTAL CALCIUM, PLASMA STAT 08/19/2024 1:03 PM EDT Hypercalcemia PTH INTACT TOTAL STAT 08/19/2024 1:03 PM EDT Hypercalcemia MAGNESIUM, PLASMA Routine 08/02/2024 2:2 4 AM EDT TOTAL CALCIUM, PLASMA Routine 08/02/2024 2:24 AM EDT PTH INTACT TOTAL Routine 08/02/2024 2:24 AM EDT INTRAOPERATIVE PTH STAT 08/01/2024 10:41 AM EDT Primary hyperparathyroidism (CMS/HCC) SURGICAL PATHOLOGY EXAM Routine 08/01/2024 10:34 AM EDT Primary hyperparathyroidism (CMS/HCC) INTRAOPERATIVE PTH STAT 08/01/2024 10:20 AM EDT Primary hyperparathyroidism (CMS/HCC) INTRAOPERATIVE PTH STAT 08/01/2024 10:07 AM EDT Primary hyperparathyroidism (CMS/HCC) INTRAOPERATIVE PTH STAT 08/01/2024 9: 57 AM EDT Primary hyperparathyroidism (CMS/HCC) HC ENDOTRACHEAL TUBE Routine 08/01/2024 9:31 AM EDT PB ANESTHESIA PLACEHOLDER Routine 08/01/2024 9:31 AM EDT IL AN ELECTIVE ENDOTRACHEAL AIRWAY Routine 08/01/2024 9:31 AM EDT AUTOTRANSPLANTATION, PARATHYROID 08/01/2024 9:08 AM EDT Primary hyperparathyroidism (CMS/HCC) IL RE-EXPLORE PARATHYROIDS 08/01/2024 9:08 AM EDT Primary hyperparathyroidism (CMS/HCC) INTRAOPERATIVE PTH Routine 08/01/2024 8: 40 AM EDT BASIC METABOLIC PANEL, PLASMA Routine 07/18/2024 1:55 PM EDT Preop examination CBC W/O DIFFERENTIAL Routine 07/18/2024 1:55 PM EDT Preop examination ECG ADULT Routine 07/18/2024 1:43 PM EDT Preop examination POC ULTRASOUND 07/01/2024 from Last 3 Months Results * (ABNORMAL) PTH Intact Total (08/19/2024 1:03 PM EDT) Only the most recent of2 resultswithin the time period is included. PTH Intact Total 93(H) 9 - 77 pg/mL 08/19/2024 6:25 PM EDT [facility] Blood Venous blood specimen / Unknown Venipuncture / Unknown 08/19/2024 1:03 PM EDT 08/19/2024 1:03 PM EDT Narrative [facility] - 08/19/2024 6:25 PM EDT Assay performed by immunoassay at the [facility]. Performed on [employer] chemiluminescent immunoassay, tractable to the World Health Organization's first international standard for PTH from the BS, Code 79/500. Results obtained from different test methods or kits cannot be used interchangeably. Andrey Day MD LAB BLOOD ORDERABLES Final Result Performing Organization Address City/[facility] Co de Phone Number [facility] [address] [place] [address] * Total Calcium, Plasma (08/19/2024 1:03 PM EDT) Only the most recent of2 resultswithin the time period is included. Total Calcium, Plasma 10.2 8.9 - 10.2 mg/dL 08/19/2024 3:06 PM EDT [facility] Blood Venous blood specimen / Unknown Venipuncture / Unknown 08/19/2024 1:03 PM EDT 08/19/2024 1:03 PM EDT Andrey Day MD LAB BLOOD ORDERABLES Final Result Performing Organization Address City/[facility] Co de Phone Number [facility] [address] [place] [address] * Magnesium, Plasma (08/02/2024 2:24 AM EDT) Magnesium, Plasma 1.9 1.9 - 2.4 mg/dL 08/02/2024 3:36 AM EDT [facility] Blood Venous blood specimen / Unknown Venipuncture / Unknown 08/02/2024 2:24 AM EDT 08/02/2024 3:06 AM EDT Andrey Day MD LAB BLOOD ORDERABLES Final Result [facility] [address] [place] [address] * Intraoperative PTH (08/01/2024 10:41 AM EDT) Only the most recent of5 resultswithin the time period is included. Intraoperative PTH 57 pg/mL 2024 11:03 AM EDT [facility] Time of Collection 1041 2024 11:03 AM EDT [facility] Blood Venous blood specimen / Unknown 08/01/2024 10:41 AM EDT 08/01/2024 10:45 AM EDT Comment:Pre-op diagnosis: Primary hyperparathyroidism (CMS/HCC) [E21.0] Narrative [facility] - 08/01/2024 11:03 AM EDT [...] BLOOD ORDERABLES Final Result Performing Organization Address [facility] Co de Phone Number [facility] [address] [place] [address] * Surgical Pathology Exam (08/01/2024 10:34 AM EDT) Case Report Surgical Pathology Case: [id number] Authorizing Provider: Andrey Day MD Collected: 08/01/2024 1034 Ordering Location: [facility] Operating Room Received: 08/01/2024 1041 Pathologist: Nadine Mann MD Intraop: Alyssa Galindo MD Specimens: A) - Parathyroid, Biopsy right superior parathyroid gland. B) - Parathyroid, Right inferior parathyroid. C) - Parathyroid, Right superior parathyroid. D) - Parathyroid, Left superior parathyroid. 10:00 AM EDT [facility] Final Diagnosis A. RIGHT SUPERIOR PARATHYROID, BIOPSY: - HYPERCELLULAR PARATHYROID (0.13 G). B. RIGHT INFERIOR PARATHYROID, PARATHYROIDECTOMY: - HYPERCELLULAR PARATHYROID (0.2 G). C. RIGHT SUPERIOR PARATHYROID, PARATHYROIDECTOMY: - HYPERCELLULAR PARATHYROID (0.6 G). D. LEFT SUPERIOR PARATHYROID, PARATHYROIDECTOMY: - HYPERCELLULAR PARATHYROID (0.6 G). 10:00 AM EDT [facility] at 1000 EDT Comment:This is an appended report. These results have been appended to a previously preliminary verified report. Clinical Information Primary hyperparathyroidism (CMS/HCC) [E21.0] 10:00 AM EDT [facility] Comment:This is an appended report. These results have been appended to a previously preliminary verified report. Intraoperative Consultation A. BIOPSY RIGHT SUPERIOR PARATHYROID GLAND. FSA: HYPERCELLULAR PARATHYROID, 0.13 GRAMS. 10:00 AM EDT [facility] Gross Description A. BIOPSY RIGHT SUPERIOR PARATHYROID GLAND. Received fresh for frozen section labeled biopsy superior parathyroid gland is a yellow-boss soft tissue fragment measuring 0.6 x 0.5 x 0.3 cm and weighing 0.13 g. Submitted on FSA for frozen section evaluation with frozen remnant entirely submitted in cassette A1. Cold Time: 43m Trang Giudry B. RIGHT INFERIOR PARATHYROID. Received in formalin [...] to D2. Cold Time: 24m Trang Guidry 10:00 AM EDT [facility] Comment:This is an appended [...] MD LAB PATHOLOGY ORDERABLES Fi nal Result [facility] [address] [place] [address] * IL AN ELECTIVE ENDOTRACHEAL AIRWAY, PB ANESTHESIA PLACEHOLDER, HC ENDOTRACHEAL TUBE (08/01/2024 9:31 AM EDT) Narrative Rajeev Lucio CRNA - 08/01/2024 9:31 AM EDT Rajeev Lucio CRNA 08/01/2024 9:52 AM Airway Date/Time: 08/01/2024 9:31 AM Reason: elective Airway not difficult General Information and Staff Patient location during procedure: OR SUPERINTENDENT LOGGING: Rajeev Lucio CRNA Performed: SUPERINTENDENT LOGGING Patient Condition Indications for airway management: anesthesia [...] us Zbigniew Mccrary MD ANESTHESIA ORDERABLES Dayna kriss Result * (ABNORMAL) CBC (07/18/2024 1:55 PM EDT) [facility] WBC Count 8.08 3.70 - 10.30 10*3/uL LAB HEMATOLOGY METHOD 07/18/2024 5:46 PM EDT [facility] RBC Count 3.88(L) 3.90 - 5.20 10*6/uL LAB HEMATOLOGY METHOD 07/18/2024 5:46 PM EDT [facility] HGB 11.7 11.2 - 15.7 g/dL LAB HEMATOLOGY METHOD 07/18/2024 5:46 PM EDT [facility] HCT 38.2 34.0 - 45.0 % LAB HEMATOLOGY METHOD 07/18/2024 5:46 PM EDT [facility] Platelet Count 205 155 - 369 10*3/uL LAB HEMATOLOGY METHOD 07/18/2024 5:46 PM EDT [facility] MCV 99(H) 79 - 98 fL LAB HEMATOLOGY METHOD 07/18/2024 5:46 PM EDT [facility] MCH 30.2 26.0 - 32.0 pg LAB HEMATOLOGY METHOD 07/18/2024 5:46 PM EDT [facility] MCHC 30.6(L) 30.7 - 35.5 g/dL LAB HEMATOLOGY METHOD 07/18/2024 5:46 PM EDT [facility] RDW 14.0 11.5 - 14.5 % LAB HEMATOLOGY METHOD 07/18/2024 5:46 PM EDT [facility] MPV 10.7 8.8 - 12.5 fL LAB HEMATOLOGY METHOD 07/18/2024 5:46 PM EDT [facility] nRBC 0.0 <=0.0 per 100 WBCs LAB HEMATOLOGY METHOD 07/18/2024 5:46 PM EDT [facility] Blood Venous blood specimen / Unknown Venipuncture / Unknown 07/18/2024 1:55 PM EDT 07/18/2024 1:55 PM EDT Claudia Armando APRN LAB BLOOD ORDERABLES Final R esult [facility] [address] [place] [address] * (ABNORMAL) Basic metabolic panel (07/18/2024 1:55 PM EDT) [facility] Glucose, Plasma 131(H) 74 - 99 mg/dL 07/18/2024 6:16 PM EDT [facility] BUN, Plasma 30(H) 8 - 23 mg/dL 07/18/2024 6:16 PM EDT [facility] Creatinine, Plasma 2.75(H) 0.60 - 1.10 mg/dL 07/18/2024 6:16 PM EDT [facility] BUN/Creatinine Ratio 11 07/18/2024 6:16 PM EDT [facility] Sodium, Plasma 143 136 - 145 mmol/L 07/18/2024 6:16 PM EDT [facility] Potassium, Plasma 4.1 3.6 - 4.9 mmol/L 07/18/2024 6:16 PM EDT [facility] Chloride, Plasma 107 97 - 107 mmol/L 07/18/2024 6:16 PM EDT [facility] CO2, Plasma 25 22 - 29 mmol/L 07/18/2024 6:16 PM EDT [facility] Anion Gap 11 6 - 16 mmol/L 07/18/2024 6:16 PM EDT [facility] Total Calcium, Plasma 10.2 8.9 - 10.2 mg/dL 07/18/2024 6:16 PM EDT [facility] eGFRcr 16.2 mL/min/1.7 3m*2 07/18/2024 6:16 PM EDT [facility] Comment:Reported eGFRcr in m L/min/1.73m2 is based the CKD-EPI 2020 equation that does not use a race coefficient. Blood Venous blood specimen / Unknown Venipuncture / Unknown 07/18/2024 1:55 PM EDT 07/18/2024 1:55 PM EDT us Claudia Armando APRN LAB BLOOD ORDERABLES Final R esult [facility] [address] [place] [address] * ECG Adult (Now - Performed in your clinic) (07/18/2024 1:43 PM EDT) EKG DIAGNOSIS CLASS Abnormal MUSE ECG Ventricular Rate 59 BPM MUSE ECG Atrial Rate 59 BPM MUSE ECG IL Interval 212 ms MUSE ECG QRSD Interval 80 ms MUSE ECG QT Interval 418 ms MUSE ECG QTC Interval 413 ms MUSE ECG P Hills -9 degrees MUSE ECG R [place] -45 degrees MUSE ECG T [place] 28 degrees MUSE ECG Diagnosis Sinus bradycardia with 1st degree AV block MUSE ECG Diagnosis Left axis deviation MUSE ECG Diagnosis Anterior infarct , age undetermined MUSE ECG Diagnosis MUSE ECG Diagnosis MUSE ECG Diagnosis Confirmed by Magda Vegas ([id number]) on 07/20/2024 6:55:21 AM MUSE ECG 07/18/2024 1:43 PM EDT 07/20/2024 6:55 AM EDT us Claudia Cliff Armando CODING TECH ECG ORDERABLES Final Result Performing Organization Address [facility] Co de Phone Number MUSE ECG * POC Imaging (07/01/2024) Anatomical Region Laterality Modality Pelvis Other 07/01/2024 us External Provider IMG POINT OF CARE ULTRASOUND F inal Result from Last 3 Months Additional Health Concerns Active Problems Noted Date Diagnosed Date Autogenerated Problem 07/01/2024 [place] [address] [employer] Advance Directives * Full Code (Latest Code Status on File) Date Activated Date Inactivated Comments 08/01/2024 11:51 AM 08/02/2024 4:53 PM Question Answer Comments I have reviewed the capacity from the link above and, if needed, have updated to appropriate status: Yes Care Teams Lead Care Manager Relationship Specialty Start Date End Date Jessica Frey APRN [address] [place] [id number] PCP - General 07/31/20
[2024-09-09 11:22] LABS: Albumin Level 3.6 g/dl (3.5-5.0); Anion Gap 7.4 mEq/L (5-15); Blood Urea Nitrogen 31 mg/dl (7-17); Calcium 9.9 mg/dl (8.4-10.2); Carbon Dioxide 25 mmol/L (22.0-30.0); Chloride 110 mmol/L (98-107); Estimated Glomerular Filt Rate 17 ml/min (>60); GFR (African American) 21 ML/MIN (>60); Glucose 125 mg/dl (74-100); Phosphorous 3.9 mg/dl (2.5-4.5); Potassium 4.4 mmoL/L (3.5-5.1); Sodium 138 mmol/L (136-145)
[2024-09-09 11:32] LABS: Intact Parathyroid Hormone 66.4 pg/mL (7.5-53.5)
== END 2024-09-09 23:59 | disposition home or self-care (01) ==
LOC: LAB 10:35
PROVIDERS: PCP Nurse Practitioner Family; Visit Provider Nurse Practitioner
DX: E83.52 Hypercalcemia (principal)
CPT/HCPCS: 36415; 80069; 83970